=== PATIENT | male | born 1960 | race African-American/Black ===

== ENCOUNTER 2016-06-03 23:54 | Emergency (ER) | payer OTHER ==
--- NOTE | 2016-06-04 00:38 | ER Document Report ---
ED General <HENOK HAILE - Last Filed: 06/04/16 10:30> - General TRAVEL OUTSIDE OF THE [place] IN LAST 30 DAYS: No <ANNA KNIGHT - Last Filed: 06/05/16 06:22> - General Chief Complaint: Leg Swelling Stated Complaint: LEG SWELLING Notes: Patient is 56-year-old male presents with complaints of having some pain into his extremities. He says is more soreness. Saysactually his upper extremities and it hurts when he extends his arms it causes pain and raised over his neck. She's had this pain in the past. This is not a new pain for him. He saw the skilled nursing medical provider and they're concerned she is developing some edema in his lower extremities which has been occurring over last will days. Therefore send him to the ER for evaluation because of his previous history of PE. Patient is currently on Xarelto. He was admitted to the hospital back in March because of angioedema from lisinopril. He also developed delirium tremens. He is in the hospital for long period time and eventually developed pulmonary emboli. He was eventually discharged home on Xarelto. At that time is also noted that he had superficial venous thrombosis in his legs but no DVT. He denies any chest pain or difficulty breathing. He has no other complaints at this time. ( ANNA KNIGHT) - Related Data Allergies/Adverse Reactions: KELLIE Inhibitors Allergy (Severe, Verified 03/30/16 09:12) Anaphylaxis lisinopril Allergy (Verified 03/23/16 13:24) Past Medical History - Social History Smoking Status: Unknown if Ever Smoked Frequency of alcohol use: former alcoholic Drug Abuse: None Family History: Hypertension - Past Medical History Cardiac Medical History: Reports: Hx Hypertension Pulmonary Medical History: Reports: Hx Asthma Musculoskeltal Medical History: Reports Hx Arthritis, Reports Hx Musculoskeletal Deformity, Reports Hx Musculoskeletal Trauma Psychiatric Medical History: Denies: Hx Depression Traumatic Medical History: Reports: Hx Fractures - ankle - Immunizations Hx Diphtheria, Pertussis, Tetanus Vaccination: Yes <ANNA KNIGHT - Last Filed: 06/05/16 06:22> Review of Systems <HENOK HAILE - Last Filed: 06/04/16 10:30> <ANNA KNIGHT - Last Filed: 06/05/16 06:22> - Review of Systems Notes: My Normal Review Basic REVIEW OF SYSTEMS: CONSTITUTIONAL : Denies fever, chills, or sweats. Denies recent illness. EENT: Denies eye, ear, throat, or mouth pain or symptoms. Denies nasal or sinus congestion. CARDIOVASCULAR: Denies chest pain. RESPIRATORY: Denies cough, cold, or chest congestion. Denies shortness of breath, difficulty breathing, or wheezing. GASTROINTESTINAL: Denies abdominal pain. Denies nausea, vomiting, or diarrhea. Denies constipation. Last BM: MUSCULOSKELETAL: Lower extremity edema. Extremities soreness SKIN: Denies rash or skin lesions. NEUROLOGICAL: Denies altered mental status or loss of consciousness. Denies headache. Denies weakness or paralysis or loss of use of ALL OTHER SYSTEMS REVIEWED AND NEGATIVE. (ANNA KNIGHT) Physical Exam <HENOK HAILE - Last Filed: 06/04/16 10:30> <ANNA KNIGHT - Last Filed: 06/05/16 06:22> - Vital signs Vitals: Temp Pulse Resp BP Pulse Ox 97.9 F 61 16 158/80 H 100 06/04/16 00:10 06/04/16 00:10 06/04/16 00:10 06/04/16 00:10 06/04/16 00:10 (HENOK HAILE) - Notes Notes: General Appearance: Well nourished, alert, cooperative, no acute distress, no obvious discomfort. Well-appearing. Vitals: reviewed, See vital signs table. Head: no swelling or tenderness to the head Eyes: PERRL, EOMI, Conjuctiva clear Mouth: No decreasd moisture Neck: Supple, no neck tenderness, No thyromegaly Lungs: No wheezing, No rales, No rhonci, No accessory muscle use, good air exchange bilaterally. Heart: Normal rate, Regular rythm, No murmur, no rub Abdomen: Normal BS, soft, No rigidity, No abdominal tenderness, No guarding, no rebound, no abdominal masses, no organomegaly Extremities: strength 5/5 in all extremities, good pulses in all extremities, no swelling or tenderness in the extremities with exception of mild soreness mainly the left upper extremity when the patient abducts his shoulder and arm away from his body. His pain radiates up into his trapezius muscle., 1+ bilateral lower extremity edema. Skin: warm, dry, appropriate color, no rash Neuro: speech clear, oriented x 3, normal affect, responds appropriately to questions. (ANNA KNIGHT) Course - Laboratory Result Diagrams: 06/04/16 03:03 06/04/16 03:03 <HENOK HAILE - Last Filed: 06/04/16 10:30> - Laboratory Result Diagrams: 06/04/16 03:03 06/04/16 03:03 <ANNA KNIGHT - Last Filed: 06/05/16 06:22> - Re-evaluation Re-evalutation: 06/04/16 10:30 No signs of acute DVT. Patient will be discharged home (HENOK HAILE) - Vital Signs Vital signs: Temp Pulse Resp BP Pulse Ox 97.9 F 62 16 140/62 H 96 06/04/16 10:36 06/04/16 10:36 06/04/16 10:36 06/04/16 10:36 06/04/16 10:36 (HENKO HAILE) - Laboratory Laboratory results interpreted by me: 06/04/16 06/04/16 03:03 03:03 Hgb 11.6 L Hct 36.4 L MCV 73 L MCH 23.4 L MCHC 31.9 L Creatine Kinase 38 L (HENOK HAILE) - Transfer of Care Notes: 06/04/16 07:54 We are waiting please ultrasound of the patient's below lower extremities which is not associated DVT. I've given him Lasix to help with the edema. If the ultrasound is negative for patient safety discharged home. He's already on Eliquis for PE. He's had no chest pain or worsening shortness of breath. If the ultrasound is positive and the patient will need to be admitted due to worsening clotting despite being on any medications. I have checked the patient out the morning your physician, Dr. Haile. Dictation of this chart was performed using voice recognition software; therefore, there may be some unintended grammatical errors. 06/04/16 07:55 06/05/16 06:22 (ANNA KNIGHT) Discharge <HENOK HAILE - Last Filed: 06/04/16 10:30> <ANNA KNIGHT - Last Filed: 06/05/16 06:22> - Discharge Clinical Impression: Leg swelling Condition: Good Disposition: HOME, SELF-CARE Additional Instructions: Please start taking the Lasix as prescribed. Please return to the ER if you have worsening swelling, chest pain, difficulty breahting, or feel unwell. Please be reevaluated by the skilled nursing physician in 2 days to make sure your edema is improving with the Lasix. Prescriptions: Furosemide [Lasix] 40 mg PO DAILY #20 tablet
[2016-06-04 03:14] LABS: ABSOLUTE BASOPHILS # (AUTO) 0.1 10^3/uL (0.0-0.2); ABSOLUTE EOSINOPHILS # (AUTO) 0.1 10^3/uL (0.0-0.6); ABSOLUTE LYMPHOCYTES (AUTO) 2.7 10^3/uL (0.5-4.7); ABSOLUTE MONOCYTES (AUTO) 0.9 10^3/uL (0.1-1.4); EOSINOPHILS % (AUTO) 1.9 % (0-6); HEMATOCRIT 36.4 % (37.9-51.0); HEMOGLOBIN 11.6 g/dL (13.5-17.0); HGB HCT DIFFERENCE -1.6; LYMPHOCYTES % (AUTO) 34.8 % (13-45); MEAN CORPUSCULAR HEMOGLOBIN 23.4 pg (27.0-33.4); MEAN CORPUSCULAR HGB CONC 31.9 g/dL (32.0-36.0); MEAN CORPUSCULAR VOLUME 73 fl (80-97); MONOCYTES % (AUTO) 11.1 % (3-13); RED BLOOD COUNT 4.95 10^6/uL (4.35-5.55); RED CELL DISTRIBUTION WIDTH 13.4 % (11.5-14.0); SEGMENTED NEUTROPHILS % (AUTO) 51.2 % (42-78); WHITE BLOOD COUNT 7.7 10^3/uL (4.0-10.5)
[2016-06-04 03:27] LABS: ANION GAP 9 (5-19); BLOOD UREA NITROGEN 16 mg/dL (7-20); CALCIUM 9.5 mg/dL (8.4-10.2); CARBON DIOXIDE 25 mmol/L (22-30); CHLORIDE 107 mmol/L (98-107); CREATINE KINASE 38 U/L (55-170); CREATININE RESULT 0.98 mg/dL (0.52-1.25); GLUCOSE 78 mg/dL (75-110); POTASSIUM 4.2 mmol/L (3.6-5.0); SODIUM 141.3 mmol/L (137-145)
[2016-06-04] MEDS ORDERED: FUROSEMIDE 40 MG TABLET PO ONE (06:17)
[2016-06-04 10:37] VITALS: BP 140/62
== END 2016-06-04 11:15 | disposition home or self-care (01) ==
LOC: ER 23:54 → EEVIPCON 23:54 → ER 06-04 11:15
DX: I82.819 Embolism and thrombosis of superficial veins of unspecified lower extremity (principal); R60.0 Localized edema; M79.603 Pain in arm, unspecified; Z86.711 Personal history of pulmonary embolism; Z79.01 Long term (current) use of anticoagulants; Z87.892 Personal history of anaphylaxis; Z88.8 Allergy status to other drugs, medicaments and biological substances; I10 Essential (primary) hypertension; J45.909 Unspecified asthma, uncomplicated
CPT/HCPCS: 36415; 80048; 82550; 85025; 93970; 99284

== ENCOUNTER 2017-02-10 08:13 | Emergency (ER) | payer BC ==
--- NOTE | 2017-02-10 08:45 | ER Document Report ---
HPI - HPI Patient complains to provider of: congestion Onset: Other - 1.5 weeks Pain Level: 5 Context: 56-year-old male complaining of head congestion and cough for over a week and a half. He coughs severely in the morning and causes him to vomit. He has increased number of stools which are not watery. No chest pain or shortness of breath. I felt his pulse and listened to his heart and it felt like A. fib in the patient denies having atrial fibrillation. Ex-alcoholic he did drink this past weekend some while watching a football game. - REPRODUCTIVE Reproductive: DENIES: : - DERM Skin Color: Normal Past Medical History - General Information source: Patient - Social History Smoking Status: Current Every Day Smoker Frequency of alcohol use: Occasional Drug Abuse: None Lives with: Family Family History: Hypertension Patient has suicidal ideation: No Patient has homicidal ideation: No - Past Medical History Cardiac Medical History: Reports: Hx Hypertension Pulmonary Medical History: Reports: Hx Asthma Renal/ Medical History: Denies: Hx Peritoneal Dialysis Musculoskeltal Medical History: Reports Hx Arthritis, Reports Hx Musculoskeletal Deformity, Reports Hx Musculoskeletal Trauma Psychiatric Medical History: Denies: Hx Depression Traumatic Medical History: Reports: Hx Fractures - ankle Surgical Hx: Negative - Immunizations Hx Diphtheria, Pertussis, Tetanus Vaccination: Yes Vertical Provider Document - INFECTION CONTROL TRAVEL OUTSIDE OF THE [place] IN LAST 30 DAYS: No - RESPIRATORY O2 Sat by Pulse Oximetry: 100 Course - Re-evaluation Re-evalutation: 02/10/17 09:[address] callahan about the atrial fibrillation with a ventricular rate of 130s and he is okay with restarting the patient on metoprolol 100 mg twice daily and Xarelto starter pack. No labs needed today. 02/10/17 09:47 Patient has insurance so he will be able to get the medications prescribed 02/10/17 09:47 - Vital Signs Vital signs: Temp Pulse Resp BP Pulse Ox 97.5 F 85 18 133/96 H 100 02/10/17 08:23 02/10/17 08:23 02/10/17 08:23 02/10/17 08:23 02/10/17 08:23 Discharge - Discharge Clinical Impression: chronic atrial fibrillation-untreated Left lower lobe pneumonia Qualifiers: Pneumonia type: due to unspecified organism Qualified Code(s): J18.1 - Lobar pneumonia, unspecified organism Condition: Good Disposition: HOME, SELF-CARE Instructions: Atrial Fibrillation ([facility]), Beta Blockers ([facility]), Family Physicians / Practices, Inhaled Bronchodilators ([facility]), Levofloxacin, Pneumonia ( [facility]) Additional Instructions: see meteorologist liaison referred next week, dr hodges, call today for appointment also get a family practice doctor, list given to you take the medication, get it filled today, you were given your first dose in the ER antibiotic daily for the pneumonia stop smoking to er immediately for chest pain, shortness of breath, rapid heart beat, bleeding or bruising Please complete the patient satisfaction survey if you get one, and return it.. If you do not receive a survey, then you can go to the [facility] website, [email or web address] and place your comments about your very good care. Thank you very much. It was a pleasure being your medical provider today. Prescriptions: Albuterol Sulfate [Proair HFA Inhalation Aerosol 8.5 gm MDI] 2 puff IH Q3HP PRN #1 [email or web address] PRN Reason: Levofloxacin 750 mg PO DAILY #6 tablet Metoprolol Tartrate [Lopressor 100 mg Tablet] 100 mg PO BID #60 tablet Rivaroxaban [Xarelto] 20 mg PO QPM #29 tablet Rivaroxaban [Xarelto 15 mg Tablet] 15 mg PO BID #60 tablet Forms: Return to Work Referrals: EHSAN ROSE MD [ACTIVE STAFF] - Follow up in 3-5 days
[2017-02-10] MEDS ORDERED: ALBUTEROL SULFATE 0.083% NEB 2.5 MG/3 ML AMPUL NEB ONE (08:54)
--- NOTE | 2017-02-10 09:22 | RADIOLOGY REPORT (SQ) ---
EXAM DESCRIPTION: CHEST PA/LAT COMPLETED DATE/TIME: 02/10/2017 9:12 am REASON FOR STUDY: cough 1.5 weeks COMPARISON: 04/01/2016. EXAM PARAMETERS: NUMBER OF VIEWS: two views TECHNIQUE: Digital Frontal and Lateral radiographic views of the chest acquired. RADIATION DOSE: NA LIMITATIONS: none FINDINGS: LUNGS AND PLEURA: Density in the retrocardiac left breast with possible pleural effusion, best visualized on the lateral view. Mild interstitial prominence. MEDIASTINUM AND HILAR STRUCTURES: No masses or contour abnormalities. HEART AND VASCULAR STRUCTURES: Heart normal size. No evidence for failure. BONES: No acute findings. HARDWARE: None in the chest. OTHER: No other significant finding. IMPRESSION: LEFT BASILAR DENSITY WITH POSSIBLE PLEURAL EFFUSION. THIS MAY BE SECONDARY TO PNEUMONIA . TECHNICAL DOCUMENTATION: JOB ID: [id number] [employer]- All Rights Reserved
[2017-02-10] MEDS ORDERED: METOPROLOL TARTRATE 100 MG TABLET PO ONE (09:45)
[2017-02-10] MEDS ORDERED: RIVAROXABAN 10 MG TABLET PO ONE (09:49)
[2017-02-10] MEDS ORDERED: ALBUTEROL SULFATE HFA (90 MCG/PUFF) 8 GM MDI (1 MDI/ER DISP) IH PRN (10:13)
[2017-02-10] MEDS ORDERED: LEVOFLOXACIN 750 MG TABLET PO ONE (10:14)
--- NOTE | 2017-02-10 10:30 | EKG REPORT ---
SEVERITY:- ABNORMAL ECG - ATRIAL FIBRILLATION, V-RATE 85-192 BORDERLINE PROLONGED QT INTERVAL : Confirmed by: Ashley Orourke 10-Feb-2017 10:29:31
--- NOTE | 2017-02-10 10:30 | EKG REPORT ---
SEVERITY:- ABNORMAL ECG - ATRIAL FIBRILLATION, V-RATE 107-217 BORDERLINE PROLONGED QT INTERVAL : Confirmed by: Ashley Orourke 10-Feb-2017 10:29:38
[2017-02-10 10:34] VITALS: BP 122/94
== END 2017-02-10 10:34 | disposition home or self-care (01) ==
LOC: ER 08:13
DX: J18.1 Lobar pneumonia, unspecified organism (principal); I48.2 Chronic atrial fibrillation; R05 Cough; R19.4 Change in bowel habit; I10 Essential (primary) hypertension; J45.909 Unspecified asthma, uncomplicated; F17.200 Nicotine dependence, unspecified, uncomplicated
CPT/HCPCS: 93005; 94640; 99284; 71020; 93010; J3490

== ENCOUNTER 2017-03-06 06:51 | Emergency (ER) | payer BC ==
[2017-03-06 09:00] LABS: HEMATOCRIT 33.9 % (37.9-51.0); HEMOGLOBIN 10.5 g/dL (13.5-17.0); HGB HCT DIFFERENCE -2.4; MEAN CORPUSCULAR HEMOGLOBIN 23.5 pg (27.0-33.4); MEAN CORPUSCULAR HGB CONC 31.1 g/dL (32.0-36.0); MEAN CORPUSCULAR VOLUME 76 fl (80-97); RED BLOOD COUNT 4.47 10^6/uL (4.35-5.55); RED CELL DISTRIBUTION WIDTH 15.1 % (11.5-14.0); WHITE BLOOD COUNT 7.2 10^3/uL (4.0-10.5)
--- NOTE | 2017-03-06 09:04 | EKG REPORT ---
SEVERITY:- BORDERLINE ECG - SINUS RHYTHM SHORT MD INTERVAL, ACCELERATED AV CONDUCTION : Confirmed by: Ashley Orourke 06-Mar-2017 09:03:31
[2017-03-06 09:19] LABS: ALANINE AMINOTRANSFERASE 46 U/L (21-72); ALBUMIN 3.4 g/dL (3.5-5.0); ALKALINE PHOSPHATASE 101 U/L (38-126); ANION GAP 13 (5-19); ASPARTATE AMINO TRANSFERASE 43 U/L (17-59); BILIRUBIN,DIRECT 0.7 mg/dL (0.0-0.4); BILIRUBIN,TOTAL 1.1 mg/dL (0.2-1.3); BLOOD UREA NITROGEN 15 mg/dL (7-20); CALCIUM 9.1 mg/dL (8.4-10.2); CARBON DIOXIDE 20 mmol/L (22-30); CHLORIDE 108 mmol/L (98-107); CREATINE KINASE 80 U/L (55-170); CREATININE RESULT 1.05 mg/dL (0.52-1.25); GLUCOSE 72 mg/dL (75-110); POTASSIUM 4.4 mmol/L (3.6-5.0); SODIUM 140.9 mmol/L (137-145); TOTAL PROTEIN 6.3 g/dL (6.3-8.2)
[2017-03-06 09:23] LABS: BASOPHILS % (MANUAL) 0 % (0-2); EOSINOPHILS % (MANUAL) 2 % (0-6); LYMPHOCYTES % (MANUAL) 31 % (13-45); TOTAL CELLS COUNTED 100
[2017-03-06 09:25] LABS: ANISOCYTOSIS SLIGHT; BURR CELLS 1+; HYPOCHROMASIA 1+; MICROCYTOSIS 1+; POIKILOCYTOSIS 1+; TARGET CELLS 1+
--- NOTE | 2017-03-06 09:26 | RADIOLOGY REPORT (SQ) ---
EXAM DESCRIPTION: CHEST PA/LAT COMPLETED DATE/TIME: 03/06/2017 9:07 am REASON FOR STUDY: chf exacerbation COMPARISON: Two-view chest 02/10/2017 CT angio chest 04/01/2016 EXAM PARAMETERS: NUMBER OF VIEWS: two views TECHNIQUE: Digital Frontal and Lateral radiographic views of the chest acquired. RADIATION DOSE: NA LIMITATIONS: none FINDINGS: LUNGS AND PLEURA: Trace right pleural effusion. Minimal right retrocardiac airspace disease atelectasis versus pneumonia. On the left side, basilar airspace disease and pleural fluid seen on 02/10/2017 has resolved. No pneumothorax MEDIASTINUM AND HILAR STRUCTURES: No masses or contour abnormalities. HEART AND VASCULAR STRUCTURES: Mild cardiomegaly BONES: No acute findings. HARDWARE: None in the chest. OTHER: No other significant finding. IMPRESSION: Trace right pleural effusion with right basilar airspace disease worrisome for pneumonia . TECHNICAL DOCUMENTATION: JOB ID: [id number] [employer]- All Rights Reserved
[2017-03-06 09:31] LABS: CREATINE KINASE MB 1.98 ng/mL (<4.55); TROPONIN I 0.026 ng/mL
--- NOTE | 2017-03-06 09:52 | ER Document Report ---
ED General - General Chief Complaint: Swelling Stated Complaint: SWELLING Time Seen by Provider: 03/06/17 07:36 Mode of Arrival: Ambulatory Information source: Patient, Relative Notes: 56-year-old male history of diastolic congestive heart failure who is supposed to be on hydrochlorothiazide but who is noncompliant with medications presents with complaints of lower extremity edema. Patient notes he has had edema of lower extremities bilateral. he denies any chest pain, notes he has shortness of breath when he lays flat. Patient denies any fevers or chills. Symptoms have been worsening over the past few days TRAVEL OUTSIDE OF THE [place] IN LAST 30 DAYS: No - HPI Onset: Last week Onset/Duration: Persistent Quality of pain: No pain Severity: Mild Pain Level: Denies Associated symptoms: Nonproductive cough, Leg swelling, Shortness of breath Exacerbated by: Supine Relieved by: Denies Similar symptoms previously: Yes Recently seen / treated by doctor: Yes - Related Data Allergies/Adverse Reactions: KELLIE Inhibitors Allergy (Severe, Verified 02/10/17 08:23) Anaphylaxis lisinopril Allergy (Verified 02/10/17 08:23) Home Medications: Current Home Medications Levofloxacin 750 mg PO DAILY 03/06/17 [History] Metoprolol Tartrate 100 mg PO DAILY 03/06/17 [History] Rivaroxaban [Xarelto 15 mg Tablet] 15 mg PO DAILY 03/06/17 [History] Rivaroxaban [Xarelto] 20 mg PO DAILY 03/06/17 [History] Past Medical History - Social History Smoking Status: Never Smoker Cigarette use (# per day): No Chew tobacco use (# tins/day): No Smoking Education Provided: No Frequency of alcohol use: None Drug Abuse: None Family History: Hypertension Patient has suicidal ideation: No Patient has homicidal ideation: No - Past Medical History Cardiac Medical History: Reports: Hx Congestive Heart Failure, Hx Hypertension Pulmonary Medical History: Reports: Hx Asthma Renal/ Medical History: Denies: Hx Peritoneal Dialysis Musculoskeltal Medical History: Reports Hx Arthritis, Reports Hx Musculoskeletal Deformity, Reports Hx Musculoskeletal Trauma Psychiatric Medical History: Denies: Hx Depression Traumatic Medical History: Reports: Hx Fractures - ankle - Immunizations Hx Diphtheria, Pertussis, Tetanus Vaccination: Yes Review of Systems - Review of Systems Notes: REVIEW OF SYSTEMS: CONSTITUTIONAL : Denies fever, chills, or sweats. Denies recent illness. EENT: Denies eye, ear, throat, or mouth pain or symptoms. Denies nasal or sinus congestion or discharge. Denies throat, tongue, or mouth swelling or difficulty swallowing. CARDIOVASCULAR: Denies chest pain. Denies palpitations or racing or irregular heart beat. Denies ankle edema. RESPIRATORY: Admits cough shortness of breath when laying flat GASTROINTESTINAL: Denies abdominal pain or distention. Denies nausea, vomiting , or diarrhea. Denies blood in vomitus, stools, or per rectum. Denies black, tarry stools. Denies constipation. GENITOURINARY: Denies difficulty urinating, painful urination, burning, frequency, blood in urine, or discharge. MUSCULOSKELETAL: Admits to lower extremity edema SKIN: Denies rash, lesions or sores. HEMATOLOGIC : Denies easy bruising or bleeding. LYMPHATIC: Denies swollen, enlarged glands. NEUROLOGICAL: Denies confusion or altered mental status. Denies passing out or loss of consciousness. Denies dizziness or lightheadedness. Denies headache. Denies weakness or paralysis or loss of use of either side. Denies problems with gait or speech. Denies sensory loss, numbness, or tingling. Denies seizures. PSYCHIATRIC: Denies anxiety or stress. Denies depression, suicidal ideation, or homicidal ideation. ALL OTHER SYSTEMS REVIEWED AND NEGATIVE. Dictation was performed using [employer] voice recognition software PHYSICAL EXAMINATION: GENERAL: Well-appearing, well-nourished and in no acute distress. HEAD: Atraumatic, normocephalic. EYES: Pupils equal round and reactive to light, extraocular movements intact, sclera anicteric, conjunctiva are normal. ENT: Nares patent, oropharynx clear without exudates. Moist mucous membranes. NECK: Normal range of motion, supple without lymphadenopathy LUNGS: Breath sounds clear to auscultation bilaterally and equal. No wheezes rales or rhonchi. HEART: Regular rate and rhythm without murmurs ABDOMEN: Soft, nontender, nondistended abdomen. No guarding, no rebound. No masses appreciated. Musculoskeletal: 2+ edema bilateral lower extremities NEUROLOGICAL: Cranial nerves grossly intact. Normal speech, normal gait. Normal sensory, motor exams PSYCH: Normal mood, normal affect. SKIN: Warm, Dry, normal turgor, no rashes or lesions noted. Physical Exam - Vital signs Vitals: Temp Pulse Resp BP Pulse Ox 97.7 F 110 H 17 142/90 H 100 03/06/17 07:00 03/06/17 07:00 03/06/17 07:00 03/06/17 07:00 03/06/17 07:00 Course - Re-evaluation Re-evalutation: 03/06/17 14:44 Patient's presentation is consistent with congestive heart failure, I have increased his hydrochlorothiazide to 50 mg, otherwise his vital signs are stable he is satting well is in no distress was able to ambulate with no difficulty. Patient has been told to return immediately if symptoms worsen or he begins having shortness of breath with exertion After performing a Medical Screening Examination, I estimate there is LOW risk for ACUTE CORONARY SYNDROME, PULMONARY EMBOLI, RESPIRATORY FAILURE, SEPSIS OR MENINGITIS, thus I consider the discharge disposition reasonable. I have reevaluated this patient multiple times and no significant life threatening changes are noted. The patient and I have discussed the diagnosis and risks, and we agree with discharging home with close follow-up. We also discussed returning to the Emergency Department immediately if new or worsening symptoms occur. We have discussed the symptoms which are most concerning (e.g., changing or worsening pain, trouble swallowing or breathing, neck stiffness, fever) that necessitate immediate return. - Vital Signs Vital signs: Temp Pulse Resp BP Pulse Ox 97.7 F 110 H 22 H 122/87 H 99 03/06/17 07:00 03/06/17 07:00 03/06/17 09:37 03/06/17 09:37 03/06/17 09:37 - Laboratory Result Diagrams: 03/06/17 08:35 03/06/17 08:35 Laboratory results interpreted by me: 03/06/17 03/06/17 03/06/17 08:35 08:35 08:35 Hgb 10.5 L Hct 33.9 L MCV 76 L MCH 23.5 L MCHC 31.1 L RDW 15.1 H Chloride 108 H Carbon Dioxide 20 L Glucose 72 L Direct Bilirubin 0.7 H NT-Pro-B Natriuret Pep 2360 H Albumin 3.4 L - Diagnostic Test Radiology reviewed: Image reviewed, Reports reviewed - EKG Interpretation by Me EKG shows normal: Sinus rhythm, [place], Intervals, QRS Complexes Discharge - Discharge Clinical Impression: Bilateral lower extremity edema Diastolic CHF Qualifiers: Congestive heart failure chronicity: acute on chronic Qualified Code(s): I50.33 - Acute on chronic diastolic (congestive) heart failure Condition: Stable Disposition: HOME, SELF-CARE Instructions: Congestive Heart Failure ([facility]) Prescriptions: Hydrochlorothiazide 50 mg PO DAILY #14 tablet Referrals: PIERRE MONACO MD [ACTIVE STAFF] - 03/07/17
[2017-03-06 09:59] VITALS: BP 122/87
== END 2017-03-06 10:04 | disposition home or self-care (01) ==
LOC: ER 06:51
DX: I11.0 Hypertensive heart disease with heart failure (principal); I50.33 Acute on chronic diastolic (congestive) heart failure; T50.2X6A Underdosing of carbonic-anhydrase inhibitors, benzothiadiazides and other diuretics, initial encounter; Z91.14 Patient's other noncompliance with medication regimen; R60.0 Localized edema; J45.909 Unspecified asthma, uncomplicated; R06.02 Shortness of breath; R05 Cough; Z88.1 Allergy status to other antibiotic agents; Z87.892 Personal history of anaphylaxis; Z88.8 Allergy status to other drugs, medicaments and biological substances
CPT/HCPCS: 36415; 71020; 80053; 82550; 82553; 83880; 84484; 85025; 93005; 93010; 99285

== ENCOUNTER 2017-04-13 16:25 | Inpatient (IN) | payer BC ==
[2017-04-13] MEDS ORDERED: DILTIAZEM HCL INJ 25 MG/5 ML VIAL IV ONE ×2 (16:33→18:33)
[2017-04-13] MEDS ORDERED: ASPIRIN 325 MG TABLET PO ONE (16:33)
--- NOTE | 2017-04-13 16:47 | ER Document Report ---
ED General - General Stated Complaint: DIFFICULTY BREATHING Time Seen by Provider: 04/13/17 16:32 Notes: This is a 56-year-old male brought in from an urgent care with tachycardia and shortness of breath. He has a history of "something with my heart" and was at the urgent care to get a refill on his "water pill" because he has been having edema from his belly down to his legs for 3 weeks, severe and worsening associated now with dyspnea on exertion and orthopnea. He was noted to be tachycardic to 150 in the office with a low normal saturation. He has no chest pain right now. TRAVEL OUTSIDE OF THE [place] IN LAST 30 DAYS: No - Related Data Allergies/Adverse Reactions: KELLIE Inhibitors Allergy (Severe, Verified 02/10/17 08:23) Anaphylaxis lisinopril Allergy (Verified 02/10/17 08:23) Home Medications: Current Home Medications Albuterol Sulfate [Proair HFA Inhalation Aerosol 8.5 gm MDI] 2 puff IH Q4HP PRN 04/13/17 [History] Rivaroxaban [Xarelto] 20 mg PO QPM 04/13/17 [History] Past Medical History - Social History Smoking Status: Never Smoker Family History: Hypertension - Past Medical History Cardiac Medical History: Reports: Hx Congestive Heart Failure, Hx Hypertension Pulmonary Medical History: Reports: Hx Asthma Renal/ Medical History: Denies: Hx Peritoneal Dialysis Musculoskeltal Medical History: Reports Hx Arthritis, Reports Hx Musculoskeletal Deformity, Reports Hx Musculoskeletal Trauma Psychiatric Medical History: Denies: Hx Depression Traumatic Medical History: Reports: Hx Fractures - ankle - Immunizations Hx Diphtheria, Pertussis, Tetanus Vaccination: Yes Review of Systems - Review of Systems Notes: REVIEW OF SYSTEMS GEN: Denies fever, chills, weight loss ENT: Denies sore throat, nasal discharge, ear pain EYES: Denies blurry vision, eye pain, discharge CV: No chest pain or palpitations positive edema RESP: Shortness of breath GI: Denies abdominal pain, nausea, vomiting, diarrhea MSK: Denies joint pain/swelling, edema, SKIN: Denies rash, skin lesions LYMPH: Denies swollen glands/lymph nodes NEURO: Denies headache, focal weakness or numbness, dizziness PSYCH: Denies depression, suicidal or homicidal ideation PHYSICAL EXAMINATION General: No acute distress, well-nourished Head: Atraumatic, normocephalic ENT: Mouth normal, oropharynx moist, no exudates or tonsillar enlargement Eyes: Conjunctiva normal, pupils equal, lids normal Neck: No JVD, supple, no guarding CVS: Regular tachycardia no murmurs Resp: No resp distress, equal a sounds with diminished at the bases bilaterally GI: Nondistended, soft, no tenderness to palpation, no rebound or guarding Ext: Appearing edema from the buttocks down to the toes Back: No CVA or midline TTP Skin: No rash, warm Lymphatic: No lymphadeopathy noted Neuro: Awake, alert. Face symmetric. GCS 15. Course - Re-evaluation Re-evalutation: 04/13/17 16:46 86-year-old male presents with nearanasarca in the setting of probable heart failure, he is in atrial flutter but is currently stable with no chest pain. His respiratory distress is likely from pulmonary edema although he is not requiring oxygen at this time. That said, he is in a potentially stable arrhythmia. We will get lab evaluation getting BNP and troponin, get a chest x-ray, start with some Cardizem to see if we can rate control. I do not know how long he has been in the rhythm. Do not feel rhythm control is ideal at this time. 04/13/17 18:07 Patient reassessed heart rate still 150 but he feels comfortable. Troponin is negative. Given aspirin. Heart rate still 150 will attempt more Cardizem. Spoke with Dr. combs who agrees. I will give a Lovenox bolus in case he rhythm converts. Discussed with Dr. vallement will admit. - Laboratory Result Diagrams: 04/13/17 17:00 04/13/17 17:00 Laboratory results interpreted by me: 04/13/17 04/13/17 04/13/17 17:00 17:00 17:00 Hgb 9.1 L Hct 29.9 L MCV 65 L MCH 19.8 L MCHC 30.3 L RDW 20.1 H Band Neutrophils % 1 L Metamyelocytes % 1 H Myelocytes % 2 H BUN 21 H NT-Pro-B Natriuret Pep 2930 H Critical Care Note - Critical Care Note Total time excluding time spent on procedures (mins): 35 Comments: The above patient is critically ill. Not including procedures, but including direct re-evaluations, speaking with patient and/or consultants, interpreting results, and documenting, I spent the total amount of minute listed listed above on critical care time Discharge - Discharge Clinical Impression: Atrial flutter with rapid ventricular response Congestive heart failure (CHF) Qualifiers: Congestive heart failure type: combined Congestive heart failure chronicity: acute on chronic Qualified Code(s): I50.43 - Acute on chronic combined systolic (congestive) and diastolic (congestive) heart failure Condition: Fair Disposition: ADMITTED INPATIENT Admitting Provider: Hospitalist Unit Admitted: [facility]
[2017-04-13 17:27] LABS: HEMATOCRIT 29.9 % (37.9-51.0); HEMOGLOBIN 9.1 g/dL (13.5-17.0); MEAN CORPUSCULAR HEMOGLOBIN 19.8 pg (27.0-33.4); MEAN CORPUSCULAR HGB CONC 30.3 g/dL (32.0-36.0); MEAN CORPUSCULAR VOLUME 65 fl (80-97); PLATELET COUNT 330 10^3/uL (150-450); RED BLOOD COUNT 4.58 10^6/uL (4.35-5.55); RED CELL DISTRIBUTION WIDTH 20.1 % (11.5-14.0); WHITE BLOOD COUNT 7.4 10^3/uL (4.0-10.5)
--- NOTE | 2017-04-13 17:35 | RADIOLOGY REPORT (SQ) ---
EXAM DESCRIPTION: CHEST SINGLE VIEW COMPLETED DATE/TIME: 04/13/2017 5:25 pm REASON FOR STUDY: sob COMPARISON: 03/06/2017 EXAM PARAMETERS: NUMBER OF VIEWS: One view. TECHNIQUE: Single frontal radiographic view of the chest acquired. RADIATION DOSE: NA LIMITATIONS: None. FINDINGS: LUNGS AND PLEURA: No opacities, masses or pneumothorax. No pleural effusion. MEDIASTINUM AND HILAR STRUCTURES: No masses. Contour normal. HEART AND VASCULAR STRUCTURES: Cardiac silhouette remains enlarged and is unchanged in configuration. BONES: No acute findings. HARDWARE: None in the chest. OTHER: No other significant finding. IMPRESSION: No significant interval change. Cardiomegaly. No acute consolidations are identified. Other findings as noted above TECHNICAL DOCUMENTATION: JOB ID: [id number] [employer]- All Rights Reserved
[2017-04-13 17:40] LABS: ANION GAP 9 (5-19); BLOOD UREA NITROGEN 21 mg/dL (7-20); CALCIUM 9.1 mg/dL (8.4-10.2); CARBON DIOXIDE 26 mmol/L (22-30); CHLORIDE 103 mmol/L (98-107); GLUCOSE 82 mg/dL (75-110); POTASSIUM 4.1 mmol/L (3.6-5.0); SODIUM 137.9 mmol/L (137-145)
[2017-04-13 17:52] LABS: TROPONIN I 0.016 ng/mL
[2017-04-13 17:56] LABS: ABSOLUTE LYMPHOCYTES# (MANUAL) 1.6 10^3/uL (0.5-4.7); ABSOLUTE MONOCYTES # (MANUAL) 0.7 10^3/uL (0.1-1.4); ABSOLUTE NEUTROPHILS# (MANUAL) 5.1 10^3/uL (1.7-8.2); BAND NEUTROPHILS % (MANUAL) 1 % (3-5); BASOPHILS % (MANUAL) 0 % (0-2); EOSINOPHILS % (MANUAL) 0 % (0-6); LYMPHOCYTES % (MANUAL) 21 % (13-45); METAMYELOCYTES % (MANUAL) 1 % (0); MONOCYTES % (MANUAL) 9 % (3-13); MYELOCYTES % (MANUAL) 2 % (0); SEGMENTED NEUTROPHILS % (MAN) 65 % (42-78); TOTAL CELLS COUNTED 100
[2017-04-13 17:57] LABS: ANISOCYTOSIS 2+; BURR CELLS 1+; OVALOCYTES SLIGHT; POIKILOCYTOSIS 3+; POLYCHROMASIA 1+
[2017-04-13 17:58] LABS: PLATELET COMMENT ADEQUATE; PLATELET LARGE PRESENT; SCHISTOCYTES 2+; TEAR DROP CELLS SLIGHT; TOXIC GRANULATION 1+; TOXIC VACUOLATION PRESENT
[2017-04-13 17:59] LABS: HYPERSEGMENTED NEUTROPHILS PRESENT
[2017-04-13 18:03] LABS: NUCLEATED RED BLOOD CELLS 8 /100 WBC (0); TARGET CELLS 3+
[2017-04-13] MEDS ORDERED: ENOXAPARIN SODIUM INJ 80 MG/0.8 ML DISP.SYRIN SUBCUT ONE (18:08)
[2017-04-13] MEDS ORDERED: ONDANSETRON HCL INJ/PF 4 MG/2 ML SDV IV PRN (18:20)
[2017-04-13] MEDS: DILTIAZEM HCL/D5W 125 MG/125 ML RTUINJ IV PRN ×2 (18:27→18:48)
[2017-04-13] MEDS ORDERED: METOPROLOL TARTRATE PF/INJ 5 MG/5 ML SDV IV PRN ×2 (18:56→22:51)
--- NOTE | 2017-04-13 19:38 | PDOC CONSULTATION ---
Consultation Consult Date: 04/13/17 Attending physician:: DANIEL SWEENEY Consult reason:: CHF and atrial flutter History of Present Illness Admission Date/PCP: 04/13/17 18:19 Patient complains of: Shortness of breath and pedal edema History of Present Illness: This is a 56-year-old male brought in from an urgent care with tachycardia and shortness of breath. He has a history of "something with my heart" and was at the urgent care to get a refill on his "water pill" because he has been having edema from his belly down to his legs for 3 weeks, severe and worsening associated now with dyspnea on exertion and orthopnea. He was noted to be tachycardic to 150 in the office with a low normal saturation. He has no chest pain right now. This history was reviewed and supplemented. Patient denied any fever or chills. At noted above patient denied any chest pain. He does admits to drinking alcohol. Patient claims that he is not kept his appointment because of lack of insurance. Past Medical History Cardiac Medical History: Reports: Congestive Heart Failure, Hypertension, Pulmonary Embolism Pulmonary Medical History: Reports: Asthma Musculoskeltal Medical History: Reports: Arthritis Psychiatric Medical History: Denies: Depression Social History Information Source: Patient Smoking Status: Never Smoker Frequency of Alcohol Use: Heavy Hx Recreational Drug Use: Yes Drugs: Other - Unknown Hx Prescription Drug Abuse: No - Advance Directive Resuscitation Status: Full Code Surrogate healthcare decision maker:: Patient's neighbor is the surrogate decision-maker. Family History Family History: Hypertension Parental Family History Reviewed: Yes Children Family History Reviewed: Yes Sibling(s) Family History Reviewed.: Yes Medication/Allergy Home Medications: Albuterol Sulfate [Proair HFA Inhalation Aerosol 8.5 gm MDI] 2 puff IH Q4HP PRN 04/13/17 Rivaroxaban [Xarelto] 20 mg PO QPM 04/13/17 Allergies/Adverse Reactions: KELLIE Inhibitors Allergy (Severe, Verified 02/10/17 08:23) Anaphylaxis lisinopril Allergy (Verified 02/10/17 08:23) Review of Systems Review of Systems: Please see history of present illness and past medical history as wall. Constitutional: No fever or chills reported. Head : No recent chronic headaches, recent head injury. Eyes: No recent eye pain, diplopia, redness, discharge, acute visual changes. Ears: No recent chronic ear pain, acute hearing loss, ear discharge. Oral cavity: No recent ulcerations, bleeding, oral cavity discomfort. Neck: No recent acute neck pain reported. Hematologic: No recent easy bruising or bleeding or hematologic malignancy reported. Lymphatic: No recent lymphatic malignancy, chronic lymphadenopathy reported yet Cardiovascular system review: See history of present illness. Respiratory system review: No recent chronic cough, hemoptysis, blood clots in the lungs reported. Mild Shortness of breath on exertion. Have noted increasing pedal edema Gastrointestinal system review: Negative for any recent acute or chronic abdominal pain, hematemesis, melena, recent change in bowel habits. Genitourinary system review: No recent acute or chronic hematuria, flank pain, UTI etc. reported. Skin system review: Negative for any recent abnormal bruising, no rash, no pruritus reported. Neurologic: No prior history of strokes, mini strokes, seizure disorder. Psychologic: No history of major psychosis or major depression reported. Musculoskeletal: Minor aches and pains reported. No acute joint swelling reported. Endocrine: No recent polyuria, polydipsia, recent heat or cold intolerance. Physical Exam Vital Signs: Intake & Output 04/12/17 04/13/17 04/14/17 06:59 06:59 06:59 Weight 81.647 kg Exam: GENERAL: well-nourished and in no acute distress. Alert and oriented x3 HEAD: Atraumatic, normocephalic. EYES: Pupils equal round and reactive to light, extraocular movements intact, sclera anicteric, conjunctiva are normal. ENT: TMs normal, nares patent, oropharynx clear without exudates. Moist mucous membranes. No oral ulcerations or bleeding gums noted NECK: supple without lymphadenopathy. Trachea is central. No cervical or axillary lymphadenopathy noted. Carotids are 2+, JVD distended at about 14 cm LUNGS: Respiration seems nonlabored, no significant accessory muscle action noted. Breath sounds clear to auscultation bilaterally and equal noted. No wheezes rales or rhonchi noted. No significant dullness noted on percussion. CHEST: Palpation of the chest wall shows no significant chest wall tenderness. No other significant abnormalities noted. 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 ABDOMEN: Soft, no significant tenderness appreciated, normoactive bowel sounds. No guarding, no rebound. No rigidity noted . No masses appreciated. EXTREMITIES: Pedal pulses are 1-2+, no calf tenderness noted. No clubbing or cyanosis. 3 + pedal edema noted NEUROLOGICAL: Focused neurological exam showed no significant neurologic deficit. Normal speech, no focal weakness appreciated. PSYCH: Normal mood, normal affect. Judgment and insight within normal limits. SKIN: Mild chronic dermatitis changes also noted in both lower legs. MUSCULOSKELETAL EXAM: No significant joint swelling noted. Results EKG Comments: Atrial flutter with 2-1 conduction Impressions: Chest X-Ray 04/13/17 16:32 IMPRESSION: No significant interval change. Cardiomegaly. No acute consolidations are identified. Other findings as noted above Assessment & Plan - Diagnosis (1) Atrial flutter with rapid ventricular response Is this a current diagnosis for this admission?: Yes (2) Congestive heart failure (CHF) Qualifiers: Congestive heart failure type: unspecified congestive heart failure type Congestive heart failure chronicity: acute on chronic Qualified Code(s): I50.9 - Heart failure, unspecified Is this a current diagnosis for this admission?: Yes (3) Chronic alcoholism Is this a current diagnosis for this admission?: Yes (4) Hypertension Qualifiers: Hypertension type: essential hypertension Qualified Code(s): I10 - Essential (primary) hypertension Is this a current diagnosis for this admission?: Yes (5) History of pulmonary embolism Is this a current diagnosis for this admission?: No - Notes Notes: Atrial flutter fibrillation: Could be related to alcohol induced cardiomyopathy , alcohol-related holiday heart syndrome. At this point recommend rate control. Continue chronic anticoagulation which she was already on for history of pulmonary embolism. Have written orders to that effect. CHF: Most likely acute on chronic precipitated by atrial flutter which may be going on for last several days a week. Agree with IV Lasix. Will start patient on spironolactone. Chronic alcoholism: Observe for withdrawal. Patient advised to abstain. Hypertension: Blood pressure reasonably well-controlled. History of pulmonary embolism: Continue with chronic anticoagulation for the time being. - Time Time Spent: 30 to 50 Minutes - CODE STATUS was discussed, patient remains full code. Surrogate decision-maker patient's neighbor. Multiple medical problems were addressed. More than 50% of the time spent coordinating care, discussing management plans with involved caregivers. Management plans discussed with involved personnels. Medical decision making was of moderate to high complexity , patient's has multiple comorbidities. Medications reviewed and adjusted accordingly: Yes
[2017-04-13] MEDS ORDERED: BISACODYL 5 MG TABEC PO ONE (19:45)
[2017-04-13] MEDS ORDERED: DIGOXIN INJ 0.5 MG/2 ML AMPULE IV ONE ×2 (20:00→23:00)
[2017-04-13] MEDS ORDERED: SORBITOL 70% SOLUTION 30 ML UDC PO ONE (20:30)
[2017-04-13] MEDS ORDERED: NICOTINE 21 MG/24 HR PATCH.TD24 TD ONE (21:00)
[2017-04-13] MEDS ORDERED: DIGOXIN INJ 0.5 MG/2 ML AMPULE ONE (22:41)
[2017-04-13] MEDS: RIVAROXABAN 10 MG TABLET PO SCH (22:59)
[2017-04-13] MEDS: DRONEDARONE HYDROCHLORIDE 400 MG TABLET PO SCH (22:59)
[2017-04-13] MEDS ORDERED: DRONEDARONE HYDROCHLORIDE 400 MG TABLET PO ONE (23:00)
[2017-04-13] MEDS: DIAZEPAM 2 MG TABLET PO SCH (23:39)
[2017-04-14] MEDS: ACETAMINOPHEN 325 MG TABLET PO PRN (01:53)
[2017-04-14] MEDS: DILTIAZEM HCL/D5W 125 MG/125 ML RTUINJ IV PRN (04:47)
[2017-04-14] MEDS ORDERED: DIGOXIN INJ 0.5 MG/2 ML AMPULE IV SCH (05:00)
[2017-04-14] MEDS ORDERED: DIGOXIN INJ 0.5 MG/2 ML AMPULE IV ONE (05:00)
[2017-04-14 05:51] LABS: HEMATOCRIT 28.3 % (37.9-51.0); HEMOGLOBIN 8.7 g/dL (13.5-17.0); MEAN CORPUSCULAR HGB CONC 30.8 g/dL (32.0-36.0); MEAN CORPUSCULAR VOLUME 65 fl (80-97); PLATELET COUNT 324 10^3/uL (150-450); RED BLOOD COUNT 4.36 10^6/uL (4.35-5.55); RED CELL DISTRIBUTION WIDTH 19.7 % (11.5-14.0); WHITE BLOOD COUNT 7.3 10^3/uL (4.0-10.5)
[2017-04-14 06:02] LABS: CHOLESTEROL 70.29 mg/dL (0-200); IRON(TIBC) 12.9 ug/dL (49-181); MAGNESIUM 1.7 mg/dL (1.6-2.3); TRIGLYCERIDES 35 mg/dL (<150)
[2017-04-14 06:21] LABS: FREE T3 3.72 pg/mL (2.77-5.27); FREE T4 (FREE THYROXINE) 1.86 ng/dL (0.78-2.19)
[2017-04-14 06:23] LABS: ABSOLUTE LYMPHOCYTES# (MANUAL) 1.7 10^3/uL (0.5-4.7); ABSOLUTE NEUTROPHILS# (MANUAL) 4.6 10^3/uL (1.7-8.2); BASOPHILS % (MANUAL) 0 % (0-2); EOSINOPHILS % (MANUAL) 0 % (0-6); LYMPHOCYTES % (MANUAL) 21 % (13-45); MONOCYTES % (MANUAL) 14 % (3-13); NUCLEATED RED BLOOD CELLS 4 /100 WBC (0); SEGMENTED NEUTROPHILS % (MAN) 63 % (42-78); TOTAL CELLS COUNTED 100
[2017-04-14] MEDS: LANSOPRAZOLE 30 MG TAB.RAP.DR PO SCH (06:24)
[2017-04-14] MEDS: DIAZEPAM 2 MG TABLET PO SCH ×4 (06:24→23:23)
[2017-04-14 06:31] LABS: ANISOCYTOSIS 2+; HYPOCHROMASIA 2+; OVALOCYTES SLIGHT; PLATELET COMMENT ADEQUATE; PLATELET LARGE PRESENT; POIKILOCYTOSIS 2+; POLYCHROMASIA SLIGHT; SCHISTOCYTES SLIGHT; TARGET CELLS 2+; TEAR DROP CELLS SLIGHT
[2017-04-14 06:35] LABS: THYROID STIMULATING HORMONE 6.09 uIU/mL (0.47-4.68)
[2017-04-14 06:49] LABS: DIRECT LDL < 30 mg/dL (<100)
[2017-04-14] MEDS ORDERED: FUROSEMIDE INJ/PF 40 MG/4 ML SDV IV SCH (10:00)
[2017-04-14] MEDS ORDERED: METOLAZONE 2.5 MG TABLET PO SCH ×2 (10:00→12:22)
[2017-04-14] MEDS ORDERED: METOPROLOL SUCCINATE 25 MG TAB.SR.24H PO SCH (10:00)
[2017-04-14] MEDS ORDERED: DRONEDARONE HYDROCHLORIDE 400 MG TABLET PO SCH (10:00)
[2017-04-14] MEDS ORDERED: DIGOXIN 0.25 MG TABLET PO ONE (10:30)
[2017-04-14] MEDS: ASPIRIN 81 MG TABLET, ENT COATED PO SCH (10:46)
[2017-04-14] MEDS: DRONEDARONE HYDROCHLORIDE 400 MG TABLET PO SCH ×2 (10:47→22:32)
[2017-04-14] MEDS: METOPROLOL SUCCINATE 25 MG TAB.SR.24H PO SCH ×2 (10:47→22:33)
[2017-04-14] MEDS: SPIRONOLACTONE 25 MG TABLET PO SCH (10:48)
[2017-04-14] MEDS: NICOTINE 21 MG/24 HR PATCH.TD24 TD SCH (10:48)
[2017-04-14] MEDS: FUROSEMIDE INJ/PF 40 MG/4 ML SDV IV SCH ×2 (10:49→17:26)
--- NOTE | 2017-04-14 11:19 | PDOC PROGRESS REPORT ---
Subjective Progress Note for:: 04/14/17 Subjective:: Patient seems to be doing better with gradual improvement. Pt is denying any chest arm or neck discomfort. Patient denying any PND, orthopnea. Patient denied any sustained palpitations, dizziness, syncope, near syncope. Patient denying any fever chills. Patient denying any other significant discomfort. Patient is maintaining atrial flutter, however flutter waves are finer with 4-1 conduction predominantly. Review of systems: Rest review of systems negative. Medications: Medications have been reviewed. Reason For Visit: HEART FAILURE,A FLUTTER RVR Physical Exam Vital Signs: Temp Pulse Resp BP Pulse Ox 97.6 F 75 18 117/70 100 04/14/17 07:52 04/14/17 08:56 04/14/17 07:52 04/14/17 08:56 04/14/17 07:52 Intake & Output 04/13/17 04/14/17 04/15/17 06:59 06:59 06:59 Intake Total 631 Balance 631 Weight 80.2 kg Exam: GENERAL: well-nourished and in no acute distress. Alert and oriented x3 HEAD: Atraumatic, normocephalic. EYES: Pupils equal round and reactive to light, extraocular movements intact, sclera anicteric, conjunctiva are normal. ENT: TMs normal, nares patent, oropharynx clear without exudates. Moist mucous membranes. No oral ulcerations or bleeding gums noted NECK: supple without lymphadenopathy. Trachea is central. No cervical or axillary lymphadenopathy noted. Carotids are 2+, JVD WNL LUNGS: Respiration seems nonlabored, no significant accessory muscle action noted. Bibasilar fine crackles noted. No wheezes rales or rhonchi noted. No significant dullness noted on percussion. CHEST: Palpation of the chest wall shows no significant chest wall tenderness. No other significant abnormalities noted. 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 ABDOMEN: Soft, no significant tenderness appreciated, normoactive bowel sounds. No guarding, no rebound. No rigidity noted . Hepatomegaly appreciated. EXTREMITIES: Pedal pulses are 1-2+, no calf tenderness noted. No clubbing or cyanosis. 2 + pedal edema noted NEUROLOGICAL: Focused neurological exam showed no significant neurologic deficit. Normal speech, no focal weakness appreciated. PSYCH: Normal mood, normal affect. Judgment and insight within normal limits. SKIN: No significant ecchymosis, rash, ulcerations or signs of pruritus noted. MUSCULOSKELETAL EXAM: No significant joint swelling noted. Results Laboratory Results: 04/14/17 05:07 04/14/17 04/14/17 04/14/17 05:07 05:07 05:07 WBC 7.3 RBC 4.36 Hgb 8.7 L Hct 28.3 L MCV 65 L MCH 20.0 L MCHC 30.8 L RDW 19.7 H Plt Count 324 Seg Neutrophils % Not Reportable Lymphocytes % Not Reportable Monocytes % Not Reportable Eosinophils % Not Reportable Basophils % Not Reportable Absolute Neutrophils Not Reportable Absolute Lymphocytes Not Reportable Absolute Monocytes Not Reportable Absolute Eosinophils Not Reportable Absolute Basophils Not Reportable Magnesium 1.7 Iron 12.9 L TIBC 406 % Saturation 3 Ferritin 21.00 Triglycerides 35 Cholesterol 70.29 LDL Cholesterol Direct < 30 VLDL Cholesterol 7.0 L HDL Cholesterol 39 L Vitamin B12 > 1000.0 H Folate 6.30 TSH 6.09 H Free T4 1.86 Free T3 pg/mL 3.72 04/13/17 04/14/17 23:05 05:07 Troponin I 0.019 0.024 Impressions: Chest X-Ray 04/13/17 16:32 IMPRESSION: No significant interval change. Cardiomegaly. No acute consolidations are identified. Other findings as noted above Assessment & Plan - Diagnosis (1) Atrial flutter with rapid ventricular response Is this a current diagnosis for this admission?: Yes (2) Congestive heart failure (CHF) Qualifiers: Congestive heart failure type: unspecified congestive heart failure type Congestive heart failure chronicity: acute on chronic Qualified Code(s): I50.9 - Heart failure, unspecified Is this a current diagnosis for this admission?: Yes (3) Chronic alcoholism Is this a current diagnosis for this admission?: Yes (4) Hypertension Qualifiers: Hypertension type: essential hypertension Qualified Code(s): I10 - Essential (primary) hypertension Is this a current diagnosis for this admission?: Yes (5) History of pulmonary embolism Is this a current diagnosis for this admission?: No - Notes Notes: Atrial flutter with rapid ventricular response: Heart rate now well controlled. Patient currently on Lovenox. His hemoglobin is low and has dropped to some extent. May consider GI workup. For heart rate controlled currently on Cardizem drip but today I have added beta-hasmukh and digoxin. P.o. dose of metoprolol succinate at 25 p.o. twice daily started. This can be increased as tolerated. Congestive heart failure: Possibly precipitated by atrial flutter with rapid ventricular response. 2D echocardiogram ordered. Results are pending. Patient claims symptomatically improved. Chronic alcoholism: Continue to monitor for withdrawal. Hypertension: Blood pressure is stable. History of pulmonary embolism: Continue with chronic anticoagulation. May consider hematology evaluation to look for any predisposing clotting disorders. - Time Time with patient: Greater than 35 minutes - Multiple orders written. Discussed alcohol cessation with the patient. More than 50% of the time spent coordinating care, discussing management plans with involved caregivers. Management plans discussed with involved personnels. Medical decision making was of moderate to high complexity, patient's has multiple comorbidities. Medications reviewed and adjusted accordingly: Yes
[2017-04-14 11:55] LABS: PATH REVIEW PATHOLOGIST REVIEWED
--- NOTE | 2017-04-14 12:37 | XCELERA REPORT ---
[address] [address] Transthoracic Echocardiogram Report Name: EUGENE ARAGON V Age: 56 yrs Gender: Male : 1960 Patient Status: Inpatient Patient Location: [address] [place] [address] Study Date: 04/14/2017 09:46 AM Height: 67 in Weight: 176 lb BSA: 1.9 m2 Procedure: A complete two-dimensional transthoracic echocardiogram was performed (2D, M-mode, spectral and color flow Doppler). The study was technically difficult with many images being suboptimal in quality. Reason For Study: heart failure Ordering Physician: DANIEL SWEENEY Performed By: Mari Rodriguez Interpretation Summary LV EF is 45% Left ventricular systolic function is mildly reduced. There is borderline concentric left ventricular hypertrophy. The left ventricle is grossly normal size. Doppler measurements suggest pseudonormalized left ventricular relaxation, which is associated with grade II/IV or mild to moderate diastolic dysfunction There is mild global hypokinesis of the left ventricle. The right ventricular systolic function is borderline reduced. The right ventricle is mildly dilated. The right atrium is mildly dilated. The left atrium is moderately dilated. There is a moderate amount of mitral regurgitation There is no mitral valve stenosis. There is a moderate amount of aortic regurgitation There is no aortic valve stenosis There is a trace to mild amount of tricuspid regurgitation Tricuspid regurgitation jet envelope not well defined to measure RV systolic pressure accurately. The aortic root is not well visualized but is probably normal size. The inferior vena cava appeared dilated and decreased < 50% with respiration (RAP 15-20 mmHg) Minimal pericardial effusion. MMode/2D Measurements & Calculations RVDd: 3.3 cm LVIDd: 5.2 cm FS: 28.7 % Ao root diam: 2.4 cm IVSd: 0.91 cm LVIDs: 3.7 cm EDV(Teich): LVPWd: 0.94 cm 127.1 ml Ao root area: 4.7 cm2 ESV(Teich): LA dimension: 4.9 cm 57.4 ml EF(Teich): 54.9 % LA A2Cs: LA A4Cs: LA length: 5.8 cm LA Vol Index (BP): 32.4 cm2 29.0 cm2 72.1 ml/m2 LA Volume: 138.2 ml Doppler Measurements & Calculations MV E max aroldo: MV P1/2t max aroldo: Ao V2 max: AI max aroldo: 112.5 cm/sec 112.0 cm/sec 145.1 cm/sec 472.8 cm/sec MV P1/2t: 34.0 msec Ao max PG: AI max P.4 mmHg 89.4 mmHg MVA(P1/2t): 6.5 cm2 AI dec slope: MV dec slope: 964.3 cm/sec2 252.2 cm/sec2 MV dec time: AI P1/2t: 0.12 sec 549.2 msec LV V1 max PG: PA V2 max: PI end-d aroldo: TR max aroldo: 5.1 mmHg 57.3 cm/sec 104.5 cm/sec 189.1 cm/sec LV V1 max: PA max P.3 mmHg TR max P.5 cm/sec 14.3 mmHg Left Ventricle The left ventricle is grossly normal size. There is borderline concentric left ventricular hypertrophy. Left ventricular systolic function is mildly reduced. LV EF is 45%. Doppler measurements suggest pseudonormalized left ventricular relaxation, which is associated with grade II/IV or mild to moderate diastolic dysfunction. There is mild global hypokinesis of the left ventricle. Right Ventricle The right ventricle is mildly dilated. There is normal right ventricular wall thickness. The right ventricular systolic function is borderline reduced. Atria The right atrium is mildly dilated. The left atrium is moderately dilated. Interarterial septum not well visualized and not well dopplered. Cannot comment on ASD/PFO presence. Mitral Valve The mitral valve leaflets are sclerotic, but show no functional abnormalities. There is no mitral valve stenosis. There is a moderate amount of mitral regurgitation. Aortic Valve The aortic valve is not well visualized secondary to technical limitations. There is no aortic valve stenosis. There is a moderate amount of aortic regurgitation. Tricuspid Valve The tricuspid valve is not well visualized secondary to technical limitations. There is no tricuspid stenosis. There is a trace to mild amount of tricuspid regurgitation. Tricuspid regurgitation jet envelope not well defined to measure RV systolic pressure accurately. Pulmonic Valve The pulmonic valve is not well visualized. Great Vessels The aortic root is not well visualized but is probably normal size. The inferior vena cava appeared dilated and decreased < 50% with respiration (RAP 15-20 mmHg). Effusions Minimal pericardial effusion. : DANIEL SWEENEY > Ashley Orourke
[2017-04-14 13:41] LABS: ANION GAP 8 (5-19)
[2017-04-14 13:43] LABS: BLOOD UREA NITROGEN 19 mg/dL (7-20); CALCIUM 8.8 mg/dL (8.4-10.2); CARBON DIOXIDE 24 mmol/L (22-30); CHLORIDE 106 mmol/L (98-107); GLUCOSE 113 mg/dL (75-110); POTASSIUM 4.6 mmol/L (3.6-5.0)
[2017-04-14] MEDS: IBUPROFEN 400 MG TABLET PO PRN (14:28)
[2017-04-14] MEDS: MAGNESIUM SULFATE/D5W 1 GM/100 ML RTUPB IV SCH ×2 (14:28→15:56)
[2017-04-14] MEDS: RIVAROXABAN 10 MG TABLET PO SCH (22:32)
[2017-04-15 05:47] LABS: HEMATOCRIT 27.4 % (37.9-51.0); HEMOGLOBIN 8.2 g/dL (13.5-17.0); MEAN CORPUSCULAR HEMOGLOBIN 19.4 pg (27.0-33.4); MEAN CORPUSCULAR VOLUME 65 fl (80-97); PLATELET COUNT 260 10^3/uL (150-450); RED BLOOD COUNT 4.24 10^6/uL (4.35-5.55); RED CELL DISTRIBUTION WIDTH 20.5 % (11.5-14.0); WHITE BLOOD COUNT 9.8 10^3/uL (4.0-10.5)
[2017-04-15 05:58] LABS: ANION GAP 9 (5-19); BLOOD UREA NITROGEN 25 mg/dL (7-20); CALCIUM 8.7 mg/dL (8.4-10.2); CARBON DIOXIDE 26 mmol/L (22-30); CHLORIDE 100 mmol/L (98-107); GLUCOSE 98 mg/dL (75-110); SODIUM 135.1 mmol/L (137-145)
[2017-04-15] MEDS: DIAZEPAM 2 MG TABLET PO SCH ×3 (06:12→18:01)
[2017-04-15] MEDS: LANSOPRAZOLE 30 MG TAB.RAP.DR PO SCH (06:13)
[2017-04-15 06:21] LABS: ABSOLUTE LYMPHOCYTES# (MANUAL) 1.5 10^3/uL (0.5-4.7); ABSOLUTE MONOCYTES # (MANUAL) 0.9 10^3/uL (0.1-1.4); ABSOLUTE NEUTROPHILS# (MANUAL) 7.4 10^3/uL (1.7-8.2); BAND NEUTROPHILS % (MANUAL) 1 % (3-5); BASOPHILS % (MANUAL) 0 % (0-2); EOSINOPHILS % (MANUAL) 0 % (0-6); LYMPHOCYTES % (MANUAL) 15 % (13-45); MONOCYTES % (MANUAL) 9 % (3-13); NUCLEATED RED BLOOD CELLS 4 /100 WBC (0); SEGMENTED NEUTROPHILS % (MAN) 75 % (42-78); TOTAL CELLS COUNTED 100
[2017-04-15 06:23] LABS: ANISOCYTOSIS 3+; BURR CELLS 1+; HYPOCHROMASIA 3+; PLATELET COMMENT ADEQUATE; POIKILOCYTOSIS 3+; POLYCHROMASIA SLIGHT; TARGET CELLS 3+; TEAR DROP CELLS 1+; TOXIC VACUOLATION PRESENT
[2017-04-15 06:25] LABS: SCHISTOCYTES SLIGHT
[2017-04-15] MEDS: IBUPROFEN 400 MG TABLET PO PRN (07:40)
[2017-04-15] MEDS: DRONEDARONE HYDROCHLORIDE 400 MG TABLET PO SCH (09:23)
[2017-04-15] MEDS: FERROUS SULFATE 325 MG TABLET PO SCH (09:24)
[2017-04-15] MEDS: DIGOXIN 0.125 MG TABLET PO SCH (09:24)
[2017-04-15] MEDS: ASPIRIN 81 MG TABLET, ENT COATED PO SCH (09:25)
[2017-04-15] MEDS: SPIRONOLACTONE 25 MG TABLET PO SCH (09:26)
[2017-04-15] MEDS: METOPROLOL SUCCINATE 25 MG TAB.SR.24H PO SCH ×2 (09:27→21:30)
[2017-04-15] MEDS: NICOTINE 21 MG/24 HR PATCH.TD24 TD SCH (09:28)
[2017-04-15] MEDS ORDERED: METOLAZONE 2.5 MG TABLET PO SCH (10:00)
[2017-04-15] MEDS ORDERED: FUROSEMIDE INJ/PF 40 MG/4 ML SDV IV SCH (10:00)
--- NOTE | 2017-04-15 12:09 | EKG REPORT ---
SEVERITY:- ABNORMAL ECG - SINUS TACHYCARDIA ABNRM R PROG, CONSIDER ASMI OR LEAD PLACEMENT PROLONGED QT INTERVAL : Confirmed by: Karon Wheeler MD 15-Apr-2017 12:08:48
--- NOTE | 2017-04-15 12:09 | EKG REPORT ---
SEVERITY:- ABNORMAL ECG - SINUS RHYTHM BORDERLINE R WAVE PROGRESSION, ANTERIOR LEADS NONSPECIFIC T ABNORMALITIES, ANT-LAT LEADS : Confirmed by: Karon Wheeler MD 15-Apr-2017 12:08:22
--- NOTE | 2017-04-15 16:36 | PDOC PROGRESS REPORT ---
Subjective Progress Note for:: 04/15/17 Subjective:: Patient seems to be doing better with gradual improvement. Pt is denying any chest arm or neck discomfort. Patient denying any PND, orthopnea. Patient denied any sustained palpitations, dizziness, syncope, near syncope. Patient denying any fever chills. Patient denying any other significant discomfort. Patient is noted on EKG to have converted to sinus rhythm. Review of systems: Rest review of systems negative. Medications: Medications have been reviewed. Reason For Visit: HEART FAILURE,A FLUTTER RVR Physical Exam Vital Signs: Temp Pulse Resp BP Pulse Ox 98.2 F 64 18 100/51 L 96 04/15/17 16:02 04/15/17 16:02 04/15/17 16:02 04/15/17 16:02 04/15/17 16:02 Intake & Output 04/14/17 04/15/17 04/16/17 06:59 06:59 06:59 Intake Total 631 1738 754 Output Total 2075 100 Balance 631 -337 654 Weight 80.2 kg 78.5 kg Exam: GENERAL: well-nourished and in no acute distress. Alert and oriented x3 HEAD: Atraumatic, normocephalic. EYES: Pupils equal round and reactive to light, extraocular movements intact, sclera anicteric, conjunctiva are normal. ENT: TMs normal, nares patent, oropharynx clear without exudates. Moist mucous membranes. No oral ulcerations or bleeding gums noted NECK: supple without lymphadenopathy. Trachea is central. No cervical or axillary lymphadenopathy noted. Carotids are 2+, JVD distended at about 12 cm LUNGS: Respiration seems nonlabored, no significant accessory muscle action noted. Breath sounds clear to auscultation bilaterally and equal noted. No wheezes rales or rhonchi noted. No significant dullness noted on percussion. CHEST: Palpation of the chest wall shows no significant chest wall tenderness. No other significant abnormalities noted. HEART: [employer], No PSH, 1/6 SHAMAR aortic area, 1/6 friedman systolic murmur mitral area, no rubs, no gallops. ABDOMEN: Soft, no significant tenderness appreciated, normoactive bowel sounds. No guarding, no rebound. No rigidity noted . No masses appreciated. EXTREMITIES: Pedal pulses are 1-2+, no calf tenderness noted. No clubbing or cyanosis. 2 + pedal edema noted NEUROLOGICAL: Focused neurological exam showed no significant neurologic deficit. Normal speech, no focal weakness appreciated. PSYCH: Normal mood, normal affect. Judgment and insight within normal limits. SKIN: Mild chronic dermatitis changes also noted in both lower legs. MUSCULOSKELETAL EXAM: No significant joint swelling noted. Results Laboratory Results: 04/15/17 05:06 04/15/17 05:06 04/15/17 04/15/17 04/15/17 05:06 05:06 05:06 WBC 9.8 RBC 4.24 L Hgb 8.2 L Hct 27.4 L MCV 65 L MCH 19.4 L MCHC 30.0 L RDW 20.5 H Plt Count 260 Seg Neutrophils % Not Reportable Lymphocytes % Not Reportable Monocytes % Not Reportable Eosinophils % Not Reportable Basophils % Not Reportable Absolute Neutrophils Not Reportable Absolute Lymphocytes Not Reportable Absolute Monocytes Not Reportable Absolute Eosinophils Not Reportable Absolute Basophils Not Reportable Sodium 135.1 L Potassium 4.0 Chloride 100 Carbon Dioxide 26 Anion Gap 9 BUN 25 H Creatinine 1.29 H Est GFR ( Amer) > 60 Est GFR (Non-Af Amer) 57 L Glucose 98 Calcium 8.7 Magnesium 1.8 Stool Occult Blood 04/15/17 15:00 WBC RBC Hgb Hct MCV MCH MCHC RDW Plt Count Seg Neutrophils % Lymphocytes % Monocytes % Eosinophils % Basophils % Absolute Neutrophils Absolute Lymphocytes Absolute Monocytes Absolute Eosinophils Absolute Basophils Sodium Potassium Chloride Carbon Dioxide Anion Gap BUN Creatinine Est GFR ( Amer) Est GFR (Non-Af Amer) Glucose Calcium Magnesium Stool Occult Blood POSITIVE 04/13/17 04/14/17 04/14/17 23:05 05:07 11:07 Troponin I 0.019 0.024 0.019 Impressions: Chest X-Ray 04/13/17 16:32 IMPRESSION: No significant interval change. Cardiomegaly. No acute consolidations are identified. Other findings as noted above Assessment & Plan - Diagnosis (1) Atrial flutter with rapid ventricular response Is this a current diagnosis for this admission?: Yes (2) Congestive heart failure (CHF) Qualifiers: Congestive heart failure type: unspecified congestive heart failure type Congestive heart failure chronicity: acute on chronic Qualified Code(s): I50.9 - Heart failure, unspecified Is this a current diagnosis for this admission?: Yes (3) Chronic alcoholism Is this a current diagnosis for this admission?: Yes (4) Hypertension Qualifiers: Hypertension type: essential hypertension Qualified Code(s): I10 - Essential (primary) hypertension Is this a current diagnosis for this admission?: Yes (5) History of pulmonary embolism Is this a current diagnosis for this admission?: No - Notes Notes: Atrial flutter fibrillation: Patient converted to sinus rhythm. At this point continue Multaq while inpatient but would recommend stopping 24 hours prior to discharge in view of history of CHF. CHF: Continue with IV diuretics as you are doing. Patient's medical management is also being optimized. Chronic alcoholism: Patient has been advised in cessation. Hypertension: Blood pressure coming under better control. History of pulmonary embolism and now atrial flutter and atrial fibrillation: Continue chronic anticoagulation. - Time Time with patient: 15-25 minutes - CODE STATUS was discussed, patient remains full code. Surrogate decision-maker unchanged. Multiple medical problems were addressed. More than 50% of the time spent coordinating care, discussing management plans with involved caregivers. Management plans discussed with involved personnels. Medical decision making was of moderate to high complexity , patient's has multiple comorbidities. Medications reviewed and adjusted accordingly: Yes
[2017-04-15] MEDS: ACETAMINOPHEN 325 MG TABLET PO PRN (16:44)
[2017-04-15] MEDS ORDERED: PANTOPRAZOLE SODIUM 80 MG in NORMAL SALINE 100 ML IV ONE (19:25)
[2017-04-15] MEDS ORDERED: PANTOPRAZOLE SODIUM 40 MG VIAL IV ONE (20:59)
[2017-04-15] MEDS: NORMAL SALINE 100 ML with PANTOPRAZOLE SODIUM 80 MG IV PRN ×2 (21:29)
[2017-04-15] MEDS ORDERED: ALBUTEROL SULFATE HFA (90 MCG/PUFF) 200 PUFF/8.5 GM MDI IH ONE (21:40)
[2017-04-15] MEDS: ALBUTEROL SULFATE HFA (90 MCG/PUFF) 200 PUFF/8.5 GM MDI IH PRN (21:56)
[2017-04-16] MEDS: DIAZEPAM 2 MG TABLET PO SCH ×5 (01:26→23:47)
[2017-04-16] MEDS: ALBUTEROL SULFATE HFA (90 MCG/PUFF) 200 PUFF/8.5 GM MDI IH PRN (05:03)
[2017-04-16] MEDS: ACETAMINOPHEN 325 MG TABLET PO PRN (05:39)
[2017-04-16] MEDS ORDERED: BENZOCAINE/MENTHOL SORE THROAT LOZENGE BUCCAL PRN (06:11)
[2017-04-16 06:57] LABS: HEMATOCRIT 27.9 % (37.9-51.0); HEMOGLOBIN 8.5 g/dL (13.5-17.0); MEAN CORPUSCULAR HEMOGLOBIN 19.5 pg (27.0-33.4); MEAN CORPUSCULAR HGB CONC 30.4 g/dL (32.0-36.0); PLATELET COUNT 279 10^3/uL (150-450); RED BLOOD COUNT 4.36 10^6/uL (4.35-5.55); RED CELL DISTRIBUTION WIDTH 20.7 % (11.5-14.0); WHITE BLOOD COUNT 7.6 10^3/uL (4.0-10.5)
[2017-04-16 07:36] LABS: ANION GAP 11 (5-19); BLOOD UREA NITROGEN 29 mg/dL (7-20); CALCIUM 8.7 mg/dL (8.4-10.2); CARBON DIOXIDE 28 mmol/L (22-30); CHLORIDE 95 mmol/L (98-107); GLUCOSE 79 mg/dL (75-110); MAGNESIUM 1.7 mg/dL (1.6-2.3); POTASSIUM 4.1 mmol/L (3.6-5.0); SODIUM 133.7 mmol/L (137-145)
[2017-04-16 07:55] LABS: ABSOLUTE MONOCYTES # (MANUAL) 1.1 10^3/uL (0.1-1.4); ABSOLUTE NEUTROPHILS# (MANUAL) 4.5 10^3/uL (1.7-8.2); BASOPHILS % (MANUAL) 0 % (0-2); EOSINOPHILS % (MANUAL) 0 % (0-6); LYMPHOCYTES % (MANUAL) 26 % (13-45); MONOCYTES % (MANUAL) 15 % (3-13); NUCLEATED RED BLOOD CELLS 8 /100 WBC (0); SEGMENTED NEUTROPHILS % (MAN) 59 % (42-78); TOTAL CELLS COUNTED 100
[2017-04-16 07:56] LABS: ANISOCYTOSIS 2+; BURR CELLS 1+; PLATELET COMMENT ADEQUATE; POIKILOCYTOSIS 3+; SCHISTOCYTES 2+; TOXIC GRANULATION 1+
[2017-04-16 07:57] LABS: MEAN CORPUSCULAR VOLUME 64 fl (80-97); PLATELET GIANT PRESENT; PLATELET LARGE PRESENT
[2017-04-16 07:58] LABS: TARGET CELLS 3+
[2017-04-16] MEDS: METOPROLOL SUCCINATE 25 MG TAB.SR.24H PO SCH ×2 (09:05→21:30)
[2017-04-16] MEDS: FERROUS SULFATE 325 MG TABLET PO SCH (09:05)
[2017-04-16] MEDS: SPIRONOLACTONE 25 MG TABLET PO SCH (09:05)
[2017-04-16] MEDS: NICOTINE 21 MG/24 HR PATCH.TD24 TD SCH (09:06)
[2017-04-16] MEDS: NORMAL SALINE 100 ML with PANTOPRAZOLE SODIUM 80 MG IV PRN ×4 (09:06→21:30)
[2017-04-16] MEDS: DIGOXIN 0.125 MG TABLET PO SCH (09:06)
--- NOTE | 2017-04-16 11:38 | PDOC PROGRESS REPORT ---
Subjective Progress Note for:: 04/16/17 Subjective:: Patient seems to be doing better with gradual improvement. Pt is denying any chest arm or neck discomfort. Patient denying any PND, orthopnea. Patient denied any sustained palpitations, dizziness, syncope, near syncope. Patient denying any fever chills. Patient denying any other significant discomfort. Telemetry strip shows sinus rhythm. Review of systems: Rest review of systems negative. Medications: Medications have been reviewed. Reason For Visit: HEART FAILURE,A FLUTTER RVR Physical Exam Vital Signs: Temp Pulse Resp BP Pulse Ox 97.5 F 63 18 114/68 96 04/16/17 07:44 04/16/17 07:44 04/16/17 07:44 04/16/17 07:44 04/16/17 07:44 Intake & Output 04/15/17 04/16/17 04/17/17 06:59 06:59 06:59 Intake Total 1738 1743 Output Total 2075 545 Balance -337 1198 Weight 78.5 kg 77.1 kg Exam: GENERAL: well-nourished and in no acute distress. Alert and oriented x3 HEAD: Atraumatic, normocephalic. EYES: Pupils equal round and reactive to light, extraocular movements intact, sclera anicteric, conjunctiva are normal. ENT: TMs normal, nares patent, oropharynx clear without exudates. Moist mucous membranes. No oral ulcerations or bleeding gums noted NECK: supple without lymphadenopathy. Trachea is central. No cervical or axillary lymphadenopathy noted. Carotids are 2+, JVD 8 cm LUNGS: Respiration seems nonlabored, no significant accessory muscle action noted. Few bibasilar fine crackles noted. No wheezes rales or rhonchi noted. No significant dullness noted on percussion. CHEST: Palpation of the chest wall shows no significant chest wall tenderness. No other significant abnormalities noted. HEART: [employer], No PSH, 1/6 SHAMAR aortic area, 1/6 friedman systolic murmur mitral area, no rubs, no gallops. ABDOMEN: Soft, no significant tenderness appreciated, normoactive bowel sounds. No guarding, no rebound. No rigidity noted . No masses appreciated. EXTREMITIES: Pedal pulses are 1-2+, no calf tenderness noted. No clubbing or cyanosis.1+ pedal edema noted NEUROLOGICAL: Focused neurological exam showed no significant neurologic deficit. Normal speech, no focal weakness appreciated. PSYCH: Normal mood, normal affect. Judgment and insight within normal limits. SKIN: No significant ecchymosis, rash, ulcerations or signs of pruritus noted. MUSCULOSKELETAL EXAM: No significant joint swelling noted. Results Laboratory Results: 04/16/17 05:50 04/16/17 05:50 04/15/17 04/16/17 04/16/17 15:00 05:50 05:50 WBC 7.6 RBC 4.36 Hgb 8.5 L Hct 27.9 L MCV 64 L MCH 19.5 L MCHC 30.4 L RDW 20.7 H Plt Count 279 Seg Neutrophils % Not Reportable Lymphocytes % Not Reportable Monocytes % Not Reportable Eosinophils % Not Reportable Basophils % Not Reportable Absolute Neutrophils Not Reportable Absolute Lymphocytes Not Reportable Absolute Monocytes Not Reportable Absolute Eosinophils Not Reportable Absolute Basophils Not Reportable Sodium 133.7 L Potassium 4.1 Chloride 95 L Carbon Dioxide 28 Anion Gap 11 BUN 29 H Creatinine 1.36 H Est GFR ( Amer) > 60 Est GFR (Non-Af Amer) 54 L Glucose 79 Calcium 8.7 Magnesium 1.7 Stool Occult Blood POSITIVE 04/13/17 04/14/17 04/14/17 23:05 05:07 11:07 Troponin I 0.019 0.024 0.019 Impressions: Chest X-Ray 04/13/17 16:32 IMPRESSION: No significant interval change. Cardiomegaly. No acute consolidations are identified. Other findings as noted above Assessment & Plan - Diagnosis (1) Atrial flutter with rapid ventricular response Is this a current diagnosis for this admission?: Yes (2) Congestive heart failure (CHF) Qualifiers: Congestive heart failure type: unspecified congestive heart failure type Congestive heart failure chronicity: acute on chronic Qualified Code(s): I50.9 - Heart failure, unspecified Is this a current diagnosis for this admission?: Yes (3) Chronic alcoholism Is this a current diagnosis for this admission?: Yes (4) Hypertension Qualifiers: Hypertension type: essential hypertension Qualified Code(s): I10 - Essential (primary) hypertension Is this a current diagnosis for this admission?: Yes (5) History of pulmonary embolism Is this a current diagnosis for this admission?: No - Notes Notes: Atrial flutter fibrillation: Patient converted to sinus rhythm. Multaq has been stopped. Patient maintaining sinus rhythm. CHF: Continue with IV diuretics as you are doing. Patient's medical management is also being optimized. Unfortunately patient is allergic to KELLIE inhibitors, lisinopril. Chronic alcoholism: Patient has been advised in cessation. Hypertension: Blood pressure coming under better control. History of pulmonary embolism and now atrial flutter and atrial fibrillation: I am told the anticoagulation is on hold because of guaiac positive stools. Patient may need GI evaluation. - Time Time with patient: 15-25 minutes - CODE STATUS was discussed, patient remains full code. Surrogate decision-maker unchanged. Multiple medical problems were addressed. More than 50% of the time spent coordinating care, discussing management plans with involved caregivers. Management plans discussed with involved personnels. Medical decision making was of moderate to high complexity , patient's has multiple comorbidities.
[2017-04-17] MEDS: ACETAMINOPHEN 325 MG TABLET PO PRN ×2 (02:33→08:14)
[2017-04-17] MEDS: DIAZEPAM 2 MG TABLET PO SCH ×3 (05:00→18:19)
[2017-04-17] MEDS: NORMAL SALINE 100 ML with PANTOPRAZOLE SODIUM 80 MG IV PRN ×2 (08:14)
[2017-04-17] MEDS: METOPROLOL SUCCINATE 25 MG TAB.SR.24H PO SCH ×2 (08:15→21:44)
[2017-04-17] MEDS: SPIRONOLACTONE 25 MG TABLET PO SCH (08:15)
[2017-04-17] MEDS: FERROUS SULFATE 325 MG TABLET PO SCH (08:15)
[2017-04-17] MEDS: NICOTINE 21 MG/24 HR PATCH.TD24 TD SCH (08:16)
[2017-04-17] MEDS: DIGOXIN 0.125 MG TABLET PO SCH (08:18)
[2017-04-17 08:31] LABS: ANION GAP 8 (5-19); BLOOD UREA NITROGEN 30 mg/dL (7-20); CALCIUM 8.6 mg/dL (8.4-10.2); CARBON DIOXIDE 27 mmol/L (22-30); CHLORIDE 94 mmol/L (98-107); GLUCOSE 86 mg/dL (75-110); MAGNESIUM 1.7 mg/dL (1.6-2.3); POTASSIUM 4.7 mmol/L (3.6-5.0); SODIUM 129.4 mmol/L (137-145)
[2017-04-17 08:50] LABS: HEMATOCRIT 28.7 % (37.9-51.0); HEMOGLOBIN 8.7 g/dL (13.5-17.0); MEAN CORPUSCULAR HEMOGLOBIN 19.4 pg (27.0-33.4); MEAN CORPUSCULAR HGB CONC 30.4 g/dL (32.0-36.0); MEAN CORPUSCULAR VOLUME 64 fl (80-97); PLATELET COUNT 293 10^3/uL (150-450); RED BLOOD COUNT 4.51 10^6/uL (4.35-5.55); RED CELL DISTRIBUTION WIDTH 20.9 % (11.5-14.0); WHITE BLOOD COUNT 7.7 10^3/uL (4.0-10.5)
[2017-04-17 09:12] LABS: ABSOLUTE LYMPHOCYTES# (MANUAL) 1.9 10^3/uL (0.5-4.7); ABSOLUTE NEUTROPHILS# (MANUAL) 4.7 10^3/uL (1.7-8.2); BAND NEUTROPHILS % (MANUAL) 1 % (3-5); BASOPHILS % (MANUAL) 0 % (0-2); EOSINOPHILS % (MANUAL) 1 % (0-6); LYMPHOCYTES % (MANUAL) 25 % (13-45); MONOCYTES % (MANUAL) 13 % (3-13); NUCLEATED RED BLOOD CELLS 1 /100 WBC (0); SEGMENTED NEUTROPHILS % (MAN) 60 % (42-78); TOTAL CELLS COUNTED 100
[2017-04-17 09:19] LABS: ANISOCYTOSIS 2+; SCHISTOCYTES 1+
[2017-04-17 09:20] LABS: BURR CELLS SLIGHT; HYPOCHROMASIA 3+; POLYCHROMASIA 1+; TEAR DROP CELLS SLIGHT
[2017-04-17 09:23] LABS: POIKILOCYTOSIS 3+; TARGET CELLS 3+
[2017-04-17 09:24] LABS: PLATELET COMMENT ADEQUATE
[2017-04-17] MEDS ORDERED: DEXTROSE 40% GEL 15 GM TUBE PO PRN ×2 (09:32)
[2017-04-17] MEDS ORDERED: DEXTROSE 50%-WATER 25 GM/50 ML DISP.SYRIN IV PRN ×2 (09:32)
[2017-04-17] MEDS ORDERED: GLUCAGON,HUMAN RECOMB 1 MG INJ SUBCUT PRN (09:32)
[2017-04-17] MEDS: ALBUTEROL SULFATE HFA (90 MCG/PUFF) 200 PUFF/8.5 GM MDI IH PRN (13:04)
[2017-04-17] MEDS ORDERED: FUROSEMIDE 40 MG TABLET PO SCH (14:30)
--- NOTE | 2017-04-17 14:30 | PDOC PROGRESS REPORT ---
Subjective Progress Note for:: 04/17/17 Subjective:: Patient seems to be doing better with gradual improvement. Pt is denying any chest arm or neck discomfort. Patient denying any PND, orthopnea. Patient denied any sustained palpitations, dizziness, syncope, near syncope. Patient denying any fever chills. Patient denying any other significant discomfort. Patient still complains of pedal edema but this is much improved. Telemetry strip shows sinus rhythm. Review of systems: Rest review of systems negative. Medications: Medications have been reviewed. Reason For Visit: HEART FAILURE,A FLUTTER RVR Physical Exam Vital Signs: Temp Pulse Resp BP Pulse Ox 97.5 F 57 L 18 107/68 100 04/17/17 11:44 04/17/17 13:00 04/17/17 13:00 04/17/17 13:00 04/17/17 13:00 Intake & Output 04/16/17 04/17/17 04/18/17 06:59 06:59 06:59 Intake Total 1743 1153 591 Output Total 545 1875 500 Balance 1198 -722 91 Weight 77.1 kg 77 kg Exam: GENERAL: well-nourished and in no acute distress. Alert and oriented x3 HEAD: Atraumatic, normocephalic. EYES: Pupils equal round and reactive to light, extraocular movements intact, sclera anicteric, conjunctiva are normal. ENT: TMs normal, nares patent, oropharynx clear without exudates. Moist mucous membranes. No oral ulcerations or bleeding gums noted NECK: supple without lymphadenopathy. Trachea is central. No cervical or axillary lymphadenopathy noted. Carotids are 2+, JVD WNL LUNGS: Respiration seems nonlabored, no significant accessory muscle action noted. Breath sounds clear to auscultation bilaterally and equal noted. No wheezes rales or rhonchi noted. No significant dullness noted on percussion. CHEST: Palpation of the chest wall shows no significant chest wall tenderness. No other significant abnormalities noted. HEART: [place] [employer], No PSH, 1/6 SHAMAR aortic area, 1/6 friedman systolic murmur mitral area, no rubs, no gallops. ABDOMEN: Soft, no significant tenderness appreciated, normoactive bowel sounds. No guarding, no rebound. No rigidity noted . No masses appreciated. EXTREMITIES: Pedal pulses are 1-2+, no calf tenderness noted. No clubbing or cyanosis. 1+ pedal edema noted NEUROLOGICAL: Focused neurological exam showed no significant neurologic deficit. Normal speech, no focal weakness appreciated. PSYCH: Normal mood, normal affect. Judgment and insight within normal limits. SKIN: No significant ecchymosis, rash, ulcerations or signs of pruritus noted. MUSCULOSKELETAL EXAM: No significant joint swelling noted. Results Laboratory Results: 04/17/17 07:58 04/17/17 07:58 04/17/17 04/17/17 07:58 07:58 WBC 7.7 RBC 4.51 Hgb 8.7 L Hct 28.7 L MCV 64 L MCH 19.4 L MCHC 30.4 L RDW 20.9 H Plt Count 293 Seg Neutrophils % Not Reportable Lymphocytes % Not Reportable Monocytes % Not Reportable Eosinophils % Not Reportable Basophils % Not Reportable Absolute Neutrophils Not Reportable Absolute Lymphocytes Not Reportable Absolute Monocytes Not Reportable Absolute Eosinophils Not Reportable Absolute Basophils Not Reportable Sodium 129.4 L Potassium 4.7 Chloride 94 L Carbon Dioxide 27 Anion Gap 8 BUN 30 H Creatinine 1.28 H Est GFR ( Amer) > 60 Est GFR (Non-Af Amer) 58 L Glucose 86 Calcium 8.6 Magnesium 1.7 04/13/17 04/14/17 04/14/17 23:05 05:07 11:07 Troponin I 0.019 0.024 0.019 Impressions: Chest X-Ray 04/13/17 16:32 IMPRESSION: No significant interval change. Cardiomegaly. No acute consolidations are identified. Other findings as noted above Assessment & Plan - Diagnosis (1) Atrial flutter with rapid ventricular response Is this a current diagnosis for this admission?: Yes (2) Congestive heart failure (CHF) Qualifiers: Congestive heart failure type: unspecified congestive heart failure type Congestive heart failure chronicity: acute on chronic Qualified Code(s): I50.9 - Heart failure, unspecified Is this a current diagnosis for this admission?: Yes (3) Chronic alcoholism Is this a current diagnosis for this admission?: Yes (4) Hypertension Qualifiers: Hypertension type: essential hypertension Qualified Code(s): I10 - Essential (primary) hypertension Is this a current diagnosis for this admission?: Yes (5) History of pulmonary embolism Is this a current diagnosis for this admission?: No - Notes Notes: Patient started on p.o. Lasix at 20 mg p.o. daily. Will check a digoxin level in view of mild bradycardia. Atrial flutter fibrillation: Could be related to alcohol induced cardiomyopathy , alcohol-related holiday heart syndrome. At this point recommend rate control. Currently not on current anticoagulation due to drop in hemoglobin, guaiac positive stools. There is also some concern about noncompliance with this patient. CHF: Most likely acute on chronic precipitated by atrial flutter which may be going on for last several days a week. Currently on spironolactone. IV diuretics stopped. Will start patient on p.o. diuretics. Chronic alcoholism: Observe for withdrawal. Patient advised to abstain. Hypertension: Blood pressure reasonably well-controlled. Mild sinus bradycardia: Currently stable. Check a digoxin level for tomorrow morning. Patient will benefit from evaluation for underlying sleep apnea due to atrial dysrhythmia. This was explained. - Time Time with patient: Greater than 35 minutes - CODE STATUS was discussed, patient remains full code. Surrogate decision-maker unchanged. Multiple medical problems were addressed. More than 50% of the time spent coordinating care, discussing management plans with involved caregivers. Management plans discussed with involved personnels. Medical decision making was of moderate to high complexity, patient's has multiple comorbidities. Medications reviewed and adjusted accordingly: Yes
[2017-04-17] MEDS ORDERED: FUROSEMIDE 20 MG TABLET PO ONE (15:15)
[2017-04-17] MEDS ORDERED: MIDAZOLAM 2 MG/2 ML INJ ONE (15:16)
[2017-04-17] MEDS ORDERED: NALOXONE HCL INJ/PF 0.4 MG/1 ML SDV ONE (15:16)
[2017-04-17] MEDS ORDERED: ONDANSETRON HCL INJ/PF 4 MG/2 ML SDV ONE (15:16)
[2017-04-17] MEDS ORDERED: GLYCOPYRROLATE INJ 0.4 MG/2 ML VIAL ONE (15:16)
[2017-04-17] MEDS ORDERED: FLUMAZENIL INJ 0.5 MG/5 ML VIAL ONE (15:17)
[2017-04-17] MEDS ORDERED: FENTANYL CITRATE INJ/PF 100 MCG/2 ML AMPUL ONE (15:17)
[2017-04-17] MEDS ORDERED: GLUCAGON,HUMAN RECOMB 1 MG INJ ONE (15:17)
[2017-04-17] MEDS ORDERED: EPINEPHRINE INJ 1 MG/10 ML DISP.SYRIN ONE (15:17)
--- NOTE | 2017-04-17 16:05 | PDOC H&P ---
History of Present Illness Admission Date/PCP: 04/13/17 18:19 Patient complains of: Swelling for 2 weeks History of Present Illness: Patient is a 56-year-old male with a history of hypertension presenting with a 2 week history of lower extremity edema and scrotal edema. Patient states that he was given some medication to help the swelling go down however it did not work. Patient does have cough and shortness of breath. Denies any fevers or chills. Patient also states that he has not been able to have a bowel movement. She denies any chest pain or feeling as if his heart is racing. Past Medical History Cardiac Medical History: Reports: Congestive Heart Failure, Hypertension, Pulmonary Embolism Pulmonary Medical History: Reports: Asthma Musculoskeltal Medical History: Reports: Arthritis Psychiatric Medical History: Denies: Depression Social History Smoking Status: Never Smoker Frequency of Alcohol Use: Heavy Hx Recreational Drug Use: Yes Drugs: Other - Unknown Hx Prescription Drug Abuse: No - Advance Directive Resuscitation Status: Full Code Family History Family History: Hypertension Parental Family History Reviewed: No Children Family History Reviewed: No Sibling(s) Family History Reviewed.: No Medication/Allergy Home Medications: Albuterol Sulfate [Proair HFA Inhalation Aerosol 8.5 gm MDI] 2 puff IH Q4HP PRN 04/13/17 Rivaroxaban [Xarelto] 20 mg PO QPM 04/13/17 Allergies/Adverse Reactions: KELLIE Inhibitors Allergy (Severe, Verified 02/10/17 08:23) Anaphylaxis lisinopril Allergy (Verified 02/10/17 08:23) Review of Systems Constitutional: ABSENT: chills, fever(s), headache(s), weight gain, weight loss Eyes: ABSENT: visual disturbances Ears: ABSENT: hearing changes Cardiovascular: PRESENT: dyspnea on exertion, edema. ABSENT: chest pain, orthropnea, palpitations Respiratory: PRESENT: cough. ABSENT: hemoptysis Gastrointestinal: ABSENT: abdominal pain, constipation, diarrhea, hematemesis, hematochezia, nausea, vomiting Genitourinary: ABSENT: dysuria, hematuria Musculoskeletal: ABSENT: joint swelling Integumentary: ABSENT: rash, wounds Neurological: ABSENT: abnormal gait, abnormal speech, confusion, dizziness, focal weakness, syncope Psychiatric: ABSENT: anxiety, depression, homidical ideation, suicidal ideation Endocrine: ABSENT: cold intolerance, heat intolerance, polydipsia, polyuria Hematologic/Lymphatic: ABSENT: easy bleeding, easy bruising Physical Exam Vital Signs: Selected Entries 04/13/17 22:23 Temperature 98.3 F Temperature Oral Source Pulse Rate 147 H Respiratory 16 Rate Blood Pressure 138/94 H BP Location Right Arm BP Position Sitting O2 Sat by Pulse 100 Oximetry Oxygen Delivery Room Air Method General appearance: PRESENT: no acute distress, well-developed, well-nourished Head exam: PRESENT: atraumatic, normocephalic Eye exam: PRESENT: conjunctiva pink, EOMI, PERRLA. ABSENT: scleral icterus Ear exam: PRESENT: normal external ear exam Mouth exam: PRESENT: moist, tongue midline Neck exam: ABSENT: carotid bruit, JVD, lymphadenopathy, thyromegaly Respiratory exam: PRESENT: clear to auscultation garrett. ABSENT: rales, rhonchi, wheezes Cardiovascular exam: PRESENT: irregular rhythm. ABSENT: diastolic murmur, rubs , systolic murmur Pulses: PRESENT: normal dorsalis pedis pul Vascular exam: PRESENT: normal capillary refill GI/Abdominal exam: PRESENT: normal bowel sounds, soft. ABSENT: distended, guarding, mass, organolmegaly, rebound, tenderness Rectal exam: PRESENT: deferred Extremities exam: PRESENT: full ROM, +2 edema. ABSENT: calf tenderness, clubbing, pedal edema Neurological exam: PRESENT: alert, awake, oriented to person, oriented to place , oriented to time, oriented to situation, CN II-XII grossly intact. ABSENT: motor sensory deficit Psychiatric exam: PRESENT: appropriate affect, normal mood. ABSENT: homicidal ideation, suicidal ideation Skin exam: PRESENT: dry, intact, warm. ABSENT: cyanosis, rash Results Impressions: Chest X-Ray 04/13/17 16:32 IMPRESSION: No significant interval change. Cardiomegaly. No acute consolidations are identified. Other findings as noted above Assessment & Plan - Diagnosis (1) Atrial flutter with rapid ventricular response Is this a current diagnosis for this admission?: Yes Plan: Patient with atrial flutter with rapid ventricular response. Patient will loaded with diltiazem and started on diltiazem D gtt. Dr. Orourke cardiology consulted who recommended sotalol and digoxin. Will rule out ACS with serial troponins. Will check hemoglobin A1c and fasting lipid studies. Admit to telemetry. Will monitor electrolytes. (2) Congestive heart failure (CHF) Qualifiers: Congestive heart failure type: unspecified congestive heart failure type Congestive heart failure chronicity: acute on chronic Qualified Code(s): I50.9 - Heart failure, unspecified Is this a current diagnosis for this admission?: Yes Plan: Patient possibly has systolic and diastolic heart failure most likely as a result of his uncontrolled heart rate as patient was not aware that he was in atrial flutter. Will order cardiac echo to evaluate this. Will start patient on Lasix 40 mg twice daily along with metolazone. Patient on sotalol for his A. flutter along with digoxin. Will monitor strict I's and O's. Will place patient on fluid restriction and monitor weights. No KELLIE inhibitor due to angioedema requiring intubation. (3) Anemia Qualifiers: Anemia type: iron deficiency Is this a current diagnosis for this admission?: Yes Plan: With anemia we will monitor closely especially with him being on Xarelto for previous PE. If trends down patient may need to be evaluated for possible GI bleed. In addition to that patient takes Motrin for his pain. Check FOBT and iron studies. (4) History of pulmonary embolism Is this a current diagnosis for this admission?: No Plan: Patient on Xarelto will complete continue (5) KELLIE inhibitor-aggravated angioedema Qualifiers: Encounter type: initial encounter Plan: Patient is not to be given any KELLIE inhibitors. (6) Chronic alcoholism Is this a current diagnosis for this admission?: Yes Plan: Patient states he drinks every day. Will start patient on Valium 2 mg every 6 to hold for sedation. - Time Time Spent: 30 to 50 Minutes Medications reviewed and adjusted accordingly: Yes Anticipated discharge: Home Within: within 72 hours - Inpatient Certification Medical Necessity: Significant Comorbidiites Make Outpatient Treatment Too Risky , Need Close Monitoring Due to Risk of Patient Decompensation, Need For Continuous Telemetry Monitoring
[2017-04-17] MEDS ORDERED: NORMAL SALINE 1000 ML 1,000 ML IV PRN (18:55)
--- NOTE | 2017-04-17 19:23 | OPERATIVE REPORT E ---
Operative Report NAME: EUGENE ARAGON : 1960 AGE: 56Y DATE OF SURGERY: 04/17/2017 ROOM: 324 PREOPERATIVE DIAGNOSIS: 1. ANEMIA. 2. FECAL OCCULT POSITIVE BLOOD IN STOOL. PREOPERATIVE DIAGNOSIS: 1. ANEMIA. 2. FECAL OCCULT POSITIVE BLOOD IN STOOL. 3. DISTAL ESOPHAGITIS. 4. DIFFUSE GASTRITIS. 5. MODERATE PROXIMAL DUODENITIS. 6. 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 SURGEON: PUJA MOTLEY M.D. OPERATION: 1. Esophagogastroduodenoscopy. 2. Cold forceps biopsy of distal esophagus and distal gastric antrum. ANESTHESIA: Conscious sedation. COMPLICATIONS: None. ESTIMATED BLOOD LOSS: Scant. DRAINS: None. TISSUE REMOVED OR ALTERED: Biopsies. SUMMARY OF PROCEDURE: The patient was brought from the third floor to the endoscopy suite where monitoring devices were attached. He was placed in semirecumbent position, tilted to the left side, oral mouth piece inserted and appropriate level of conscious sedation induced. A surgical plan and surgical timeout were conducted. The flexible adult upper endoscope was advanced through the oropharynx, down the esophagus, through the stomach, into the first and second portions of the duodenum. This was well tolerated by the patient. The first portion of the duodenum was moderately inflamed. There was no evidence of true ulcer, bleeding or clot. The pylorus was inflamed. In the prepyloric area, the anatomic distal antrum, was a chronic ulcer approximately 2.5 to 3 cm in diameter, oblong shaped, in the anterior position. Photos were taken. No active bleeding or clot currently. The tissue appeared inflammatory, not malignant. The distal antrum was moderately inflamed. Multiple photos were taken and a cold forceps biopsy was taken of the antrum for YASMEEN and histologic analysis. Bleeding was minimal. The reminder of the stomach was examined carefully. No other ulcers, polyp or tumor identified. Of note, the distal esophagus was [id number] inflamed. Multiple photos were taken. Inflammation was acute, superimposed on chronic. Two small cold forceps biopsies of the gastric mucosa were performed. Bleeding was minimal. The reminder of the esophagus proximally and mid third appeared normal. No evidence of varix. The scope was removed from the patient's oropharynx. He tolerated the procedure well. In summary, the patient has a likely source for GI blood loss contributing to anemia, as described above. I discussed today's findings with the primary care provider. Appropriate medical management will be initiated. DICTATING PHYSICIAN: PUJA MOTLEY M.D. [id number] PHY#: [id number] ID: [id number] JOB#: [id number] ACCT: [id number] cc:PUJA MOTLEY M.D. > [facility]
[2017-04-17] MEDS: PANTOPRAZOLE SODIUM 40 MG VIAL IV SCH (21:44)
[2017-04-17] MEDS: SUCRALFATE 1 GM TABLET PO SCH (21:44)
--- NOTE | 2017-04-17 23:27 | PDOC PROGRESS REPORT ---
Subjective Progress Note for:: 04/14/17 Subjective:: Patient admitted with atrial flutter with RVR and acute heart failure with extensive pedal and scrotal edema. Patient states he still quite swollen but is feeling better. Patient heart rate is now well controlled. Reason For Visit: HEART FAILURE,A FLUTTER RVR Physical Exam Vital Signs: Temp Pulse Resp BP Pulse Ox 97.1 F 82 16 104/65 100 04/14/17 20:17 04/14/17 20:17 04/14/17 20:17 04/14/17 20:17 04/14/17 20:17 Intake & Output 04/13/17 04/14/17 04/15/17 06:59 06:59 06:59 Intake Total 631 1028 Output Total 1075 Balance 631 -47 Weight 80.2 kg General appearance: PRESENT: no acute distress, well-developed, well-nourished Head exam: PRESENT: atraumatic, normocephalic Eye exam: PRESENT: conjunctiva pink, EOMI, PERRLA. ABSENT: scleral icterus Ear exam: PRESENT: normal external ear exam Mouth exam: PRESENT: moist, tongue midline Neck exam: ABSENT: carotid bruit, JVD, lymphadenopathy, thyromegaly Respiratory exam: PRESENT: clear to auscultation garrett. ABSENT: rales, rhonchi, wheezes Cardiovascular exam: PRESENT: RRR. ABSENT: diastolic murmur, rubs, systolic murmur GI/Abdominal exam: PRESENT: normal bowel sounds, soft. ABSENT: distended, guarding, mass, organolmegaly, rebound, tenderness Rectal exam: PRESENT: deferred Extremities exam: PRESENT: full ROM, +2 edema, other - right calf larger than left.. ABSENT: calf tenderness, clubbing, pedal edema Neurological exam: PRESENT: alert, awake, oriented to person, oriented to place , oriented to time, oriented to situation, CN II-XII grossly intact. ABSENT: motor sensory deficit Psychiatric exam: PRESENT: appropriate affect, normal mood. ABSENT: homicidal ideation, suicidal ideation Skin exam: PRESENT: dry, intact, warm. ABSENT: cyanosis, rash Results Laboratory Results: 04/14/17 05:07 04/14/17 11:07 04/14/17 04/14/17 04/14/17 05:07 05:07 05:07 WBC 7.3 RBC 4.36 Hgb 8.7 L Hct 28.3 L MCV 65 L MCH 20.0 L MCHC 30.8 L RDW 19.7 H Plt Count 324 Seg Neutrophils % Not Reportable Lymphocytes % Not Reportable Monocytes % Not Reportable Eosinophils % Not Reportable Basophils % Not Reportable Absolute Neutrophils Not Reportable Absolute Lymphocytes Not Reportable Absolute Monocytes Not Reportable Absolute Eosinophils Not Reportable Absolute Basophils Not Reportable Sodium Potassium Chloride Carbon Dioxide Anion Gap BUN Creatinine Est GFR ( Amer) Est GFR (Non-Af Amer) Glucose Calcium Magnesium 1.7 Iron 12.9 L TIBC 406 % Saturation 3 Ferritin 21.00 Triglycerides 35 Cholesterol 70.29 LDL Cholesterol Direct < 30 VLDL Cholesterol 7.0 L HDL Cholesterol 39 L Vitamin B12 > 1000.0 H Folate 6.30 TSH 6.09 H Free T4 1.86 Free T3 pg/mL 3.72 04/14/17 11:07 WBC RBC Hgb Hct MCV MCH MCHC RDW Plt Count Seg Neutrophils % Lymphocytes % Monocytes % Eosinophils % Basophils % Absolute Neutrophils Absolute Lymphocytes Absolute Monocytes Absolute Eosinophils Absolute Basophils Sodium 138.0 Potassium 4.6 Chloride 106 Carbon Dioxide 24 Anion Gap 8 BUN 19 Creatinine 1.02 Est GFR ( Amer) > 60 Est GFR (Non-Af Amer) > 60 Glucose 113 H Calcium 8.8 Magnesium Iron TIBC % Saturation Ferritin Triglycerides Cholesterol LDL Cholesterol Direct VLDL Cholesterol HDL Cholesterol Vitamin B12 Folate TSH Free T4 Free T3 pg/mL 04/13/17 04/14/17 04/14/17 23:05 05:07 11:07 Troponin I 0.019 0.024 0.019 Impressions: Chest X-Ray 04/13/17 16:32 IMPRESSION: No significant interval change. Cardiomegaly. No acute consolidations are identified. Other findings as noted above Assessment & Plan - Diagnosis (1) Atrial flutter with rapid ventricular response Is this a current diagnosis for this admission?: Yes Plan: Patient with atrial flutter with rapid ventricular response. Patient now in normal sinus rhythm. Patient started on metoprolol succinate 25 mg twice a days. Sotalol was discontinued due to his CHF. Patient still on digoxin. No anticoagulation is being given this at this time as patient hemoglobin is trending down and there is concern for GI bleed considering patient having been on Xarelto for a PE and patient taking Motrin for pain. Replace magnesium and potassium PRN to maintain levels of 2 and 4 respectively. Cardiology following. (2) Congestive heart failure (CHF) Qualifiers: Congestive heart failure type: unspecified congestive heart failure type Congestive heart failure chronicity: acute on chronic Qualified Code(s): I50.9 - Heart failure, unspecified Is this a current diagnosis for this admission?: Yes Plan: Patient could have cardiomyopathy due to alcohol abuse versus uncontrolled a flutter with RVR. Echo completed on 04/14/2017 shows LVEF of 45% along with a grade 2 out of 4 mild to moderate diastolic heart failure. He is currently on metoprolol, digoxin and spironolactone. Patient is also on Lasix and metolazone. Swelling improve however still significant. No KELLIE is being used due to patient's history of angioedema requiring intubation. (3) History of pulmonary embolism Is this a current diagnosis for this admission?: No Plan: Patient anticoagulation is being held due to concern for possible GI bleed as hemoglobin is trending down. (4) KELLIE inhibitor-aggravated angioedema Qualifiers: Encounter type: initial encounter Plan: Patient is not to be given any KELLIE inhibitors. Patient was intubated after being given this medications and developing angioedema. (5) Chronic alcoholism Is this a current diagnosis for this admission?: Yes Plan: Patient states he drinks every day. Patient is aware that he needs to stop drinking. Continue on Valium 2 mg p.o. every 6 to hold for sedation. (6) Anemia Qualifiers: Anemia type: iron deficiency Is this a current diagnosis for this admission?: Yes Plan: With anemia we will monitor closely especially with him being on Xarelto for previous PE. If trends down patient may need to be evaluated for possible GI bleed. In addition to that patient takes Motrin for his pain. Patient FOBT positive. Hemoglobin trending down. Will start on protonix GTT. NO more motrin and xarelto is being held. Patient will need EGD. Patient iron level is 12. Will start on iron replacement. (7) Acute renal failure Is this a current diagnosis for this admission?: Yes Plan: Due to intravascular depletion. Will wean lasix to bid. Creatinine went from 1.02 to 1.29. Continue to monitor renal function. - Time Time Spent with patient: Less than 15 minutes Anticipated discharge: Home - Inpatient Certification Medical Necessity: Significant Comorbidiites Make Outpatient Treatment Too Risky , Need Close Monitoring Due to Risk of Patient Decompensation, Need For Continuous Telemetry Monitoring
--- NOTE | 2017-04-18 02:19 | PDOC PROGRESS REPORT ---
Subjective Progress Note for:: 04/15/17 Subjective:: Patient admitted with atrial flutter with RVR and acute heart failure with extensive pedal and scrotal edema. Patient states he still quite swollen but is feeling better. Heart rate continues to be well controlled. Patient notices that swelling is getting better but still there. Very sleepy. No other complaints. Reason For Visit: HEART FAILURE,A FLUTTER RVR Physical Exam Vital Signs: Selected Entries 04/15/17 19:22 Temperature 98.7 F Pulse Rate 66 Respiratory 22 H Rate Blood Pressure 100/54 L Blood Pressure 69 Mean O2 Sat by Pulse 100 Oximetry General appearance: PRESENT: no acute distress, well-developed, well-nourished Eye exam: PRESENT: EOMI. ABSENT: scleral icterus Mouth exam: PRESENT: moist Neck exam: ABSENT: carotid bruit, JVD, lymphadenopathy, thyromegaly Respiratory exam: PRESENT: clear to auscultation garrett. ABSENT: rales, rhonchi, wheezes Cardiovascular exam: PRESENT: RRR. ABSENT: diastolic murmur, rubs, systolic murmur GI/Abdominal exam: PRESENT: normal bowel sounds, soft. ABSENT: distended, guarding, mass, organolmegaly, rebound, tenderness Rectal exam: PRESENT: deferred Extremities exam: PRESENT: full ROM, +2 edema, other - right calf large than left. ABSENT: calf tenderness, clubbing, pedal edema Neurological exam: PRESENT: alert, awake, oriented to person, oriented to place , oriented to time, oriented to situation, CN II-XII grossly intact. ABSENT: motor sensory deficit Psychiatric exam: PRESENT: appropriate affect, normal mood. ABSENT: homicidal ideation, suicidal ideation Skin exam: PRESENT: dry, intact, warm. ABSENT: cyanosis, rash Results Laboratory Results: Selected Entries 04/15/17 19:22 Temperature 98.7 F Pulse Rate 66 Respiratory 22 H Rate Blood Pressure 100/54 L Blood Pressure 69 Mean O2 Sat by Pulse 100 Oximetry 04/15/17 04/15/17 04/15/17 05:06 05:06 05:06 WBC 9.8 RBC 4.24 L Hgb 8.2 L Hct 27.4 L MCV 65 L MCH 19.4 L MCHC 30.0 L RDW 20.5 H Sodium 135.1 L Potassium 4.0 Chloride 100 Carbon Dioxide 26 Anion Gap 9 BUN 25 H Creatinine 1.29 H Est GFR ( Amer) > 60 Est GFR (Non-Af Amer) 57 L Glucose 98 Calcium 8.7 Magnesium 1.8 Impressions: Chest X-Ray 04/13/17 16:32 IMPRESSION: No significant interval change. Cardiomegaly. No acute consolidations are identified. Other findings as noted above Assessment & Plan - Diagnosis (1) Atrial flutter with rapid ventricular response Is this a current diagnosis for this admission?: Yes Plan: Patient with atrial flutter with rapid ventricular response. Patient now in normal sinus rhythm. Continue metoprolol succinate 25 mg twice a days. Sotalol was discontinued due to his CHF. Patient still on digoxin. No anticoagulation is being given this at this time as patient hemoglobin is trending down and there is concern for GI bleed considering patient having been on Xarelto for a PE and patient taking Motrin for pain. Replace magnesium and potassium PRN to maintain levels of 2 and 4 respectively. Cardiology following. (2) Congestive heart failure (CHF) Qualifiers: Congestive heart failure type: unspecified congestive heart failure type Congestive heart failure chronicity: acute on chronic Qualified Code(s): I50.9 - Heart failure, unspecified Is this a current diagnosis for this admission?: Yes Plan: Patient could have cardiomyopathy due to alcohol abuse versus uncontrolled a flutter with RVR. Echo completed on 04/14/2017 shows LVEF of 45% along with a grade 2 out of 4 mild to moderate diastolic heart failure. He is currently on metoprolol, digoxin and spironolactone. Patient is also on Lasix and metolazone. Swelling improve however still significant. No KELLIE is being used due to patient's history of angioedema requiring intubation. (3) History of pulmonary embolism Is this a current diagnosis for this admission?: No Plan: Patient anticoagulation is being held due to concern for possible GI bleed as hemoglobin is trending down. Patient with LLE large than right. Will order venous doppler. (4) KELLIE inhibitor-aggravated angioedema Qualifiers: Encounter type: initial encounter Plan: Patient is not to be given any KELLIE inhibitors. Patient was intubated after being given this medications and developing angioedema. (5) Chronic alcoholism Is this a current diagnosis for this admission?: Yes Plan: Patient states he drinks every day. Patient is aware that he needs to stop drinking. Continue on Valium 2 mg p.o. every 6 to hold for sedation. Will consider weaning as patient is very drowsy. (6) Anemia Qualifiers: Anemia type: iron deficiency Is this a current diagnosis for this admission?: Yes Plan: With anemia we will monitor closely especially with him being on Xarelto for previous PE. If trends down patient may need to be evaluated for possible GI bleed. In addition to that patient takes Motrin for his pain. Patient FOBT positive. Hemoglobin trending down. Continue protonix protonix GTT. NO more motrin and xarelto is being held. Patient will need EGD. Patient iron level is 12. Will start on iron replacement. Hemoglobin was 10.5 on 03/06 now 8.2 today. (7) Acute renal failure Is this a current diagnosis for this admission?: Yes Plan: Due to intravascular depletion. Will wean lasix to daily. Creatinine went from 1.02 to 1.29. Continue to monitor renal function.
--- NOTE | 2017-04-18 02:35 | PDOC PROGRESS REPORT ---
Subjective Progress Note for:: 04/15/17 Subjective:: Patient admitted with atrial flutter with RVR and acute heart failure with extensive pedal and scrotal edema. Patient states he still quite swollen but is feeling better. Heart rate continues to be well controlled. Patient notices that swelling is getting better but still there. Very sleepy. No other complaints. Reason For Visit: HEART FAILURE,A FLUTTER RVR Physical Exam Vital Signs: Selected Entries 04/15/17 19:22 Temperature 98.7 F Pulse Rate 66 Respiratory 22 H Rate Blood Pressure 100/54 L Blood Pressure 69 Mean O2 Sat by Pulse 100 Oximetry General appearance: PRESENT: no acute distress, well-developed, well-nourished Head exam: PRESENT: atraumatic, normocephalic Eye exam: PRESENT: conjunctiva pink, EOMI, PERRLA. ABSENT: scleral icterus Ear exam: PRESENT: normal external ear exam Mouth exam: PRESENT: moist, tongue midline Neck exam: ABSENT: carotid bruit, JVD, lymphadenopathy, thyromegaly Respiratory exam: PRESENT: clear to auscultation garrett. ABSENT: rales, rhonchi, wheezes Cardiovascular exam: PRESENT: RRR. ABSENT: diastolic murmur, rubs, systolic murmur GI/Abdominal exam: PRESENT: normal bowel sounds, soft. ABSENT: distended, guarding, mass, organolmegaly, rebound, tenderness Rectal exam: PRESENT: deferred Extremities exam: PRESENT: full ROM, pedal edema, +1 edema, other - right calf larger than left. ABSENT: calf tenderness, clubbing Neurological exam: PRESENT: alert, awake, oriented to person, oriented to place , oriented to time, oriented to situation, CN II-XII grossly intact. ABSENT: motor sensory deficit Psychiatric exam: PRESENT: appropriate affect, normal mood. ABSENT: homicidal ideation, suicidal ideation Skin exam: PRESENT: dry, intact, warm. ABSENT: cyanosis, rash Results Laboratory Results: 04/15/17 04/15/17 04/15/17 05:06 05:06 05:06 WBC 9.8 RBC 4.24 L Hgb 8.2 L Hct 27.4 L MCV 65 L MCH 19.4 L MCHC 30.0 L RDW 20.5 H Sodium 135.1 L Potassium 4.0 Chloride 100 Carbon Dioxide 26 Anion Gap 9 BUN 25 H Creatinine 1.29 H Est GFR ( Amer) > 60 Est GFR (Non-Af Amer) 57 L Glucose 98 Calcium 8.7 Magnesium 1.8 Impressions: Chest X-Ray 04/13/17 16:32 IMPRESSION: No significant interval change. Cardiomegaly. No acute consolidations are identified. Other findings as noted above Assessment & Plan - Diagnosis (1) Atrial flutter with rapid ventricular response Is this a current diagnosis for this admission?: Yes Plan: Patient with atrial flutter with rapid ventricular response. Patient now in normal sinus rhythm. Continue metoprolol succinate 25 mg twice a days. Sotalol was discontinued due to his CHF. Continue on digoxin. No anticoagulation is being given this at this time as patient hemoglobin is trending down and there is concern for GI bleed considering patient having been on Xarelto for a PE and patient taking Motrin for pain. Replace magnesium and potassium PRN to maintain levels of 2 and 4 respectively. Cardiology following. (2) Congestive heart failure (CHF) Qualifiers: Congestive heart failure type: unspecified congestive heart failure type Congestive heart failure chronicity: acute on chronic Qualified Code(s): I50.9 - Heart failure, unspecified Is this a current diagnosis for this admission?: Yes Plan: Patient could have cardiomyopathy due to alcohol abuse versus uncontrolled a flutter with RVR. Echo completed on 04/14/2017 shows LVEF of 45% along with a grade 2 out of 4 mild to moderate diastolic heart failure. He is currently on metoprolol, digoxin and spironolactone. Patient is also on Lasix and metolazone. Swelling improve however still significant. No KELLIE is being used due to patient's history of angioedema requiring intubation. (3) History of pulmonary embolism Is this a current diagnosis for this admission?: No Plan: Patient anticoagulation is being held due to concern for possible GI bleed as hemoglobin is trending down. Patient with LLE large than right. Will order venous doppler. (4) KELLIE inhibitor-aggravated angioedema Qualifiers: Encounter type: initial encounter Plan: Patient is not to be given any KELLIE inhibitors. Patient was intubated after being given this medications and developing angioedema. (5) Chronic alcoholism Is this a current diagnosis for this admission?: Yes Plan: Patient states he drinks every day. Patient is aware that he needs to stop drinking. Continue on Valium 2 mg p.o. every 6 to hold for sedation. Will consider weaning as patient is very drowsy. (6) Anemia Qualifiers: Anemia type: iron deficiency Is this a current diagnosis for this admission?: Yes Plan: With anemia we will monitor closely especially with him being on Xarelto for previous PE. If trends down patient may need to be evaluated for possible GI bleed. In addition to that patient takes Motrin for his pain. Patient FOBT positive. Hemoglobin trending down. Continue protonix protonix GTT. NO more motrin and xarelto is being held. Patient will need EGD. Patient iron level is 12. Will start on iron replacement. Hemoglobin was 10.5 on 03/06 now 8.2 today. (7) Acute renal failure Is this a current diagnosis for this admission?: Yes Plan: Due to intravascular depletion. Will wean lasix to daily. Creatinine went from 1.02 to 1.29. Continue to monitor renal function. - Time Time Spent with patient: 15-24 minutes - Inpatient Certification Medical Necessity: Significant Comorbidiites Make Outpatient Treatment Too Risky , Need Close Monitoring Due to Risk of Patient Decompensation, Need For Continuous Telemetry Monitoring
--- NOTE | 2017-04-18 02:47 | PDOC PROGRESS REPORT ---
Subjective Progress Note for:: 04/16/17 Subjective:: Patient admitted with atrial flutter with RVR and acute heart failure with extensive pedal and scrotal edema. Patient states he still quite swollen but is feeling better. Heart rate continues to be well controlled. Swelling improving. No pain in right calf but fullness still present. Reason For Visit: HEART FAILURE,A FLUTTER RVR Physical Exam Vital Signs: Selected Entries 04/16/17 04:52 Temperature 97.5 F Pulse Rate 51 L Respiratory 20 Rate Blood Pressure 111/86 H Blood Pressure 94 Mean O2 Sat by Pulse 99 Oximetry General appearance: PRESENT: no acute distress, well-developed, well-nourished Head exam: PRESENT: atraumatic, normocephalic Eye exam: ABSENT: scleral icterus Mouth exam: PRESENT: moist Neck exam: ABSENT: carotid bruit, JVD, lymphadenopathy, thyromegaly Respiratory exam: PRESENT: clear to auscultation garrett. ABSENT: rales, rhonchi, wheezes Cardiovascular exam: PRESENT: RRR. ABSENT: diastolic murmur, rubs, systolic murmur GI/Abdominal exam: PRESENT: normal bowel sounds, soft. ABSENT: distended, guarding, mass, organolmegaly, rebound, tenderness Rectal exam: PRESENT: deferred Extremities exam: PRESENT: full ROM, pedal edema - right >left. ABSENT: calf tenderness, clubbing Neurological exam: PRESENT: alert, awake, oriented to person, oriented to place , oriented to time, oriented to situation, CN II-XII grossly intact. ABSENT: motor sensory deficit Psychiatric exam: PRESENT: appropriate affect, normal mood. ABSENT: homicidal ideation, suicidal ideation Skin exam: PRESENT: dry, intact, warm. ABSENT: cyanosis, rash Results Laboratory Results: 04/16/17 05:50 WBC 7.6 RBC 4.36 Hgb 8.5 L Hct 27.9 L MCV 64 L 04/16/17 05:50 Sodium 133.7 L Potassium 4.1 Chloride 95 L Carbon Dioxide 28 Anion Gap 11 BUN 29 H Creatinine 1.36 H Est GFR ( Amer) > 60 Est GFR (Non-Af Amer) 54 L Glucose 79 Calcium 8.7 Magnesium 1.7 Impressions: Chest X-Ray 04/13/17 16:32 IMPRESSION: No significant interval change. Cardiomegaly. No acute consolidations are identified. Other findings as noted above Assessment & Plan - Diagnosis (1) Atrial flutter with rapid ventricular response Is this a current diagnosis for this admission?: Yes (2) Congestive heart failure (CHF) Qualifiers: Congestive heart failure type: unspecified congestive heart failure type Congestive heart failure chronicity: acute on chronic Qualified Code(s): I50.9 - Heart failure, unspecified Is this a current diagnosis for this admission?: Yes (3) History of pulmonary embolism Is this a current diagnosis for this admission?: No (4) KELLIE inhibitor-aggravated angioedema Qualifiers: Encounter type: initial encounter (5) Chronic alcoholism Is this a current diagnosis for this admission?: Yes (6) Anemia Qualifiers: Anemia type: iron deficiency Is this a current diagnosis for this admission?: Yes Plan: With anemia we will monitor closely especially with him being on Xarelto for previous PE. If trends down patient may need to be evaluated for possible GI bleed. In addition to that patient takes Motrin for his pain. Patient FOBT positive. Hemoglobin trending down. Continue protonix protonix GTT. NO more motrin and xarelto is being held. Patient will need EGD. Patient iron level is 12. Will start on iron replacement. Hemoglobin was 10.5 on 03/06 hemoglobin tending back up. From 8.2 to 8.5. (7) Acute renal failure Is this a current diagnosis for this admission?: Yes Plan: Due to intravascular depletion. Will discontinue lasix. Creatinine went from 1.02 to 1.36. Continue to monitor renal function. (8) Hyponatremia Is this a current diagnosis for this admission?: Yes Plan: Secondary to intravascular depletion. Will discontinue lasix. Patient may require gentle hydration. - Time Time Spent with patient: Less than 15 minutes - Inpatient Certification Medical Necessity: Significant Comorbidiites Make Outpatient Treatment Too Risky , Need Close Monitoring Due to Risk of Patient Decompensation, Need For Continuous Telemetry Monitoring
[2017-04-18 06:09] LABS: HEMOGLOBIN 9.3 g/dL (13.5-17.0); MEAN CORPUSCULAR HEMOGLOBIN 19.5 pg (27.0-33.4); MEAN CORPUSCULAR HGB CONC 29.9 g/dL (32.0-36.0); MEAN CORPUSCULAR VOLUME 65 fl (80-97); PLATELET COUNT 281 10^3/uL (150-450); RED BLOOD COUNT 4.77 10^6/uL (4.35-5.55); RED CELL DISTRIBUTION WIDTH 21.4 % (11.5-14.0); WHITE BLOOD COUNT 10.3 10^3/uL (4.0-10.5)
[2017-04-18 06:37] LABS: ANION GAP 10 (5-19); BLOOD UREA NITROGEN 27 mg/dL (7-20); CALCIUM 8.3 mg/dL (8.4-10.2); CARBON DIOXIDE 26 mmol/L (22-30); CHLORIDE 94 mmol/L (98-107); GLUCOSE 102 mg/dL (75-110); MAGNESIUM 1.6 mg/dL (1.6-2.3); POTASSIUM 4.7 mmol/L (3.6-5.0)
[2017-04-18 06:54] LABS: DIGOXIN 1.37 ng/mL (0.8-2.0)
[2017-04-18 06:57] LABS: ABSOLUTE LYMPHOCYTES# (MANUAL) 2.3 10^3/uL (0.5-4.7); ABSOLUTE MONOCYTES # (MANUAL) 0.6 10^3/uL (0.1-1.4); ABSOLUTE NEUTROPHILS# (MANUAL) 7.3 10^3/uL (1.7-8.2); BASOPHILS % (MANUAL) 0 % (0-2); EOSINOPHILS % (MANUAL) 1 % (0-6); LYMPHOCYTES % (MANUAL) 22 % (13-45); MONOCYTES % (MANUAL) 6 % (3-13); NUCLEATED RED BLOOD CELLS 3 /100 WBC (0); SEGMENTED NEUTROPHILS % (MAN) 71 % (42-78); TOTAL CELLS COUNTED 100
[2017-04-18 07:01] LABS: ANISOCYTOSIS 3+; BURR CELLS SLIGHT; POLYCHROMASIA SLIGHT; SCHISTOCYTES SLIGHT; TARGET CELLS 3+; TEAR DROP CELLS SLIGHT; TOXIC GRANULATION SLIGHT; TOXIC VACUOLATION PRESENT
[2017-04-18 07:02] LABS: HYPOCHROMASIA 2+; OVALOCYTES SLIGHT; PLATELET COMMENT ADEQUATE; POIKILOCYTOSIS 3+
--- NOTE | 2017-04-18 09:22 | EKG REPORT ---
SEVERITY:- ABNORMAL ECG - SINUS RHYTHM BORDERLINE R WAVE PROGRESSION, ANTERIOR LEADS NONSPECIFIC T ABNORMALITIES, LATERAL LEADS : Confirmed by: Ashley Orourke 18-Apr-2017 09:22:13
[2017-04-18 09:36] LABS: PATH REVIEW PATHOLOGIST REVIEWED
[2017-04-18] MEDS: FERROUS SULFATE 325 MG TABLET PO SCH (11:04)
[2017-04-18] MEDS: SUCRALFATE 1 GM TABLET PO SCH ×4 (11:05→21:32)
[2017-04-18] MEDS: MAGNESIUM OXIDE 400 MG TABLET PO SCH ×2 (11:05→17:44)
[2017-04-18] MEDS: NICOTINE 21 MG/24 HR PATCH.TD24 TD SCH (11:05)
[2017-04-18] MEDS: PANTOPRAZOLE SODIUM 40 MG VIAL IV SCH ×2 (11:06→21:32)
[2017-04-18] MEDS: METOPROLOL SUCCINATE 25 MG TAB.SR.24H PO SCH (11:08)
[2017-04-18] MEDS: FUROSEMIDE 20 MG TABLET PO SCH (11:15)
[2017-04-18] MEDS: DIGOXIN 0.125 MG TABLET PO SCH (11:15)
[2017-04-18] MEDS: SPIRONOLACTONE 25 MG TABLET PO SCH (11:16)
[2017-04-18] MEDS: ACETAMINOPHEN 325 MG TABLET PO PRN ×2 (11:19→17:44)
[2017-04-18] MEDS ORDERED: AMINOPHYLLINE INJ/PF 250 MG/10 ML SDV IV ONE (13:21)
[2017-04-18] MEDS ORDERED: REGADENOSON INJ 0.4 MG/5 ML DISP.SYRIN IV ONE (13:21)
--- NOTE | 2017-04-18 13:47 | DRAGON STRESS TEST REPORT ---
INTRAVENOUS LEXISCAN CARDIOLITE STRESS TEST USING SINGLE PHOTON EMMISION COMPUTERIZED TOMOGRAPHIC. DATE OF PROCEDURE: April 18, 2017 INDICATION : Diabetes, hypertension, atrial flutter, CHF CARDIAC RISK FACTORS: Diabetes, hypertension RESTING EKG: Sinus rhythm, probable LVH with secondary ST-T wave changes. STRESS EKG: No significant changes noted with LexiScan bolus REASON FOR TERMINATION: Protocol. PROCEDURE REPORT: Baseline heart rate 62 beats per minute with blood pressure of 114/65. Patient had no significant complaints. Heart rate at 2 minutes post bolus 67 with a blood pressure of 111/71. 3 minutes post bolus heart rate 66 with blood pressure of 105/62. No significant EKG changes were noted. Patient had no significant complaints during the procedure or postprocedure. Patient injected with Aminophyllin 75 mg at 3 minutes or later after Lexiscan bolus. CONCLUSIONS: Normal EKG and hemodynamic response to IV LexiScan. NUCLEAR DATA: At rest the patient was given 15.25 millicuries of technetium 99 sestamibi injected intravenously. As per protocol rest gated SPECT images were obtained. Subsequently the patient was given intravenous LexiScan at a dose of 0.4 mg in 5 mL intravenously, followed by flush with normal saline. Subsequently the stress dose of 34.3 millicuries of technetium 99 sestamibi was injected intravenously. As per protocol stress gated images were obtained. NUCLEAR INTERPRETATION: Both raw and processed data were used for interpretation. Visual, qualitative, computer-generated quantitative data was used. There was good myocardial uptake of technetium compound. Motion artifact and soft tissue attenuations were noted. Increased visceral uptake was noted. No definitive areas of transient perfusion defect noted. Moderate fixed defect noted in the basal and mid inferior wall indicative of prior myocardial infarction. However there was significant diaphragmatic attenuation and increased visceral uptake which caused difficulty with inferior wall perfusion.. EKG gated imaging showed LV EF at 33 %, rest and stress gated EF similar visually. T. I D. ratio was 1.12. Lung heart ratio noted to be within normal limits 0.33. No significant extracardiac and abnormal radiotracer activities were noted. RV free wall uptake was noted to be WNL. IMPRESSION: Also refer to comments under nuclear interpretation. Also test results needs to be interpreted in the context of pretest probability. 1. There is no definitive scintigraphic evidence of LexiScan induced myocardial ischemia. 2. Moderate fixed defect noted in the basal and mid inferior wall indicative of prior myocardial infarction. Please refer to comments under nuclear interpretation as well. 3. EKG gated imaging shows left ventricular ejection fraction of approximately 33 % with diffuse hypokinesia. 4. Clinical correlation requested as occasionally single vessel disease or balanced ischemia could be missed. In approximately 10% of the cases Lexiscan may not cause adequate vasodilatory stress. RECOMMENDATIONS: Aggressive risk factor modification, medical therapy. Clinical correlation with echocardiogram derived ejection fraction. Inability to exercise by itself can lead to increased cardiovascular event risks. Consider cardiology consultation and or follow-up if clinically indicated. I AM AVAILABLE FOR CARDIOLOGY CONSULTATION AND FOLLOWUP IF REQUESTED BY PMD Ashley Orourke M.D., [employer] medical [employer], Board certified in cardiovascular diseases, Nuclear cardiology, Echocardiography Cardiac CT and cardiac MRI Ph. [phone] [facility] HOSPITALShanna
--- NOTE | 2017-04-18 15:45 | RADIOLOGY REPORT (SQ) ---
EXAM DESCRIPTION: VENOUS BILATERAL LOWER COMPLETED DATE/TIME: 04/18/2017 3:23 pm REASON FOR STUDY: swelling COMPARISON: None. TECHNIQUE: Dynamic and static kelly scale and color images acquired of both lower extremity venous sy stems. Selected spectral images acquired with additional compression and augmentation maneuvers. Imag es stored on PACS. LIMITATIONS: None. FINDINGS: RIGHT LEG COMMON FEMORAL AND FEMORAL: Normal phasicity, compression and augmentation. No visualized echogenic m aterial on kelly scale. No defects on color images. POPLITEAL: Normal compression and augmentation. No visualized echogenic material on kelly scale. No de fects on color images. CALF VESSELS: Normal compression and augmentation. No visualized echogenic material on kelly scale. No defects on color image. GSV AND SSV: Normal compression. No visualized echogenic material on kelly scale. No defects on color images. ANY DEEP VENOUS INSUFFICIENCY: Not evaluated. ANY EVIDENCE OF POPLITEAL CYST: No. OTHER: No other significant finding. LEFT LEG COMMON FEMORAL AND FEMORAL: Normal phasicity, compression and augmentation. No visualized echogenic m aterial on kelly scale. No defects on color images. POPLITEAL: Normal compression and augmentation. No visualized echogenic material on kelly scale. No de fects on color images. CALF VESSELS: Normal compression and augmentation. No visualized echogenic material on kelly scale. No defects on color images. GSV AND SSV: Normal compression. No visualized echogenic material on kelly scale. No defects on color images. ANY DEEP VENOUS INSUFFICIENCY: Not evaluated. ANY EVIDENCE POPLITEAL CYST: No. OTHER: No other significant finding. IMPRESSION: NO EVIDENCE DVT OR SVT IN EITHER LEG. TECHNICAL DOCUMENTATION: JOB ID: [id number] [email or web address] Rights Reserved
--- NOTE | 2017-04-18 17:49 | PDOC PROGRESS REPORT ---
Subjective Progress Note for:: 04/18/17 Reason For Visit: HEART FAILURE,A FLUTTER RVR He has swelling in his lower extremities more on the right. Physical Exam Vital Signs: Temp Pulse Resp BP Pulse Ox 97.9 F 65 19 109/85 99 04/18/17 15:08 04/18/17 15:08 04/18/17 15:08 04/18/17 15:08 04/18/17 15:08 Intake & Output 04/17/17 04/18/17 04/19/17 06:59 06:59 06:59 Intake Total 1153 2108 483 Output Total 1875 1650 Balance -722 458 483 Weight 77 kg 72.7 kg Additional comments: He is -British male sitting up in bed not in acute distress Lungs: Few scattered rhonchi no wheezing or crackles normal respiratory effort Cardiac: S1-S2 regular there is pitting pedal edema bilaterally more in the right leg Abdomen: Soft no focal tenderness normal bowel sounds Neurologic: Awake and alert oriented 3 next Results Laboratory Results: 04/18/17 05:16 04/18/17 05:16 04/18/17 04/18/17 05:16 05:16 WBC 10.3 RBC 4.77 Hgb 9.3 L Hct 31.0 L MCV 65 L MCH 19.5 L MCHC 29.9 L RDW 21.4 H Plt Count 281 Seg Neutrophils % Not Reportable Lymphocytes % Not Reportable Monocytes % Not Reportable Eosinophils % Not Reportable Basophils % Not Reportable Absolute Neutrophils Not Reportable Absolute Lymphocytes Not Reportable Absolute Monocytes Not Reportable Absolute Eosinophils Not Reportable Absolute Basophils Not Reportable Sodium 130.0 L Potassium 4.7 Chloride 94 L Carbon Dioxide 26 Anion Gap 10 BUN 27 H Creatinine 1.12 Est GFR ( Amer) > 60 Est GFR (Non-Af Amer) > 60 Glucose 102 Calcium 8.3 L Magnesium 1.6 04/13/17 04/14/17 04/14/17 23:05 05:07 11:07 Troponin I 0.019 0.024 0.019 Impressions: Chest X-Ray 04/13/17 16:32 IMPRESSION: No significant interval change. Cardiomegaly. No acute consolidations are identified. Other findings as noted above Venous Doppler Study 04/18/17 00:00 IMPRESSION: NO EVIDENCE DVT OR SVT IN EITHER LEG. Assessment & Plan - Diagnosis (1) Acute renal failure Is this a current diagnosis for this admission?: Yes (2) Anemia Qualifiers: Anemia type: iron deficiency Is this a current diagnosis for this admission?: Yes (3) Atrial flutter with rapid ventricular response Is this a current diagnosis for this admission?: Yes (4) Congestive heart failure (CHF) Qualifiers: Congestive heart failure type: unspecified congestive heart failure type Congestive heart failure chronicity: acute on chronic Qualified Code(s): I50.9 - Heart failure, unspecified Is this a current diagnosis for this admission?: Yes (5) Duodenal ulcer Is this a current diagnosis for this admission?: Yes (6) History of pulmonary embolism Is this a current diagnosis for this admission?: No (7) Hyponatremia Is this a current diagnosis for this admission?: Yes (8) Tobacco abuse Is this a current diagnosis for this admission?: Yes - Time Time Spent with patient: 25-34 minutes - Plan Summary Plan Summary: Was diagnosed with duodenal ulcer and therefore not on anticoagulation at present. We will discuss with cardiology about the risks and benefits and also set up for outpatient follow-up. Likely discharge in a.m.
--- NOTE | 2017-04-18 21:06 | PDOC PROGRESS REPORT ---
Subjective Progress Note for:: 04/18/17 Subjective:: Nuclear stress test was explained to the patient in the morning. He did undergo a nuclear stress test without any complications. Patient was seen multiple times today. Patient seems to be doing better with gradual improvement. Pt is denying any chest arm or neck discomfort. Patient denying any PND, orthopnea. Patient denied any sustained palpitations, dizziness, syncope, near syncope. Patient denying any fever chills. Patient denying any other significant discomfort. Patient still complains of pedal edema but this is much improved. Telemetry strip shows sinus rhythm. Review of systems: Rest review of systems negative. Medications: Medications have been reviewed. Reason For Visit: HEART FAILURE,A FLUTTER RVR Physical Exam Vital Signs: Temp Pulse Resp BP Pulse Ox 97.9 F 69 19 109/85 99 04/18/17 15:08 04/18/17 19:00 04/18/17 15:08 04/18/17 15:08 04/18/17 15:08 Intake & Output 04/17/17 04/18/17 04/19/17 06:59 06:59 06:59 Intake Total 1153 2108 720 Output Total 1875 1650 Balance -722 458 720 Weight 77 kg 72.7 kg Exam: GENERAL: well-nourished and in no acute distress. Alert and oriented x3 HEAD: Atraumatic, normocephalic. EYES: Pupils equal round and reactive to light, extraocular movements intact, sclera anicteric, conjunctiva are normal. ENT: TMs normal, nares patent, oropharynx clear without exudates. Moist mucous membranes. No oral ulcerations or bleeding gums noted NECK: supple without lymphadenopathy. Trachea is central. No cervical or axillary lymphadenopathy noted. Carotids are 2+, JVD WNL LUNGS: Respiration seems nonlabored, no significant accessory muscle action noted. Breath sounds clear to auscultation bilaterally and equal noted. No wheezes rales or rhonchi noted. No significant dullness noted on percussion. CHEST: Palpation of the chest wall shows no significant chest wall tenderness. No other significant abnormalities noted. 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 ABDOMEN: Soft, no significant tenderness appreciated, normoactive bowel sounds. No guarding, no rebound. No rigidity noted . No masses appreciated. EXTREMITIES: Pedal pulses are 1-2+, no calf tenderness noted. No clubbing or cyanosis.1+ pedal edema noted. Right more than left NEUROLOGICAL: Focused neurological exam showed no significant neurologic deficit. Normal speech, no focal weakness appreciated. PSYCH: Normal mood, normal affect. Judgment and insight within normal limits. SKIN: No significant ecchymosis, rash, ulcerations or signs of pruritus noted. MUSCULOSKELETAL EXAM: No significant joint swelling noted. Results Laboratory Results: 04/18/17 05:16 04/18/17 05:16 04/18/17 04/18/17 05:16 05:16 WBC 10.3 RBC 4.77 Hgb 9.3 L Hct 31.0 L MCV 65 L MCH 19.5 L MCHC 29.9 L RDW 21.4 H Plt Count 281 Seg Neutrophils % Not Reportable Lymphocytes % Not Reportable Monocytes % Not Reportable Eosinophils % Not Reportable Basophils % Not Reportable Absolute Neutrophils Not Reportable Absolute Lymphocytes Not Reportable Absolute Monocytes Not Reportable Absolute Eosinophils Not Reportable Absolute Basophils Not Reportable Sodium 130.0 L Potassium 4.7 Chloride 94 L Carbon Dioxide 26 Anion Gap 10 BUN 27 H Creatinine 1.12 Est GFR ( Amer) > 60 Est GFR (Non-Af Amer) > 60 Glucose 102 Calcium 8.3 L Magnesium 1.6 04/13/17 04/14/17 04/14/17 23:05 05:07 11:07 Troponin I 0.019 0.024 0.019 EKG Comments: Twelve-lead EKG shows sinus rhythm. ST-T wave changes noted. Telemetry strip shows sinus rhythm. No sustained tachyarrhythmia or bradycardia arrhythmias noted. Impressions: Chest X-Ray 04/13/17 16:32 IMPRESSION: No significant interval change. Cardiomegaly. No acute consolidations are identified. Other findings as noted above Venous Doppler Study 04/18/17 00:00 IMPRESSION: NO EVIDENCE DVT OR SVT IN EITHER LEG. Assessment & Plan - Diagnosis (1) Atrial flutter with rapid ventricular response Is this a current diagnosis for this admission?: Yes (2) Congestive heart failure (CHF) Qualifiers: Congestive heart failure type: unspecified congestive heart failure type Congestive heart failure chronicity: acute on chronic Qualified Code(s): I50.9 - Heart failure, unspecified Is this a current diagnosis for this admission?: Yes (3) Chronic alcoholism Is this a current diagnosis for this admission?: Yes (4) Hypertension Qualifiers: Hypertension type: essential hypertension Qualified Code(s): I10 - Essential (primary) hypertension Is this a current diagnosis for this admission?: Yes (5) History of pulmonary embolism Is this a current diagnosis for this admission?: No - Notes Notes: Nuclear stress test results were discussed with the patient. Patient noted to have small area of fixed defect but this could well be artifactual. Patient will benefit from aggressive risk factor modification and medical management. In this regard he was advised smoking cessation, alcohol cessation, regular cardiology follow-up and compliance with medication as well as dietary compliance. Patient will also benefit from a sleep study as he does complain of loud snoring, difficulty falling asleep and staying asleep. Atrial flutter fibrillation: Could be related to alcohol induced cardiomyopathy , alcohol-related holiday heart syndrome. At this point recommend rate control. Currently not on current anticoagulation due to drop in hemoglobin, guaiac positive stools. There is also some concern about noncompliance with this patient. CHF: Most likely acute on chronic precipitated by atrial flutter which may be going on for last several days a week. Currently on spironolactone. Continue p.o. diuretics. Chronic alcoholism: Patient advised to abstain. Hypertension: Blood pressure reasonably well-controlled. Mild sinus bradycardia: Currently stable. Digoxin was held. Will consider restarting it at a lower dose. Patient will benefit from evaluation for underlying sleep apnea due to atrial dysrhythmia. This was explained. Patient seems stable from cardiac standpoint. Patient could follow-up with me if he wishes. Will sign off. Please reconsult if needed. - Time Time with patient: Greater than 35 minutes - CODE STATUS was discussed, patient remains full code. Surrogate decision-maker unchanged. Multiple medical problems were addressed. More than 50% of the time spent coordinating care, discussing management plans with involved caregivers. Management plans discussed with involved personnels. Medical decision making was of moderate to high complexity, patient's has multiple comorbidities. Medications reviewed and adjusted accordingly: Yes
[2017-04-19] MEDS ORDERED: METOPROLOL SUCCINATE 25 MG TAB.SR.24H PO SCH (10:00)
[2017-04-19] MEDS: PANTOPRAZOLE SODIUM 40 MG VIAL IV SCH (12:04)
[2017-04-19] MEDS: DIGOXIN 0.125 MG TABLET PO SCH (12:05)
[2017-04-19] MEDS: MAGNESIUM OXIDE 400 MG TABLET PO SCH (12:05)
[2017-04-19] MEDS: NICOTINE 21 MG/24 HR PATCH.TD24 TD SCH (12:05)
[2017-04-19] MEDS: ACETAMINOPHEN 325 MG TABLET PO PRN ×2 (12:05→15:04)
[2017-04-19] MEDS: SUCRALFATE 1 GM TABLET PO SCH (12:05)
[2017-04-19] MEDS: FERROUS SULFATE 325 MG TABLET PO SCH (12:05)
[2017-04-19] MEDS: FUROSEMIDE 20 MG TABLET PO SCH (12:06)
[2017-04-19] MEDS: SPIRONOLACTONE 25 MG TABLET PO SCH (12:06)
[2017-04-19 14:04] VITALS: BP 110/68
--- NOTE | 2017-04-25 14:49 | PDOC DISCHARGE SUMMARY ---
General - Admit/Disc Date/PCP Admission Date/Primary Care Provider: 04/13/17 18:19 Discharge Date: 04/19/17 - Discharge Diagnosis (1) Acute renal failure Is this a current diagnosis for this admission?: Yes (2) Anemia Is this a current diagnosis for this admission?: Yes (3) Atrial flutter with rapid ventricular response Is this a current diagnosis for this admission?: Yes (4) Congestive heart failure (CHF) Is this a current diagnosis for this admission?: Yes (5) Duodenal ulcer Is this a current diagnosis for this admission?: Yes (6) History of pulmonary embolism Is this a current diagnosis for this admission?: No Summary: V/Q scan was low probability (7) Hyponatremia Is this a current diagnosis for this admission?: Yes (8) Tobacco abuse Is this a current diagnosis for this admission?: Yes - Additional Information Resuscitation Status: Full Code Discharge Diet: Cardiac Discharge Activity: Activity As Tolerated, Balance Activity w/Rest, Weigh Daily Prescriptions: Digoxin [Lanoxin 0.125 mg Tablet] 0.125 mg PO DAILY #30 tablet Ferrous Sulfate [Feosol 325 mg Tablet] 325 mg PO DAILY #30 tablet Furosemide [Lasix 20 mg Tablet] 20 mg PO DAILY #30 tablet Magnesium Oxide [Mag-Ox 400 mg Tablet] 400 mg PO BID 30 Days #60 tablet Metoprolol Succinate [Toprol Xl 25 mg Tab.sr] 25 mg PO DAILY #30 tab.sr.24h Nicotine [Nicoderm 21 mg/24 Hr Transderm Patch] 1 each TD DAILY #30 patch.td24 Pantoprazole Sodium 40 mg PO BID 30 Days #60 tablet. Spironolactone [Aldactone 25 mg Tablet] 25 mg PO DAILY #20 tablet Sucralfate [Carafate 1 gm Tablet] 1 gm PO ACHS 30 Days #120 tablet Home Medications: Albuterol Sulfate [Proair HFA Inhalation Aerosol 8.5 gm MDI] 2 puff IH Q4HP PRN 04/13/17 Digoxin [Lanoxin 0.125 mg Tablet] 0.125 mg PO DAILY #30 tablet 04/19/17 Ferrous Sulfate [Feosol 325 mg Tablet] 325 mg PO DAILY #30 tablet 04/19/17 Furosemide [Lasix 20 mg Tablet] 20 mg PO DAILY #30 tablet 04/19/17 Magnesium Oxide [Mag-Ox 400 mg Tablet] 400 mg PO BID 30 Days #60 tablet Metoprolol Succinate [Toprol Xl 25 mg Tab.sr] 25 mg PO DAILY #30 tab.sr.24h 07/02 Nicotine [Nicoderm 21 mg/24 Hr Transderm Patch] 1 each TD DAILY #30 patch.td24 04/19/17 Pantoprazole Sodium 40 mg PO BID 30 Days #60 tablet.dr 04/19/17 Spironolactone [Aldactone 25 mg Tablet] 25 mg PO DAILY #20 tablet 04/19/17 Sucralfate [Carafate 1 gm Tablet] 1 gm PO ACHS 30 Days #120 tablet 04/19/17 History of Present Illness History of Present Illness: EUGENE ARAGON is a 56 year old male Acute renal failure Hyponatremia Atrial fibrillation with rapid ventricular response Acute systolic congestive heart failure exacerbation Normal stress test No evidence of DVT on venous Dopplers Duodenal ulcer with no active bleeding Gastritis Esophagitis Anticoagulation and Motrin stopped due to heme positive stools and duodenal ulcer. He is stable for discharge. He will follow-up with cardiology in 1 week Hospital Course Hospital Course: As above. Physical Exam Vital Signs: Temp Pulse Resp BP Pulse Ox 97.8 F 67 16 103/64 100 04/19/17 07:09 04/19/17 07:09 04/19/17 07:09 04/19/17 07:09 04/19/17 07:09 Intake & Output 04/18/17 04/19/17 04/20/17 06:59 06:59 06:59 Intake Total 2108 1375 Output Total 1650 Balance 458 1375 Weight 72.7 kg 78 kg Results Laboratory Results: 04/18/17 05:16 04/18/17 05:16 04/13/17 04/14/17 04/14/17 23:05 05:07 11:07 Troponin I 0.019 0.024 0.019 Impressions: Chest X-Ray 04/13/17 16:32 IMPRESSION: No significant interval change. Cardiomegaly. No acute consolidations are identified. Other findings as noted above Venous Doppler Study 04/18/17 00:00 IMPRESSION: NO EVIDENCE DVT OR SVT IN EITHER LEG.
== END 2017-04-19 15:20 | disposition home or self-care (01) | DRG 308 ==
LOC: ER 16:25 → EH 18:19 → 3W 22:18
PROVIDERS: ADMIT Pediatrics; ATTEND Pediatrics
PROC: 0DB58ZX Excision of Esophagus, Via Natural or Artificial Opening Endoscopic, Diagnostic (ICD-10-PCS; principal; 2017-04-16)
PROC: 0DB68ZX Excision of Stomach, Via Natural or Artificial Opening Endoscopic, Diagnostic (ICD-10-PCS; 2017-04-16)
DX: I48.92 Unspecified atrial flutter (principal); I50.23 Acute on chronic systolic (congestive) heart failure; N17.9 Acute kidney failure, unspecified; E87.1 Hypo-osmolality and hyponatremia; K92.1 Melena; I11.0 Hypertensive heart disease with heart failure; K26.7 Chronic duodenal ulcer without hemorrhage or perforation; K29.70 Gastritis, unspecified, without bleeding; K20.8 Other esophagitis; K29.80 Duodenitis without bleeding; F17.200 Nicotine dependence, unspecified, uncomplicated; D50.0 Iron deficiency anemia secondary to blood loss (chronic); T78.3XXA Angioneurotic edema, initial encounter; T46.4X5A Adverse effect of angiotensin-converting-enzyme inhibitors, initial encounter; N50.89 Other specified disorders of the male genital organs; M19.90 Unspecified osteoarthritis, unspecified site; J45.909 Unspecified asthma, uncomplicated; D50.9 Iron deficiency anemia, unspecified; F10.20 Alcohol dependence, uncomplicated; Z86.711 Personal history of pulmonary embolism; Z82.49 Family history of ischemic heart disease and other diseases of the circulatory system; Z79.02 Long term (current) use of antithrombotics/antiplatelets
CPT/HCPCS: 36415; 43239; 71010; 78452; 80048; 80061; 80162; 82272; 82607; 82728; 82746; 83540; 83550; 83735; 83880; 84439; 84443; 84481; 84484; 85025; 88305; 88341; 88342; 93005; 93010; 93017; 93306; 93970; 96374; 99291; A9500; J0171; J0280; J1160; J1610; J1650; J1940; J2250; J2310; J2405; J2785; J3010; J3475; J3490; J7030; Q9969; S0164

== ENCOUNTER 2017-10-10 20:30 | Inpatient (IN) | payer BC ==
[2017-10-10] MEDS ORDERED: METOCLOPRAMIDE HCL INJ/PF 10 MG/2 ML SDV IV ONE (21:29)
[2017-10-10] MEDS ORDERED: MORPHINE SULFATE 10 MG/ML INJ IV ONE (21:29)
--- NOTE | 2017-10-10 21:31 | ER Document Report ---
ED GI/ - General Chief Complaint: Abdominal Pain Stated Complaint: ABDOMINAL PAIN Time Seen by Provider: 10/10/17 21:22 Notes: Patient is a 57-year-old male that comes emergency department for chief complaint of 3 days of abdominal pain. Pain is in the middle of the abdomen. He states he has vomited a couple of times a day, nonbloody, earlier today he had sweats and chills and believes he had a fever. He states he has not had a bowel movement for 3-4 days until this evening when he had a small firm one. He denies hematochezia. He denies any abdominal surgeries. He denies flank or chest pain. Past medical history includes CHF, hypertension, he is on iron supplements. He takes a stool softener, just refilled and began taking this again today. He smokes, reports occasional alcohol, denies recreational drugs. TRAVEL OUTSIDE OF THE [place] IN LAST 30 DAYS: No - Related Data Allergies/Adverse Reactions: KELLIE Inhibitors Allergy (Severe, Verified 10/10/17 20:31) Anaphylaxis lisinopril Allergy (Verified 10/10/17 20:31) Past Medical History - General Information source: Patient - Social History Smoking Status: Current Every Day Smoker Chew tobacco use (# tins/day): Yes Frequency of alcohol use: Heavy - every few days Drug Abuse: None Lives with: Alone Family History: Hypertension Patient has suicidal ideation: No Patient has homicidal ideation: No - Past Medical History Cardiac Medical History: Reports: Hx Congestive Heart Failure, Hx Hypertension, Hx Pulmonary Embolism Pulmonary Medical History: Reports: Hx Asthma Neurological Medical History: Denies: Hx Seizures Renal/ Medical History: Denies: Hx Peritoneal Dialysis Musculoskeltal Medical History: Reports Hx Arthritis, Reports Hx Musculoskeletal Deformity, Reports Hx Musculoskeletal Trauma Psychiatric Medical History: Denies: Hx Depression Traumatic Medical History: Reports: Hx Fractures - ankle - Immunizations Hx Diphtheria, Pertussis, Tetanus Vaccination: Yes Review of Systems - Review of Systems Constitutional: No symptoms reported EENT: No symptoms reported Cardiovascular: No symptoms reported Respiratory: No symptoms reported Gastrointestinal: See HPI Genitourinary: No symptoms reported Male Genitourinary: No symptoms reported Musculoskeletal: No symptoms reported Skin: No symptoms reported Hematologic/Lymphatic: No symptoms reported Neurological/Psychological: No symptoms reported Physical Exam - Vital signs Vitals: Temp Pulse Resp BP Pulse Ox 98.7 F 106 H 16 149/76 H 98 10/10/17 20:34 10/10/17 20:34 10/10/17 20:34 10/10/17 20:34 10/10/17 20:34 - Notes Notes: GENERAL: Alert, interacts well. Patient appears mildly uncomfortable. HEAD: Normocephalic, atraumatic. EYES: Pupils equal, round, and reactive to light. Extraocular movements intact. ENT: Oral mucosa moist, tongue midline. NECK: Full range of motion. Supple. Trachea midline. LUNGS: Clear to auscultation bilaterally, no wheezes, rales, or rhonchi. No respiratory distress. HEART: Regular rate and rhythm. No murmur ABDOMEN: Epigastric tenderness and tenderness in the general upper abdomen, mild tenderness in the mid abdomen, small umbilical hernia which is not specifically tender and is easily reduced, lower abdomen is completely benign. EXTREMITIES: Moves all 4 extremities spontaneously. No edema, normal radial and dorsalis pedis pulses bilaterally. No cyanosis. BACK: no cervical, thoracic, lumbar midline tenderness. No saddle anesthesia, normal distal neurovascular exam. NEUROLOGICAL: Alert and oriented x3. Normal speech. [cranial nerves II through XII grossly intact]. PSYCH: Normal affect, normal mood. SKIN: Warm, dry, normal turgor. No rashes or lesions noted. Course - Re-evaluation Re-evalutation: Patient has tenderness in the epigastric area on examination, he states his most recent alcoholic drink was about 2 days ago when he drank wine. Possible gastritis versus pancreatitis versus other acute etiology. CBC shows leukocytosis at 12,000 with elevation of neutrophils but no bandemia. Chemistry shows normal LFTs, unremarkable bilirubin, lipase is significantly elevated at greater than 4000. Urinalysis unremarkable. Patient reevaluated, still complaining of pain, asking for more medication, still has tenderness on exam. Has had multiple episodes of pancreatitis in the past reportedly, will scan to rule out abscess or pseudocyst. CAT scan showing acute on chronic pancreatitis with no other concerning acute findings. Patient states she is now comfortable, he appears comfortable, no vomiting. Patient has had difficulty keeping down anything PO over the past couple of days. Will discuss with hospitalist for admission. Patient states agreement with plan. Discussed with Dr. Villalba, patient's provider, patient will be admitted to telemetry. - Vital Signs Vital signs: Temp Pulse Resp BP Pulse Ox 98.2 F 61 16 184/86 H 99 10/11/17 04:50 10/11/17 04:50 10/11/17 04:50 10/11/17 04:50 10/11/17 04:50 - Laboratory Result Diagrams: 10/10/17 22:00 10/10/17 22:00 Laboratory results interpreted by me: 10/10/17 10/10/17 10/10/17 22:00 22:00 22:00 WBC 12.3 H Hgb 13.0 L MCV 76 L MCH 25.1 L RDW 16.1 H Lymphocytes % (Manual) 5 L Monocytes % (Manual) 22 H Abs Neuts (Manual) 9.0 H Abs Monocytes (Manual) 2.7 H BUN 26 H Creatinine 1.38 H Est GFR (Non-Af Amer) 53 L Glucose 128 H Direct Bilirubin 0.5 H Total Protein 8.6 H Lipase 4222.5 H Urine Ketones TRACE H Urine Blood SMALL H Discharge - Discharge Clinical Impression: Vomiting Qualifiers: Vomiting type: unspecified Vomiting Intractability: non-intractable Nausea presence: with nausea Qualified Code(s): R11.2 - Nausea with vomiting, unspecified Abdominal pain Qualifiers: Abdominal location: upper abdomen, unspecified Qualified Code(s): R10.10 - Upper abdominal pain, unspecified Pancreatitis Qualifiers: Chronicity: acute Pancreatitis type: alcohol induced Acute pancreatitis complication: unspecified Qualified Code(s): K85.20 - Alcohol induced acute pancreatitis without necrosis or infection Condition: Stable Disposition: ADMITTED INPATIENT Admitting Provider: Villalba Unit Admitted: Telemetry
[2017-10-10] MEDS ORDERED: NORMAL SALINE 1000 ML 500 ML IV ONE (21:32)
[2017-10-10] MEDS: NORMAL SALINE 1000 ML 1,000 ML IV ONE (22:10)
[2017-10-10 22:16] LABS: HEMATOCRIT 39.4 % (37.9-51.0); MEAN CORPUSCULAR HEMOGLOBIN 25.1 pg (27.0-33.4); MEAN CORPUSCULAR HGB CONC 32.9 g/dL (32.0-36.0); MEAN CORPUSCULAR VOLUME 76 fl (80-97); PLATELET COUNT 263 10^3/uL (150-450); RED BLOOD COUNT 5.16 10^6/uL (4.35-5.55); RED CELL DISTRIBUTION WIDTH 16.1 % (11.5-14.0); WHITE BLOOD COUNT 12.3 10^3/uL (4.0-10.5)
[2017-10-10 22:20] LABS: APPEARANCE,URINE CLEAR; BILIRUBIN,URINE NEGATIVE (NEGATIVE); COLOR,URINE YELLOW; GLUCOSE, URINE NEGATIVE (NEGATIVE); KETONES,URINE TRACE mg/dL (NEGATIVE); LEUKOCYTE ESTERASE,URINE NEGATIVE (NEGATIVE); NITRITE,URINE NEGATIVE (NEGATIVE); PROTEIN,URINE NEGATIVE (NEGATIVE); URINE SPECIFIC GRAVITY 1.012; UROBILINOGEN,URINE NEGATIVE mg/dL (<2.0)
[2017-10-10 22:37] LABS: ALANINE AMINOTRANSFERASE 22 U/L (21-72); ALBUMIN 4.8 g/dL (3.5-5.0); ALKALINE PHOSPHATASE 98 U/L (38-126); ANION GAP 15 (5-19); ASPARTATE AMINO TRANSFERASE 34 U/L (17-59); BILIRUBIN,DIRECT 0.5 mg/dL (0.0-0.4); BILIRUBIN,TOTAL 1.2 mg/dL (0.2-1.3); BLOOD UREA NITROGEN 26 mg/dL (7-20); CALCIUM 9.9 mg/dL (8.4-10.2); CARBON DIOXIDE 26 mmol/L (22-30); CHLORIDE 101 mmol/L (98-107); GLUCOSE 128 mg/dL (75-110); POTASSIUM 3.8 mmol/L (3.6-5.0); SODIUM 141.6 mmol/L (137-145); TOTAL PROTEIN 8.6 g/dL (6.3-8.2)
[2017-10-10 22:41] LABS: ABSOLUTE LYMPHOCYTES# (MANUAL) 0.6 10^3/uL (0.5-4.7); ABSOLUTE MONOCYTES # (MANUAL) 2.7 10^3/uL (0.1-1.4); BASOPHILS % (MANUAL) 0 % (0-2); EOSINOPHILS % (MANUAL) 0 % (0-6); LYMPHOCYTES % (MANUAL) 5 % (13-45); MONOCYTES % (MANUAL) 22 % (3-13); SEGMENTED NEUTROPHILS % (MAN) 73 % (42-78); TOTAL CELLS COUNTED 100
[2017-10-10 22:42] LABS: ANISOCYTOSIS 1+; HYPOCHROMASIA SLIGHT; PLATELET COMMENT ADEQUATE; POIKILOCYTOSIS SLIGHT; TARGET CELLS SLIGHT; TOXIC GRANULATION SLIGHT
[2017-10-10 23:11] LABS: LIPASE 4222.5 U/L (23-300)
[2017-10-11] MEDS ORDERED: MORPHINE SULFATE 10 MG/ML INJ IV ONE (00:49)
--- NOTE | 2017-10-11 01:15 | RADIOLOGY REPORT (SQ) ---
EXAM DESCRIPTION: CT ABDOMEN PELVIS WITH IV CONTRAST COMPLETED DATE/TME: 10/10/2017 23:28 CLINICAL HISTORY: mid abd pain, vomiting, 1 bm in past 4 days. COMPARISON: 01/25/2011 TECHNIQUE: CT of the abdomen and pelvis performed following IV administration of 75.1 mL of Isovue-370. Delayed images obtained DLP: 676.54 mGycm FINDINGS: Lung Bases: The visualized lung bases are clear. Bones: No destructive bone lesions identified. Abdomen: Liver: The liver has normal size and density. No intrahepatic mass or biliary dilatation. Gallbladder: No calcified gallstones. Spleen, Pancreas, and Adrenal Glands: Calcifications involving the head of the pancreas are increased from the comparison study. Mild peripancreatic fat stranding. No acute abnormalities of the spleen or adrenal glands. Kidneys: The kidneys have normal size and contour without evidence of solid mass or hydronephrosis. Bosniak class I left renal cyst. Vasculature: The aorta and IVC have normal caliber and position. The portal vein is patent. The proximal visceral and renal arteries are patent. Stomach: The stomach and duodenum have normal course. Other: No free intraperitoneal air. No free fluid or lymphadenopathy. Pelvis: Bladder: Urinary bladder is unremarkable. Bowel: No dilated loops of large or small bowel. Appendix: Normal appendix. Pelvis: Prostate is not enlarged. IMPRESSION: 1. Calcifications involving the head of the pancreas with mild peripancreatic fat stranding. These findings could be seen with mild acute pancreatitis superimposed on chronic pancreatitis. Correlation with serum lipase recommended. This exam was performed according to our departmental dose-optimization program, which includes automated exposure control, adjustment of the mA and/or kV according to patient size and/or use of iterative reconstruction technique.
[2017-10-11] MEDS ORDERED: GLUCAGON,HUMAN RECOMB 1 MG INJ SUBCUT PRN (02:18)
[2017-10-11] MEDS ORDERED: DEXTROSE 40% GEL 15 GM TUBE PO PRN ×2 (02:18)
[2017-10-11] MEDS ORDERED: ONDANSETRON HCL INJ/PF 4 MG/2 ML SDV IV PRN (02:18)
[2017-10-11] MEDS ORDERED: IPRATROPIUM/ALBUTEROL 0.5-2.5 MG/3 ML AMPUL NEB PRN (02:18)
[2017-10-11] MEDS ORDERED: DEXTROSE 50%-WATER 25 GM/50 ML DISP.SYRIN IV PRN ×2 (02:18)
[2017-10-11] MEDS ORDERED: AMPICILLIN SOD/SULBACTAM 3 GM VIAL IV PRN (02:37)
[2017-10-11] MEDS: AMPICILLIN SODIUM/SULBACTAM NA 3 GM in NORMAL SALINE 100 ML IV SCH ×4 (06:37→23:29)
[2017-10-11] MEDS: HEPARIN SOD (PORCINE) 5,000 UNIT/ML 1 ML SYRINGE SUBCUT SCH ×3 (06:40→22:27)
[2017-10-11] MEDS: NORMAL SALINE 1000 ML 1,000 ML IV PRN ×2 (06:40→23:30)
[2017-10-11] MEDS: MORPHINE SULFATE 10 MG/ML INJ IV PRN ×5 (06:42→23:30)
[2017-10-11] MEDS: SUCRALFATE 1 GM TABLET PO SCH ×4 (09:20→22:27)
[2017-10-11] MEDS: METOPROLOL SUCCINATE 25 MG TAB.SR.24H PO SCH (09:21)
[2017-10-11] MEDS: DIGOXIN 0.125 MG TABLET PO SCH (09:21)
[2017-10-11] MEDS: PANTOPRAZOLE SODIUM 40 MG VIAL IV SCH ×2 (09:21→22:27)
--- NOTE | 2017-10-11 13:15 | PDOC H&P ---
History of Present Illness Admission Date/PCP: 10/11/17 02:15 MAIK JERRY MD Patient complains of: Abdominal pain History of Present Illness: EUGENE ARAGON is a 57 year old male This is a 57-year-old male with the history of the peptic ulcer disease history of the GI bleed history of the hypertension's history of the congestive heart failure and history of the chronic A. fib and a history of the alcoholism in the past and history of the pancreatitis in the past came to the emergency department with a complaint of abdominal pain nausea and vomiting and unable to tolerate the foodFor the last 3 days Patient apparently doing well until the last admissions in the March patient was recently seen in the office 2 weeks but was everything was stable and according to the patient's last 3 days patient's Mr. couple of doses of the medication and started feeling the symptoms Patient's denied any alcohol drink but still on and off drink alcohol but not like as before Patient see outpatients Dr. Orourke the cardiology Patient's denied any chest pain denied any shortness of the breath Patient initial workup for the lipase was [address] abdomen and pelvis suggesting pancreatic Inflammations When I saw the patient's patient's currently doing fair Feeling little bit better Past Medical History Cardiac Medical History: Reports: Atrial Fibrillation, Congestive Heart Failure , Hypertension, Pulmonary Embolism Pulmonary Medical History: Reports: Asthma Neurological Medical History: Denies: Seizures Renal/ Medical History: Reports: Chronic Kidney Disease GI Medical History: Reports: Gastroesophageal Reflux Disease, Peptic Ulcer Disease Musculoskeltal Medical History: Reports: Arthritis Psychiatric Medical History: Denies: Depression Social History Lives with: Alone Smoking Status: Current Every Day Smoker Cigarettes Packs Per Day: 0.5 Number of Years Smokin Last Time Smoked: 10/10/2017 Frequency of Alcohol Use: Heavy Hx Recreational Drug Use: No Drugs: Cocaine Hx Prescription Drug Abuse: No Family History Family History: None, Hypertension Parental Family History Reviewed: Yes Children Family History Reviewed: Yes Sibling(s) Family History Reviewed.: Yes Medication/Allergy Home Medications: Albuterol Sulfate [Proair HFA Inhalation Aerosol 8.5 gm MDI] 2 puff IH Q4HP PRN 04/13/17 Digoxin [Lanoxin 0.125 mg Tablet] 0.125 mg PO DAILY #30 tablet 04/19/17 Ferrous Sulfate [Feosol 325 mg Tablet] 325 mg PO DAILY #30 tablet 04/19/17 Furosemide [Lasix 20 mg Tablet] 20 mg PO DAILY #30 tablet 04/19/17 Metoprolol Succinate [Toprol Xl 25 mg Tab.sr] 25 mg PO DAILY #30 tab.sr.24h 07/02 Pantoprazole Sodium 40 mg PO BID 30 Days #60 tablet. 04/19/17 Spironolactone [Aldactone 25 mg Tablet] 25 mg PO DAILY #20 tablet 04/19/17 Docusate Sodium [Dok] 100 mg PO BID 10/11/17 Allergies/Adverse Reactions: KELLIE Inhibitors Allergy (Severe, Verified 10/11/17 11:11) Anaphylaxis lisinopril Allergy (Verified 10/11/17 11:11) Review of Systems Constitutional: ABSENT: chills, fever(s), headache(s), weight gain, weight loss Eyes: ABSENT: visual disturbances Ears: ABSENT: hearing changes Cardiovascular: ABSENT: chest pain, dyspnea on exertion, edema, orthropnea, palpitations Respiratory: ABSENT: cough, hemoptysis Gastrointestinal: PRESENT: abdominal pain, nausea, vomiting. ABSENT: constipation, diarrhea, hematemesis, hematochezia Genitourinary: ABSENT: dysuria, hematuria Musculoskeletal: ABSENT: joint swelling Integumentary: ABSENT: rash, wounds Neurological: ABSENT: abnormal gait, abnormal speech, confusion, dizziness, focal weakness, syncope Psychiatric: ABSENT: anxiety, depression, homidical ideation, suicidal ideation Endocrine: ABSENT: cold intolerance, heat intolerance, menstrual abnormalities, polydipsia, polyuria Hematologic/Lymphatic: ABSENT: easy bleeding, easy bruising, lymphadenopathy Physical Exam Vital Signs: Temp Pulse Resp BP Pulse Ox 98.1 F 87 16 174/82 H 99 10/11/17 07:49 10/11/17 07:49 10/11/17 07:49 10/11/17 11:22 10/11/17 07:49 Intake & Output 10/10/17 10/11/17 10/12/17 06:59 06:59 06:59 Intake Total 0 Balance 0 Weight 67.5 kg General appearance: PRESENT: no acute distress, well-developed, well-nourished Head exam: PRESENT: atraumatic, normocephalic Eye exam: PRESENT: conjunctiva pink, EOMI, PERRLA. ABSENT: scleral icterus Ear exam: PRESENT: normal external ear exam Mouth exam: PRESENT: moist, tongue midline Neck exam: PRESENT: full ROM. ABSENT: carotid bruit, JVD, lymphadenopathy, thyromegaly Respiratory exam: PRESENT: clear to auscultation garrett Cardiovascular exam: PRESENT: RRR. ABSENT: diastolic murmur, rubs, systolic murmur Pulses: PRESENT: normal dorsalis pedis pul, +2 pedal pulses bilateral Vascular exam: PRESENT: normal capillary refill GI/Abdominal exam: PRESENT: normal bowel sounds, soft, tenderness. ABSENT: distended, guarding, mass, organolmegaly, rebound Rectal exam: PRESENT: deferred Extremities exam: ABSENT: full ROM, left AKA, right AKA, left BKA, right BKA, calf tenderness, joint swelling, pedal edema, tenderness, other Musculoskeletal exam: PRESENT: ambulatory Neurological exam: PRESENT: alert, awake, oriented to person, oriented to place , oriented to time, oriented to situation, CN II-XII grossly intact. ABSENT: motor sensory deficit Psychiatric exam: PRESENT: appropriate affect, normal mood. ABSENT: homicidal ideation, suicidal ideation Skin exam: PRESENT: dry, intact, warm. ABSENT: cyanosis, rash Results Impressions: Abdomen/Pelvis CT 10/10/17 23:28 IMPRESSION: 1. Calcifications involving the head of the pancreas with mild peripancreatic fat stranding. These findings could be seen with mild acute pancreatitis superimposed on chronic pancreatitis. Correlation with serum lipase recommended. This exam was performed according to our departmental dose-optimization program, which includes automated exposure control, adjustment of the mA and/or kV according to patient size and/or use of iterative reconstruction technique. Assessment & Plan - Diagnosis (1) Abdominal pain Qualifiers: Abdominal location: upper abdomen, unspecified Qualified Code(s): R10.10 - Upper abdominal pain, unspecified Is this a current diagnosis for this admission?: Yes Plan: Most likely alcoholic pancreatiti Keep her n.p.o. start the IV fluid and IV antibiotics (2) Pancreatitis Qualifiers: Chronicity: acute Pancreatitis type: alcohol induced Acute pancreatitis complication: unspecified Qualified Code(s): K85.20 - Alcohol induced acute pancreatitis without necrosis or infection Is this a current diagnosis for this admission?: Yes Plan: As above (3) Chronic alcoholism Is this a current diagnosis for this admission?: Yes Plan: Patient's currently denied any heavy alcoholism's patient's serum alcohol level is less than 10 (4) Congestive heart failure (CHF) Qualifiers: Heart failure type: diastolic Heart failure chronicity: chronic Qualified Code(s): I50.32 - Chronic diastolic (congestive) heart failure Is this a current diagnosis for this admission?: Yes Plan: Currently all stable (5) Duodenal ulcer Is this a current diagnosis for this admission?: Yes Plan: Continues to Protonix IV we consult the GI for further evaluations (6) Hypertension Qualifiers: Hypertension type: essential hypertension Is this a current diagnosis for this admission?: Yes Plan: Currently all stable (7) Tobacco abuse Is this a current diagnosis for this admission?: Yes Plan: Discussed with the patient about smoking counseling (8) Atrial fibrillation Qualifiers: Atrial fibrillation type: paroxysmal Qualified Code(s): I48.0 - Paroxysmal atrial fibrillation Is this a current diagnosis for this admission?: Yes Plan: Currently all stable - Time Time Spent: 50 to 70 Minutes Medications reviewed and adjusted accordingly: Yes Anticipated discharge: Home Within: Other - Inpatient Certification Medical Necessity: Need For IV Fluids, Need for IV Antibiotics Post Hospital Care: D/C [employer] Documentation - Plan Summary Plan Summary: See other MD orders continues to current medications
[2017-10-11] MEDS ORDERED: AMLODIPINE BESYLATE 5 MG TABLET PO ONE (15:30)
[2017-10-11] MEDS: DOCUSATE SODIUM 100 MG CAPSULE PO SCH (17:07)
[2017-10-11] MEDS: ACETAMINOPHEN 325 MG TABLET PO PRN (18:30)
--- NOTE | 2017-10-11 19:17 | PDOC CONSULTATION ---
Consultation Consult Date: 10/11/17 Attending physician:: CECILE TONG Consult reason:: abdominal pain, pancreatitis. history of duodenal ulcer disease History of Present Illness Admission Date/PCP: 10/11/17 02:15 MAIK VILLALBA MD History of Present Illness: EUGENE ARAGON is a 57 year old male I have been asked to see this patient by Dr Villalba patient was admitted overnight and noted to have CT evidence of pancreatitis patient had EGD done by Dr Kessler in the past, was noted to have a duodenal ulcer has not had follow up to document healing patient does need an EGD as well to make sure that his abdominal pain is not due to persistent PUD he does have an ETOH history in the past states that he has quit drinking patient appears to have some evidence of chronic pancreatitis would start pancreatic enzymes, this will help with both pain and nutrtion as well Past Medical History Cardiac Medical History: Reports: Atrial Fibrillation, Congestive Heart Failure , Hypertension, Pulmonary Embolism Pulmonary Medical History: Reports: Asthma Neurological Medical History: Denies: Seizures Renal/ Medical History: Reports: Chronic Kidney Disease GI Medical History: Reports: Gastroesophageal Reflux Disease, Peptic Ulcer Disease Musculoskeltal Medical History: Reports: Arthritis Psychiatric Medical History: Denies: Depression Social History Lives with: Alone Smoking Status: Current Every Day Smoker Cigarettes Packs Per Day: 0.5 Number of Years Smokin Last Time Smoked: 10/10/2017 Frequency of Alcohol Use: Heavy Hx Recreational Drug Use: No Drugs: Cocaine Hx Prescription Drug Abuse: No Family History Family History: None, Hypertension Parental Family History Reviewed: Yes Children Family History Reviewed: Unknown Sibling(s) Family History Reviewed.: Unknown Medication/Allergy Home Medications: Albuterol Sulfate [Proair HFA Inhalation Aerosol 8.5 gm MDI] 2 puff IH Q4HP PRN 04/13/17 Digoxin [Lanoxin 0.125 mg Tablet] 0.125 mg PO DAILY #30 tablet 04/19/17 Ferrous Sulfate [Feosol 325 mg Tablet] 325 mg PO DAILY #30 tablet 04/19/17 Furosemide [Lasix 20 mg Tablet] 20 mg PO DAILY #30 tablet 04/19/17 Metoprolol Succinate [Toprol Xl 25 mg Tab.sr] 25 mg PO DAILY #30 tab.sr.24h 07/02 Pantoprazole Sodium 40 mg PO BID 30 Days #60 tablet. 04/19/17 Spironolactone [Aldactone 25 mg Tablet] 25 mg PO DAILY #20 tablet 04/19/17 Docusate Sodium [Dok] 100 mg PO BID 10/11/17 Allergies/Adverse Reactions: KELLIE Inhibitors Allergy (Severe, Verified 10/11/17 11:11) Anaphylaxis lisinopril Allergy (Verified 10/11/17 11:11) Review of Systems Constitutional: ABSENT: fever(s), headache(s), night sweats, weakness Eyes: ABSENT: visual disturbances Ears: ABSENT: hearing changes Nose, Mouth, and Throat: ABSENT: mouth pain Cardiovascular: ABSENT: edema, orthropnea, palpitations Respiratory: ABSENT: dyspnea, hemoptysis Gastrointestinal: PRESENT: diarrhea. ABSENT: dysphagia, hematemesis, hematochezia Genitourinary: ABSENT: dysuria, hematuria Musculoskeletal: ABSENT: deformity, joint swelling Neurological: ABSENT: syncope, tingling, tremor(s), vertigo Endocrine: ABSENT: polydipsia, polyphagia, polyuria Hematologic/Lymphatic: ABSENT: easy bruising Physical Exam Vital Signs: Temp Pulse Resp BP Pulse Ox 98.3 F 65 16 173/78 H 100 10/11/17 15:33 10/11/17 15:33 10/11/17 15:33 10/11/17 15:33 10/11/17 15:33 Intake & Output 10/10/17 10/11/17 10/12/17 06:59 06:59 06:59 Intake Total 0 978 Output Total 225 Balance 0 753 Weight 67.5 kg General appearance: PRESENT: no acute distress, well-developed, well-nourished Head exam: PRESENT: atraumatic, normocephalic Eye exam: PRESENT: EOMI, PERRLA. ABSENT: nystagmus, periorbital swelling, scleral icterus Mouth exam: PRESENT: moist, neck supple Throat exam: ABSENT: tonsillar exudate, tonsillogmegaly Neck exam: ABSENT: meningismus, tenderness, thyromegaly Respiratory exam: PRESENT: symmetrical, unlabored. ABSENT: tachypnea, wheezes Cardiovascular exam: PRESENT: RRR, +S1, +S2 GI/Abdominal exam: PRESENT: soft. ABSENT: rebound, rigid Extremities exam: ABSENT: joint swelling Musculoskeletal exam: PRESENT: full ROM Neurological exam: PRESENT: alert, awake, oriented to time, CN II-XII grossly intact Focused psych exam: ABSENT: restlessness Skin exam: PRESENT: normal color. ABSENT: mottled, pallor, urticaria, vesicles Results Impressions: Abdomen/Pelvis CT 10/10/17 23:28 IMPRESSION: 1. Calcifications involving the head of the pancreas with mild peripancreatic fat stranding. These findings could be seen with mild acute pancreatitis superimposed on chronic pancreatitis. Correlation with serum lipase recommended. This exam was performed according to our departmental dose-optimization program, which includes automated exposure control, adjustment of the mA and/or kV according to patient size and/or use of iterative reconstruction technique. Assessment & Plan - Diagnosis (1) Abdominal pain Qualifiers: Abdominal location: upper abdomen, unspecified Qualified Code(s): R10.10 - Upper abdominal pain, unspecified Is this a current diagnosis for this admission?: Yes Plan: previous history of peptic ulcer disease repeat EGD is indicated to re-assess healing will need to be scheduled Risks, benefits and alternatives are discussed with the patient in detail further recommendations to follow (2) Pancreatitis Qualifiers: Chronicity: acute Pancreatitis type: alcohol induced Acute pancreatitis complication: unspecified Qualified Code(s): K85.20 - Alcohol induced acute pancreatitis without necrosis or infection Is this a current diagnosis for this admission?: Yes Plan: may have acute on chronic continue to follow start pancreatic enzymes when oral intake has been restarted - Time Time Spent: 50 to 70 Minutes
--- NOTE | 2017-10-11 22:50 | PDOC CONSULTATION ---
Consultation Consult Date: 10/11/17 Consult reason:: Pancreatitis History of Present Illness Admission Date/PCP: 10/11/17 02:15 MAIK JERRY MD Patient complains of: abdominal pains History of Present Illness: EUGENE ARAGON is a 57 year old male who c/o upper abdominal pains for past 3 days associated with N/V. Ct scan of abdomen last night showed acute superimposed on chronic pancreatitis. lipase 4222.5 Past Medical History Cardiac Medical History: Reports: Atrial Fibrillation, Congestive Heart Failure , Hypertension, Pulmonary Embolism Pulmonary Medical History: Reports: Asthma Neurological Medical History: Denies: Seizures Renal/ Medical History: Reports: Chronic Kidney Disease GI Medical History: Reports: Gastroesophageal Reflux Disease, Peptic Ulcer Disease Musculoskeltal Medical History: Reports: Arthritis Psychiatric Medical History: Denies: Depression Social History Lives with: Alone Smoking Status: Current Every Day Smoker Cigarettes Packs Per Day: 0.5 Number of Years Smokin Last Time Smoked: 10/10/2017 Frequency of Alcohol Use: Heavy Hx Recreational Drug Use: No Drugs: Cocaine Hx Prescription Drug Abuse: No Family History Family History: None, Hypertension Parental Family History Reviewed: Yes Children Family History Reviewed: No Sibling(s) Family History Reviewed.: No Medication/Allergy Home Medications: Albuterol Sulfate [Proair HFA Inhalation Aerosol 8.5 gm MDI] 2 puff IH Q4HP PRN 04/13/17 Digoxin [Lanoxin 0.125 mg Tablet] 0.125 mg PO DAILY #30 tablet 04/19/17 Ferrous Sulfate [Feosol 325 mg Tablet] 325 mg PO DAILY #30 tablet 04/19/17 Furosemide [Lasix 20 mg Tablet] 20 mg PO DAILY #30 tablet 04/19/17 Metoprolol Succinate [Toprol Xl 25 mg Tab.sr] 25 mg PO DAILY #30 tab.sr.24h 07/02 Pantoprazole Sodium 40 mg PO BID 30 Days #60 tablet.dr 04/19/17 Spironolactone [Aldactone 25 mg Tablet] 25 mg PO DAILY #20 tablet 04/19/17 Docusate Sodium [Dok] 100 mg PO BID 10/11/17 Allergies/Adverse Reactions: KELLIE Inhibitors Allergy (Severe, Verified 10/11/17 11:11) Anaphylaxis lisinopril Allergy (Verified 10/11/17 11:11) Review of Systems Constitutional: PRESENT: chills, other - felt warm Eyes: PRESENT: other - no visual/hearing changes Cardiovascular: PRESENT: other - no chest pains/cough Gastrointestinal: PRESENT: abdominal pain, constipation, nausea, vomiting Genitourinary: PRESENT: other - no dysuria Neurological: PRESENT: other - no seizures Hematologic/Lymphatic: PRESENT: other - no easy bruising Physical Exam Vital Signs: Temp Pulse Resp BP Pulse Ox 98.1 F 92 12 140/90 H 100 10/11/17 21:27 10/11/17 21:27 10/11/17 21:27 10/11/17 21:27 10/11/17 21:27 Intake & Output 10/10/17 10/11/17 10/12/17 06:59 06:59 06:59 Intake Total 0 978 Output Total 225 Balance 0 753 Weight 67.5 kg General appearance: PRESENT: no acute distress Head exam: PRESENT: atraumatic Eye exam: PRESENT: conjunctiva pink Mouth exam: PRESENT: moist, neck supple, tongue midline Neck exam: PRESENT: full ROM Respiratory exam: PRESENT: clear to auscultation garrett Cardiovascular exam: PRESENT: RRR Pulses: PRESENT: normal radial pulses Vascular exam: PRESENT: normal capillary refill GI/Abdominal exam: PRESENT: soft, tenderness - mild epigastric Rectal exam: PRESENT: deferred Extremities exam: PRESENT: full ROM Musculoskeletal exam: PRESENT: ambulatory Neurological exam: PRESENT: alert, oriented to person, oriented to place, oriented to time, oriented to situation Psychiatric exam: PRESENT: appropriate affect Skin exam: PRESENT: normal color, warm Results Impressions: Abdomen/Pelvis CT 10/10/17 23:28 IMPRESSION: 1. Calcifications involving the head of the pancreas with mild peripancreatic fat stranding. These findings could be seen with mild acute pancreatitis superimposed on chronic pancreatitis. Correlation with serum lipase recommended. This exam was performed according to our departmental dose-optimization program, which includes automated exposure control, adjustment of the mA and/or kV according to patient size and/or use of iterative reconstruction technique. Assessment & Plan - Time Time Spent: 30 to 50 Minutes - Plan Summary Plan Summary: Patient is more comfortable now with less pains and tolerated diet. Agree with Dr Gonzales for EGD to R/O gastric/duodenal ulcer Has questionable history of ulcer in the past Pancreatitis is improving No surgical abdomen at this time. Will follow up as needed
[2017-10-12] MEDS: ACETAMINOPHEN 325 MG TABLET PO PRN (05:32)
[2017-10-12] MEDS: AMPICILLIN SODIUM/SULBACTAM NA 3 GM in NORMAL SALINE 100 ML IV SCH ×3 (05:32→17:35)
[2017-10-12] MEDS: HEPARIN SOD (PORCINE) 5,000 UNIT/ML 1 ML SYRINGE SUBCUT SCH ×3 (05:33→21:47)
[2017-10-12 06:06] LABS: HEMATOCRIT 38.1 % (37.9-51.0); HEMOGLOBIN 12.4 g/dL (13.5-17.0); MEAN CORPUSCULAR HEMOGLOBIN 25.2 pg (27.0-33.4); MEAN CORPUSCULAR HGB CONC 32.5 g/dL (32.0-36.0); MEAN CORPUSCULAR VOLUME 78 fl (80-97); PLATELET COUNT 216 10^3/uL (150-450); RED BLOOD COUNT 4.91 10^6/uL (4.35-5.55); RED CELL DISTRIBUTION WIDTH 15.9 % (11.5-14.0); WHITE BLOOD COUNT 13.9 10^3/uL (4.0-10.5)
[2017-10-12 06:25] LABS: ALANINE AMINOTRANSFERASE 22 U/L (21-72); ALBUMIN 4.2 g/dL (3.5-5.0); ALKALINE PHOSPHATASE 89 U/L (38-126); ANION GAP 10 (5-19); ASPARTATE AMINO TRANSFERASE 29 U/L (17-59); BILIRUBIN,DIRECT 0.4 mg/dL (0.0-0.4); BILIRUBIN,TOTAL 1.1 mg/dL (0.2-1.3); BLOOD UREA NITROGEN 12 mg/dL (7-20); CALCIUM 9.1 mg/dL (8.4-10.2); CARBON DIOXIDE 24 mmol/L (22-30); CHLORIDE 105 mmol/L (98-107); GLUCOSE 130 mg/dL (75-110); LIPASE 1983.8 U/L (23-300); POTASSIUM 3.8 mmol/L (3.6-5.0); SODIUM 138.9 mmol/L (137-145); TOTAL PROTEIN 7.6 g/dL (6.3-8.2)
[2017-10-12] MEDS: AMLODIPINE BESYLATE 5 MG TABLET PO SCH (09:17)
[2017-10-12] MEDS: METOPROLOL SUCCINATE 25 MG TAB.SR.24H PO SCH (09:17)
[2017-10-12] MEDS: DOCUSATE SODIUM 100 MG CAPSULE PO SCH ×2 (09:17→17:34)
[2017-10-12] MEDS: PANTOPRAZOLE SODIUM 40 MG VIAL IV SCH ×2 (09:17→21:46)
[2017-10-12] MEDS: DIGOXIN 0.125 MG TABLET PO SCH (09:17)
[2017-10-12] MEDS: SUCRALFATE 1 GM TABLET PO SCH ×4 (09:17→21:47)
[2017-10-12] MEDS ORDERED: NORMAL SALINE 1000 ML 1,000 ML IV PRN (09:26)
--- NOTE | 2017-10-12 09:28 | PDOC PROGRESS REPORT ---
Subjective Progress Note for:: 10/12/17 Subjective:: Patient is currently feeling much better Patient's denied any abdominal pain no nausea no vomiting Patient's lipase is coming down to 1900 range Patient is very anxious to go home Patient is currently on a clear liquid diet and scheduled for the endoscopy today Reason For Visit: ACUTE PANCERTASIS Physical Exam Vital Signs: Temp Pulse Resp BP Pulse Ox 98.8 F 76 16 140/70 H 99 10/12/17 08:35 10/12/17 08:35 10/12/17 08:35 10/12/17 08:35 10/12/17 08:35 Intake & Output 10/11/17 10/12/17 10/13/17 06:59 06:59 06:59 Intake Total 0 3290 Output Total 925 Balance 0 2365 Weight 67.5 kg 69 kg General appearance: PRESENT: no acute distress, well-developed, well-nourished Head exam: PRESENT: atraumatic, normocephalic Eye exam: PRESENT: conjunctiva pink, EOMI, PERRLA. ABSENT: scleral icterus Ear exam: PRESENT: normal external ear exam Mouth exam: PRESENT: moist, tongue midline Neck exam: PRESENT: full ROM. ABSENT: carotid bruit, JVD, lymphadenopathy, thyromegaly Respiratory exam: PRESENT: clear to auscultation garrett Cardiovascular exam: PRESENT: RRR. ABSENT: diastolic murmur, rubs, systolic murmur Pulses: PRESENT: normal dorsalis pedis pul, +2 pedal pulses bilateral Vascular exam: PRESENT: normal capillary refill GI/Abdominal exam: PRESENT: normal bowel sounds, soft. ABSENT: distended, guarding, mass, organolmegaly, rebound, tenderness Rectal exam: PRESENT: deferred Musculoskeletal exam: PRESENT: ambulatory Neurological exam: PRESENT: alert, awake, oriented to person, oriented to place , oriented to time, oriented to situation, CN II-XII grossly intact. ABSENT: motor sensory deficit Psychiatric exam: PRESENT: appropriate affect, normal mood. ABSENT: homicidal ideation, suicidal ideation Skin exam: PRESENT: dry, intact, warm. ABSENT: cyanosis, rash Results Laboratory Results: 10/12/17 05:32 10/12/17 05:32 10/12/17 10/12/17 05:32 05:32 WBC 13.9 H RBC 4.91 Hgb 12.4 L Hct 38.1 MCV 78 L MCH 25.2 L MCHC 32.5 RDW 15.9 H Plt Count 216 Sodium 138.9 Potassium 3.8 Chloride 105 Carbon Dioxide 24 Anion Gap 10 BUN 12 Creatinine 0.78 Est GFR ( Amer) > 60 Est GFR (Non-Af Amer) > 60 Glucose 130 H Calcium 9.1 Total Bilirubin 1.1 AST 29 ALT 22 Alkaline Phosphatase 89 Total Protein 7.6 Albumin 4.2 Lipase 1983.8 H Impressions: Abdomen/Pelvis CT 10/10/17 23:28 IMPRESSION: 1. Calcifications involving the head of the pancreas with mild peripancreatic fat stranding. These findings could be seen with mild acute pancreatitis superimposed on chronic pancreatitis. Correlation with serum lipase recommended. This exam was performed according to our departmental dose-optimization program, which includes automated exposure control, adjustment of the mA and/or kV according to patient size and/or use of iterative reconstruction technique. Assessment & Plan - Diagnosis (1) Abdominal pain Qualifiers: Abdominal location: upper abdomen, unspecified Qualified Code(s): R10.10 - Upper abdominal pain, unspecified Is this a current diagnosis for this admission?: Yes Plan: From the pancreatitis and currently going for the endoscopy (2) Pancreatitis Qualifiers: Chronicity: acute Pancreatitis type: alcohol induced Acute pancreatitis complication: unspecified Qualified Code(s): K85.20 - Alcohol induced acute pancreatitis without necrosis or infection Is this a current diagnosis for this admission?: Yes Plan: As above (3) Chronic alcoholism Is this a current diagnosis for this admission?: Yes Plan: Patient's currently denied any heavy alcoholism's patient's serum alcohol level is less than 10 (4) Congestive heart failure (CHF) Qualifiers: Heart failure type: diastolic Heart failure chronicity: chronic Qualified Code(s): I50.32 - Chronic diastolic (congestive) heart failure Is this a current diagnosis for this admission?: Yes Plan: Currently all stable (5) Duodenal ulcer Is this a current diagnosis for this admission?: Yes Plan: Continues to Protonix IV we consult the GI for further evaluations (6) Hypertension Qualifiers: Hypertension type: essential hypertension Is this a current diagnosis for this admission?: Yes Plan: Currently all stable (7) Tobacco abuse Is this a current diagnosis for this admission?: Yes Plan: Discussed with the patient about smoking counseling (8) Atrial fibrillation Qualifiers: Atrial fibrillation type: paroxysmal Qualified Code(s): I48.0 - Paroxysmal atrial fibrillation Is this a current diagnosis for this admission?: Yes Plan: Currently all stable - Time Time Spent with patient: 15-24 minutes Medications reviewed and adjusted accordingly: Yes Anticipated discharge: Home Within: Other - Inpatient Certification Medical Necessity: Need Close Monitoring Due to Risk of Patient Decompensation, Need for IV Antibiotics 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
[2017-10-12] MEDS: DILTIAZEM HCL/D5W 125 MG/125 ML RTUINJ IV PRN (13:57)
[2017-10-12] MEDS ORDERED: DIPHENHYDRAMINE HCL 50 MG/ML VIAL ONE (14:47)
[2017-10-12] MEDS ORDERED: ONDANSETRON HCL INJ/PF 4 MG/2 ML SDV ONE (14:47)
[2017-10-12] MEDS ORDERED: NALOXONE HCL INJ/PF 0.4 MG/1 ML SDV ONE (14:47)
[2017-10-12] MEDS ORDERED: GLUCAGON,HUMAN RECOMB 1 MG INJ ONE (14:48)
[2017-10-12] MEDS ORDERED: FENTANYL CITRATE INJ/PF 100 MCG/2 ML AMPUL ONE (14:48)
[2017-10-12] MEDS ORDERED: EPINEPHRINE INJ 1 MG/10 ML DISP.SYRIN ONE (14:48)
[2017-10-12] MEDS ORDERED: FLUMAZENIL INJ 0.5 MG/5 ML VIAL ONE (14:48)
[2017-10-12] MEDS: MIDAZOLAM 2 MG/2 ML INJ ONE ×2 (15:05→15:10)
--- NOTE | 2017-10-12 15:19 | Operative Report ---
Operative Report DATE OF SURGERY: 10/12/17 Operative Report: The risks benefits and alternatives of the procedure explained to the patient in detail and informed consent is obtained.A GIF Olympus video scope was inserted into the patient's mouth and hypopharynx, the esophagus is identified intubated and insufflated, the scope was then advanced through the esophagus stomach and duodenum, retroflexion maneuver is done, the esophagus stomach and first and second portions of the duodenum examined PREOPERATIVE DIAGNOSIS: Abdominal pain. Previous history of peptic ulcer disease, follow-up to assess healing POSTOPERATIVE DIAGNOSIS: Gastritis status post biopsy. Hiatal hernia. Healed gastric ulcer OPERATION: EGD with biopsy SURGEON: CECILE TONG ANESTHESIA: Moderate Sedation - 3 mg versed, 50 mcg of fentanyl. Conscious sedation monitoring time 30 minutes. TISSUE REMOVED OR ALTERED: As noted above. COMPLICATIONS: None. ESTIMATED BLOOD LOSS: None. INTRAOPERATIVE FINDINGS: As noted above. PROCEDURE: Patient tolerated the procedure well. No immediate postprocedure complications are noted. Patient sent back to his room in good condition. Resume previous meds. Resume previous diet as tolerated. We will wait on pathology.
[2017-10-12] MEDS ORDERED: LORAZEPAM 1 MG TABLET PO PRN (16:54)
[2017-10-12 16:56] LABS: ANION GAP 11 (5-19); BLOOD UREA NITROGEN 9 mg/dL (7-20); CALCIUM 9.2 mg/dL (8.4-10.2); CARBON DIOXIDE 25 mmol/L (22-30); CHLORIDE 104 mmol/L (98-107); GLUCOSE 108 mg/dL (75-110); POTASSIUM 3.6 mmol/L (3.6-5.0); SODIUM 139.8 mmol/L (137-145)
[2017-10-12] MEDS: MORPHINE SULFATE 10 MG/ML INJ IV PRN (17:40)
[2017-10-12] MEDS: LORAZEPAM INJ 2 MG/1 ML VIAL IV PRN (21:40)
[2017-10-12] MEDS ORDERED: LORAZEPAM INJ 2 MG/1 ML VIAL ONE (22:28)
[2017-10-13] MEDS: AMPICILLIN SODIUM/SULBACTAM NA 3 GM in NORMAL SALINE 100 ML IV SCH ×4 (00:14→17:19)
[2017-10-13] MEDS ORDERED: LORAZEPAM INJ 2 MG/1 ML VIAL IV ONE (00:15)
--- NOTE | 2017-10-13 00:18 | EKG REPORT ---
SEVERITY:- ABNORMAL ECG - SINUS RHYTHM SHORT [place] INTERVAL, ACCELERATED AV CONDUCTION BIATRIAL ABNORMALITIES PROBABLE RVH W/ SECONDARY REPOL ABNORMALITY LVH BY VOLTAGE BORDERLINE INFERIOR Q WAVES ST DEPRESSION, CONSIDER ISCHEMIA, DIFFUSE LDS : Confirmed by: Karon Wheeler MD 13-Oct-2017 00:16:34
[2017-10-13] MEDS: LORAZEPAM INJ 2 MG/1 ML VIAL IV PRN ×7 (00:20→19:22)
[2017-10-13 05:29] LABS: HEMATOCRIT 36.3 % (37.9-51.0); HEMOGLOBIN 11.9 g/dL (13.5-17.0); MEAN CORPUSCULAR HEMOGLOBIN 25.1 pg (27.0-33.4); MEAN CORPUSCULAR HGB CONC 32.8 g/dL (32.0-36.0); MEAN CORPUSCULAR VOLUME 77 fl (80-97); PLATELET COUNT 212 10^3/uL (150-450); RED BLOOD COUNT 4.74 10^6/uL (4.35-5.55); RED CELL DISTRIBUTION WIDTH 15.4 % (11.5-14.0); WHITE BLOOD COUNT 12.6 10^3/uL (4.0-10.5)
[2017-10-13 06:00] LABS: ANION GAP 10 (5-19); BLOOD UREA NITROGEN 11 mg/dL (7-20); CALCIUM 8.8 mg/dL (8.4-10.2); CARBON DIOXIDE 22 mmol/L (22-30); CHLORIDE 107 mmol/L (98-107); GLUCOSE 109 mg/dL (75-110); LIPASE 576.5 U/L (23-300); POTASSIUM 3.2 mmol/L (3.6-5.0); SODIUM 139.1 mmol/L (137-145)
[2017-10-13] MEDS: DILTIAZEM HCL/D5W 125 MG/125 ML RTUINJ IV PRN (06:30)
[2017-10-13] MEDS ORDERED: DILTIAZEM HCL INJ 25 MG/5 ML VIAL ONE ×2 (06:32→06:34)
[2017-10-13] MEDS: HEPARIN SOD (PORCINE) 5,000 UNIT/ML 1 ML SYRINGE SUBCUT SCH ×3 (07:30→21:09)
[2017-10-13] MEDS: SUCRALFATE 1 GM TABLET PO SCH ×4 (08:25→21:08)
[2017-10-13] MEDS ORDERED: POTASSIUM CHLORIDE 20 MEQ/50 ML RTU IV ONE (09:00)
[2017-10-13] MEDS: DIGOXIN 0.125 MG TABLET PO SCH (09:10)
[2017-10-13] MEDS: METOPROLOL SUCCINATE 25 MG TAB.SR.24H PO SCH ×2 (09:11→21:08)
[2017-10-13] MEDS: DOCUSATE SODIUM 100 MG CAPSULE PO SCH ×2 (09:11→17:27)
[2017-10-13] MEDS: PANTOPRAZOLE SODIUM 40 MG VIAL IV SCH ×2 (09:11→21:08)
[2017-10-13] MEDS: AMLODIPINE BESYLATE 5 MG TABLET PO SCH (09:11)
[2017-10-13] MEDS ORDERED: FOLIC ACID 1 MG TABLET PO SCH (10:00)
[2017-10-13] MEDS ORDERED: THIAMINE HCL 100 MG TABLET PO SCH (10:00)
[2017-10-13] MEDS ORDERED: MULTIVITAMIN TABLET PO SCH (10:00)
[2017-10-13] MEDS: POTASSI CL 20 MEQ/NS 1L 1000 ML IV PRN (10:34)
--- NOTE | 2017-10-13 12:17 | PDOC PROGRESS REPORT ---
Subjective Progress Note for:: 10/13/17 Subjective:: Patient have endoscopy done yesterday and did not find any significant findings but after that patients last night started developing the withdrawal from the alcohol symptoms Patient's put on alcohol withdrawal protocol and Ativan Patient is currently alert awake spent still in the withdrawal Since also on a Cardizem drip per the cardiology Patient's denied any abdominal pain no nausea no vomiting Initially patients refused that he is not drinking alcohol but I believe patients admit that he drinks every to the alcohol Reason For Visit: ACUTE PANCERTASIS Physical Exam Vital Signs: Temp Pulse Resp BP Pulse Ox 97.8 F 83 20 119/45 L 100 10/13/17 11:55 10/13/17 12:07 10/13/17 12:07 10/13/17 12:07 10/13/17 12:07 Intake & Output 10/12/17 10/13/17 10/14/17 06:59 06:59 06:59 Intake Total 3290 1316 225 Output Total 925 200 400 Balance 2365 1116 -175 Weight 69 kg 73.1 kg General appearance: PRESENT: no acute distress, well-developed, well-nourished Head exam: PRESENT: atraumatic, normocephalic Eye exam: PRESENT: conjunctiva pink, EOMI, PERRLA. ABSENT: scleral icterus Ear exam: PRESENT: normal external ear exam Mouth exam: PRESENT: moist, tongue midline Neck exam: PRESENT: full ROM. ABSENT: carotid bruit, JVD, lymphadenopathy, thyromegaly Respiratory exam: PRESENT: clear to auscultation garrett Cardiovascular exam: PRESENT: RRR. ABSENT: diastolic murmur, rubs, systolic murmur Pulses: PRESENT: normal dorsalis pedis pul, +2 pedal pulses bilateral Vascular exam: PRESENT: normal capillary refill GI/Abdominal exam: PRESENT: normal bowel sounds, soft. ABSENT: distended, guarding, mass, organolmegaly, rebound, tenderness Rectal exam: PRESENT: deferred Extremities exam: ABSENT: pedal edema Neurological exam: PRESENT: alert, awake, oriented to person. ABSENT: motor sensory deficit Psychiatric exam: PRESENT: appropriate affect, normal mood. ABSENT: homicidal ideation, suicidal ideation Skin exam: PRESENT: dry, intact, warm. ABSENT: cyanosis, rash Results Laboratory Results: 10/13/17 05:03 10/13/17 05:03 10/12/17 10/13/17 10/13/17 16:24 05:03 05:03 WBC 12.6 H RBC 4.74 Hgb 11.9 L Hct 36.3 L MCV 77 L MCH 25.1 L MCHC 32.8 RDW 15.4 H Plt Count 212 Sodium 139.8 139.1 Potassium 3.6 3.2 L Chloride 104 107 Carbon Dioxide 25 22 Anion Gap 11 10 BUN 9 11 Creatinine 0.76 0.78 Est GFR ( Amer) > 60 > 60 Est GFR (Non-Af Amer) > 60 > 60 Glucose 108 109 Calcium 9.2 8.8 Magnesium 1.8 Lipase 576.5 H Impressions: Abdomen/Pelvis CT 10/10/17 23:28 IMPRESSION: 1. Calcifications involving the head of the pancreas with mild peripancreatic fat stranding. These findings could be seen with mild acute pancreatitis superimposed on chronic pancreatitis. Correlation with serum lipase recommended. This exam was performed according to our departmental dose-optimization program, which includes automated exposure control, adjustment of the mA and/or kV according to patient size and/or use of iterative reconstruction technique. Assessment & Plan - Diagnosis (1) Abdominal pain Qualifiers: Abdominal location: upper abdomen, unspecified Qualified Code(s): R10.10 - Upper abdominal pain, unspecified Is this a current diagnosis for this admission?: Yes Plan: From the pancreatitis and currently going for the endoscopy (2) Pancreatitis Qualifiers: Chronicity: acute Pancreatitis type: alcohol induced Acute pancreatitis complication: unspecified Qualified Code(s): K85.20 - Alcohol induced acute pancreatitis without necrosis or infection Is this a current diagnosis for this admission?: Yes Plan: As above (3) Chronic alcoholism Is this a current diagnosis for this admission?: Yes Plan: Patient is currently on alcohol withdrawal protocol (4) Congestive heart failure (CHF) Qualifiers: Heart failure type: diastolic Heart failure chronicity: chronic Qualified Code(s): I50.32 - Chronic diastolic (congestive) heart failure Is this a current diagnosis for this admission?: Yes Plan: Currently all stable (5) Duodenal ulcer Is this a current diagnosis for this admission?: Yes Plan: Status post endoscopy is currently on stable (6) Hypertension Qualifiers: Hypertension type: essential hypertension Is this a current diagnosis for this admission?: Yes Plan: Currently all stable (7) Tobacco abuse Is this a current diagnosis for this admission?: Yes (8) Atrial fibrillation Qualifiers: Atrial fibrillation type: paroxysmal Qualified Code(s): I48.0 - Paroxysmal atrial fibrillation Is this a current diagnosis for this admission?: Yes Plan: Currently on a Cardizem drip - Time Time Spent with patient: 15-24 minutes Medications reviewed and adjusted accordingly: Yes Anticipated discharge: Other Within: Other - Inpatient Certification Medical Necessity: Need Close Monitoring Due to Risk of Patient Decompensation, Need For IV Fluids 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
[2017-10-13] MEDS ORDERED: DILTIAZEM HCL 120 MG CAP.SR.24H PO ONE (13:00)
[2017-10-13] MEDS ORDERED: SUCCINYLCHOLINE CHLORIDE INJ 200 MG/10 ML VIAL ONE (13:59)
--- NOTE | 2017-10-13 15:16 | RADIOLOGY REPORT (SQ) ---
EXAM DESCRIPTION: CHEST SINGLE VIEW COMPLETED DATE/TIME: 10/13/2017 3:05 pm REASON FOR STUDY: chf COMPARISON: 04/13/2017 EXAM PARAMETERS: NUMBER OF VIEWS: One view. TECHNIQUE: Single frontal radiographic view of the chest acquired. RADIATION DOSE: NA LIMITATIONS: None. FINDINGS: LUNGS AND PLEURA: No opacities, masses or pneumothorax. No pleural effusion. MEDIASTINUM AND HILAR STRUCTURES: No masses. Contour normal. HEART AND VASCULAR STRUCTURES: Cardiomegaly. No evidence of failure. BONES: No acute findings. HARDWARE: None in the chest. OTHER: No other significant finding. IMPRESSION: Cardiomegaly without CHF. TECHNICAL DOCUMENTATION: JOB ID: [id number] [employer]- All Rights Reserved Reading location - IP/workstation name: [email or web address]
[2017-10-13 16:14] LABS: ANION GAP 10 (5-19); BLOOD UREA NITROGEN 10 mg/dL (7-20); CALCIUM 8.5 mg/dL (8.4-10.2); CARBON DIOXIDE 23 mmol/L (22-30); CHLORIDE 108 mmol/L (98-107); GLUCOSE 89 mg/dL (75-110); POTASSIUM 3.2 mmol/L (3.6-5.0); SODIUM 140.5 mmol/L (137-145)
[2017-10-13 16:16] LABS: DIGOXIN < 0.40 ng/mL (0.8-2.0)
[2017-10-13] MEDS: NORMAL SALINE 1000 ML 1,000 ML with POTASSIUM CHLORIDE 20 MEQ, THIAMINE HCL 100 MG, MVI... IV SCH ×5 (17:21)
--- NOTE | 2017-10-13 18:00 | XCELERA REPORT ---
[address] [address] Transthoracic Echocardiogram Report Name: EUGENE ARAGON V Age: 57 yrs Gender: Male : 1960 Patient Status: Inpatient Patient Location: [address] [place] [address] Study Date: 10/13/2017 03:49 PM Height: 67 in Weight: 161 lb BSA: 1.8 m2 Procedure: A complete two-dimensional transthoracic echocardiogram was performed (2D, M-mode, spectral and color flow Doppler). The study was technically adequate with some images being suboptimal in quality. Reason For Study: chf Ordering Physician: MAIK JERRY Performed By: Alex Villanueva Interpretation Summary LV EF is 55% Left ventricular systolic function is low normal. There is mild concentric left ventricular hypertrophy. The left ventricle is grossly normal size. Doppler measurements suggest pseudonormalized left ventricular relaxation, which is associated with grade II/IV or mild to moderate diastolic dysfunction Wall motion cannot be accurately commented on, but no definite regional wall motion abnormalities noted. The right ventricle is grossly normal size. The right ventricular systolic function is normal. The right atrium is normal in size Borderline left atrial enlargement. There is a trace amount of mitral regurgitation There is no mitral valve stenosis. There is no aortic valve stenosis There is a trace to mild amount of aortic regurgitation There is a mild amount of tricuspid regurgitation There is mild to moderate pulmonary hypertension by echo Right ventricular systolic pressure is estimated to be elevated at 40- 50mmHg. The aortic root is not well visualized but is probably normal size. The inferior vena cava appeared normal and decreased > 50% with respiration (RAP 5-10 mmHg) There is no pericardial effusion. MMode/2D Measurements & Calculations RVDd: 3.1 cm LVIDd: 4.9 cm FS: 29.9 % Ao root diam: 2.7 cm IVSd: 0.89 cm LVIDs: 3.4 cm EDV(Teich): 111.7 ml LVPWd: 0.99 cmESV(Teich): 48.2 ml Ao root area: 5.6 cm2 EF(Teich): 56.9 % LA dimension: 3.1 cm LVOT diam: 2.0 cm LVOT area: 3.0 cm2 Doppler Measurements & Calculations MV E max aroldo: MV P1/2t max aroldo: Ao V2 max: AI max aroldo: 32.1 cm/sec 50.2 cm/sec 112.8 cm/sec 429.4 cm/sec MV A max aroldo: MV P1/2t: 46.1 msec Ao max PG: AI max P.6 cm/sec MVA(P1/2t): 4.8 cm2 5.1 mmHg 73.8 mmHg MV E/A: 0.47 MV dec slope: LAVINIA(V,D): 2.4 cm2AI dec slope: 319.0 cm/sec2 126.6 cm/sec2 MV dec time: AI P1/2t: 0.17 sec 993.5 msec LV V1 max PG: TV V2 max: PA V2 max: PI end-d aroldo: 3.3 mmHg 318.2 cm/sec 64.2 cm/sec 146.6 cm/sec LV V1 max: TV max P.6 mmHgPA max P.6 cm/sec 1.6 mmHg Left Ventricle The left ventricle is grossly normal size. There is mild concentric left ventricular hypertrophy. Left ventricular systolic function is low normal. LV EF is 55%. Doppler measurements suggest pseudonormalized left ventricular relaxation, which is associated with grade II/IV or mild to moderate diastolic dysfunction. Wall motion cannot be accurately commented on, but no definite regional wall motion abnormalities noted. Right Ventricle The right ventricle is grossly normal size. There is normal right ventricular wall thickness. The right ventricular systolic function is normal. Atria The right atrium is normal in size. Borderline left atrial enlargement. Interarterial septum not well visualized and not well dopplered. Cannot comment on ASD/PFO presence. Mitral Valve The mitral valve is grossly normal. There is no mitral valve stenosis. There is a trace amount of mitral regurgitation. Aortic Valve The aortic valve is mildly calcified. There is no aortic valve stenosis. There is a trace to mild amount of aortic regurgitation. Tricuspid Valve The tricuspid valve is not well visualized, but is grossly normal. There is no tricuspid stenosis. There is a mild amount of tricuspid regurgitation. There is mild to moderate pulmonary hypertension by echo. Right ventricular systolic pressure is estimated to be elevated at 40-50mmHg. Pulmonic Valve The pulmonic valve is not well visualized. Great Vessels The aortic root is not well visualized but is probably normal size. The inferior vena cava appeared normal and decreased > 50% with respiration (RAP 5-10 mmHg). Effusions There is no pericardial effusion. : MAIK JERRY > Ashley Orourke
--- NOTE | 2017-10-13 20:16 | PDOC PROGRESS REPORT ---
Subjective Progress Note for:: 10/13/17 Subjective:: Patient seen on rounds. He remains agitated and very confused. He is in restraints. Patient was noted to have wide-complex tachycardia felt to be V. tach, nonsustained. Reason For Visit: ACUTE PANCERTASIS Physical Exam Vital Signs: Temp Pulse Resp BP Pulse Ox 97.9 F 88 18 95/51 L 95 10/13/17 15:42 10/13/17 15:42 10/13/17 15:42 10/13/17 15:42 10/13/17 15:42 Intake & Output 10/12/17 10/13/17 10/14/17 06:59 06:59 06:59 Intake Total 3290 1316 1113 Output Total 000 419 1700 Balance 2365 1116 63 Weight 69 kg 73.1 kg Exam: GENERAL: well-nourished and in no acute distress. Patient is lethargic and not oriented to place time or person. HEAD: Atraumatic, normocephalic. EYES: Pupils equal round and reactive to light, extraocular movements intact, sclera anicteric, conjunctiva are normal. ENT: TMs normal, nares patent, oropharynx clear without exudates. Moist mucous membranes. No oral ulcerations or bleeding gums noted NECK: supple without lymphadenopathy or JVD. Trachea is central. No cervical or axillary lymphadenopathy noted. Carotids are 2+ LUNGS: Breath sounds bibasilar fine crackles at bases. No significant dullness noted. CHEST: Palpation of chest wall shows no significant chest wall tenderness. 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 ABDOMEN: Soft, no significant tenderness appreciated, normoactive bowel sounds. No guarding, no rebound. No rigidity noted . No masses appreciated. EXTREMITIES: Pedal pulses are 1-2+, no calf tenderness noted, Trace + pedal edema noted. No clubbing or cyanosis. NEUROLOGICAL: Patient is alert but is not able to participate in neurological exam because of patient's current mental status PSYCH: Patient cannot participate in a neurologic and psych exam because of the patient's current mental status SKIN: No significant ecchymosis, rash, ulcerations or signs of pruritus noted. MUSCULOSKELETAL EXAM: No significant joint swelling noted. Results Laboratory Results: 10/13/17 05:03 06/29/18 15:30 10/13/17 10/13/17 10/13/17 05:03 05:03 14:18 WBC 12.6 H RBC 4.74 Hgb 11.9 L Hct 36.3 L MCV 77 L MCH 25.1 L MCHC 32.8 RDW 15.4 H Plt Count 212 Sodium 139.1 Cancelled Potassium 3.2 L Cancelled Chloride 107 Cancelled Carbon Dioxide 22 Cancelled Anion Gap 10 Cancelled BUN 11 Cancelled Creatinine 0.78 Cancelled Est GFR ( Amer) > 60 Cancelled Est GFR (Non-Af Amer) > 60 Cancelled Glucose 109 Cancelled Calcium 8.8 Cancelled Magnesium Cancelled Lipase 576.5 H 10/13/17 15:30 WBC RBC Hgb Hct MCV MCH MCHC RDW Plt Count Sodium 140.5 Potassium 3.2 L Chloride 108 H Carbon Dioxide 23 Anion Gap 10 BUN 10 Creatinine 0.75 Est GFR ( Amer) > 60 Est GFR (Non-Af Amer) > 60 Glucose 89 Calcium 8.5 Magnesium 1.8 Lipase EKG Comments: Telemetry strip shows nonsustained ventricular tachycardia. Otherwise sinus rhythm Impressions: Abdomen/Pelvis CT 10/10/17 23:28 IMPRESSION: 1. Calcifications involving the head of the pancreas with mild peripancreatic fat stranding. These findings could be seen with mild acute pancreatitis superimposed on chronic pancreatitis. Correlation with serum lipase recommended. This exam was performed according to our departmental dose-optimization program, which includes automated exposure control, adjustment of the mA and/or kV according to patient size and/or use of iterative reconstruction technique. Chest X-Ray 10/13/17 00:00 IMPRESSION: Cardiomegaly without CHF. Assessment & Plan - Diagnosis (1) Nonsustained ventricular tachycardia Is this a current diagnosis for this admission?: Yes (2) Altered mental status Qualifiers: Altered mental status type: disorientation Qualified Code(s): R41.0 - Disorientation, unspecified Is this a current diagnosis for this admission?: Yes (3) Pancreatitis Qualifiers: Chronicity: acute Pancreatitis type: alcohol induced Acute pancreatitis complication: unspecified Qualified Code(s): K85.20 - Alcohol induced acute pancreatitis without necrosis or infection Is this a current diagnosis for this admission?: Yes (4) Paroxysmal atrial fibrillation Is this a current diagnosis for this admission?: Yes (5) COPD (chronic obstructive pulmonary disease) Qualifiers: COPD type: unspecified COPD Qualified Code(s): J44.9 - Chronic obstructive pulmonary disease, unspecified Is this a current diagnosis for this admission?: Yes (6) Hypertension Qualifiers: Hypertension type: essential hypertension Qualified Code(s): I10 - Essential (primary) hypertension Is this a current diagnosis for this admission?: Yes (7) Alcohol abuse Is this a current diagnosis for this admission?: Yes (8) Alcohol withdrawal syndrome Qualifiers: Complication of substance-induced condition: with delirium Qualified Code(s ): F10.231 - Alcohol dependence with withdrawal delirium Is this a current diagnosis for this admission?: Yes - Notes Notes: Nonsustained ventricular tachycardia: Most likely related to alcohol withdrawal and increased sympathetic discharge. Have increased metoprolol succinate to 25 mg p.o. twice daily. Consider increasing his further adds tolerated. 2D echocardiogram was obtained. Which showed normal LVEF. Altered mental status: Metabolic encephalopathy. Will leave management to the tray line supervisor. Pancreatitis: Being expertly managed by the tray line supervisor. Paroxysmal atrial fibrillation: No recurrence noted on review of telemetry monitoring. Do not feel patient needs chronic anticoagulation. This was most likely related to metabolic reasons, alcohol withdrawal, pancreatitis etc. Recommend just rate control. Beta-blockers probably preferred. COPD: Currently stable. Hypertension: Blood pressure under reasonable control. Continue current therapy. 2D echocardiogram was obtained and reviewed. It showed LVEF to be relatively well-preserved. No significant valvular abnormalities noted. No definite wall motion and modalities were noted. Ventricular tachyarrhythmia and therefore felt to be increased sympathetic discharges from withdrawal and other metabolic problems. Beta-hasmukh would be the preferred therapy. - Time Time with patient: Greater than 35 minutes - CODE STATUS was discussed, patient remains full code. Surrogate decision-maker unchanged. Multiple medical problems were addressed. More than 50% of the time spent coordinating care, discussing management plans with involved caregivers. Management plans discussed with involved personnels. Medical decision making was of moderate to high complexity, patient's has multiple comorbidities. Medications reviewed and adjusted accordingly: Yes
[2017-10-13] MEDS: MORPHINE SULFATE 10 MG/ML INJ IV PRN (21:09)
[2017-10-13] MEDS ORDERED: PROPOFOL 1,000 MG/100 ML INFUS..BTL IV ONE (21:26)
[2017-10-13] MEDS ORDERED: PROPOFOL INJ 200 MG/20 ML VIAL IV ONE (22:01)
--- NOTE | 2017-10-14 00:13 | EKG REPORT ---
SEVERITY:- ABNORMAL ECG - SINUS TACHYCARDIA ATRIAL PREMATURE COMPLEX SHORT RI INTERVAL, ACCELERATED AV CONDUCTION RIGHT ATRIAL ABNORMALITY NONSPECIFIC INTRAVENTRICULAR CONDUCTION DELAY INFERIOR INFARCT, AGE INDETERMINATE ANTERIOR INFARCT, AGE INDETERMINATE : Confirmed by: Karon Wheeler MD 14-Oct-2017 00:12:53
[2017-10-14] MEDS ORDERED: PROPOFOL 1,000 MG/100 ML INFUS..BTL IV ONE (00:50)
[2017-10-14] MEDS: POTASSI CL 20 MEQ/NS 1L 1000 ML IV PRN ×2 (00:52→16:10)
[2017-10-14] MEDS: AMPICILLIN SODIUM/SULBACTAM NA 3 GM in NORMAL SALINE 100 ML IV SCH ×5 (00:53→23:56)
--- NOTE | 2017-10-14 02:21 | RADIOLOGY REPORT (SQ) ---
EXAM DESCRIPTION: XR CHEST 1 VIEW COMPLETED DATE/TME: 10/13/2017 22:03 CLINICAL HISTORY: ETT, NGT placement COMPARISON: 10/13/2017 FINDINGS: Single frontal view of the chest. Endotracheal tube with tip 6 cm above the reanna. NG tube with tip below the diaphragm. Leads overlie the chest. Cardiomediastinal silhouette is otherwise stable. No consolidation, pneumothorax, or pleural effusion. No displaced rib fractures identified. Upper abdominal soft tissues are unremarkable. IMPRESSION: 1. Endotracheal tube in appropriate radiographic position. Otherwise stable appearance of the chest.
[2017-10-14] MEDS: LORAZEPAM 24 MG/240 ML BAG IV PRN ×5 (02:53→22:15)
[2017-10-14 04:40] LABS: HEMOGLOBIN 10.9 g/dL (13.5-17.0); MEAN CORPUSCULAR HGB CONC 32.1 g/dL (32.0-36.0); MEAN CORPUSCULAR VOLUME 78 fl (80-97); PLATELET COUNT 199 10^3/uL (150-450); RED BLOOD COUNT 4.37 10^6/uL (4.35-5.55); RED CELL DISTRIBUTION WIDTH 15.6 % (11.5-14.0); WHITE BLOOD COUNT 8.7 10^3/uL (4.0-10.5)
[2017-10-14 04:54] LABS: ANION GAP 7 (5-19); BLOOD UREA NITROGEN 10 mg/dL (7-20); CALCIUM 7.9 mg/dL (8.4-10.2); CARBON DIOXIDE 22 mmol/L (22-30); CHLORIDE 114 mmol/L (98-107); GLUCOSE 81 mg/dL (75-110); LIPASE 402.8 U/L (23-300); POTASSIUM 3.6 mmol/L (3.6-5.0); SODIUM 143.4 mmol/L (137-145)
[2017-10-14] MEDS: HEPARIN SOD (PORCINE) 5,000 UNIT/ML 1 ML SYRINGE SUBCUT SCH ×3 (05:36→22:17)
[2017-10-14] MEDS: PROPOFOL 1,000 MG/100 ML INFUS..BTL IV PRN ×3 (06:28→22:16)
--- NOTE | 2017-10-14 08:44 | RADIOLOGY REPORT (SQ) ---
EXAM DESCRIPTION: CHEST SINGLE VIEW COMPLETED DATE/TIME: 10/14/2017 7:49 am REASON FOR STUDY: pneumonia COMPARISON: 10/13/2017 EXAM PARAMETERS: NUMBER OF VIEWS: One view TECHNIQUE: Single frontal radiograph of the chest. RADIATION DOSE: N/A LIMITATIONS: None. FINDINGS: TEMPORARY SUPPORT DEVICES:ETT in expected location. NG tube courses below the susan-diaphr agm in to the stomach. LUNGS AND PLEURA: No opacities. No masses. No effusions. No pneumothorax. MEDIASTINUM AND HILAR STRUCTURES: No masses. Contour normal. HEART AND VASCULAR STRUCTURES: Heart size normal. Normal vascularity. Aorta normal for age BONES: No acute findings. OTHER: No other significant finding. IMPRESSION: NO ACUTE RADIOGRAPHIC FINDING IN THE CHEST. SUPPORT DEVICE(S) IN EXPECTED LOCATIONS. TECHNICAL DOCUMENTATION: JOB ID: [id number] [employer]- All Rights Reserved Reading location - IP/workstation name: [email or web address]
[2017-10-14 09:18] LABS: ARTERIAL BLOOD BASE EXCESS -3.1 mmol/L; ARTERIAL BLOOD H2CO3 1.09 mmol/L (1.05-1.35); ARTERIAL BLOOD HCO3 21.4 mmol/L (20-26); ARTERIAL BLOOD O2 SATURATION 96.6 % (94-98); ARTERIAL BLOOD PCO2 36.3 mmHg (35-45); ARTERIAL BLOOD PH 7.39 (7.35-7.45); ARTERIAL BLOOD PO2 86.7 mmHg (80-100); ARTERIAL BLOOD TOTAL CO2 22.5 mmol/L (23-27)
[2017-10-14 09:19] LABS: ARTERIAL BLOOD FIO2 28%
[2017-10-14 09:39] LABS: HEMATOCRIT 31.6 % (37.9-51.0); HEMOGLOBIN 10.4 g/dL (13.5-17.0); MEAN CORPUSCULAR HEMOGLOBIN 25.4 pg (27.0-33.4); MEAN CORPUSCULAR HGB CONC 32.8 g/dL (32.0-36.0); MEAN CORPUSCULAR VOLUME 78 fl (80-97); PLATELET COUNT 219 10^3/uL (150-450); RED BLOOD COUNT 4.08 10^6/uL (4.35-5.55); RED CELL DISTRIBUTION WIDTH 15.7 % (11.5-14.0); WHITE BLOOD COUNT 7.1 10^3/uL (4.0-10.5)
[2017-10-14 09:55] LABS: ALANINE AMINOTRANSFERASE 23 U/L (21-72); ALBUMIN 2.8 g/dL (3.5-5.0); ALKALINE PHOSPHATASE 56 U/L (38-126); ANION GAP 6 (5-19); ASPARTATE AMINO TRANSFERASE 21 U/L (17-59); BILIRUBIN,DIRECT 0.5 mg/dL (0.0-0.4); BILIRUBIN,TOTAL 0.7 mg/dL (0.2-1.3); BLOOD UREA NITROGEN 8 mg/dL (7-20); CARBON DIOXIDE 21 mmol/L (22-30); CHLORIDE 115 mmol/L (98-107); GLUCOSE 87 mg/dL (75-110); POTASSIUM 3.6 mmol/L (3.6-5.0); SODIUM 142.4 mmol/L (137-145); TOTAL PROTEIN 5.5 g/dL (6.3-8.2)
[2017-10-14 10:04] LABS: ABSOLUTE MONOCYTES # (MANUAL) 0.4 10^3/uL (0.1-1.4); ABSOLUTE NEUTROPHILS# (MANUAL) 5.5 10^3/uL (1.7-8.2); BASOPHILS % (MANUAL) 0 % (0-2); EOSINOPHILS % (MANUAL) 2 % (0-6); LYMPHOCYTES % (MANUAL) 14 % (13-45); MONOCYTES % (MANUAL) 6 % (3-13); SEGMENTED NEUTROPHILS % (MAN) 78 % (42-78); TOTAL CELLS COUNTED 100
[2017-10-14 10:05] LABS: OVALOCYTES SLIGHT; POIKILOCYTOSIS 1+
[2017-10-14 10:06] LABS: ANISOCYTOSIS SLIGHT; HYPOCHROMASIA 1+; PLATELET COMMENT ADEQUATE; TARGET CELLS 1+
[2017-10-14] MEDS: SUCRALFATE 1 GM TABLET PO SCH ×4 (10:06→22:17)
[2017-10-14] MEDS: METOPROLOL SUCCINATE 25 MG TAB.SR.24H PO SCH ×2 (10:07→22:17)
[2017-10-14] MEDS: DOCUSATE SODIUM 100 MG CAPSULE PO SCH ×2 (10:07→17:23)
[2017-10-14] MEDS: AMLODIPINE BESYLATE 5 MG TABLET PO SCH (10:07)
[2017-10-14] MEDS: DIGOXIN 0.125 MG TABLET PO SCH (10:09)
[2017-10-14] MEDS: PANTOPRAZOLE SODIUM 40 MG VIAL IV SCH ×2 (10:10→22:17)
--- NOTE | 2017-10-14 12:50 | PDOC PROGRESS REPORT ---
Subjective Progress Note for:: 10/14/17 Subjective:: Patient was transferred to ICU last night he developed increased agitation, restlessness, palpitation despite Lorazepam 2 mg every 2 hours. He has a history of alcoholism, he was manifesting symptoms of alcohol withdrawal syndrome, he needed to be transferred to ICU for full sedation , he would require mechanical ventilation for airway protection. I saw him this morning ICU, on mechanical ventilation the arterial blood gases within accepted range, patient is well sedated, hemodynamically stable. Reason For Visit: ACUTE PANCERTASIS Physical Exam Vital Signs: Temp Pulse Resp BP Pulse Ox 95.7 F L 75 13 110/61 97 10/14/17 05:17 10/14/17 08:00 10/14/17 11:00 10/14/17 10:13 10/14/17 11:00 Intake & Output 10/13/17 10/14/17 10/15/17 06:59 06:59 06:59 Intake Total 1316 2577 Output Total 200 1775 275 Balance 1116 802 -275 Weight 73.1 kg 70.3 kg General appearance: PRESENT: other - Patient is sedated on mechanical ventilation Respiratory exam: PRESENT: clear to auscultation garrett Cardiovascular exam: PRESENT: +S1, +S2 GI/Abdominal exam: PRESENT: soft Neurological exam: PRESENT: other - Sedated Results Laboratory Results: 10/14/17 09:26 10/14/17 09:26 10/13/17 10/13/17 10/14/17 14:18 15:30 04:27 WBC 8.7 RBC 4.37 Hgb 10.9 L Hct 34.0 L MCV 78 L MCH 25.0 L MCHC 32.1 RDW 15.6 H Plt Count 199 Seg Neutrophils % Lymphocytes % Monocytes % Eosinophils % Basophils % Absolute Neutrophils Absolute Lymphocytes Absolute Monocytes Absolute Eosinophils Absolute Basophils Carbonic Acid HCO3/H2CO3 Ratio ABG pH ABG pCO2 ABG pO2 ABG HCO3 ABG O2 Saturation ABG Base Excess FiO2 Sodium Cancelled 140.5 Potassium Cancelled 3.2 L Chloride Cancelled 108 H Carbon Dioxide Cancelled 23 Anion Gap Cancelled 10 BUN Cancelled 10 Creatinine Cancelled 0.75 Est GFR ( Amer) Cancelled > 60 Est GFR (Non-Af Amer) Cancelled > 60 Glucose Cancelled 89 Calcium Cancelled 8.5 Magnesium Cancelled 1.8 Total Bilirubin AST ALT Alkaline Phosphatase Total Protein Albumin Lipase 10/14/17 10/14/17 10/14/17 04:27 09:03 09:26 WBC 7.1 RBC 4.08 L Hgb 10.4 L Hct 31.6 L MCV 78 L MCH 25.4 L MCHC 32.8 RDW 15.7 H Plt Count 219 Seg Neutrophils % Not Reportable Lymphocytes % Not Reportable Monocytes % Not Reportable Eosinophils % Not Reportable Basophils % Not Reportable Absolute Neutrophils Not Reportable Absolute Lymphocytes Not Reportable Absolute Monocytes Not Reportable Absolute Eosinophils Not Reportable Absolute Basophils Not Reportable Carbonic Acid 1.09 HCO3/H2CO3 Ratio 19:1 ABG pH 7.39 ABG pCO2 36.3 ABG pO2 86.7 ABG HCO3 21.4 ABG O2 Saturation 96.6 ABG Base Excess -3.1 FiO2 28% Sodium 143.4 Potassium 3.6 Chloride 114 H Carbon Dioxide 22 Anion Gap 7 BUN 10 Creatinine 0.77 Est GFR ( Amer) > 60 Est GFR (Non-Af Amer) > 60 Glucose 81 Calcium 7.9 L Magnesium Total Bilirubin AST ALT Alkaline Phosphatase Total Protein Albumin Lipase 402.8 H 10/14/17 09:26 WBC RBC Hgb Hct MCV MCH MCHC RDW Plt Count Seg Neutrophils % Lymphocytes % Monocytes % Eosinophils % Basophils % Absolute Neutrophils Absolute Lymphocytes Absolute Monocytes Absolute Eosinophils Absolute Basophils Carbonic Acid HCO3/H2CO3 Ratio ABG pH ABG pCO2 ABG pO2 ABG HCO3 ABG O2 Saturation ABG Base Excess FiO2 Sodium 142.4 Potassium 3.6 Chloride 115 H Carbon Dioxide 21 L Anion Gap 6 BUN 8 Creatinine 0.76 Est GFR ( Amer) > 60 Est GFR (Non-Af Amer) > 60 Glucose 87 Calcium 8.0 L Magnesium Total Bilirubin 0.7 AST 21 ALT 23 Alkaline Phosphatase 56 Total Protein 5.5 L Albumin 2.8 L Lipase 10/12/17 07:24 Clean Catch Midstream Urine Culture - Final NO GROWTH 2 DAYS Impressions: Abdomen/Pelvis CT 10/10/17 23:28 IMPRESSION: 1. Calcifications involving the head of the pancreas with mild peripancreatic fat stranding. These findings could be seen with mild acute pancreatitis superimposed on chronic pancreatitis. Correlation with serum lipase recommended. This exam was performed according to our departmental dose-optimization program, which includes automated exposure control, adjustment of the mA and/or kV according to patient size and/or use of iterative reconstruction technique. Chest X-Ray 10/14/17 09:00 IMPRESSION: NO ACUTE RADIOGRAPHIC FINDING IN THE CHEST. SUPPORT DEVICE(S) IN EXPECTED LOCATIONS. Assessment & Plan - Diagnosis (1) Alcohol withdrawal syndrome Qualifiers: Complication of substance-induced condition: with delirium Qualified Code(s ): F10.231 - Alcohol dependence with withdrawal delirium Is this a current diagnosis for this admission?: Yes Plan: Continue Lorazepam infusion to full sedation (2) Non-sustained ventricular tachycardia Is this a current diagnosis for this admission?: Yes (3) Acute alcoholic pancreatitis Qualifiers: Acute pancreatitis complication: unspecified Qualified Code(s): K85.20 - Alcohol induced acute pancreatitis without necrosis or infection Is this a current diagnosis for this admission?: Yes (4) Respiratory failure Qualifiers: Chronicity: unspecified Is this a current diagnosis for this admission?: Yes Plan: Patient on mechanical ventilation, arterial blood gas at accepted range continue present vent setting
--- NOTE | 2017-10-14 17:20 | PDOC PROGRESS REPORT ---
Subjective Progress Note for:: 10/14/17 Subjective:: Patient was moved to the unit because of agitation, confusion, felt he needed to be intubated and sedated for control of airway and also control of his alcohol withdrawal symptoms. Patient today looks comfortable. Telemetry strips were reviewed. There was no recurrence of ventricular tachyarrhythmia. Reason For Visit: ACUTE PANCERTASIS Physical Exam Vital Signs: Temp Pulse Resp BP Pulse Ox 95.7 F L 75 14 119/68 99 10/14/17 05:17 10/14/17 08:00 10/14/17 14:13 10/14/17 14:13 10/14/17 16:00 Intake & Output 10/13/17 10/14/17 10/15/17 06:59 06:59 06:59 Intake Total 1316 2577 Output Total 200 1775 1575 Balance 1116 802 -1575 Weight 73.1 kg 70.3 kg Exam: GENERAL: well-nourished and in no acute distress. Patient is intubated and sedated. Orientation cannot be checked HEAD: Atraumatic, normocephalic. EYES: Pupils equal round and reactive to light, extraocular movements could not be checked, sclera anicteric, conjunctiva are normal. ENT: TMs normal, nares patent, oropharynx clear without exudates. Moist mucous membranes. No oral ulcerations or bleeding gums noted NECK: supple without lymphadenopathy or JVD. Trachea is central. No cervical or axillary lymphadenopathy noted. Carotids are 2+ LUNGS: Breath sounds mostly clear to auscultation patient is noted to have bibasal crackles at the extreme bases CHEST: Palpation of the chest wall shows no significant chest wall tenderness or abnormalities. 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 ABDOMEN: Soft, no significant tenderness appreciated, normoactive bowel sounds. No guarding, no rebound. No rigidity noted . No masses appreciated. EXTREMITIES: Pedal pulses are 1-2+, no calf tenderness noted, 1+ pedal edema noted. No clubbing or cyanosis. NEUROLOGICAL: The patient cannot participate in the neurological exam but no facial asymmetry noted. Extremities slightly hypotonic PSYCH: This cannot be evaluated. Patient cannot participate. SKIN: No significant ecchymosis, rash, or signs of pruritus noted. MUSCULOSKELETAL EXAM: No significant joint swelling noted. Patient cannot participate in musculoskeletal exam Results Laboratory Results: 10/14/17 09:26 10/14/17 09:26 10/14/17 10/14/17 10/14/17 04:27 04:27 09:03 WBC 8.7 RBC 4.37 Hgb 10.9 L Hct 34.0 L MCV 78 L MCH 25.0 L MCHC 32.1 RDW 15.6 H Plt Count 199 Seg Neutrophils % Lymphocytes % Monocytes % Eosinophils % Basophils % Absolute Neutrophils Absolute Lymphocytes Absolute Monocytes Absolute Eosinophils Absolute Basophils Carbonic Acid 1.09 HCO3/H2CO3 Ratio 19:1 ABG pH 7.39 ABG pCO2 36.3 ABG pO2 86.7 ABG HCO3 21.4 ABG O2 Saturation 96.6 ABG Base Excess -3.1 FiO2 28% Sodium 143.4 Potassium 3.6 Chloride 114 H Carbon Dioxide 22 Anion Gap 7 BUN 10 Creatinine 0.77 Est GFR ( Amer) > 60 Est GFR (Non-Af Amer) > 60 Glucose 81 Calcium 7.9 L Total Bilirubin AST ALT Alkaline Phosphatase Total Protein Albumin Lipase 402.8 H 10/14/17 10/14/17 09:26 09:26 WBC 7.1 RBC 4.08 L Hgb 10.4 L Hct 31.6 L MCV 78 L MCH 25.4 L MCHC 32.8 RDW 15.7 H Plt Count 219 Seg Neutrophils % Not Reportable Lymphocytes % Not Reportable Monocytes % Not Reportable Eosinophils % Not Reportable Basophils % Not Reportable Absolute Neutrophils Not Reportable Absolute Lymphocytes Not Reportable Absolute Monocytes Not Reportable Absolute Eosinophils Not Reportable Absolute Basophils Not Reportable Carbonic Acid HCO3/H2CO3 Ratio ABG pH ABG pCO2 ABG pO2 ABG HCO3 ABG O2 Saturation ABG Base Excess FiO2 Sodium 142.4 Potassium 3.6 Chloride 115 H Carbon Dioxide 21 L Anion Gap 6 BUN 8 Creatinine 0.76 Est GFR ( Amer) > 60 Est GFR (Non-Af Amer) > 60 Glucose 87 Calcium 8.0 L Total Bilirubin 0.7 AST 21 ALT 23 Alkaline Phosphatase 56 Total Protein 5.5 L Albumin 2.8 L Lipase 10/12/17 07:24 Clean Catch Midstream Urine Culture - Final NO GROWTH 2 DAYS EKG Comments: Sinus rhythm without any sustained tachycardia or bradycardia Impressions: Abdomen/Pelvis CT 10/10/17 23:28 IMPRESSION: 1. Calcifications involving the head of the pancreas with mild peripancreatic fat stranding. These findings could be seen with mild acute pancreatitis superimposed on chronic pancreatitis. Correlation with serum lipase recommended. This exam was performed according to our departmental dose-optimization program, which includes automated exposure control, adjustment of the mA and/or kV according to patient size and/or use of iterative reconstruction technique. Chest X-Ray 10/14/17 09:00 IMPRESSION: NO ACUTE RADIOGRAPHIC FINDING IN THE CHEST. SUPPORT DEVICE(S) IN EXPECTED LOCATIONS. Assessment & Plan - Diagnosis (1) Nonsustained ventricular tachycardia Is this a current diagnosis for this admission?: Yes (2) Altered mental status Qualifiers: Altered mental status type: disorientation Qualified Code(s): R41.0 - Disorientation, unspecified Is this a current diagnosis for this admission?: Yes (3) Pancreatitis Qualifiers: Chronicity: acute Pancreatitis type: alcohol induced Acute pancreatitis complication: unspecified Qualified Code(s): K85.20 - Alcohol induced acute pancreatitis without necrosis or infection Is this a current diagnosis for this admission?: Yes (4) Alcohol withdrawal syndrome Qualifiers: Complication of substance-induced condition: with delirium Qualified Code(s ): F10.231 - Alcohol dependence with withdrawal delirium Is this a current diagnosis for this admission?: Yes - Notes Notes: Nonsustained ventricular tachycardia: Continue beta-hasmukh therapy as it is felt likely from sympathetic overstimulation from alcohol withdrawal and other withdrawals. Altered mental status: Currently sedated and intubated. Pancreatitis: Currently improving and stable. Alcohol withdrawal syndrome: This is being expertly managed by the inventory associate and driver. 2D echocardiogram report was reviewed from yesterday. It shows normal LVEF. At this point we will sign off. Please reconsult if needed. - Time Time with patient: Greater than 35 minutes - CODE STATUS was discussed, patient remains full code. More than 50% of the time spent coordinating care, discussing management plans with involved caregivers. Management plans discussed with involved personnels. Medical decision making was of moderate to high complexity, patient's has multiple comorbidities. Medications reviewed and adjusted accordingly: Yes
[2017-10-14] MEDS: NORMAL SALINE 1000 ML 1,000 ML with POTASSIUM CHLORIDE 20 MEQ, THIAMINE HCL 100 MG, MVI... IV SCH ×5 (17:21)
--- NOTE | 2017-10-14 17:25 | CONSULTATION REPORT E ---
Consultation Report NAME: EUGENE ARAGON : 1960 AGE: 57Y DATE: 10/12/2017 ROOM: 611 A TO: EHSAN ROSE M.D. FROM: MAIK JERRY M.D. Requesting Physician The patient seen at 1300 on 10/12/2017. The first dictation did not go through, hence, re-dictating it from my notes. REASON FOR CONSULTATION: Paroxysms of rapid rhythm consistent with paroxysms of atrial fibrillation. Note that the patient's chart was reviewed and the patient interviewed and examined. HISTORY OF PRESENT ILLNESS: Note that the patient is a 57-year-old male with a known history of EtOH abuse who was admitted with abdominal pain and was diagnosed with pancreatitis. The patient is being kept n.p.o. for an EGD to be done later today. The nurse found on the monitor that the patient was having rhythm changes consistent with bursts of paroxysm atrial fibrillation. Sometimes the heart rate went up into the 160s. The patient denies any palpitation, chest pain, or discomfort. There is no shortness of breath. There is no PND, orthopnea, or leg edema. Review of the monitor strips reveal that the patient is in atrial fibrillation. Hence, the patient was started on Cardizem drip at 5 mg/hr. At present the patient is asymptomatic. He states that his abdominal pain is well-controlled. He has no chest pain, no discomfort. There is no PND, orthopnea. The patient denies any palpitations. PAST MEDICAL HISTORY: Positive for history of paroxysmal atrial fibrillation. Past history of congestive heart failure, systolic versus diastolic. Of note hypertension. He also has a history of pulmonary embolism in the past. He also has history of asthma/COPD. There is no history of diabetes mellitus. He also has a history of peptic ulcer disease and GERD, also arthritis. There is no history of chronic kidney disease. There is no history of TIA or CVA. The patient states that he had a heart attack in March 2017, no stents were placed. SOCIAL HISTORY: The patient has a history of EtOH abuse and the patient is a smoker. FAMILY HISTORY: Positive for hypertension. ALLERGIES: He is allergic to KELLIE INHIBITORS, ESPECIALLY LISINOPRIL. PAST SURGICAL HISTORY: Negative for any major surgeries. ADVANCE DIRECTIVES: The patient is a full code. He says that Mr. Gurpreet Sianz is his surrogate healthcare decision maker. MEDICATIONS: 1. Tylenol 650 mg p.o. q.4 hours p.r.n. 2. Amlodipine 5 mg p.o. daily. 3. Glutose 40% gel, 15 grams and 30 grams p.o. p.r.n. hypoglycemia. 4. Dextrose 50%, 12.5 grams IV and 25 grams IV p.r.n. 5. Digoxin 0.125 mg p.o. daily. 6. Glucagon 1 mg subcutaneously p.r.n. hypoglycemia. 7. Heparin 5000 units subcutaneously q.8 hours for DVT prophylaxis. 8. Ampicillin sodium/sulbactam 3 grams IV q.6 hours. 9. Ativan drip at 25 mg in 240 mL IV continuous, rate controlled by the need to keep the patient from going into delirium. 10. Metoprolol 25 mg p.o. q.12 hours. 11. Morphine 2 mg IV q.4 hours p.r.n. 12. Zofran 4 mg IV q.4 hours p.r.n. 13. Protonix 40 mg IV q.12 hours. REVIEW OF SYSTEMS: CONSTITUTIONAL: Denies any fever, chills or rigors. HEAD: Denies headaches or head injury. EYES: No history of amblyopia or diplopia. No history of amaurosis fugax. EARS: No history of hearing loss. No history of tinnitus. No history of recurrent ear infections. NOSE: No history of hay fever. No history of nosebleeds. No history of nasal polyps. MOUTH: No history of altered taste sensation. No ulcers in the mouth. No history from the gums. THROAT: No odynophagia or dysphagia. No history of recurrent sore throats. SKIN: No pruritus. No yellowish discoloration of the skin. No history of psoriasis. NECK: No history of painless or painful swelling of the neck. No goiter. No lymphadenopathy. LUNGS: The patient has a history of asthma and COPD by exam. No history of sleep apnea. He has a past history of pulmonary embolism, no recurrence. No history of hemoptysis. No recent symptoms of wheezing or cough or sputum production. No symptoms of URI or LRI. CARDIAC: The patient has a history of paroxysmal atrial fibrillation, at present the patient has been in paroxysmal atrial fibrillation, but the patient is asymptomatic; no syncope, no leg edema, no PND or orthopnea . History of congestive heart failure. History of coronary artery disease. History of NE. No anginal symptoms. No history of PND or orthopnea or leg edema recently. No history of syncope. ENDOCRINE: No history of diabetes mellitus. No history of thyroid disease. No history of polydipsia or polyuria. No history of heat or cold intolerance. MUSCULOSKELETAL: Has a history of arthritis but no collagen vascular disease. RENAL: No history of chronic kidney disease. No symptoms of a UTI. No history of hematuria, pyuria, or dysuria. No symptoms of an enlarged prostate. CENTRAL NERVOUS SYSTEM: No history of TIA or CVA. No history of headaches, migraines, or seizures. No history of gait imbalance. PSYCHIATRIC: No history of anxiety or depression. No history of suicidal ideation. The patient has a history of alcohol abuse. GASTROINTESTINAL: Past history of duodenal ulcer. History of GERD present. History of hiatal hernia present. No GI bleed. The patient admitted with abdominal pain and diagnosed with pancreatitis, most likely EtOH related. No history of altered bowel movements. No history of jaundice. No history of hepatitis. No history of cirrhosis of the liver. VASCULAR: No history of calf or buttock claudication. No DVT. HEMATOLOGICAL: No history of bleeding diathesis. No history of clotting disorders. PHYSICAL EXAMINATION: GENERAL: On examination the patient is well-built and well-nourished, at present in no acute distress. VITAL SIGNS: He is afebrile with a temperature of 97.7 degrees Fahrenheit. Pulse of 102 beats per minute, at present sinus tachycardia. The monitor shows interspersed paroxysms of atrial fibrillation. His blood pressure is 147/85, respirations are 16 per minute, O2 saturations are 100% on room air. HEENT: Head is atraumatic, normocephalic. Eyes: Pupils are equal, round and regular, reactive to light and accommodation. Extraocular movements are normal. There is no conjunctival pallor. There is no scleral icterus. Ears: Tympanic membranes are intact, external auditory canals are clear. Nose: There is no deviated nasal septum. There is no inflammation of the nasal mucous membrane. Mouth: Mucous membranes of the mouth are moist. Tongue is moist. There are no ulcers. There is no bleeding from the gums. Throat: There is no redness of the oropharynx. There are no exudates. SKIN: There is no skin rashes. There are no skin lesions. There is no petechiae or ecchymosis. NECK: Supple. There is no JVD. There is no lymphadenopathy. There is no goiter. Carotids are equal. There is no bruit. Trachea is central. LUNGS: Show diminished air entry, prolonged expiration without any rhonchi, rales, or wheezing. HEART: S1, S2 is heard. At present since the patient is in sinus rhythm his S1 is of normal intensity. There is no S3 gallop. There is no S4 gallop. There is a systolic murmur in the left sternal border and the apex. There is no rub. ABDOMEN: Soft, minimally tender in the mid *------* without any rebound, guarding, or rigidity. Bowel sounds are normal. There is no hepatosplenomegaly. EXTREMITIES: Femorals are slightly diminished. Leg pulses are diminished. There is no pedal edema. There is no cyanosis or clubbing. There is no DVT or cellulitis. There is no calf tenderness. CENTRAL NERVOUS SYSTEM: The patient is conscious, awake, alert and oriented x3 with no focal deficits. PSYCHIATRIC: The patient's judgment and insight are intact. His affect is normal. DIAGNOSTICS: EKG shows sinus rhythm, short IA interval, accelerated AV conduction, biatrial abnormalities, LVH by voltage. No acute changes. On the monitor there are paroxysms of atrial fibrillation. His abdominal and pelvis CT shows the visualized lung bases are clear. There are calcifications involving the head of the pancreas with mild peripancreatic fat stranding. These findings could be seen with mild acute pancreatitis superimposed on chronic pancreatitis, correlation with serum lipase recommended. His white count is 13,900; his hemoglobin is 12.4; hematocrit is 38.1; and his platelet count is 216,000. The patient's sodium is 139.1, potassium is 3.2, chloride is 107. His BUN is 11, creatinine is 0.78, GFR is greater than 60 and his glucose is 109. His calcium is 8.8. His liver function tests on 10/12/17 are normal. His albumin is 4.2, total protein is 7.6. His lipase was 1983. IMPRESSION: 1. Paroxysm of atrial fibrillation, most likely secondary to hypokalemia. Would recommend starting the patient on a Cardizem drip at 5 mg/hr since the patient is n.p.o. and the patient needs an EGD. The patient should be acceptable for EGD. Also would correct the patient's hypokalemia. 2. Acute on chronic pancreatitis, most likely EtOH induced. 3. Hypertension. 4. EtOH abuse. 5. History of asthma/COPD. 6. Tobacco abuse. 7. Coronary artery disease, history of NE. No anginal symptoms. Note these details are not available. RECOMMENDATIONS: As mentioned earlier would continue the patient on IV Cardizem at 5 mg and increase as tolerated. Replace the patient's potassium. TIME SPENT: Note 55 minutes spent on the patient with more than 50% of the time spent on direct patient care. Medical decision making is of high complexity. Note would discuss with the other caregiving providers on the case. The patient's medications have been reviewed and new medications started by me. His EKG was reviewed and interpreted by me. Dr. Orourke will follow the patient in the a.m. DICTATING PHYSICIAN: EHSAN ROSE M.D. [id number] PHY#: [id number] ID: [id number] JOB#: [id number] ACCT: [id number] cc:EHSAN ROSE M.D. >
--- NOTE | 2017-10-14 18:11 | PDOC CONSULTATION ---
Consultation Consult Date: 10/14/17 Attending physician:: GOLDIE LYNCH Consult reason:: Acute respiratory failure History of Present Illness Admission Date/PCP: 10/11/17 02:15 MAIK JERRY MD History of Present Illness: EUGENE ARAGON is a 57 year old male,Admitted for pancreatitis and alcohol withdrawal apparently we went into severe DTs and was unable to protect his airway so he subsequently was intubated after being transferred to the ICU Past Medical History Cardiac Medical History: Reports: Atrial Fibrillation, Congestive Heart Failure , Hypertension, Pulmonary Embolism Pulmonary Medical History: Reports: Asthma Neurological Medical History: Denies: Seizures Renal/ Medical History: Reports: Chronic Kidney Disease GI Medical History: Reports: Gastroesophageal Reflux Disease, Peptic Ulcer Disease Musculoskeltal Medical History: Reports: Arthritis Psychiatric Medical History: Denies: Depression Social History Information Source: [facility] Records Lives with: Alone Smoking Status: Current Every Day Smoker Cigarettes Packs Per Day: 0.5 Number of Years Smokin Last Time Smoked: 10/10/2017 Frequency of Alcohol Use: Heavy Hx Recreational Drug Use: No Drugs: Cocaine Hx Prescription Drug Abuse: No - Advance Directive Resuscitation Status: Full Code Family History Family History: Hypertension Parental Family History Reviewed: No Children Family History Reviewed: No Sibling(s) Family History Reviewed.: No Medication/Allergy Home Medications: Albuterol Sulfate [Proair HFA Inhalation Aerosol 8.5 gm MDI] 2 puff IH Q4HP PRN 04/13/17 Digoxin [Lanoxin 0.125 mg Tablet] 0.125 mg PO DAILY #30 tablet 04/19/17 Ferrous Sulfate [Feosol 325 mg Tablet] 325 mg PO DAILY #30 tablet 04/19/17 Furosemide [Lasix 20 mg Tablet] 20 mg PO DAILY #30 tablet 04/19/17 Metoprolol Succinate [Toprol Xl 25 mg Tab.sr] 25 mg PO DAILY #30 tab.sr.24h 07/02 Pantoprazole Sodium 40 mg PO BID 30 Days #60 tablet.dr 04/19/17 Spironolactone [Aldactone 25 mg Tablet] 25 mg PO DAILY #20 tablet 04/19/17 Docusate Sodium [Dok] 100 mg PO BID 10/11/17 Allergies/Adverse Reactions: KELLIE Inhibitors Allergy (Severe, Verified 10/11/17 11:11) Anaphylaxis lisinopril Allergy (Verified 10/11/17 11:11) Review of Systems ROS unobtainable: Due to endotracheal tube, Due to mental status Physical Exam Vital Signs: Temp Pulse Resp BP Pulse Ox 95.7 F L 92 13 91/56 L 100 10/14/17 05:17 10/13/17 22:22 10/14/17 06:12 10/14/17 06:12 10/14/17 06:12 Intake & Output 10/13/17 10/14/17 10/15/17 06:59 06:59 06:59 Intake Total 1316 2577 Output Total 200 1775 Balance 1116 802 Weight 73.1 kg 70.3 kg General appearance: PRESENT: no acute distress, disheveled. ABSENT: cooperative Head exam: PRESENT: atraumatic, normocephalic Eye exam: PRESENT: conjunctiva pale. ABSENT: EOMI, nystagmus, periorbital swelling, scleral icterus Mouth exam: PRESENT: dry mucosa, neck supple, tongue midline, other - ET tube in place Neck exam: ABSENT: carotid bruit, JVD, lymphadenopathy, thyromegaly, tracheal deviation, tracheostomy Respiratory exam: PRESENT: crackles, decreased breath sounds, prolonged expiratory phas, rhonchi, unlabored. ABSENT: retraction, stridor Cardiovascular exam: PRESENT: RRR, +S1, +S2 Pulses: PRESENT: normal radial pulses GI/Abdominal exam: PRESENT: diminished bowel sounds, hypoactive bowel sounds, soft Neurological exam: ABSENT: awake, oriented to person Skin exam: PRESENT: dry, warm Results Laboratory Results: 10/14/17 04:27 10/14/17 04:27 10/13/17 10/13/17 10/14/17 14:18 15:30 04:27 WBC 8.7 RBC 4.37 Hgb 10.9 L Hct 34.0 L MCV 78 L MCH 25.0 L MCHC 32.1 RDW 15.6 H Plt Count 199 Sodium Cancelled 140.5 Potassium Cancelled 3.2 L Chloride Cancelled 108 H Carbon Dioxide Cancelled 23 Anion Gap Cancelled 10 BUN Cancelled 10 Creatinine Cancelled 0.75 Est GFR ( Amer) Cancelled > 60 Est GFR (Non-Af Amer) Cancelled > 60 Glucose Cancelled 89 Calcium Cancelled 8.5 Magnesium Cancelled 1.8 Lipase 10/14/17 04:27 WBC RBC Hgb Hct MCV MCH MCHC RDW Plt Count Sodium 143.4 Potassium 3.6 Chloride 114 H Carbon Dioxide 22 Anion Gap 7 BUN 10 Creatinine 0.77 Est GFR ( Amer) > 60 Est GFR (Non-Af Amer) > 60 Glucose 81 Calcium 7.9 L Magnesium Lipase 402.8 H Impressions: Abdomen/Pelvis CT 10/10/17 23:28 IMPRESSION: 1. Calcifications involving the head of the pancreas with mild peripancreatic fat stranding. These findings could be seen with mild acute pancreatitis superimposed on chronic pancreatitis. Correlation with serum lipase recommended. This exam was performed according to our departmental dose-optimization program, which includes automated exposure control, adjustment of the mA and/or kV according to patient size and/or use of iterative reconstruction technique. Chest X-Ray 10/14/17 09:00 IMPRESSION: NO ACUTE RADIOGRAPHIC FINDING IN THE CHEST. SUPPORT DEVICE(S) IN EXPECTED LOCATIONS. Assessment & Plan - Diagnosis (1) Acute alcoholic pancreatitis Qualifiers: Acute pancreatitis complication: unspecified Qualified Code(s): K85.20 - Alcohol induced acute pancreatitis without necrosis or infection Is this a current diagnosis for this admission?: Yes Plan: Stable at this time (2) Alcohol withdrawal syndrome Qualifiers: Complication of substance-induced condition: with delirium Qualified Code(s ): F10.231 - Alcohol dependence with withdrawal delirium Is this a current diagnosis for this admission?: Yes Plan: cover with benzodiazipam drip (3) COPD (chronic obstructive pulmonary disease) Qualifiers: COPD type: unspecified COPD Qualified Code(s): J44.9 - Chronic obstructive pulmonary disease, unspecified Is this a current diagnosis for this admission?: Yes Plan: Generic Name Dose Route Start Last Admin Trade Name Freq PRN Reason Stop Dose Admin Albuterol/Ipratropium 3 ml 10/11/17 02:18 Duoneb 3 Ml Ampul NEB 11/10/17 02:17 [id number] PRN SHORTNESS OF BREATH And as needed Xopenex (4) Pancreatitis Qualifiers: Chronicity: acute Pancreatitis type: alcohol induced Acute pancreatitis complication: unspecified Qualified Code(s): K85.20 - Alcohol induced acute pancreatitis without necrosis or infection Is this a current diagnosis for this admission?: Yes (5) Alcohol withdrawal with delirium in inpatient treatment Is this a current diagnosis for this admission?: Yes Plan: benzodiaz + thiamine +folate - Time Total Critical Time (Minutes): 55 - Plan Summary Plan Summary: Acute respiratory failure #1 aspiration problem #2 #3delirium tremors problem #4 possible alcoholic withdrawal seizures problem #5 possible pancreatitis
[2017-10-15] MEDS: LORAZEPAM 24 MG/240 ML BAG IV PRN ×4 (01:45→16:29)
[2017-10-15 04:41] LABS: ANION GAP 9 (5-19); BLOOD UREA NITROGEN 3 mg/dL (7-20); CALCIUM 8.6 mg/dL (8.4-10.2); CARBON DIOXIDE 22 mmol/L (22-30); CHLORIDE 115 mmol/L (98-107); GLUCOSE 115 mg/dL (75-110); POTASSIUM 3.7 mmol/L (3.6-5.0); SODIUM 146.4 mmol/L (137-145); TRIGLYCERIDES 141 mg/dL (<150)
[2017-10-15] MEDS: PROPOFOL 1,000 MG/100 ML INFUS..BTL IV PRN ×3 (05:25→17:42)
[2017-10-15] MEDS: AMPICILLIN SODIUM/SULBACTAM NA 3 GM in NORMAL SALINE 100 ML IV SCH ×3 (05:26→17:41)
[2017-10-15] MEDS: HEPARIN SOD (PORCINE) 5,000 UNIT/ML 1 ML SYRINGE SUBCUT SCH ×3 (05:26→22:39)
[2017-10-15 06:21] LABS: ARTERIAL BLOOD BASE EXCESS -3.3 mmol/L; ARTERIAL BLOOD H2CO3 1.05 mmol/L (1.05-1.35); ARTERIAL BLOOD HCO3 20.9 mmol/L (20-26); ARTERIAL BLOOD O2 SATURATION 96.1 % (94-98); ARTERIAL BLOOD PCO2 34.8 mmHg (35-45); ARTERIAL BLOOD PO2 82.1 mmHg (80-100); ARTERIAL BLOOD TOTAL CO2 21.9 mmol/L (23-27)
[2017-10-15 06:23] LABS: ARTERIAL BLOOD FIO2 24%
[2017-10-15] MEDS: POTASSI CL 20 MEQ/NS 1L 1000 ML IV PRN ×2 (06:25→17:44)
[2017-10-15] MEDS: SUCRALFATE 1 GM TABLET PO SCH (08:00)
--- NOTE | 2017-10-15 08:40 | RADIOLOGY REPORT (SQ) ---
EXAM DESCRIPTION: KUB/ABDOMEN (SINGLE VIEW) COMPLETED DATE/TIME: 10/15/2017 8:32 am REASON FOR STUDY: NGT verification COMPARISON: CT abdomen pelvis 10/11/2017 NUMBER OF VIEWS: One view. TECHNIQUE: Supine radiographic image of the abdomen acquired for nasogastric tube placement. LIMITATIONS: Pelvis not included in the field of view FINDINGS: A nasogastric tube is present with the tip and side port in the stomach. Grossly nonobstructive upper abdominal bowel gas pattern. IMPRESSION: Nasogastric tube tip and side port in the stomach TECHNICAL DOCUMENTATION: JOB ID: [id number] [employer]- All Rights Reserved Reading location - IP/workstation name: [email or web address]
--- NOTE | 2017-10-15 08:52 | RADIOLOGY REPORT (SQ) ---
EXAM DESCRIPTION: CHEST SINGLE VIEW COMPLETED DATE/TIME: 10/15/2017 6:30 am REASON FOR STUDY: resp failure COMPARISON: Chest films 04/13/2017, 10/13/2017, 10/14/2017 EXAM PARAMETERS: NUMBER OF VIEWS: One view. TECHNIQUE: Single frontal radiographic view of the chest acquired. RADIATION DOSE: NA LIMITATIONS: None. FINDINGS: LUNGS AND PLEURA: No opacities, masses or pneumothorax. No pleural effusion. MEDIASTINUM AND HILAR STRUCTURES: No masses. Contour normal. HEART AND VASCULAR STRUCTURES: Heart normal in size. Normal vasculature. BONES: No acute findings. HARDWARE: Endotracheal tube tip 6 to 7 cm above the reanna, unchanged. Nasogastric tube tip appears to be either in the mid 3rd esophagus or down the left lower lobe bronchus. These findings on this 0 613 hours chest film were corrected on follow-up KUB film 10/15/2017, 0823 hours, for the nasogastric t ube tip and side port were in the stomach. OTHER: No other significant finding. IMPRESSION: Endotracheal tube tip 6 to 7 cm above the reanna. Nasogastric tube tip over the mid 3rd mediastinum, either in the mid 3rd esophagus or the left lower lobe bronchus. This was subsequently corrected on follow-up KUB image 10/24/2017, 0823 hours, where t he nasogastric tube tip and side port are within the stomach. TECHNICAL DOCUMENTATION: JOB ID: [id number] [employer]- All Rights Reserved Reading location - IP/workstation name: [email or web address]
[2017-10-15 09:35] LABS: HEMATOCRIT 35.8 % (37.9-51.0); HEMOGLOBIN 11.5 g/dL (13.5-17.0); MEAN CORPUSCULAR HEMOGLOBIN 25.2 pg (27.0-33.4); MEAN CORPUSCULAR HGB CONC 32.1 g/dL (32.0-36.0); MEAN CORPUSCULAR VOLUME 78 fl (80-97); PLATELET COUNT 245 10^3/uL (150-450); RED BLOOD COUNT 4.57 10^6/uL (4.35-5.55); WHITE BLOOD COUNT 9.4 10^3/uL (4.0-10.5)
[2017-10-15 09:47] LABS: ALANINE AMINOTRANSFERASE 17 U/L (21-72); ALBUMIN 3.2 g/dL (3.5-5.0); ALKALINE PHOSPHATASE 60 U/L (38-126); ANION GAP 8 (5-19); ASPARTATE AMINO TRANSFERASE 28 U/L (17-59); BILIRUBIN,DIRECT 0.4 mg/dL (0.0-0.4); BILIRUBIN,TOTAL 0.6 mg/dL (0.2-1.3); BLOOD UREA NITROGEN 3 mg/dL (7-20); CALCIUM 8.5 mg/dL (8.4-10.2); CARBON DIOXIDE 24 mmol/L (22-30); CHLORIDE 115 mmol/L (98-107); GLUCOSE 117 mg/dL (75-110); POTASSIUM 3.8 mmol/L (3.6-5.0); SODIUM 146.5 mmol/L (137-145); TOTAL PROTEIN 6.4 g/dL (6.3-8.2)
[2017-10-15] MEDS ORDERED: METOPROLOL TARTRATE 25 MG TABLET PO SCH (10:00)
[2017-10-15] MEDS: METOPROLOL SUCCINATE 25 MG TAB.SR.24H PO SCH (10:00)
[2017-10-15] MEDS: DIGOXIN 0.125 MG TABLET PO SCH (10:00)
[2017-10-15] MEDS: AMLODIPINE BESYLATE 5 MG TABLET PO SCH (10:00)
[2017-10-15 10:01] LABS: ABSOLUTE LYMPHOCYTES# (MANUAL) 1.8 10^3/uL (0.5-4.7); ABSOLUTE NEUTROPHILS# (MANUAL) 6.2 10^3/uL (1.7-8.2); BASOPHILS % (MANUAL) 0 % (0-2); EOSINOPHILS % (MANUAL) 4 % (0-6); LYMPHOCYTES % (MANUAL) 17 % (13-45); MONOCYTES % (MANUAL) 11 % (3-13); SEGMENTED NEUTROPHILS % (MAN) 66 % (42-78); TOTAL CELLS COUNTED 100
[2017-10-15 10:03] LABS: ANISOCYTOSIS 1+; HYPOCHROMASIA SLIGHT; OVALOCYTES SLIGHT; PLATELET COMMENT ADEQUATE; POIKILOCYTOSIS 1+; TARGET CELLS 1+
[2017-10-15] MEDS ORDERED: ACETAMINOPHEN 325 MG TABLET NG PRN (10:30)
[2017-10-15] MEDS ORDERED: DEXTROSE 40% GEL 15 GM TUBE NG PRN ×2 (11:00)
[2017-10-15] MEDS ORDERED: DIGOXIN 0.125 MG TABLET NG ONE (11:00)
[2017-10-15] MEDS ORDERED: AMLODIPINE BESYLATE 5 MG TABLET NG ONE (11:00)
[2017-10-15] MEDS: DOCUSATE SODIUM 100 MG CAPSULE PO SCH (11:00)
[2017-10-15] MEDS ORDERED: METOPROLOL TARTRATE 25 MG TABLET NG ONE (11:00)
[2017-10-15] MEDS: PANTOPRAZOLE SODIUM 40 MG VIAL IV SCH ×2 (11:04→22:40)
[2017-10-15] MEDS: SUCRALFATE 1 GM TABLET NG SCH ×3 (11:05→22:40)
--- NOTE | 2017-10-15 14:22 | PDOC PROGRESS REPORT ---
Subjective Progress Note for:: 10/15/17 Subjective:: Patient was seen by the bedside intubated and sedated Reason For Visit: ACUTE PANCERTASIS Physical Exam Vital Signs: Temp Pulse Resp BP Pulse Ox 96.8 F L 67 12 107/66 99 10/15/17 08:00 10/15/17 08:00 10/15/17 10:13 10/15/17 10:13 10/15/17 12:00 Intake & Output 10/14/17 10/15/17 10/16/17 06:59 06:59 06:59 Intake Total 2577 5433 Output Total 1776 8213 1600 Balance 802 708 -1600 Weight 70.3 kg 71.6 kg Respiratory exam: PRESENT: clear to auscultation garrett Cardiovascular exam: PRESENT: +S1, +S2 GI/Abdominal exam: PRESENT: soft Neurological exam: PRESENT: other - Sedated Results Laboratory Results: 10/15/17 09:23 10/15/17 09:23 10/15/17 10/15/17 10/15/17 04:08 05:40 09:23 WBC 9.4 RBC 4.57 Hgb 11.5 L Hct 35.8 L MCV 78 L MCH 25.2 L MCHC 32.1 RDW 16.0 H Plt Count 245 Seg Neutrophils % Not Reportable Lymphocytes % Not Reportable Monocytes % Not Reportable Eosinophils % Not Reportable Basophils % Not Reportable Absolute Neutrophils Not Reportable Absolute Lymphocytes Not Reportable Absolute Monocytes Not Reportable Absolute Eosinophils Not Reportable Absolute Basophils Not Reportable Carbonic Acid 1.05 HCO3/H2CO3 Ratio 19:1 ABG pH 7.40 ABG pCO2 34.8 L ABG pO2 82.1 ABG HCO3 20.9 ABG O2 Saturation 96.1 ABG Base Excess -3.3 FiO2 24% Sodium 146.4 H Potassium 3.7 Chloride 115 H Carbon Dioxide 22 Anion Gap 9 BUN 3 L Creatinine 0.85 Est GFR ( Amer) > 60 Est GFR (Non-Af Amer) > 60 Glucose 115 H Calcium 8.6 Magnesium 2.0 Total Bilirubin AST ALT Alkaline Phosphatase Total Protein Albumin Triglycerides 141 10/15/17 09:23 WBC RBC Hgb Hct MCV MCH MCHC RDW Plt Count Seg Neutrophils % Lymphocytes % Monocytes % Eosinophils % Basophils % Absolute Neutrophils Absolute Lymphocytes Absolute Monocytes Absolute Eosinophils Absolute Basophils Carbonic Acid HCO3/H2CO3 Ratio ABG pH ABG pCO2 ABG pO2 ABG HCO3 ABG O2 Saturation ABG Base Excess FiO2 Sodium 146.5 H Potassium 3.8 Chloride 115 H Carbon Dioxide 24 Anion Gap 8 BUN 3 L Creatinine 0.78 Est GFR ( Amer) > 60 Est GFR (Non-Af Amer) > 60 Glucose 117 H Calcium 8.5 Magnesium Total Bilirubin 0.6 AST 28 ALT 17 L Alkaline Phosphatase 60 Total Protein 6.4 Albumin 3.2 L Triglycerides 10/12/17 07:24 Clean Catch Midstream Urine Culture - Final NO GROWTH 2 DAYS Impressions: Abdomen/Pelvis CT 10/10/17 23:28 IMPRESSION: 1. Calcifications involving the head of the pancreas with mild peripancreatic fat stranding. These findings could be seen with mild acute pancreatitis superimposed on chronic pancreatitis. Correlation with serum lipase recommended. This exam was performed according to our departmental dose-optimization program, which includes automated exposure control, adjustment of the mA and/or kV according to patient size and/or use of iterative reconstruction technique. KUB X-Ray 10/15/17 00:00 IMPRESSION: Nasogastric tube tip and side port in the stomach Chest X-Ray 10/15/17 06:00 IMPRESSION: Endotracheal tube tip 6 to 7 cm above the reanna. Nasogastric tube tip over the mid 3rd mediastinum, either in the mid 3rd esophagus or the left lower lobe bronchus. This was subsequently corrected on follow-up KUB image 10/24/2017, 0823 hours, where the nasogastric tube tip and side port are within the stomach. Assessment & Plan - Diagnosis (1) Alcohol withdrawal syndrome Qualifiers: Complication of substance-induced condition: with delirium Qualified Code(s ): F10.231 - Alcohol dependence with withdrawal delirium Is this a current diagnosis for this admission?: Yes (2) Non-sustained ventricular tachycardia Is this a current diagnosis for this admission?: Yes (3) Acute alcoholic pancreatitis Qualifiers: Acute pancreatitis complication: unspecified Qualified Code(s): K85.20 - Alcohol induced acute pancreatitis without necrosis or infection Is this a current diagnosis for this admission?: Yes (4) Respiratory failure Qualifiers: Chronicity: unspecified Is this a current diagnosis for this admission?: Yes - Plan Summary Plan Summary: Continue mechanical ventilation, continue infusional with lorazepam
--- NOTE | 2017-10-15 15:42 | PDOC PROGRESS REPORT ---
Subjective Progress Note for:: 10/15/17 Subjective:: Intubated and sedated during sedation vacation became highly agitated Reason For Visit: ACUTE PANCERTASIS Physical Exam Vital Signs: Temp Pulse Resp BP Pulse Ox 97.0 F 75 12 116/68 100 10/15/17 05:35 10/14/17 20:00 10/15/17 06:00 10/15/17 05:13 10/15/17 06:00 Intake & Output 10/14/17 10/15/17 10/16/17 06:59 06:59 06:59 Intake Total 2577 5433 Output Total 1775 4725 Balance 802 708 Weight 70.3 kg 71.6 kg General appearance: PRESENT: no acute distress, disheveled. ABSENT: cooperative Head exam: PRESENT: atraumatic, normocephalic Eye exam: PRESENT: conjunctiva pale. ABSENT: nystagmus, periorbital swelling, scleral icterus Mouth exam: PRESENT: dry mucosa, neck supple, tongue midline, other - ET tube in place Neck exam: ABSENT: carotid bruit, JVD, lymphadenopathy, thyromegaly, tracheal deviation, tracheostomy Respiratory exam: PRESENT: crackles, decreased breath sounds, prolonged expiratory phas, rhonchi, unlabored, wheezes. ABSENT: rales, retraction, stridor Cardiovascular exam: PRESENT: RRR, +S1, +S2 Pulses: PRESENT: normal radial pulses GI/Abdominal exam: PRESENT: diminished bowel sounds, soft Gentrourinary exam: PRESENT: indwelling catheter Extremities exam: ABSENT: calf tenderness, joint swelling Musculoskeletal exam: ABSENT: ambulatory, deformity, dislocation Neurological exam: ABSENT: awake Skin exam: PRESENT: dry, warm Results Laboratory Results: 10/14/17 09:26 10/15/17 04:08 10/14/17 10/14/17 10/14/17 09:03 09:26 09:26 WBC 7.1 RBC 4.08 L Hgb 10.4 L Hct 31.6 L MCV 78 L MCH 25.4 L MCHC 32.8 RDW 15.7 H Plt Count 219 Seg Neutrophils % Not Reportable Lymphocytes % Not Reportable Monocytes % Not Reportable Eosinophils % Not Reportable Basophils % Not Reportable Absolute Neutrophils Not Reportable Absolute Lymphocytes Not Reportable Absolute Monocytes Not Reportable Absolute Eosinophils Not Reportable Absolute Basophils Not Reportable Carbonic Acid 1.09 HCO3/H2CO3 Ratio 19:1 ABG pH 7.39 ABG pCO2 36.3 ABG pO2 86.7 ABG HCO3 21.4 ABG O2 Saturation 96.6 ABG Base Excess -3.1 FiO2 28% Sodium 142.4 Potassium 3.6 Chloride 115 H Carbon Dioxide 21 L Anion Gap 6 BUN 8 Creatinine 0.76 Est GFR ( Amer) > 60 Est GFR (Non-Af Amer) > 60 Glucose 87 Calcium 8.0 L Magnesium Total Bilirubin 0.7 AST 21 ALT 23 Alkaline Phosphatase 56 Total Protein 5.5 L Albumin 2.8 L Triglycerides 10/15/17 10/15/17 04:08 05:40 WBC RBC Hgb Hct MCV MCH MCHC RDW Plt Count Seg Neutrophils % Lymphocytes % Monocytes % Eosinophils % Basophils % Absolute Neutrophils Absolute Lymphocytes Absolute Monocytes Absolute Eosinophils Absolute Basophils Carbonic Acid 1.05 HCO3/H2CO3 Ratio 19:1 ABG pH 7.40 ABG pCO2 34.8 L ABG pO2 82.1 ABG HCO3 20.9 ABG O2 Saturation 96.1 ABG Base Excess -3.3 FiO2 24% Sodium 146.4 H Potassium 3.7 Chloride 115 H Carbon Dioxide 22 Anion Gap 9 BUN 3 L Creatinine 0.85 Est GFR ( Amer) > 60 Est GFR (Non-Af Amer) > 60 Glucose 115 H Calcium 8.6 Magnesium 2.0 Total Bilirubin AST ALT Alkaline Phosphatase Total Protein Albumin Triglycerides 141 10/12/17 07:24 Clean Catch Midstream Urine Culture - Final NO GROWTH 2 DAYS Impressions: Abdomen/Pelvis CT 10/10/17 23:28 IMPRESSION: 1. Calcifications involving the head of the pancreas with mild peripancreatic fat stranding. These findings could be seen with mild acute pancreatitis superimposed on chronic pancreatitis. Correlation with serum lipase recommended. This exam was performed according to our departmental dose-optimization program, which includes automated exposure control, adjustment of the mA and/or kV according to patient size and/or use of iterative reconstruction technique. Assessment & Plan - Diagnosis (1) Acute alcoholic pancreatitis Qualifiers: Acute pancreatitis complication: unspecified Qualified Code(s): K85.20 - Alcohol induced acute pancreatitis without necrosis or infection Is this a current diagnosis for this admission?: Yes Plan: Stable at this time (2) Alcohol withdrawal syndrome Qualifiers: Complication of substance-induced condition: with delirium Qualified Code(s ): F10.231 - Alcohol dependence with withdrawal delirium Is this a current diagnosis for this admission?: Yes Plan: Highly agitated during sedation vacation being maintained on benzodiazepines opiates and propofol (3) Atrial fibrillation Qualifiers: Atrial fibrillation type: paroxysmal Qualified Code(s): I48.0 - Paroxysmal atrial fibrillation Is this a current diagnosis for this admission?: Yes Plan: Ventricular rate well controlled at this time (4) COPD (chronic obstructive pulmonary disease) Qualifiers: COPD type: unspecified COPD Qualified Code(s): J44.9 - Chronic obstructive pulmonary disease, unspecified Is this a current diagnosis for this admission?: Yes Plan: Generic Name Dose Route Start Last Admin Trade Name Freq PRN Reason Stop Dose Admin Albuterol/Ipratropium 3 ml 10/11/17 02:18 Duoneb 3 Ml Ampul NEB 11/10/17 02:17 [id number] PRN SHORTNESS OF BREATH And as needed Xopenex (5) Hypertension Qualifiers: Hypertension type: essential hypertension Qualified Code(s): I10 - Essential (primary) hypertension Is this a current diagnosis for this admission?: Yes Plan: Stable at this time - Time Total Critical Time (Minutes): 50
[2017-10-15] MEDS: NORMAL SALINE 1000 ML 1,000 ML with POTASSIUM CHLORIDE 20 MEQ, THIAMINE HCL 100 MG, MVI... IV SCH ×5 (17:43)
[2017-10-15] MEDS: METOPROLOL TARTRATE 25 MG TABLET NG SCH (22:40)
[2017-10-16] MEDS: AMPICILLIN SODIUM/SULBACTAM NA 3 GM in NORMAL SALINE 100 ML IV SCH ×4 (00:22→17:08)
[2017-10-16] MEDS: PROPOFOL 1,000 MG/100 ML INFUS..BTL IV PRN ×3 (02:40→18:17)
[2017-10-16 04:39] LABS: ANION GAP 11 (5-19); BLOOD UREA NITROGEN 5 mg/dL (7-20); CALCIUM 8.5 mg/dL (8.4-10.2); CARBON DIOXIDE 20 mmol/L (22-30); CHLORIDE 116 mmol/L (98-107); GLUCOSE 102 mg/dL (75-110); POTASSIUM 3.8 mmol/L (3.6-5.0); SODIUM 146.7 mmol/L (137-145)
[2017-10-16] MEDS: HEPARIN SOD (PORCINE) 5,000 UNIT/ML 1 ML SYRINGE SUBCUT SCH ×3 (05:46→21:06)
[2017-10-16 05:47] LABS: ARTERIAL BLOOD BASE EXCESS -3.4 mmol/L; ARTERIAL BLOOD HCO3 20.5 mmol/L (20-26); ARTERIAL BLOOD O2 SATURATION 92.9 % (94-98); ARTERIAL BLOOD PCO2 33.2 mmHg (35-45); ARTERIAL BLOOD PH 7.41 (7.35-7.45); ARTERIAL BLOOD TOTAL CO2 21.5 mmol/L (23-27)
[2017-10-16 05:48] LABS: ARTERIAL BLOOD FIO2 24%
--- NOTE | 2017-10-16 07:59 | RADIOLOGY REPORT (SQ) ---
EXAM DESCRIPTION: CHEST SINGLE VIEW COMPLETED DATE/TIME: 10/16/2017 7:16 am REASON FOR STUDY: resp failure COMPARISON: Chest films 10/13/2017, 10/14/2017, 10/15/2017 EXAM PARAMETERS: NUMBER OF VIEWS: One view. TECHNIQUE: Single frontal radiographic view of the chest acquired. RADIATION DOSE: NA LIMITATIONS: None. FINDINGS: LUNGS AND PLEURA: No opacities, masses or pneumothorax. No pleural effusion. MEDIASTINUM AND HILAR STRUCTURES: No masses. Contour normal. HEART AND VASCULAR STRUCTURES: Heart normal in size. Normal vasculature. BONES: No acute findings. HARDWARE: Endotracheal tube is high, 9 to 10 cm above the reanna and at the level of the clavicular h bessy. This report was called to the patient's ICU nurse, Dalia 0745 hours 10/16/2017. OTHER: Nasogastric tube tip and side port below the hemidiaphragms. IMPRESSION: No focal infiltrates. Endotracheal tube tip at the level of the clavicular heads. TECHNICAL DOCUMENTATION: JOB ID: [id number] [employer]- All Rights Reserved Reading location - IP/workstation name: [email or web address]
--- NOTE | 2017-10-16 07:59 | PDOC PROGRESS REPORT ---
Subjective Progress Note for:: 10/16/17 Subjective:: Patient was admitted in ICU due to the alcohol withdrawal and severe agitations Patient still on a propofol drip and currently wean her from the Ativan drips Patient's nonsustained VT currently all stable per cardiology Reason For Visit: ACUTE PANCERTASIS Physical Exam Vital Signs: Temp Pulse Resp BP Pulse Ox 97.5 F 66 14 124/68 96 10/16/17 05:27 10/15/17 20:00 10/16/17 06:13 10/16/17 06:13 10/16/17 06:13 Intake & Output 10/15/17 10/16/17 10/17/17 06:59 06:59 06:59 Intake Total 5433 4104 Output Total 4725 3210 Balance 708 894 Weight 71.6 kg 71.3 kg Physical Exam: Currently intubated under sedation Head exam: PRESENT: normocephalic Respiratory exam: PRESENT: clear to auscultation garrett GI/Abdominal exam: PRESENT: normal bowel sounds, soft Neurological exam: PRESENT: awake Skin exam: PRESENT: dry Results Laboratory Results: 10/15/17 09:23 10/16/17 03:53 10/15/17 10/15/17 10/16/17 09:23 09:23 03:53 WBC 9.4 RBC 4.57 Hgb 11.5 L Hct 35.8 L MCV 78 L MCH 25.2 L MCHC 32.1 RDW 16.0 H Plt Count 245 Seg Neutrophils % Not Reportable Lymphocytes % Not Reportable Monocytes % Not Reportable Eosinophils % Not Reportable Basophils % Not Reportable Absolute Neutrophils Not Reportable Absolute Lymphocytes Not Reportable Absolute Monocytes Not Reportable Absolute Eosinophils Not Reportable Absolute Basophils Not Reportable Carbonic Acid HCO3/H2CO3 Ratio ABG pH ABG pCO2 ABG pO2 ABG HCO3 ABG O2 Saturation ABG Base Excess FiO2 Sodium 146.5 H 146.7 H Potassium 3.8 3.8 Chloride 115 H 116 H Carbon Dioxide 24 20 L Anion Gap 8 11 BUN 3 L 5 L Creatinine 0.78 0.80 Est GFR ( Amer) > 60 > 60 Est GFR (Non-Af Amer) > 60 > 60 Glucose 117 H 102 Calcium 8.5 8.5 Total Bilirubin 0.6 AST 28 ALT 17 L Alkaline Phosphatase 60 Total Protein 6.4 Albumin 3.2 L Lipase 10/16/17 10/16/17 03:53 05:30 WBC RBC Hgb Hct MCV MCH MCHC RDW Plt Count Seg Neutrophils % Lymphocytes % Monocytes % Eosinophils % Basophils % Absolute Neutrophils Absolute Lymphocytes Absolute Monocytes Absolute Eosinophils Absolute Basophils Carbonic Acid 1.00 L HCO3/H2CO3 Ratio 20:1 ABG pH 7.41 ABG pCO2 33.2 L ABG pO2 64.0 L ABG HCO3 20.5 ABG O2 Saturation 92.9 L ABG Base Excess -3.4 FiO2 24% Sodium Potassium Chloride Carbon Dioxide Anion Gap BUN Creatinine Est GFR ( Amer) Est GFR (Non-Af Amer) Glucose Calcium Total Bilirubin AST ALT Alkaline Phosphatase Total Protein Albumin Lipase 571.5 H 10/11/17 03:34 Blood Blood Culture - Final NO GROWTH IN 5 DAYS 10/11/17 02:40 Blood Blood Culture - Final NO GROWTH IN 5 DAYS Impressions: Abdomen/Pelvis CT 10/10/17 23:28 IMPRESSION: 1. Calcifications involving the head of the pancreas with mild peripancreatic fat stranding. These findings could be seen with mild acute pancreatitis superimposed on chronic pancreatitis. Correlation with serum lipase recommended. This exam was performed according to our departmental dose-optimization program, which includes automated exposure control, adjustment of the mA and/or kV according to patient size and/or use of iterative reconstruction technique. KUB X-Ray 10/15/17 00:00 IMPRESSION: Nasogastric tube tip and side port in the stomach Assessment & Plan - Diagnosis (1) Abdominal pain Qualifiers: Abdominal location: upper abdomen, unspecified Qualified Code(s): R10.10 - Upper abdominal pain, unspecified Is this a current diagnosis for this admission?: Yes Plan: From the pancreatitis and currently going for the endoscopy (2) Pancreatitis Qualifiers: Chronicity: acute Pancreatitis type: alcohol induced Acute pancreatitis complication: unspecified Qualified Code(s): K85.20 - Alcohol induced acute pancreatitis without necrosis or infection Is this a current diagnosis for this admission?: Yes Plan: Currently all stable due to alcoholic pancreatitis (3) Chronic alcoholism Is this a current diagnosis for this admission?: Yes (4) Congestive heart failure (CHF) Qualifiers: Heart failure type: diastolic Heart failure chronicity: chronic Qualified Code(s): I50.32 - Chronic diastolic (congestive) heart failure Is this a current diagnosis for this admission?: Yes (5) Duodenal ulcer Is this a current diagnosis for this admission?: Yes Plan: Currently all stable (6) Hypertension Qualifiers: Hypertension type: essential hypertension Is this a current diagnosis for this admission?: Yes (7) Tobacco abuse Is this a current diagnosis for this admission?: Yes (8) Atrial fibrillation Qualifiers: Atrial fibrillation type: paroxysmal Qualified Code(s): I48.0 - Paroxysmal atrial fibrillation Is this a current diagnosis for this admission?: Yes Plan: Currently on a Cardizem drip (9) Alcohol withdrawal syndrome Qualifiers: Complication of substance-induced condition: with delirium Qualified Code(s ): F10.231 - Alcohol dependence with withdrawal delirium Is this a current diagnosis for this admission?: Yes Plan: Continues on a propofol drips and continues to thiamine multivitamins and other medications (10) Non-sustained ventricular tachycardia Is this a current diagnosis for this admission?: Yes Plan: Currently follow with the cardiology (11) Respiratory failure Qualifiers: Chronicity: unspecified Is this a current diagnosis for this admission?: Yes Plan: Continues to follow with the pulmonary - Time Time Spent with patient: 15-24 minutes Medications reviewed and adjusted accordingly: Yes Anticipated discharge: Other Within: Other - Inpatient Certification Medical Necessity: Need Close Monitoring Due to Risk of Patient Decompensation, Need for IV Antibiotics Post Hospital Care: D/C Golf Manager Documentation - Plan Summary Plan Summary: Continues to current medications with ICU management This with the nursing staff in ICU Will contact the family member and discussed with the further
--- NOTE | 2017-10-16 09:02 | RADIOLOGY REPORT (SQ) ---
EXAM DESCRIPTION: CHEST SINGLE VIEW COMPLETED DATE/TIME: 10/16/2017 8:52 am REASON FOR STUDY: Et Tube Palcement COMPARISON: None. EXAM PARAMETERS: NUMBER OF VIEWS: One view. TECHNIQUE: Single frontal radiographic view of the chest acquired. RADIATION DOSE: NA LIMITATIONS: None. FINDINGS: LUNGS AND PLEURA: No acute infiltrates or effusions. MEDIASTINUM AND HILAR STRUCTURES: No masses. Contour normal. HEART AND VASCULAR STRUCTURES: The heart and pulmonary vasculature are normal. BONES: Degenerative arthritis of the shoulders noted. HARDWARE: Endotracheal tube in good position above the reanna. OTHER: NG tube passing to stomach. IMPRESSION: NO ACUTE DISEASE. TECHNICAL DOCUMENTATION: JOB ID: [id number] [employer]- All Rights Reserved Reading location - IP/workstation name: [email or web address]
[2017-10-16] MEDS: SUCRALFATE 1 GM TABLET NG SCH ×4 (09:22→21:03)
[2017-10-16] MEDS: AMLODIPINE BESYLATE 5 MG TABLET NG SCH (09:23)
[2017-10-16] MEDS: DIGOXIN 0.125 MG TABLET NG SCH (09:24)
[2017-10-16] MEDS: PANTOPRAZOLE SODIUM 40 MG VIAL IV SCH ×2 (09:26→21:03)
[2017-10-16 10:14] LABS: ABSOLUTE BASOPHILS # (AUTO) 0.2 10^3/uL (0.0-0.2); ABSOLUTE EOSINOPHILS # (AUTO) 0.2 10^3/uL (0.0-0.6); ABSOLUTE LYMPHOCYTES (AUTO) 1.5 10^3/uL (0.5-4.7); ABSOLUTE MONOCYTES (AUTO) 1.2 10^3/uL (0.1-1.4); ABSOLUTE NEUT (AUTO) 7.3 10^3/uL (1.7-8.2); BASOPHILS % (AUTO) 1.7 % (0-2); EOSINOPHILS % (AUTO) 2.2 % (0-6); HEMATOCRIT 33.9 % (37.9-51.0); HEMOGLOBIN 11.1 g/dL (13.5-17.0); LYMPHOCYTES % (AUTO) 14.1 % (13-45); MEAN CORPUSCULAR HEMOGLOBIN 25.4 pg (27.0-33.4); MEAN CORPUSCULAR HGB CONC 32.9 g/dL (32.0-36.0); MEAN CORPUSCULAR VOLUME 77 fl (80-97); MONOCYTES % (AUTO) 11.4 % (3-13); PLATELET COUNT 266 10^3/uL (150-450); RED BLOOD COUNT 4.38 10^6/uL (4.35-5.55); RED CELL DISTRIBUTION WIDTH 15.8 % (11.5-14.0); SEGMENTED NEUTROPHILS % (AUTO) 70.6 % (42-78); TOTAL CELLS COUNTED % (AUTO) 100 %; WHITE BLOOD COUNT 10.3 10^3/uL (4.0-10.5)
[2017-10-16 10:45] LABS: ALANINE AMINOTRANSFERASE 26 U/L (21-72); ALBUMIN 2.8 g/dL (3.5-5.0); ALKALINE PHOSPHATASE 64 U/L (38-126); ANION GAP 7 (5-19); ASPARTATE AMINO TRANSFERASE 24 U/L (17-59); BILIRUBIN,DIRECT 0.4 mg/dL (0.0-0.4); BILIRUBIN,TOTAL 0.6 mg/dL (0.2-1.3); BLOOD UREA NITROGEN 5 mg/dL (7-20); CALCIUM 8.5 mg/dL (8.4-10.2); CARBON DIOXIDE 23 mmol/L (22-30); CHLORIDE 117 mmol/L (98-107); GLUCOSE 95 mg/dL (75-110); SODIUM 147.4 mmol/L (137-145); TOTAL PROTEIN 5.7 g/dL (6.3-8.2)
[2017-10-16] MEDS: METOPROLOL TARTRATE 25 MG TABLET NG SCH ×2 (11:55→21:03)
[2017-10-16] MEDS: SCOPOLAMINE HYDROBROMIDE 1.5 MG PATCH.TD72 TD SCH (11:56)
--- NOTE | 2017-10-16 14:08 | PDOC PROGRESS REPORT ---
Subjective Progress Note for:: 10/16/17 Subjective:: Intubated and sedated during sedation vacation became highly agitated Reason For Visit: ACUTE PANCERTASIS Physical Exam Vital Signs: Temp Pulse Resp BP Pulse Ox 98.1 F 67 12 141/77 H 98 10/16/17 07:58 10/16/17 08:00 10/16/17 07:58 10/16/17 07:58 10/16/17 07:58 Intake & Output 10/15/17 10/16/17 10/17/17 06:59 06:59 06:59 Intake Total 5433 4104 Output Total 47 3210 75 Balance 708 894 -75 Weight 71.6 kg 71.3 kg General appearance: PRESENT: no acute distress, disheveled. ABSENT: cooperative Head exam: PRESENT: atraumatic, normocephalic Eye exam: PRESENT: conjunctiva pale. ABSENT: nystagmus, periorbital swelling, scleral icterus Mouth exam: PRESENT: dry mucosa, neck supple, tongue midline, other - ET tube in place Neck exam: ABSENT: carotid bruit, JVD, lymphadenopathy, thyromegaly, tracheal deviation, tracheostomy Respiratory exam: PRESENT: decreased breath sounds, prolonged expiratory phas, rales, rhonchi, unlabored. ABSENT: retraction, stridor Cardiovascular exam: PRESENT: RRR, +S1, +S2 Pulses: PRESENT: normal radial pulses GI/Abdominal exam: PRESENT: hypoactive bowel sounds, soft Extremities exam: ABSENT: calf tenderness, clubbing, joint swelling Musculoskeletal exam: ABSENT: ambulatory, deformity, dislocation Neurological exam: ABSENT: awake, oriented to person Skin exam: PRESENT: dry, warm Results Laboratory Results: 10/15/17 09:23 10/16/17 03:53 10/15/17 10/15/17 10/16/17 09:23 09:23 03:53 WBC 9.4 RBC 4.57 Hgb 11.5 L Hct 35.8 L MCV 78 L MCH 25.2 L MCHC 32.1 RDW 16.0 H Plt Count 245 Seg Neutrophils % Not Reportable Lymphocytes % Not Reportable Monocytes % Not Reportable Eosinophils % Not Reportable Basophils % Not Reportable Absolute Neutrophils Not Reportable Absolute Lymphocytes Not Reportable Absolute Monocytes Not Reportable Absolute Eosinophils Not Reportable Absolute Basophils Not Reportable Carbonic Acid HCO3/H2CO3 Ratio ABG pH ABG pCO2 ABG pO2 ABG HCO3 ABG O2 Saturation ABG Base Excess FiO2 Sodium 146.5 H 146.7 H Potassium 3.8 3.8 Chloride 115 H 116 H Carbon Dioxide 24 20 L Anion Gap 8 11 BUN 3 L 5 L Creatinine 0.78 0.80 Est GFR ( Amer) > 60 > 60 Est GFR (Non-Af Amer) > 60 > 60 Glucose 117 H 102 Calcium 8.5 8.5 Total Bilirubin 0.6 AST 28 ALT 17 L Alkaline Phosphatase 60 Total Protein 6.4 Albumin 3.2 L Lipase 10/16/17 10/16/17 03:53 05:30 WBC RBC Hgb Hct MCV MCH MCHC RDW Plt Count Seg Neutrophils % Lymphocytes % Monocytes % Eosinophils % Basophils % Absolute Neutrophils Absolute Lymphocytes Absolute Monocytes Absolute Eosinophils Absolute Basophils Carbonic Acid 1.00 L HCO3/H2CO3 Ratio 20:1 ABG pH 7.41 ABG pCO2 33.2 L ABG pO2 64.0 L ABG HCO3 20.5 ABG O2 Saturation 92.9 L ABG Base Excess -3.4 FiO2 24% Sodium Potassium Chloride Carbon Dioxide Anion Gap BUN Creatinine Est GFR ( Amer) Est GFR (Non-Af Amer) Glucose Calcium Total Bilirubin AST ALT Alkaline Phosphatase Total Protein Albumin Lipase 571.5 H 10/11/17 03:34 Blood Blood Culture - Final NO GROWTH IN 5 DAYS 10/11/17 02:40 Blood Blood Culture - Final NO GROWTH IN 5 DAYS Impressions: Abdomen/Pelvis CT 10/10/17 23:28 IMPRESSION: 1. Calcifications involving the head of the pancreas with mild peripancreatic fat stranding. These findings could be seen with mild acute pancreatitis superimposed on chronic pancreatitis. Correlation with serum lipase recommended. This exam was performed according to our departmental dose-optimization program, which includes automated exposure control, adjustment of the mA and/or kV according to patient size and/or use of iterative reconstruction technique. KUB X-Ray 10/15/17 00:00 IMPRESSION: Nasogastric tube tip and side port in the stomach Chest X-Ray 10/16/17 06:00 IMPRESSION: No focal infiltrates. Endotracheal tube tip at the level of the clavicular heads. Assessment & Plan - Diagnosis (1) Acute alcoholic pancreatitis Qualifiers: Acute pancreatitis complication: unspecified Qualified Code(s): K85.20 - Alcohol induced acute pancreatitis without necrosis or infection Is this a current diagnosis for this admission?: Yes Plan: Stable at this time (2) Alcohol withdrawal syndrome Qualifiers: Complication of substance-induced condition: with delirium Qualified Code(s ): F10.231 - Alcohol dependence with withdrawal delirium Is this a current diagnosis for this admission?: Yes Plan: Very agitated during sedation vacation unable to respond to command (3) Atrial fibrillation Qualifiers: Atrial fibrillation type: paroxysmal Qualified Code(s): I48.0 - Paroxysmal atrial fibrillation Is this a current diagnosis for this admission?: Yes Plan: Ventricular rate well controlled at this time (4) COPD (chronic obstructive pulmonary disease) Qualifiers: COPD type: unspecified COPD Qualified Code(s): J44.9 - Chronic obstructive pulmonary disease, unspecified Is this a current diagnosis for this admission?: Yes Plan: Generic Name Dose Route Start Last Admin Trade Name Freq PRN Reason Stop Dose Admin Albuterol/Ipratropium 3 ml 10/11/17 02:18 Duoneb 3 Ml Ampul NEB 11/10/17 02:17 [id number] PRN SHORTNESS OF BREATH And as needed Xopenex (5) Hypertension Qualifiers: Hypertension type: essential hypertension Qualified Code(s): I10 - Essential (primary) hypertension Is this a current diagnosis for this admission?: Yes Plan: Stable at this time - Time Total Critical Time (Minutes): 40
[2017-10-16] MEDS: NORMAL SALINE 1000 ML 1,000 ML with POTASSIUM CHLORIDE 20 MEQ, THIAMINE HCL 100 MG, MVI... IV SCH ×5 (17:01)
[2017-10-16] MEDS: LORAZEPAM 24 MG/240 ML BAG IV PRN (19:41)
[2017-10-17] MEDS: AMPICILLIN SODIUM/SULBACTAM NA 3 GM in NORMAL SALINE 100 ML IV SCH ×4 (00:22→15:30)
[2017-10-17] MEDS: PROPOFOL 1,000 MG/100 ML INFUS..BTL IV PRN ×3 (01:30→16:45)
[2017-10-17 04:44] LABS: ABSOLUTE EOSINOPHILS # (AUTO) 0.2 10^3/uL (0.0-0.6); ABSOLUTE LYMPHOCYTES (AUTO) 1.5 10^3/uL (0.5-4.7); ABSOLUTE MONOCYTES (AUTO) 1.5 10^3/uL (0.1-1.4); ABSOLUTE NEUT (AUTO) 9.1 10^3/uL (1.7-8.2); BASOPHILS % (AUTO) 0.1 % (0-2); EOSINOPHILS % (AUTO) 1.3 % (0-6); HEMATOCRIT 32.7 % (37.9-51.0); HEMOGLOBIN 10.6 g/dL (13.5-17.0); MEAN CORPUSCULAR HEMOGLOBIN 24.8 pg (27.0-33.4); MEAN CORPUSCULAR HGB CONC 32.2 g/dL (32.0-36.0); MEAN CORPUSCULAR VOLUME 77 fl (80-97); MONOCYTES % (AUTO) 11.9 % (3-13); PLATELET COUNT 251 10^3/uL (150-450); RED BLOOD COUNT 4.25 10^6/uL (4.35-5.55); RED CELL DISTRIBUTION WIDTH 15.7 % (11.5-14.0); SEGMENTED NEUTROPHILS % (AUTO) 74.7 % (42-78); TOTAL CELLS COUNTED % (AUTO) 100 %; WHITE BLOOD COUNT 12.2 10^3/uL (4.0-10.5)
[2017-10-17 04:49] LABS: ANION GAP 9 (5-19); SODIUM 144.6 mmol/L (137-145)
[2017-10-17] MEDS: HEPARIN SOD (PORCINE) 5,000 UNIT/ML 1 ML SYRINGE SUBCUT SCH ×3 (05:04→21:07)
[2017-10-17 05:15] LABS: POTASSIUM 4.2 mmol/L (3.6-5.0)
[2017-10-17 05:16] LABS: BLOOD UREA NITROGEN 6 mg/dL (7-20); CALCIUM 8.2 mg/dL (8.4-10.2); CARBON DIOXIDE 21 mmol/L (22-30); CHLORIDE 115 mmol/L (98-107); GLUCOSE 120 mg/dL (75-110)
[2017-10-17 05:50] LABS: ARTERIAL BLOOD BASE EXCESS -2.5 mmol/L; ARTERIAL BLOOD H2CO3 0.92 mmol/L (1.05-1.35); ARTERIAL BLOOD HCO3 20.8 mmol/L (20-26); ARTERIAL BLOOD O2 SATURATION 97.5 % (94-98); ARTERIAL BLOOD PCO2 30.7 mmHg (35-45); ARTERIAL BLOOD PH 7.45 (7.35-7.45); ARTERIAL BLOOD TOTAL CO2 21.7 mmol/L (23-27)
[2017-10-17 05:51] LABS: ARTERIAL BLOOD FIO2 25%
[2017-10-17 08:34] LABS: ABSOLUTE BASOPHILS # (AUTO) 0.1 10^3/uL (0.0-0.2); ABSOLUTE EOSINOPHILS # (AUTO) 0.2 10^3/uL (0.0-0.6); ABSOLUTE LYMPHOCYTES (AUTO) 1.6 10^3/uL (0.5-4.7); ABSOLUTE MONOCYTES (AUTO) 1.4 10^3/uL (0.1-1.4); ABSOLUTE NEUT (AUTO) 8.7 10^3/uL (1.7-8.2); BASOPHILS % (AUTO) 0.8 % (0-2); EOSINOPHILS % (AUTO) 1.7 % (0-6); HEMATOCRIT 32.6 % (37.9-51.0); HEMOGLOBIN 10.6 g/dL (13.5-17.0); LYMPHOCYTES % (AUTO) 13.1 % (13-45); MEAN CORPUSCULAR HEMOGLOBIN 25.2 pg (27.0-33.4); MEAN CORPUSCULAR HGB CONC 32.5 g/dL (32.0-36.0); MEAN CORPUSCULAR VOLUME 77 fl (80-97); MONOCYTES % (AUTO) 11.7 % (3-13); PLATELET COUNT 309 10^3/uL (150-450); RED BLOOD COUNT 4.21 10^6/uL (4.35-5.55); RED CELL DISTRIBUTION WIDTH 15.7 % (11.5-14.0); SEGMENTED NEUTROPHILS % (AUTO) 72.7 % (42-78); TOTAL CELLS COUNTED % (AUTO) 100 %
[2017-10-17] MEDS: SUCRALFATE 1 GM TABLET NG SCH ×4 (08:39→21:07)
[2017-10-17] MEDS: AMLODIPINE BESYLATE 5 MG TABLET NG SCH (08:41)
--- NOTE | 2017-10-17 08:43 | PDOC PROGRESS REPORT ---
Subjective Progress Note for:: 10/17/17 Subjective:: Patient is currently doing same still no full blown alcohol withdrawal currently require ativan Patient's currently on NG tube feeding patient's currently also on a banana drip per alcohol withdrawal protocol Reason For Visit: ACUTE PANCERTASIS Physical Exam Vital Signs: Temp Pulse Resp BP Pulse Ox 99.5 F 83 13 116/66 100 10/17/17 06:00 10/16/17 19:59 10/17/17 06:00 10/17/17 05:15 10/17/17 06:00 Intake & Output 10/16/17 10/17/17 10/18/17 06:59 06:59 06:59 Intake Total 4104 3903 Output Total 3210 2305 Balance 894 1598 Weight 71.3 kg 72.5 kg Physical Exam: Currently intubated under sedation's Head exam: PRESENT: atraumatic, normocephalic Eye exam: PRESENT: conjunctiva pink, EOMI, PERRLA. ABSENT: scleral icterus Ear exam: PRESENT: normal external ear exam Mouth exam: PRESENT: moist, tongue midline Neck exam: PRESENT: full ROM. ABSENT: carotid bruit, JVD, lymphadenopathy, thyromegaly Respiratory exam: PRESENT: decreased breath sounds Cardiovascular exam: PRESENT: RRR. ABSENT: diastolic murmur, rubs, systolic murmur Pulses: PRESENT: normal dorsalis pedis pul, +2 pedal pulses bilateral Vascular exam: PRESENT: normal capillary refill GI/Abdominal exam: PRESENT: normal bowel sounds, soft. ABSENT: distended, guarding, mass, organolmegaly, rebound, tenderness Rectal exam: PRESENT: deferred Neurological exam: PRESENT: altered. ABSENT: motor sensory deficit Psychiatric exam: PRESENT: appropriate affect, normal mood. ABSENT: homicidal ideation, suicidal ideation Skin exam: PRESENT: dry, intact, warm. ABSENT: cyanosis, rash Results Laboratory Results: 10/17/17 08:10 10/16/17 10/16/17 10/17/17 09:44 09:44 04:00 WBC 10.3 12.2 H RBC 4.38 4.25 L Hgb 11.1 L 10.6 L Hct 33.9 L 32.7 L MCV 77 L 77 L MCH 25.4 L 24.8 L MCHC 32.9 32.2 RDW 15.8 H 15.7 H Plt Count 266 251 Seg Neutrophils % 70.6 74.7 Lymphocytes % 14.1 12.0 L Monocytes % 11.4 11.9 Eosinophils % 2.2 1.3 Basophils % 1.7 0.1 Absolute Neutrophils 7.3 9.1 H Absolute Lymphocytes 1.5 1.5 Absolute Monocytes 1.2 1.5 H Absolute Eosinophils 0.2 0.2 Absolute Basophils 0.2 0.0 Carbonic Acid HCO3/H2CO3 Ratio ABG pH ABG pCO2 ABG pO2 ABG HCO3 ABG O2 Saturation ABG Base Excess FiO2 Sodium 147.4 H Potassium 4.0 Chloride 117 H Carbon Dioxide 23 Anion Gap 7 BUN 5 L Creatinine 0.79 Est GFR ( Amer) > 60 Est GFR (Non-Af Amer) > 60 Glucose 95 Calcium 8.5 Magnesium Total Bilirubin 0.6 AST 24 ALT 26 Alkaline Phosphatase 64 Total Protein 5.7 L Albumin 2.8 L 10/17/17 10/17/17 10/17/17 04:00 05:12 08:10 WBC 12.0 H RBC 4.21 L Hgb 10.6 L Hct 32.6 L MCV 77 L MCH 25.2 L MCHC 32.5 RDW 15.7 H Plt Count 309 Seg Neutrophils % 72.7 Lymphocytes % 13.1 Monocytes % 11.7 Eosinophils % 1.7 Basophils % 0.8 Absolute Neutrophils 8.7 H Absolute Lymphocytes 1.6 Absolute Monocytes 1.4 Absolute Eosinophils 0.2 Absolute Basophils 0.1 Carbonic Acid 0.92 L HCO3/H2CO3 Ratio 22:1 ABG pH 7.45 ABG pCO2 30.7 L ABG pO2 93.0 ABG HCO3 20.8 ABG O2 Saturation 97.5 ABG Base Excess -2.5 FiO2 25% Sodium 144.6 Potassium 4.2 Chloride 115 H Carbon Dioxide 21 L Anion Gap 9 BUN 6 L Creatinine 0.72 Est GFR ( Amer) > 60 Est GFR (Non-Af Amer) > 60 Glucose 120 H Calcium 8.2 L Magnesium 1.9 Total Bilirubin AST ALT Alkaline Phosphatase Total Protein Albumin Impressions: Abdomen/Pelvis CT 10/10/17 23:28 IMPRESSION: 1. Calcifications involving the head of the pancreas with mild peripancreatic fat stranding. These findings could be seen with mild acute pancreatitis superimposed on chronic pancreatitis. Correlation with serum lipase recommended. This exam was performed according to our departmental dose-optimization program, which includes automated exposure control, adjustment of the mA and/or kV according to patient size and/or use of iterative reconstruction technique. KUB X-Ray 10/15/17 00:00 IMPRESSION: Nasogastric tube tip and side port in the stomach Chest X-Ray 10/16/17 06:00 IMPRESSION: No focal infiltrates. Endotracheal tube tip at the level of the clavicular heads. Assessment & Plan - Diagnosis (1) Abdominal pain Qualifiers: Abdominal location: upper abdomen, unspecified Qualified Code(s): R10.10 - Upper abdominal pain, unspecified Is this a current diagnosis for this admission?: Yes Plan: From the pancreatitis and currently going for the endoscopy (2) Pancreatitis Qualifiers: Chronicity: acute Pancreatitis type: alcohol induced Acute pancreatitis complication: unspecified Qualified Code(s): K85.20 - Alcohol induced acute pancreatitis without necrosis or infection Is this a current diagnosis for this admission?: Yes Plan: Currently all stable due to alcoholic pancreatitis (3) Chronic alcoholism Is this a current diagnosis for this admission?: Yes Plan: Patient is currently on alcohol withdrawal protocol (4) Congestive heart failure (CHF) Qualifiers: Heart failure type: diastolic Heart failure chronicity: chronic Qualified Code(s): I50.32 - Chronic diastolic (congestive) heart failure Is this a current diagnosis for this admission?: Yes Plan: Currently all stable (5) Duodenal ulcer Is this a current diagnosis for this admission?: Yes Plan: Currently all stable (6) Hypertension Qualifiers: Hypertension type: essential hypertension Is this a current diagnosis for this admission?: Yes Plan: Currently all stable (7) Tobacco abuse Is this a current diagnosis for this admission?: Yes Plan: Discussed with the patient about smoking counseling (8) Atrial fibrillation Qualifiers: Atrial fibrillation type: paroxysmal Qualified Code(s): I48.0 - Paroxysmal atrial fibrillation Is this a current diagnosis for this admission?: Yes Plan: Currently on a Cardizem drip (9) Alcohol withdrawal syndrome Qualifiers: Complication of substance-induced condition: with delirium Qualified Code(s ): F10.231 - Alcohol dependence with withdrawal delirium Is this a current diagnosis for this admission?: Yes Plan: Continues to current medications (10) Non-sustained ventricular tachycardia Is this a current diagnosis for this admission?: Yes Plan: Currently follow with the cardiology (11) Respiratory failure Qualifiers: Chronicity: unspecified Is this a current diagnosis for this admission?: Yes Plan: Continues to follow with the pulmonary - Time Time Spent with patient: 15-24 minutes Medications reviewed and adjusted accordingly: Yes Anticipated discharge: Other Within: Other - Inpatient Certification Medical Necessity: Need Close Monitoring Due to Risk of Patient Decompensation, Need For IV Fluids, Need for IV Antibiotics 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
[2017-10-17] MEDS: METOPROLOL TARTRATE 25 MG TABLET NG SCH ×2 (08:44→21:07)
[2017-10-17 09:16] LABS: ALANINE AMINOTRANSFERASE 19 U/L (21-72); ALBUMIN 2.7 g/dL (3.5-5.0); ALKALINE PHOSPHATASE 65 U/L (38-126); ANION GAP 8 (5-19); ASPARTATE AMINO TRANSFERASE 21 U/L (17-59); BILIRUBIN,DIRECT 0.4 mg/dL (0.0-0.4); BILIRUBIN,TOTAL 0.4 mg/dL (0.2-1.3); BLOOD UREA NITROGEN 7 mg/dL (7-20); CALCIUM 8.4 mg/dL (8.4-10.2); CARBON DIOXIDE 23 mmol/L (22-30); CHLORIDE 114 mmol/L (98-107); GLUCOSE 119 mg/dL (75-110); POTASSIUM 3.8 mmol/L (3.6-5.0); SODIUM 145.3 mmol/L (137-145); TOTAL PROTEIN 5.5 g/dL (6.3-8.2)
--- NOTE | 2017-10-17 10:05 | RADIOLOGY REPORT (SQ) ---
EXAM DESCRIPTION: CHEST SINGLE VIEW COMPLETED DATE/TIME: 10/17/2017 9:46 am REASON FOR STUDY: ET Tube Placement COMPARISON: None. EXAM PARAMETERS: NUMBER OF VIEWS: One view. TECHNIQUE: Single frontal radiographic view of the chest acquired. RADIATION DOSE: NA LIMITATIONS: None. FINDINGS: LUNGS AND PLEURA: No opacities, masses or pneumothorax. No pleural effusion. MEDIASTINUM AND HILAR STRUCTURES: No masses. Contour normal. HEART AND VASCULAR STRUCTURES: Heart normal in size. Normal vasculature. BONES: No acute findings. HARDWARE: ETT tube present. Distal tip 3 cm proximal to the reanna. OTHER: No other significant finding. IMPRESSION: Endotracheal tube present with the distal tip 3 cm proximal to the reanna. Lungs expand ed and clear. TECHNICAL DOCUMENTATION: JOB ID: [id number] [employer]- All Rights Reserved Reading location - IP/workstation name: [email or web address]
[2017-10-17] MEDS: DIGOXIN 0.125 MG TABLET NG SCH (10:54)
[2017-10-17] MEDS: NORMAL SALINE 1000 ML 1,000 ML with POTASSIUM CHLORIDE 20 MEQ, THIAMINE HCL 100 MG, MVI... IV SCH ×5 (15:30)
--- NOTE | 2017-10-17 19:57 | PDOC PROGRESS REPORT ---
Subjective Progress Note for:: 10/17/17 Subjective:: Intubated and sedated during sedation vacation not very responsive today Reason For Visit: ACUTE PANCERTASIS Physical Exam Vital Signs: Temp Pulse Resp BP Pulse Ox 99.5 F 83 13 116/66 100 10/17/17 06:00 10/16/17 19:59 10/17/17 06:00 10/17/17 05:15 10/17/17 06:00 Intake & Output 10/16/17 10/17/17 10/18/17 06:59 06:59 06:59 Intake Total 4104 3903 Output Total 3210 2305 Balance 894 1598 Weight 71.3 kg 72.5 kg General appearance: PRESENT: no acute distress, disheveled. ABSENT: cooperative Head exam: PRESENT: atraumatic, normocephalic Eye exam: PRESENT: conjunctiva pale. ABSENT: nystagmus, periorbital swelling, scleral icterus Mouth exam: PRESENT: dry mucosa, neck supple, tongue midline, other - ET tube Neck exam: ABSENT: carotid bruit, JVD, lymphadenopathy, thyromegaly, tracheal deviation, tracheostomy Respiratory exam: PRESENT: decreased breath sounds, prolonged expiratory phas, rhonchi, unlabored, wheezes. ABSENT: rales, retraction, stridor, tachypnea Cardiovascular exam: PRESENT: RRR, +S1, +S2 Pulses: PRESENT: normal radial pulses GI/Abdominal exam: PRESENT: hypoactive bowel sounds, soft Extremities exam: ABSENT: calf tenderness, clubbing, joint swelling, pedal edema Musculoskeletal exam: ABSENT: deformity, dislocation Neurological exam: PRESENT: altered, awake. ABSENT: oriented to person, oriented to place Skin exam: PRESENT: dry, warm Results Laboratory Results: 10/17/17 04:00 10/17/17 04:00 10/16/17 10/16/17 10/17/17 09:44 09:44 04:00 WBC 10.3 12.2 H RBC 4.38 4.25 L Hgb 11.1 L 10.6 L Hct 33.9 L 32.7 L MCV 77 L 77 L MCH 25.4 L 24.8 L MCHC 32.9 32.2 RDW 15.8 H 15.7 H Plt Count 266 251 Seg Neutrophils % 70.6 74.7 Lymphocytes % 14.1 12.0 L Monocytes % 11.4 11.9 Eosinophils % 2.2 1.3 Basophils % 1.7 0.1 Absolute Neutrophils 7.3 9.1 H Absolute Lymphocytes 1.5 1.5 Absolute Monocytes 1.2 1.5 H Absolute Eosinophils 0.2 0.2 Absolute Basophils 0.2 0.0 Carbonic Acid HCO3/H2CO3 Ratio ABG pH ABG pCO2 ABG pO2 ABG HCO3 ABG O2 Saturation ABG Base Excess FiO2 Sodium 147.4 H Potassium 4.0 Chloride 117 H Carbon Dioxide 23 Anion Gap 7 BUN 5 L Creatinine 0.79 Est GFR ( Amer) > 60 Est GFR (Non-Af Amer) > 60 Glucose 95 Calcium 8.5 Magnesium Total Bilirubin 0.6 AST 24 ALT 26 Alkaline Phosphatase 64 Total Protein 5.7 L Albumin 2.8 L 10/17/17 10/17/17 04:00 05:12 WBC RBC Hgb Hct MCV MCH MCHC RDW Plt Count Seg Neutrophils % Lymphocytes % Monocytes % Eosinophils % Basophils % Absolute Neutrophils Absolute Lymphocytes Absolute Monocytes Absolute Eosinophils Absolute Basophils Carbonic Acid 0.92 L HCO3/H2CO3 Ratio 22:1 ABG pH 7.45 ABG pCO2 30.7 L ABG pO2 93.0 ABG HCO3 20.8 ABG O2 Saturation 97.5 ABG Base Excess -2.5 FiO2 25% Sodium 144.6 Potassium 4.2 Chloride 115 H Carbon Dioxide 21 L Anion Gap 9 BUN 6 L Creatinine 0.72 Est GFR ( Amer) > 60 Est GFR (Non-Af Amer) > 60 Glucose 120 H Calcium 8.2 L Magnesium 1.9 Total Bilirubin AST ALT Alkaline Phosphatase Total Protein Albumin Impressions: Abdomen/Pelvis CT 10/10/17 23:28 IMPRESSION: 1. Calcifications involving the head of the pancreas with mild peripancreatic fat stranding. These findings could be seen with mild acute pancreatitis superimposed on chronic pancreatitis. Correlation with serum lipase recommended. This exam was performed according to our departmental dose-optimization program, which includes automated exposure control, adjustment of the mA and/or kV according to patient size and/or use of iterative reconstruction technique. KUB X-Ray 10/15/17 00:00 IMPRESSION: Nasogastric tube tip and side port in the stomach Chest X-Ray 10/16/17 06:00 IMPRESSION: No focal infiltrates. Endotracheal tube tip at the level of the clavicular heads. Assessment & Plan - Diagnosis (1) Acute alcoholic pancreatitis Qualifiers: Acute pancreatitis complication: unspecified Qualified Code(s): K85.20 - Alcohol induced acute pancreatitis without necrosis or infection Is this a current diagnosis for this admission?: Yes Plan: Stable at this time (2) Alcohol withdrawal syndrome Qualifiers: Complication of substance-induced condition: with delirium Qualified Code(s ): F10.231 - Alcohol dependence with withdrawal delirium Is this a current diagnosis for this admission?: Yes (3) Atrial fibrillation Qualifiers: Atrial fibrillation type: paroxysmal Qualified Code(s): I48.0 - Paroxysmal atrial fibrillation Is this a current diagnosis for this admission?: Yes Plan: Ventricular rate well controlled at this time (4) COPD (chronic obstructive pulmonary disease) Qualifiers: COPD type: unspecified COPD Qualified Code(s): J44.9 - Chronic obstructive pulmonary disease, unspecified Is this a current diagnosis for this admission?: Yes Plan: rr;min vol FIO2 ok but not following commands (5) Hypertension Qualifiers: Hypertension type: essential hypertension Qualified Code(s): I10 - Essential (primary) hypertension Is this a current diagnosis for this admission?: Yes Plan: Stable at this time - Time Total Critical Time (Minutes): 50
[2017-10-17] MEDS: MORPHINE SULFATE 10 MG/ML INJ IV PRN (23:12)
[2017-10-18] MEDS: AMPICILLIN SODIUM/SULBACTAM NA 3 GM in NORMAL SALINE 100 ML IV SCH (00:13)
[2017-10-18] MEDS: PROPOFOL 1,000 MG/100 ML INFUS..BTL IV PRN ×3 (00:14→10:40)
[2017-10-18 04:27] LABS: ANION GAP 11 (5-19); BLOOD UREA NITROGEN 7 mg/dL (7-20); CALCIUM 8.3 mg/dL (8.4-10.2); CARBON DIOXIDE 23 mmol/L (22-30); CHLORIDE 114 mmol/L (98-107); GLUCOSE 121 mg/dL (75-110); POTASSIUM 4.1 mmol/L (3.6-5.0); SODIUM 147.7 mmol/L (137-145); TRIGLYCERIDES 70 mg/dL (<150)
[2017-10-18] MEDS: HEPARIN SOD (PORCINE) 5,000 UNIT/ML 1 ML SYRINGE SUBCUT SCH ×3 (05:22→22:19)
[2017-10-18 05:39] LABS: ARTERIAL BLOOD BASE EXCESS 1.5 mmol/L; ARTERIAL BLOOD H2CO3 1.13 mmol/L (1.05-1.35); ARTERIAL BLOOD HCO3 25.4 mmol/L (20-26); ARTERIAL BLOOD O2 SATURATION 95.7 % (94-98); ARTERIAL BLOOD PCO2 37.4 mmHg (35-45); ARTERIAL BLOOD PH 7.45 (7.35-7.45); ARTERIAL BLOOD PO2 74.9 mmHg (80-100); ARTERIAL BLOOD TOTAL CO2 26.6 mmol/L (23-27)
[2017-10-18 05:43] LABS: ARTERIAL BLOOD FIO2 25%
--- NOTE | 2017-10-18 07:56 | RADIOLOGY REPORT (SQ) ---
EXAM DESCRIPTION: CHEST SINGLE VIEW COMPLETED DATE/TIME: 10/18/2017 7:05 am REASON FOR STUDY: resp failure/dt's COMPARISON: Chest films 10/13/2017, 10/16/2017, 10/17/2017 EXAM PARAMETERS: NUMBER OF VIEWS: One view. TECHNIQUE: Single frontal radiographic view of the chest acquired. RADIATION DOSE: NA LIMITATIONS: None. FINDINGS: LUNGS AND PLEURA: No opacities, masses or pneumothorax. No pleural effusion. MEDIASTINUM AND HILAR STRUCTURES: No masses. Contour normal. HEART AND VASCULAR STRUCTURES: Mild cardiomegaly BONES: No acute findings. HARDWARE: Endotracheal tube 2 cm above the reanna. Nasogastric tube tip and side port in the stomach . OTHER: No other significant finding. IMPRESSION: No acute infiltrates. ET tube tip 2 cm above the reanna. Nasogastric tube tip and side port in the stomach TECHNICAL DOCUMENTATION: JOB ID: [id number] [employer]- All Rights Reserved Reading location - IP/workstation name: [email or web address]
[2017-10-18 09:12] LABS: ABSOLUTE EOSINOPHILS # (AUTO) 0.2 10^3/uL (0.0-0.6); ABSOLUTE LYMPHOCYTES (AUTO) 1.4 10^3/uL (0.5-4.7); ABSOLUTE MONOCYTES (AUTO) 1.6 10^3/uL (0.1-1.4); ABSOLUTE NEUT (AUTO) 10.6 10^3/uL (1.7-8.2); BASOPHILS % (AUTO) 0.1 % (0-2); EOSINOPHILS % (AUTO) 1.6 % (0-6); HEMATOCRIT 30.6 % (37.9-51.0); HEMOGLOBIN 9.9 g/dL (13.5-17.0); LYMPHOCYTES % (AUTO) 10.2 % (13-45); MEAN CORPUSCULAR HEMOGLOBIN 25.2 pg (27.0-33.4); MEAN CORPUSCULAR HGB CONC 32.4 g/dL (32.0-36.0); MEAN CORPUSCULAR VOLUME 78 fl (80-97); MONOCYTES % (AUTO) 11.7 % (3-13); PLATELET COUNT 308 10^3/uL (150-450); RED BLOOD COUNT 3.94 10^6/uL (4.35-5.55); RED CELL DISTRIBUTION WIDTH 15.4 % (11.5-14.0); SEGMENTED NEUTROPHILS % (AUTO) 76.4 % (42-78); TOTAL CELLS COUNTED % (AUTO) 100 %; WHITE BLOOD COUNT 13.9 10^3/uL (4.0-10.5)
[2017-10-18 09:34] LABS: ALANINE AMINOTRANSFERASE 23 U/L (21-72); ALBUMIN 2.8 g/dL (3.5-5.0); ALKALINE PHOSPHATASE 63 U/L (38-126); ANION GAP 8 (5-19); ASPARTATE AMINO TRANSFERASE 21 U/L (17-59); BILIRUBIN,DIRECT 0.4 mg/dL (0.0-0.4); BILIRUBIN,TOTAL 0.4 mg/dL (0.2-1.3); BLOOD UREA NITROGEN 10 mg/dL (7-20); CALCIUM 8.4 mg/dL (8.4-10.2); CARBON DIOXIDE 24 mmol/L (22-30); CHLORIDE 113 mmol/L (98-107); GLUCOSE 153 mg/dL (75-110); SODIUM 145.1 mmol/L (137-145); TOTAL PROTEIN 5.5 g/dL (6.3-8.2)
[2017-10-18] MEDS: AMLODIPINE BESYLATE 5 MG TABLET NG SCH (09:34)
[2017-10-18] MEDS: SUCRALFATE 1 GM TABLET NG SCH ×4 (09:34→22:24)
[2017-10-18] MEDS: METOPROLOL TARTRATE 25 MG TABLET NG SCH ×2 (09:34→22:24)
[2017-10-18] MEDS: DIGOXIN 0.125 MG TABLET NG SCH (09:34)
--- NOTE | 2017-10-18 10:18 | PDOC PROGRESS REPORT ---
Subjective Progress Note for:: 10/18/17 Subjective:: Patient is currently doing same still no full blown alcohol withdrawal currently require ativan Patient's currently on NG tube feeding patient's currently also on a banana drip per alcohol withdrawal protocol Reason For Visit: ACUTE PANCERTASIS Physical Exam Vital Signs: Temp Pulse Resp BP Pulse Ox 99.1 F 79 20 117/60 100 10/18/17 06:00 10/18/17 08:00 10/18/17 06:00 10/18/17 06:00 10/18/17 08:50 Intake & Output 10/17/17 10/18/17 10/19/17 06:59 06:59 06:59 Intake Total 3903 3066 Output Total 2305 2970 140 Balance 1598 96 -140 Weight 72.5 kg 71.4 kg Physical Exam: Currently intubated under sedation's Head exam: PRESENT: normocephalic Eye exam: PRESENT: PERRLA Mouth exam: PRESENT: neck supple Respiratory exam: PRESENT: decreased breath sounds Cardiovascular exam: PRESENT: +S1, +S2 GI/Abdominal exam: PRESENT: normal bowel sounds, soft Neurological exam: PRESENT: altered Skin exam: PRESENT: dry Results Laboratory Results: 10/18/17 09:01 10/18/17 09:01 10/18/17 10/18/17 10/18/17 04:03 05:30 09:01 WBC 13.9 H RBC 3.94 L Hgb 9.9 L Hct 30.6 L MCV 78 L MCH 25.2 L MCHC 32.4 RDW 15.4 H Plt Count 308 Seg Neutrophils % 76.4 Lymphocytes % 10.2 L Monocytes % 11.7 Eosinophils % 1.6 Basophils % 0.1 Absolute Neutrophils 10.6 H Absolute Lymphocytes 1.4 Absolute Monocytes 1.6 H Absolute Eosinophils 0.2 Absolute Basophils 0.0 Carbonic Acid 1.13 HCO3/H2CO3 Ratio 22:1 ABG pH 7.45 ABG pCO2 37.4 ABG pO2 74.9 L ABG HCO3 25.4 ABG O2 Saturation 95.7 ABG Base Excess 1.5 FiO2 25% Sodium 147.7 H Potassium 4.1 Chloride 114 H Carbon Dioxide 23 Anion Gap 11 BUN 7 Creatinine 0.79 Est GFR ( Amer) > 60 Est GFR (Non-Af Amer) > 60 Glucose 121 H Calcium 8.3 L Total Bilirubin AST ALT Alkaline Phosphatase Total Protein Albumin Triglycerides 70 10/18/17 09:01 WBC RBC Hgb Hct MCV MCH MCHC RDW Plt Count Seg Neutrophils % Lymphocytes % Monocytes % Eosinophils % Basophils % Absolute Neutrophils Absolute Lymphocytes Absolute Monocytes Absolute Eosinophils Absolute Basophils Carbonic Acid HCO3/H2CO3 Ratio ABG pH ABG pCO2 ABG pO2 ABG HCO3 ABG O2 Saturation ABG Base Excess FiO2 Sodium 145.1 H Potassium 4.0 Chloride 113 H Carbon Dioxide 24 Anion Gap 8 BUN 10 Creatinine 0.73 Est GFR ( Amer) > 60 Est GFR (Non-Af Amer) > 60 Glucose 153 H Calcium 8.4 Total Bilirubin 0.4 AST 21 ALT 23 Alkaline Phosphatase 63 Total Protein 5.5 L Albumin 2.8 L Triglycerides Impressions: Abdomen/Pelvis CT 10/10/17 23:28 IMPRESSION: 1. Calcifications involving the head of the pancreas with mild peripancreatic fat stranding. These findings could be seen with mild acute pancreatitis superimposed on chronic pancreatitis. Correlation with serum lipase recommended. This exam was performed according to our departmental dose-optimization program, which includes automated exposure control, adjustment of the mA and/or kV according to patient size and/or use of iterative reconstruction technique. KUB X-Ray 10/15/17 00:00 IMPRESSION: Nasogastric tube tip and side port in the stomach Chest X-Ray 10/18/17 06:00 IMPRESSION: No acute infiltrates. ET tube tip 2 cm above the reanna. Nasogastric tube tip and side port in the stomach Assessment & Plan - Diagnosis (1) Abdominal pain Qualifiers: Abdominal location: upper abdomen, unspecified Qualified Code(s): R10.10 - Upper abdominal pain, unspecified Is this a current diagnosis for this admission?: Yes Plan: From the pancreatitis and currently going for the endoscopy (2) Pancreatitis Qualifiers: Chronicity: acute Pancreatitis type: alcohol induced Acute pancreatitis complication: unspecified Qualified Code(s): K85.20 - Alcohol induced acute pancreatitis without necrosis or infection Is this a current diagnosis for this admission?: Yes Plan: Currently all stable (3) Chronic alcoholism Is this a current diagnosis for this admission?: Yes Plan: Patient is currently on alcohol withdrawal protocol (4) Congestive heart failure (CHF) Qualifiers: Heart failure type: diastolic Heart failure chronicity: chronic Qualified Code(s): I50.32 - Chronic diastolic (congestive) heart failure Is this a current diagnosis for this admission?: Yes Plan: Currently all stable (5) Duodenal ulcer Is this a current diagnosis for this admission?: Yes Plan: Currently all stable (6) Hypertension Qualifiers: Hypertension type: essential hypertension Is this a current diagnosis for this admission?: Yes Plan: Currently all stable (7) Tobacco abuse Is this a current diagnosis for this admission?: Yes Plan: Discussed with the patient about smoking counseling (8) Atrial fibrillation Qualifiers: Atrial fibrillation type: paroxysmal Qualified Code(s): I48.0 - Paroxysmal atrial fibrillation Is this a current diagnosis for this admission?: Yes Plan: Currently on a Cardizem drip (9) Alcohol withdrawal syndrome Qualifiers: Complication of substance-induced condition: with delirium Qualified Code(s ): F10.231 - Alcohol dependence with withdrawal delirium Is this a current diagnosis for this admission?: Yes Plan: Continues to current medications (10) Non-sustained ventricular tachycardia Is this a current diagnosis for this admission?: Yes Plan: Currently follow with the cardiology (11) Respiratory failure Qualifiers: Chronicity: unspecified Is this a current diagnosis for this admission?: Yes Plan: Continues to follow with the pulmonary - Time Time Spent with patient: 25-34 minutes Total Critical Time (Minutes): 25 Medications reviewed and adjusted accordingly: Yes Anticipated discharge: Other Within: Other - Inpatient Certification Medical Necessity: Need Close Monitoring Due to Risk of Patient Decompensation, Need for IV Antibiotics Post Hospital 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
--- NOTE | 2017-10-18 11:34 | PDOC PROGRESS REPORT ---
Subjective Progress Note for:: 10/18/17 Subjective:: Intubated and sedated Reason For Visit: ACUTE PANCERTASIS Physical Exam Vital Signs: Temp Pulse Resp BP Pulse Ox 99.1 F 79 12 127/72 H 100 10/18/17 06:00 10/18/17 08:00 10/18/17 11:00 10/18/17 10:35 10/18/17 11:00 Intake & Output 10/17/17 10/18/17 10/19/17 06:59 06:59 06:59 Intake Total 3903 3066 Output Total 2305 2970 140 Balance 1598 96 -140 Weight 72.5 kg 71.4 kg General appearance: PRESENT: no acute distress, disheveled Head exam: PRESENT: atraumatic, normocephalic Eye exam: PRESENT: conjunctiva pale, EOMI. ABSENT: nystagmus, periorbital swelling Mouth exam: PRESENT: dry mucosa, neck supple, tongue midline, other - ET tube Neck exam: ABSENT: carotid bruit, JVD, lymphadenopathy, thyromegaly, tracheal deviation, tracheostomy Respiratory exam: PRESENT: decreased breath sounds, prolonged expiratory phas, rhonchi, unlabored. ABSENT: rales, retraction, stridor, tachypnea Cardiovascular exam: PRESENT: RRR, +S1, +S2 Pulses: PRESENT: normal radial pulses GI/Abdominal exam: PRESENT: hypoactive bowel sounds, soft Gentrourinary exam: PRESENT: indwelling catheter Extremities exam: ABSENT: calf tenderness, clubbing, joint swelling Musculoskeletal exam: ABSENT: deformity, dislocation Neurological exam: PRESENT: awake, oriented to person Psychiatric exam: PRESENT: flat affect Skin exam: PRESENT: dry, warm Results Laboratory Results: 10/18/17 09:01 10/18/17 09:01 10/18/17 10/18/17 10/18/17 04:03 05:30 09:01 WBC 13.9 H RBC 3.94 L Hgb 9.9 L Hct 30.6 L MCV 78 L MCH 25.2 L MCHC 32.4 RDW 15.4 H Plt Count 308 Seg Neutrophils % 76.4 Lymphocytes % 10.2 L Monocytes % 11.7 Eosinophils % 1.6 Basophils % 0.1 Absolute Neutrophils 10.6 H Absolute Lymphocytes 1.4 Absolute Monocytes 1.6 H Absolute Eosinophils 0.2 Absolute Basophils 0.0 Carbonic Acid 1.13 HCO3/H2CO3 Ratio 22:1 ABG pH 7.45 ABG pCO2 37.4 ABG pO2 74.9 L ABG HCO3 25.4 ABG O2 Saturation 95.7 ABG Base Excess 1.5 FiO2 25% Sodium 147.7 H Potassium 4.1 Chloride 114 H Carbon Dioxide 23 Anion Gap 11 BUN 7 Creatinine 0.79 Est GFR ( Amer) > 60 Est GFR (Non-Af Amer) > 60 Glucose 121 H Calcium 8.3 L Total Bilirubin AST ALT Alkaline Phosphatase Total Protein Albumin Triglycerides 70 10/18/17 09:01 WBC RBC Hgb Hct MCV MCH MCHC RDW Plt Count Seg Neutrophils % Lymphocytes % Monocytes % Eosinophils % Basophils % Absolute Neutrophils Absolute Lymphocytes Absolute Monocytes Absolute Eosinophils Absolute Basophils Carbonic Acid HCO3/H2CO3 Ratio ABG pH ABG pCO2 ABG pO2 ABG HCO3 ABG O2 Saturation ABG Base Excess FiO2 Sodium 145.1 H Potassium 4.0 Chloride 113 H Carbon Dioxide 24 Anion Gap 8 BUN 10 Creatinine 0.73 Est GFR ( Amer) > 60 Est GFR (Non-Af Amer) > 60 Glucose 153 H Calcium 8.4 Total Bilirubin 0.4 AST 21 ALT 23 Alkaline Phosphatase 63 Total Protein 5.5 L Albumin 2.8 L Triglycerides Impressions: Abdomen/Pelvis CT 10/10/17 23:28 IMPRESSION: 1. Calcifications involving the head of the pancreas with mild peripancreatic fat stranding. These findings could be seen with mild acute pancreatitis superimposed on chronic pancreatitis. Correlation with serum lipase recommended. This exam was performed according to our departmental dose-optimization program, which includes automated exposure control, adjustment of the mA and/or kV according to patient size and/or use of iterative reconstruction technique. KUB X-Ray 10/15/17 00:00 IMPRESSION: Nasogastric tube tip and side port in the stomach Chest X-Ray 10/18/17 06:00 IMPRESSION: No acute infiltrates. ET tube tip 2 cm above the reanna. Nasogastric tube tip and side port in the stomach Assessment & Plan - Diagnosis (1) Acute alcoholic pancreatitis Qualifiers: Acute pancreatitis complication: unspecified Qualified Code(s): K85.20 - Alcohol induced acute pancreatitis without necrosis or infection Is this a current diagnosis for this admission?: Yes Plan: Stable at this time (2) Alcohol withdrawal syndrome Qualifiers: Complication of substance-induced condition: with delirium Qualified Code(s ): F10.231 - Alcohol dependence with withdrawal delirium Is this a current diagnosis for this admission?: Yes Plan: cover with benzodiazipam drip (3) Atrial fibrillation Qualifiers: Atrial fibrillation type: paroxysmal Qualified Code(s): I48.0 - Paroxysmal atrial fibrillation Is this a current diagnosis for this admission?: Yes Plan: Ventricular rate well controlled at this time (4) COPD (chronic obstructive pulmonary disease) Qualifiers: COPD type: unspecified COPD Qualified Code(s): J44.9 - Chronic obstructive pulmonary disease, unspecified Is this a current diagnosis for this admission?: Yes Plan: if able to protect airway extubate (5) Hypertension Qualifiers: Hypertension type: essential hypertension Qualified Code(s): I10 - Essential (primary) hypertension Is this a current diagnosis for this admission?: Yes Plan: Stable at this time - Time Total Critical Time (Minutes): 50
[2017-10-18] MEDS: NORMAL SALINE 1000 ML 1,000 ML with POTASSIUM CHLORIDE 20 MEQ, THIAMINE HCL 100 MG, MVI... IV SCH ×5 (17:28)
[2017-10-18] MEDS ORDERED: HYDRALAZINE HCL INJ/PF 20 MG/1 ML SDV IV PRN (22:28)
[2017-10-19 05:02] LABS: ARTERIAL BLOOD BASE EXCESS 1.1 mmol/L; ARTERIAL BLOOD H2CO3 1.12 mmol/L (1.05-1.35); ARTERIAL BLOOD O2 SATURATION 93.4 % (94-98); ARTERIAL BLOOD PCO2 37.1 mmHg (35-45); ARTERIAL BLOOD PH 7.45 (7.35-7.45); ARTERIAL BLOOD TOTAL CO2 26.1 mmol/L (23-27)
[2017-10-19 05:03] LABS: ARTERIAL BLOOD FIO2 ROOM AIR
[2017-10-19 05:05] LABS: ANION GAP 11 (5-19); BLOOD UREA NITROGEN 8 mg/dL (7-20); CALCIUM 8.8 mg/dL (8.4-10.2); CARBON DIOXIDE 25 mmol/L (22-30); CHLORIDE 109 mmol/L (98-107); GLUCOSE 89 mg/dL (75-110); SODIUM 145.1 mmol/L (137-145)
--- NOTE | 2017-10-19 06:26 | RADIOLOGY REPORT (SQ) ---
EXAM DESCRIPTION: XR CHEST 1 VIEW COMPLETED DATE/TME: 10/19/2017 06:00 CLINICAL HISTORY: 57 years Male, resp failure COMPARISON: One day prior. NUMBER OF VIEWS/TECHNIQUE: 1/AP FINDINGS: Adequate lung volumes, clear parenchyma, normal cardiac silhouette. No pneumothorax. No acute bone defect. IMPRESSION: Lines and tubes. Otherwise, no acute cardiopulmonary findings.
[2017-10-19] MEDS: HEPARIN SOD (PORCINE) 5,000 UNIT/ML 1 ML SYRINGE SUBCUT SCH ×3 (06:35→20:42)
[2017-10-19 09:18] LABS: ABSOLUTE BASOPHILS # (AUTO) 0.1 10^3/uL (0.0-0.2); ABSOLUTE EOSINOPHILS # (AUTO) 0.3 10^3/uL (0.0-0.6); ABSOLUTE LYMPHOCYTES (AUTO) 2.3 10^3/uL (0.5-4.7); ABSOLUTE MONOCYTES (AUTO) 1.6 10^3/uL (0.1-1.4); BASOPHILS % (AUTO) 0.7 % (0-2); HEMOGLOBIN 10.8 g/dL (13.5-17.0); MEAN CORPUSCULAR HEMOGLOBIN 25.3 pg (27.0-33.4); MEAN CORPUSCULAR HGB CONC 32.6 g/dL (32.0-36.0); MEAN CORPUSCULAR VOLUME 78 fl (80-97); PLATELET COUNT 357 10^3/uL (150-450); RED BLOOD COUNT 4.25 10^6/uL (4.35-5.55); RED CELL DISTRIBUTION WIDTH 15.3 % (11.5-14.0); SEGMENTED NEUTROPHILS % (AUTO) 70.3 % (42-78); TOTAL CELLS COUNTED % (AUTO) 100 %; WHITE BLOOD COUNT 14.2 10^3/uL (4.0-10.5)
[2017-10-19] MEDS: METOPROLOL SUCCINATE 25 MG TAB.SR.24H PO SCH ×2 (09:27→20:42)
[2017-10-19] MEDS: AMLODIPINE BESYLATE 5 MG TABLET PO SCH (09:27)
[2017-10-19] MEDS: DIGOXIN 0.125 MG TABLET PO SCH (09:27)
[2017-10-19] MEDS ORDERED: DEXTROSE 40% GEL 15 GM TUBE PO PRN ×2 (09:30)
[2017-10-19 09:38] LABS: ALANINE AMINOTRANSFERASE 24 U/L (21-72); ALBUMIN 3.4 g/dL (3.5-5.0); ALKALINE PHOSPHATASE 73 U/L (38-126); ANION GAP 12 (5-19); ASPARTATE AMINO TRANSFERASE 30 U/L (17-59); BILIRUBIN,DIRECT 0.5 mg/dL (0.0-0.4); BILIRUBIN,TOTAL 0.8 mg/dL (0.2-1.3); BLOOD UREA NITROGEN 8 mg/dL (7-20); CALCIUM 8.9 mg/dL (8.4-10.2); CARBON DIOXIDE 24 mmol/L (22-30); CHLORIDE 107 mmol/L (98-107); GLUCOSE 98 mg/dL (75-110); POTASSIUM 3.9 mmol/L (3.6-5.0); SODIUM 143.3 mmol/L (137-145); TOTAL PROTEIN 6.6 g/dL (6.3-8.2)
[2017-10-19] MEDS ORDERED: METOPROLOL TARTRATE 25 MG TABLET PO SCH (10:00)
--- NOTE | 2017-10-19 10:41 | PDOC PROGRESS REPORT ---
Subjective Progress Note for:: 10/19/17 Subjective:: Patient is extubated yesterday and currently doing much better And is alert awake and oriented and the confusion is also getting better Patients to want to eat denied any abdominal pain no nausea no vomiting Reason For Visit: ACUTE PANCERTASIS Physical Exam Vital Signs: Temp Pulse Resp BP Pulse Ox 99.0 F 67 18 144/79 H 100 10/19/17 08:00 10/19/17 08:00 10/19/17 08:00 10/19/17 08:00 10/19/17 08:00 Intake & Output 10/18/17 10/19/17 10/20/17 06:59 06:59 06:59 Intake Total 3066 992 Output Total 2970 2775 450 Balance 96 -1783 -450 Weight 71.4 kg 68.1 kg General appearance: PRESENT: no acute distress, well-developed, well-nourished Head exam: PRESENT: atraumatic, normocephalic Eye exam: PRESENT: conjunctiva pink, EOMI, PERRLA. ABSENT: scleral icterus Ear exam: PRESENT: normal external ear exam Mouth exam: PRESENT: moist, tongue midline Neck exam: PRESENT: full ROM. ABSENT: carotid bruit, JVD, lymphadenopathy, thyromegaly Respiratory exam: PRESENT: clear to auscultation garrett Cardiovascular exam: PRESENT: RRR. ABSENT: diastolic murmur, rubs, systolic murmur Pulses: PRESENT: normal dorsalis pedis pul, +2 pedal pulses bilateral Vascular exam: PRESENT: normal capillary refill GI/Abdominal exam: PRESENT: normal bowel sounds, soft. ABSENT: distended, guarding, mass, organolmegaly, rebound, tenderness Rectal exam: PRESENT: deferred Extremities exam: ABSENT: pedal edema Musculoskeletal exam: PRESENT: ambulatory Neurological exam: PRESENT: alert, awake, oriented to person, oriented to place , oriented to time, oriented to situation, CN II-XII grossly intact. ABSENT: motor sensory deficit Psychiatric exam: PRESENT: appropriate affect, normal mood. ABSENT: homicidal ideation, suicidal ideation Skin exam: PRESENT: dry, intact, warm. ABSENT: cyanosis, rash Results Laboratory Results: 10/19/17 09:00 10/19/17 09:00 10/19/17 10/19/17 10/19/17 04:15 04:15 04:50 WBC RBC Hgb Hct MCV MCH MCHC RDW Plt Count Seg Neutrophils % Lymphocytes % Monocytes % Eosinophils % Basophils % Absolute Neutrophils Absolute Lymphocytes Absolute Monocytes Absolute Eosinophils Absolute Basophils Carbonic Acid 1.12 HCO3/H2CO3 Ratio 22:1 ABG pH 7.45 ABG pCO2 37.1 ABG pO2 64.0 L ABG HCO3 25.0 ABG O2 Saturation 93.4 L ABG Base Excess 1.1 FiO2 ROOM AIR Sodium 145.1 H Potassium 4.0 Chloride 109 H Carbon Dioxide 25 Anion Gap 11 BUN 8 Creatinine 0.78 Est GFR ( Amer) > 60 Est GFR (Non-Af Amer) > 60 Glucose 89 Calcium 8.8 Total Bilirubin AST ALT Alkaline Phosphatase Total Protein Albumin Lipase 385.3 H 10/19/17 10/19/17 09:00 09:00 WBC 14.2 H RBC 4.25 L Hgb 10.8 L Hct 33.0 L MCV 78 L MCH 25.3 L MCHC 32.6 RDW 15.3 H Plt Count 357 Seg Neutrophils % 70.3 Lymphocytes % 16.0 Monocytes % 11.0 Eosinophils % 2.0 Basophils % 0.7 Absolute Neutrophils 10.0 H Absolute Lymphocytes 2.3 Absolute Monocytes 1.6 H Absolute Eosinophils 0.3 Absolute Basophils 0.1 Carbonic Acid HCO3/H2CO3 Ratio ABG pH ABG pCO2 ABG pO2 ABG HCO3 ABG O2 Saturation ABG Base Excess FiO2 Sodium 143.3 Potassium 3.9 Chloride 107 Carbon Dioxide 24 Anion Gap 12 BUN 8 Creatinine 0.82 Est GFR ( Amer) > 60 Est GFR (Non-Af Amer) > 60 Glucose 98 Calcium 8.9 Total Bilirubin 0.8 AST 30 ALT 24 Alkaline Phosphatase 73 Total Protein 6.6 Albumin 3.4 L Lipase 10/17/17 07:40 Stout Catheter Urine Culture - Final NO GROWTH 2 DAYS Impressions: Abdomen/Pelvis CT 10/10/17 23:28 IMPRESSION: 1. Calcifications involving the head of the pancreas with mild peripancreatic fat stranding. These findings could be seen with mild acute pancreatitis superimposed on chronic pancreatitis. Correlation with serum lipase recommended. This exam was performed according to our departmental dose-optimization program, which includes automated exposure control, adjustment of the mA and/or kV according to patient size and/or use of iterative reconstruction technique. KUB X-Ray 10/15/17 00:00 IMPRESSION: Nasogastric tube tip and side port in the stomach Chest X-Ray 10/19/17 06:00 IMPRESSION: Lines and tubes. Otherwise, no acute cardiopulmonary findings. Assessment & Plan - Diagnosis (1) Abdominal pain Qualifiers: Abdominal location: upper abdomen, unspecified Qualified Code(s): R10.10 - Upper abdominal pain, unspecified Is this a current diagnosis for this admission?: Yes Plan: Currently all resolved due to the alcoholic pancreatitis (2) Pancreatitis Qualifiers: Chronicity: acute Pancreatitis type: alcohol induced Acute pancreatitis complication: unspecified Qualified Code(s): K85.20 - Alcohol induced acute pancreatitis without necrosis or infection Is this a current diagnosis for this admission?: Yes Plan: Alcoholic pancreatitis currently all resolving (3) Chronic alcoholism Is this a current diagnosis for this admission?: Yes Plan: Currently all getting better (4) Congestive heart failure (CHF) Qualifiers: Heart failure type: diastolic Heart failure chronicity: chronic Qualified Code(s): I50.32 - Chronic diastolic (congestive) heart failure Is this a current diagnosis for this admission?: Yes Plan: Currently all stable (5) Duodenal ulcer Is this a current diagnosis for this admission?: Yes Plan: Currently all stable (6) Hypertension Qualifiers: Hypertension type: essential hypertension Is this a current diagnosis for this admission?: Yes Plan: Currently all stable (7) Tobacco abuse Is this a current diagnosis for this admission?: Yes (8) Atrial fibrillation Qualifiers: Atrial fibrillation type: paroxysmal Qualified Code(s): I48.0 - Paroxysmal atrial fibrillation Is this a current diagnosis for this admission?: Yes (9) Alcohol withdrawal syndrome Qualifiers: Complication of substance-induced condition: with delirium Qualified Code(s ): F10.231 - Alcohol dependence with withdrawal delirium Is this a current diagnosis for this admission?: Yes Plan: Currently symptom is not improving (10) Non-sustained ventricular tachycardia Is this a current diagnosis for this admission?: Yes Plan: Currently follow with the cardiology (11) Respiratory failure Qualifiers: Chronicity: unspecified Is this a current diagnosis for this admission?: Yes Plan: This is currently extubated (12) Leukocytosis Qualifiers: Leukocytosis type: unspecified Qualified Code(s): D72.829 - Elevated white blood cell count, unspecified Is this a current diagnosis for this admission?: Yes Plan: We will get the stool for the C. difficile will be considered to start on Rocephin - Time Time Spent with patient: 15-24 minutes Medications reviewed and adjusted accordingly: Yes Anticipated discharge: Home Within: Other - Inpatient Certification Medical Necessity: Need Close Monitoring Due to Risk of Patient Decompensation Post Hospital Care: D/C Graphic Art Sales Representative Documentation - Plan Summary Plan Summary: Patient's currently doing better we will transfer the patient's to the [facility]
--- NOTE | 2017-10-19 11:08 | PDOC PROGRESS REPORT ---
Subjective Progress Note for:: 10/19/17 Subjective:: I am awaiting some food Reason For Visit: ACUTE PANCERTASIS Physical Exam Vital Signs: Temp Pulse Resp BP Pulse Ox 99.1 F 82 18 133/56 H 100 10/19/17 05:28 10/19/17 08:00 10/19/17 06:00 10/19/17 05:35 10/19/17 05:35 Intake & Output 10/18/17 10/19/17 10/20/17 06:59 06:59 06:59 Intake Total 3066 992 Output Total 2970 2775 450 Balance 96 -1783 -450 Weight 71.4 kg 68.1 kg General appearance: PRESENT: no acute distress, disheveled Head exam: PRESENT: atraumatic, normocephalic Eye exam: PRESENT: conjunctiva pale, EOMI. ABSENT: nystagmus Mouth exam: PRESENT: dry mucosa, neck supple, tongue midline Neck exam: ABSENT: carotid bruit, JVD, lymphadenopathy, thyromegaly, tracheal deviation, tracheostomy Respiratory exam: PRESENT: decreased breath sounds, prolonged expiratory phas, rhonchi, unlabored. ABSENT: rales, retraction, stridor Cardiovascular exam: PRESENT: RRR, +S1, +S2 Pulses: PRESENT: normal radial pulses GI/Abdominal exam: PRESENT: normal bowel sounds, soft Extremities exam: ABSENT: calf tenderness, clubbing, joint swelling Musculoskeletal exam: ABSENT: deformity, dislocation Neurological exam: PRESENT: awake, oriented to person, oriented to place Psychiatric exam: PRESENT: flat affect Skin exam: PRESENT: dry, warm Results Laboratory Results: 10/18/17 09:01 10/19/17 04:15 10/18/17 10/18/17 10/19/17 09:01 09:01 04:15 WBC 13.9 H RBC 3.94 L Hgb 9.9 L Hct 30.6 L MCV 78 L MCH 25.2 L MCHC 32.4 RDW 15.4 H Plt Count 308 Seg Neutrophils % 76.4 Lymphocytes % 10.2 L Monocytes % 11.7 Eosinophils % 1.6 Basophils % 0.1 Absolute Neutrophils 10.6 H Absolute Lymphocytes 1.4 Absolute Monocytes 1.6 H Absolute Eosinophils 0.2 Absolute Basophils 0.0 Carbonic Acid HCO3/H2CO3 Ratio ABG pH ABG pCO2 ABG pO2 ABG HCO3 ABG O2 Saturation ABG Base Excess FiO2 Sodium 145.1 H 145.1 H Potassium 4.0 4.0 Chloride 113 H 109 H Carbon Dioxide 24 25 Anion Gap 8 11 BUN 10 8 Creatinine 0.73 0.78 Est GFR ( Amer) > 60 > 60 Est GFR (Non-Af Amer) > 60 > 60 Glucose 153 H 89 Calcium 8.4 8.8 Total Bilirubin 0.4 AST 21 ALT 23 Alkaline Phosphatase 63 Total Protein 5.5 L Albumin 2.8 L 10/19/17 04:50 WBC RBC Hgb Hct MCV MCH MCHC RDW Plt Count Seg Neutrophils % Lymphocytes % Monocytes % Eosinophils % Basophils % Absolute Neutrophils Absolute Lymphocytes Absolute Monocytes Absolute Eosinophils Absolute Basophils Carbonic Acid 1.12 HCO3/H2CO3 Ratio 22:1 ABG pH 7.45 ABG pCO2 37.1 ABG pO2 64.0 L ABG HCO3 25.0 ABG O2 Saturation 93.4 L ABG Base Excess 1.1 FiO2 ROOM AIR Sodium Potassium Chloride Carbon Dioxide Anion Gap BUN Creatinine Est GFR ( Amer) Est GFR (Non-Af Amer) Glucose Calcium Total Bilirubin AST ALT Alkaline Phosphatase Total Protein Albumin Impressions: Abdomen/Pelvis CT 10/10/17 23:28 IMPRESSION: 1. Calcifications involving the head of the pancreas with mild peripancreatic fat stranding. These findings could be seen with mild acute pancreatitis superimposed on chronic pancreatitis. Correlation with serum lipase recommended. This exam was performed according to our departmental dose-optimization program, which includes automated exposure control, adjustment of the mA and/or kV according to patient size and/or use of iterative reconstruction technique. KUB X-Ray 10/15/17 00:00 IMPRESSION: Nasogastric tube tip and side port in the stomach Chest X-Ray 10/19/17 06:00 IMPRESSION: Lines and tubes. Otherwise, no acute cardiopulmonary findings. Assessment & Plan - Diagnosis (1) Acute alcoholic pancreatitis Qualifiers: Acute pancreatitis complication: unspecified Qualified Code(s): K85.20 - Alcohol induced acute pancreatitis without necrosis or infection Is this a current diagnosis for this admission?: Yes Plan: Lipase trending downward (2) Alcohol withdrawal syndrome Qualifiers: Complication of substance-induced condition: with delirium Qualified Code(s ): F10.231 - Alcohol dependence with withdrawal delirium Is this a current diagnosis for this admission?: Yes Plan: Not evident at this time (3) Atrial fibrillation Qualifiers: Atrial fibrillation type: paroxysmal Qualified Code(s): I48.0 - Paroxysmal atrial fibrillation Is this a current diagnosis for this admission?: Yes Plan: Ventricular rate well controlled at this time (4) COPD (chronic obstructive pulmonary disease) Qualifiers: COPD type: unspecified COPD Qualified Code(s): J44.9 - Chronic obstructive pulmonary disease, unspecified Is this a current diagnosis for this admission?: Yes Plan: if able to protect airway extubate (5) Hypertension Qualifiers: Hypertension type: essential hypertension Qualified Code(s): I10 - Essential (primary) hypertension Is this a current diagnosis for this admission?: Yes Plan: Stable at this time - Time Total Critical Time (Minutes): 45
[2017-10-19] MEDS: SCOPOLAMINE HYDROBROMIDE 1.5 MG PATCH.TD72 TD SCH (11:22)
[2017-10-19] MEDS: SUCRALFATE 1 GM TABLET PO SCH ×3 (11:24→20:39)
[2017-10-19] MEDS: CEFTRIAXONE SODIUM 1,000 MG in DEXTROSE 5%-WATER 50 ML IV SCH (12:01)
[2017-10-19] MEDS: NORMAL SALINE 1000 ML 1,000 ML with POTASSIUM CHLORIDE 20 MEQ, THIAMINE HCL 100 MG, MVI... IV SCH ×5 (17:26)
[2017-10-19] MEDS: DOCUSATE SODIUM 100 MG CAPSULE PO SCH (17:26)
[2017-10-19] MEDS: ACETAMINOPHEN 325 MG TABLET PO PRN (20:41)
[2017-10-20] MEDS: HEPARIN SOD (PORCINE) 5,000 UNIT/ML 1 ML SYRINGE SUBCUT SCH ×3 (05:52→21:25)
[2017-10-20] MEDS: SUCRALFATE 1 GM TABLET PO SCH ×4 (08:14→21:26)
--- NOTE | 2017-10-20 08:49 | PDOC PROGRESS REPORT ---
Subjective Progress Note for:: 10/20/17 Subjective:: Patient is feeling much better Patient is alert awake oriented Denied any abdominal pain denied any nausea no vomiting Patient's p.o. intake is good Reason For Visit: ACUTE PANCERTASIS Physical Exam Vital Signs: Temp Pulse Resp BP Pulse Ox 99.3 F 63 17 138/63 H 100 10/20/17 07:31 10/20/17 07:31 10/20/17 07:31 10/20/17 07:31 10/20/17 07:31 Intake & Output 10/19/17 10/20/17 10/21/17 06:59 06:59 06:59 Intake Total 992 1360 Output Total 2775 2750 Balance -1783 -1390 Weight 68.1 kg 70.5 kg General appearance: PRESENT: no acute distress, well-developed, well-nourished Head exam: PRESENT: atraumatic, normocephalic Eye exam: PRESENT: conjunctiva pink, EOMI, PERRLA. ABSENT: scleral icterus Ear exam: PRESENT: normal external ear exam Mouth exam: PRESENT: moist, tongue midline Neck exam: PRESENT: full ROM. ABSENT: carotid bruit, JVD, lymphadenopathy, thyromegaly Respiratory exam: PRESENT: clear to auscultation garrett Cardiovascular exam: PRESENT: RRR. ABSENT: diastolic murmur, rubs, systolic murmur Pulses: PRESENT: normal dorsalis pedis pul, +2 pedal pulses bilateral Vascular exam: PRESENT: normal capillary refill GI/Abdominal exam: PRESENT: normal bowel sounds, soft. ABSENT: distended, guarding, mass, organolmegaly, rebound, tenderness Rectal exam: PRESENT: deferred Extremities exam: ABSENT: pedal edema Neurological exam: PRESENT: alert, awake, oriented to person, oriented to place , oriented to time, oriented to situation, CN II-XII grossly intact. ABSENT: motor sensory deficit Psychiatric exam: PRESENT: appropriate affect, normal mood. ABSENT: homicidal ideation, suicidal ideation Skin exam: PRESENT: dry, intact, warm. ABSENT: cyanosis, rash Results Laboratory Results: 10/19/17 09:00 10/19/17 09:00 10/19/17 10/19/17 10/19/17 04:15 09:00 09:00 WBC 14.2 H RBC 4.25 L Hgb 10.8 L Hct 33.0 L MCV 78 L MCH 25.3 L MCHC 32.6 RDW 15.3 H Plt Count 357 Seg Neutrophils % 70.3 Lymphocytes % 16.0 Monocytes % 11.0 Eosinophils % 2.0 Basophils % 0.7 Absolute Neutrophils 10.0 H Absolute Lymphocytes 2.3 Absolute Monocytes 1.6 H Absolute Eosinophils 0.3 Absolute Basophils 0.1 Sodium 143.3 Potassium 3.9 Chloride 107 Carbon Dioxide 24 Anion Gap 12 BUN 8 Creatinine 0.82 Est GFR ( Amer) > 60 Est GFR (Non-Af Amer) > 60 Glucose 98 Calcium 8.9 Total Bilirubin 0.8 AST 30 ALT 24 Alkaline Phosphatase 73 Total Protein 6.6 Albumin 3.4 L Lipase 385.3 H 10/17/17 07:40 Stout Catheter Urine Culture - Final NO GROWTH 2 DAYS Impressions: Abdomen/Pelvis CT 10/10/17 23:28 IMPRESSION: 1. Calcifications involving the head of the pancreas with mild peripancreatic fat stranding. These findings could be seen with mild acute pancreatitis superimposed on chronic pancreatitis. Correlation with serum lipase recommended. This exam was performed according to our departmental dose-optimization program, which includes automated exposure control, adjustment of the mA and/or kV according to patient size and/or use of iterative reconstruction technique. KUB X-Ray 10/15/17 00:00 IMPRESSION: Nasogastric tube tip and side port in the stomach Chest X-Ray 10/19/17 06:00 IMPRESSION: Lines and tubes. Otherwise, no acute cardiopulmonary findings. Assessment & Plan - Diagnosis (1) Abdominal pain Qualifiers: Abdominal location: upper abdomen, unspecified Qualified Code(s): R10.10 - Upper abdominal pain, unspecified Is this a current diagnosis for this admission?: Yes Plan: Currently all resolved due to the alcoholic pancreatitis (2) Pancreatitis Qualifiers: Chronicity: acute Pancreatitis type: alcohol induced Acute pancreatitis complication: unspecified Qualified Code(s): K85.20 - Alcohol induced acute pancreatitis without necrosis or infection Is this a current diagnosis for this admission?: Yes Plan: Alcoholic pancreatitis currently all resolving (3) Chronic alcoholism Is this a current diagnosis for this admission?: Yes Plan: Currently all getting better (4) Congestive heart failure (CHF) Qualifiers: Heart failure type: diastolic Heart failure chronicity: chronic Qualified Code(s): I50.32 - Chronic diastolic (congestive) heart failure Is this a current diagnosis for this admission?: Yes Plan: Currently all stable (5) Duodenal ulcer Is this a current diagnosis for this admission?: Yes Plan: Currently all stable (6) Hypertension Qualifiers: Hypertension type: essential hypertension Is this a current diagnosis for this admission?: Yes Plan: Currently all stable (7) Tobacco abuse Is this a current diagnosis for this admission?: Yes Plan: Discussed with the patient about smoking counseling (8) Atrial fibrillation Qualifiers: Atrial fibrillation type: paroxysmal Qualified Code(s): I48.0 - Paroxysmal atrial fibrillation Is this a current diagnosis for this admission?: Yes Plan: Currently on a Cardizem drip (9) Alcohol withdrawal syndrome Qualifiers: Complication of substance-induced condition: with delirium Qualified Code(s ): F10.231 - Alcohol dependence with withdrawal delirium Is this a current diagnosis for this admission?: Yes Plan: Currently symptom is not improving (10) Non-sustained ventricular tachycardia Is this a current diagnosis for this admission?: Yes Plan: Currently follow with the cardiology (11) Respiratory failure Qualifiers: Chronicity: unspecified Is this a current diagnosis for this admission?: Yes Plan: This is currently extubated (12) Leukocytosis Qualifiers: Leukocytosis type: unspecified Qualified Code(s): D72.829 - Elevated white blood cell count, unspecified Is this a current diagnosis for this admission?: Yes Plan: We will get the stool for the C. difficile will be considered to start on Rocephin - Time Time Spent with patient: 15-24 minutes Medications reviewed and adjusted accordingly: Yes Anticipated discharge: Other Within: Other - Inpatient Certification Medical Necessity: Need Close Monitoring Due to Risk of Patient Decompensation Post Hospital Care: D/C Instructor Robotics Documentation - Plan Summary Plan Summary: The physical therapy evaluations Continues to current medications
[2017-10-20] MEDS: FOLIC ACID 1 MG TABLET PO SCH (08:55)
[2017-10-20] MEDS: DOCUSATE SODIUM 100 MG CAPSULE PO SCH ×2 (08:55→17:01)
[2017-10-20] MEDS: AMLODIPINE BESYLATE 5 MG TABLET PO SCH (08:55)
[2017-10-20] MEDS: MULTIVITAMIN TABLET PO SCH (08:55)
[2017-10-20] MEDS: METOPROLOL SUCCINATE 25 MG TAB.SR.24H PO SCH ×2 (08:56→21:26)
[2017-10-20] MEDS: THIAMINE HCL 100 MG TABLET PO SCH (08:56)
[2017-10-20] MEDS: DIGOXIN 0.125 MG TABLET PO SCH (08:57)
[2017-10-20 09:02] LABS: ABSOLUTE BASOPHILS # (AUTO) 0.1 10^3/uL (0.0-0.2); ABSOLUTE EOSINOPHILS # (AUTO) 0.2 10^3/uL (0.0-0.6); ABSOLUTE LYMPHOCYTES (AUTO) 1.7 10^3/uL (0.5-4.7); ABSOLUTE MONOCYTES (AUTO) 1.7 10^3/uL (0.1-1.4); ABSOLUTE NEUT (AUTO) 10.2 10^3/uL (1.7-8.2); BASOPHILS % (AUTO) 0.8 % (0-2); EOSINOPHILS % (AUTO) 1.3 % (0-6); HEMATOCRIT 35.6 % (37.9-51.0); HEMOGLOBIN 11.4 g/dL (13.5-17.0); LYMPHOCYTES % (AUTO) 12.2 % (13-45); MEAN CORPUSCULAR VOLUME 78 fl (80-97); MONOCYTES % (AUTO) 12.3 % (3-13); PLATELET COUNT 396 10^3/uL (150-450); RED BLOOD COUNT 4.56 10^6/uL (4.35-5.55); RED CELL DISTRIBUTION WIDTH 15.1 % (11.5-14.0); SEGMENTED NEUTROPHILS % (AUTO) 73.4 % (42-78); TOTAL CELLS COUNTED % (AUTO) 100 %; WHITE BLOOD COUNT 13.8 10^3/uL (4.0-10.5)
[2017-10-20 09:23] LABS: ALANINE AMINOTRANSFERASE 28 U/L (21-72); ALBUMIN 3.8 g/dL (3.5-5.0); ALKALINE PHOSPHATASE 80 U/L (38-126); ANION GAP 14 (5-19); ASPARTATE AMINO TRANSFERASE 35 U/L (17-59); BILIRUBIN,DIRECT 0.4 mg/dL (0.0-0.4); BILIRUBIN,TOTAL 0.7 mg/dL (0.2-1.3); BLOOD UREA NITROGEN 18 mg/dL (7-20); CALCIUM 9.5 mg/dL (8.4-10.2); CARBON DIOXIDE 23 mmol/L (22-30); CHLORIDE 107 mmol/L (98-107); GLUCOSE 122 mg/dL (75-110); POTASSIUM 4.3 mmol/L (3.6-5.0); SODIUM 143.7 mmol/L (137-145); TOTAL PROTEIN 7.2 g/dL (6.3-8.2)
[2017-10-20] MEDS ORDERED: CEFTRIAXONE 1 GM/D5W RTU 1 GM/50 ML RTUPB IV SCH (10:00)
[2017-10-20] MEDS: CEFTRIAXONE SODIUM 1,000 MG in DEXTROSE 5%-WATER 50 ML IV SCH (12:31)
[2017-10-20] MEDS: ACETAMINOPHEN 325 MG TABLET PO PRN (14:30)
[2017-10-20] MEDS ORDERED: BENZOCAINE/MENTHOL SORE THROAT LOZENGE BUCCAL PRN (20:59)
[2017-10-21 05:11] LABS: ABSOLUTE BASOPHILS # (AUTO) 0.1 10^3/uL (0.0-0.2); ABSOLUTE EOSINOPHILS # (AUTO) 0.2 10^3/uL (0.0-0.6); ABSOLUTE LYMPHOCYTES (AUTO) 2.2 10^3/uL (0.5-4.7); ABSOLUTE MONOCYTES (AUTO) 1.3 10^3/uL (0.1-1.4); ABSOLUTE NEUT (AUTO) 6.8 10^3/uL (1.7-8.2); BASOPHILS % (AUTO) 0.8 % (0-2); HEMATOCRIT 33.9 % (37.9-51.0); HEMOGLOBIN 11.1 g/dL (13.5-17.0); LYMPHOCYTES % (AUTO) 20.8 % (13-45); MEAN CORPUSCULAR HEMOGLOBIN 25.6 pg (27.0-33.4); MEAN CORPUSCULAR HGB CONC 32.8 g/dL (32.0-36.0); MEAN CORPUSCULAR VOLUME 78 fl (80-97); MONOCYTES % (AUTO) 12.2 % (3-13); PLATELET COUNT 426 10^3/uL (150-450); RED BLOOD COUNT 4.33 10^6/uL (4.35-5.55); RED CELL DISTRIBUTION WIDTH 15.5 % (11.5-14.0); SEGMENTED NEUTROPHILS % (AUTO) 64.2 % (42-78); TOTAL CELLS COUNTED % (AUTO) 100 %; WHITE BLOOD COUNT 10.6 10^3/uL (4.0-10.5)
[2017-10-21] MEDS: HEPARIN SOD (PORCINE) 5,000 UNIT/ML 1 ML SYRINGE SUBCUT SCH ×2 (05:16→13:03)
[2017-10-21 05:26] LABS: ANION GAP 13 (5-19); BLOOD UREA NITROGEN 18 mg/dL (7-20); CALCIUM 9.3 mg/dL (8.4-10.2); CARBON DIOXIDE 23 mmol/L (22-30); CHLORIDE 107 mmol/L (98-107); GLUCOSE 97 mg/dL (75-110); POTASSIUM 4.8 mmol/L (3.6-5.0); SODIUM 142.5 mmol/L (137-145)
[2017-10-21] MEDS: DOCUSATE SODIUM 100 MG CAPSULE PO SCH (09:26)
[2017-10-21] MEDS: SUCRALFATE 1 GM TABLET PO SCH ×2 (09:26→11:52)
[2017-10-21] MEDS: DIGOXIN 0.125 MG TABLET PO SCH (09:27)
[2017-10-21] MEDS: FOLIC ACID 1 MG TABLET PO SCH (09:27)
[2017-10-21] MEDS: THIAMINE HCL 100 MG TABLET PO SCH (09:27)
[2017-10-21] MEDS: AMLODIPINE BESYLATE 5 MG TABLET PO SCH (09:27)
[2017-10-21] MEDS: METOPROLOL SUCCINATE 25 MG TAB.SR.24H PO SCH (09:28)
[2017-10-21] MEDS: MULTIVITAMIN TABLET PO SCH (09:28)
[2017-10-21 09:44] LABS: ABSOLUTE BASOPHILS # (AUTO) 0.1 10^3/uL (0.0-0.2); ABSOLUTE EOSINOPHILS # (AUTO) 0.2 10^3/uL (0.0-0.6); ABSOLUTE LYMPHOCYTES (AUTO) 2.1 10^3/uL (0.5-4.7); ABSOLUTE MONOCYTES (AUTO) 1.2 10^3/uL (0.1-1.4); ABSOLUTE NEUT (AUTO) 7.4 10^3/uL (1.7-8.2); BASOPHILS % (AUTO) 1.1 % (0-2); EOSINOPHILS % (AUTO) 1.8 % (0-6); HEMATOCRIT 35.9 % (37.9-51.0); HEMOGLOBIN 11.4 g/dL (13.5-17.0); LYMPHOCYTES % (AUTO) 19.4 % (13-45); MEAN CORPUSCULAR HEMOGLOBIN 25.5 pg (27.0-33.4); MEAN CORPUSCULAR HGB CONC 31.9 g/dL (32.0-36.0); MEAN CORPUSCULAR VOLUME 80 fl (80-97); MONOCYTES % (AUTO) 10.5 % (3-13); PLATELET COUNT 466 10^3/uL (150-450); RED BLOOD COUNT 4.48 10^6/uL (4.35-5.55); RED CELL DISTRIBUTION WIDTH 15.6 % (11.5-14.0); SEGMENTED NEUTROPHILS % (AUTO) 67.2 % (42-78); TOTAL CELLS COUNTED % (AUTO) 100 %; WHITE BLOOD COUNT 11.1 10^3/uL (4.0-10.5)
[2017-10-21 10:03] LABS: ALANINE AMINOTRANSFERASE 35 U/L (21-72); ALBUMIN 4.1 g/dL (3.5-5.0); ALKALINE PHOSPHATASE 75 U/L (38-126); ANION GAP 14 (5-19); ASPARTATE AMINO TRANSFERASE 33 U/L (17-59); BILIRUBIN,DIRECT 0.3 mg/dL (0.0-0.4); BILIRUBIN,TOTAL 0.5 mg/dL (0.2-1.3); BLOOD UREA NITROGEN 17 mg/dL (7-20); CALCIUM 9.7 mg/dL (8.4-10.2); CARBON DIOXIDE 23 mmol/L (22-30); CHLORIDE 105 mmol/L (98-107); GLUCOSE 158 mg/dL (75-110); POTASSIUM 4.6 mmol/L (3.6-5.0); SODIUM 142.1 mmol/L (137-145); TOTAL PROTEIN 7.6 g/dL (6.3-8.2)
[2017-10-21 11:17] VITALS: BP 115/61
--- NOTE | 2017-10-21 11:28 | PDOC PROGRESS REPORT ---
Subjective Progress Note for:: 10/21/17 Subjective:: Patient is feeling much better Denied any chest pain denied any shortness of the breath Patients wants to go home Denied any abdominal pain no nausea no vomiting Patient's heart rate is a flutter and go up to the 130-140 range and discussed with her Dr. Wheeler and suggest to keep holding the patient's and order the CTA Reason For Visit: ACUTE PANCERTASIS Physical Exam Vital Signs: Temp Pulse Resp BP Pulse Ox 98.4 F 53 L 12 115/61 98 10/21/17 11:16 10/21/17 11:16 10/21/17 11:16 10/21/17 11:16 10/21/17 11:16 Intake & Output 10/20/17 10/21/17 10/22/17 06:59 06:59 06:59 Intake Total 1360 933 437 Output Total 2750 Balance -1390 933 437 Weight 70.5 kg 70.7 kg General appearance: PRESENT: no acute distress, well-developed, well-nourished Head exam: PRESENT: atraumatic, normocephalic Eye exam: PRESENT: conjunctiva pink, EOMI, PERRLA. ABSENT: scleral icterus Ear exam: PRESENT: normal external ear exam Mouth exam: PRESENT: moist, tongue midline Neck exam: PRESENT: full ROM. ABSENT: carotid bruit, JVD, lymphadenopathy, thyromegaly Respiratory exam: PRESENT: clear to auscultation garrett Cardiovascular exam: PRESENT: RRR. ABSENT: diastolic murmur, rubs, systolic murmur Pulses: PRESENT: normal dorsalis pedis pul, +2 pedal pulses bilateral Vascular exam: PRESENT: normal capillary refill GI/Abdominal exam: PRESENT: normal bowel sounds, soft. ABSENT: distended, guarding, mass, organolmegaly, rebound, tenderness Rectal exam: PRESENT: deferred Extremities exam: ABSENT: pedal edema Musculoskeletal exam: PRESENT: ambulatory Neurological exam: PRESENT: alert, awake, oriented to person, oriented to place , oriented to time, oriented to situation, CN II-XII grossly intact. ABSENT: motor sensory deficit Psychiatric exam: PRESENT: appropriate affect, normal mood. ABSENT: homicidal ideation, suicidal ideation Skin exam: PRESENT: dry, intact, warm. ABSENT: cyanosis, rash Results Laboratory Results: 10/21/17 09:10 10/21/17 09:10 10/20/17 10/21/17 10/21/17 10:47 04:19 04:19 WBC 10.6 H RBC 4.33 L Hgb 11.1 L Hct 33.9 L MCV 78 L MCH 25.6 L MCHC 32.8 RDW 15.5 H Plt Count 426 Seg Neutrophils % 64.2 Lymphocytes % 20.8 Monocytes % 12.2 Eosinophils % 2.0 Basophils % 0.8 Absolute Neutrophils 6.8 Absolute Lymphocytes 2.2 Absolute Monocytes 1.3 Absolute Eosinophils 0.2 Absolute Basophils 0.1 Sodium 142.5 Potassium 4.8 Chloride 107 Carbon Dioxide 23 Anion Gap 13 BUN 18 Creatinine 0.96 Est GFR ( Amer) > 60 Est GFR (Non-Af Amer) > 60 Glucose 97 Calcium 9.3 Total Bilirubin AST ALT Alkaline Phosphatase Total Protein Albumin Stool Occult Blood NEGATIVE 10/21/17 10/21/17 09:10 09:10 WBC 11.1 H RBC 4.48 Hgb 11.4 L Hct 35.9 L MCV 80 MCH 25.5 L MCHC 31.9 L RDW 15.6 H Plt Count 466 H Seg Neutrophils % 67.2 Lymphocytes % 19.4 Monocytes % 10.5 Eosinophils % 1.8 Basophils % 1.1 Absolute Neutrophils 7.4 Absolute Lymphocytes 2.1 Absolute Monocytes 1.2 Absolute Eosinophils 0.2 Absolute Basophils 0.1 Sodium 142.1 Potassium 4.6 Chloride 105 Carbon Dioxide 23 Anion Gap 14 BUN 17 Creatinine 1.01 Est GFR ( Amer) > 60 Est GFR (Non-Af Amer) > 60 Glucose 158 H Calcium 9.7 Total Bilirubin 0.5 AST 33 ALT 35 Alkaline Phosphatase 75 Total Protein 7.6 Albumin 4.1 Stool Occult Blood Impressions: Abdomen/Pelvis CT 10/10/17 23:28 IMPRESSION: 1. Calcifications involving the head of the pancreas with mild peripancreatic fat stranding. These findings could be seen with mild acute pancreatitis superimposed on chronic pancreatitis. Correlation with serum lipase recommended. This exam was performed according to our departmental dose-optimization program, which includes automated exposure control, adjustment of the mA and/or kV according to patient size and/or use of iterative reconstruction technique. KUB X-Ray 10/15/17 00:00 IMPRESSION: Nasogastric tube tip and side port in the stomach Chest X-Ray 10/19/17 06:00 IMPRESSION: Lines and tubes. Otherwise, no acute cardiopulmonary findings. Assessment & Plan - Diagnosis (1) Abdominal pain Qualifiers: Abdominal location: upper abdomen, unspecified Qualified Code(s): R10.10 - Upper abdominal pain, unspecified Is this a current diagnosis for this admission?: Yes Plan: Susan all resolved (2) Pancreatitis Qualifiers: Chronicity: acute Pancreatitis type: alcohol induced Acute pancreatitis complication: unspecified Qualified Code(s): K85.20 - Alcohol induced acute pancreatitis without necrosis or infection Is this a current diagnosis for this admission?: Yes Plan: Currently all resolved (3) Chronic alcoholism Is this a current diagnosis for this admission?: Yes Plan: Currently all getting better (4) Congestive heart failure (CHF) Qualifiers: Heart failure type: diastolic Heart failure chronicity: chronic Qualified Code(s): I50.32 - Chronic diastolic (congestive) heart failure Is this a current diagnosis for this admission?: Yes Plan: Currently all stable (5) Duodenal ulcer Is this a current diagnosis for this admission?: Yes Plan: Currently all stable (6) Hypertension Qualifiers: Hypertension type: essential hypertension Is this a current diagnosis for this admission?: Yes Plan: Currently all stable (7) Tobacco abuse Is this a current diagnosis for this admission?: Yes Plan: Discussed with the patient about smoking counseling (8) Atrial fibrillation Qualifiers: Atrial fibrillation type: paroxysmal Qualified Code(s): I48.0 - Paroxysmal atrial fibrillation Is this a current diagnosis for this admission?: Yes Plan: Discussed with the Dr. Wheeler adjust the medications (9) Alcohol withdrawal syndrome Qualifiers: Complication of substance-induced condition: with delirium Qualified Code(s ): F10.231 - Alcohol dependence with withdrawal delirium Is this a current diagnosis for this admission?: Yes Plan: Currently all resolved (10) Non-sustained ventricular tachycardia Is this a current diagnosis for this admission?: Yes Plan: Follow with the cardiology (11) Respiratory failure Qualifiers: Chronicity: unspecified Is this a current diagnosis for this admission?: Yes Plan: Currently all resolved (12) Leukocytosis Qualifiers: Leukocytosis type: unspecified Qualified Code(s): D72.829 - Elevated white blood cell count, unspecified Is this a current diagnosis for this admission?: Yes Plan: We will get the stool for the C. difficile will be considered to start on Rocephin - Time Time Spent with patient: 15-24 minutes Medications reviewed and adjusted accordingly: Yes Anticipated discharge: Home, Other Within: Other - Inpatient Certification Medical Necessity: Need Close Monitoring Due to Risk of Patient Decompensation, Need for IV Antibiotics Post Hospital Care: D/C Leather Roller Documentation - Plan Summary Plan Summary: Patient's otherwise currently stable patients wants to go home Cardiology patients need further workup currently hold the discharge him to the cardiology workup is done Try to discuss the mother unable to answer at this point will try again discussed with the nursing staff to contact
[2017-10-21] MEDS ORDERED: METOPROLOL TARTRATE 25 MG TABLET PO ONE (12:00)
[2017-10-21] MEDS ORDERED: METOPROLOL SUCCINATE 25 MG TAB.SR.24H PO ONE (12:00)
--- NOTE | 2017-10-21 12:54 | RADIOLOGY REPORT (SQ) ---
EXAM DESCRIPTION: CTA CHEST COMPLETED DATE/TIME: 10/21/2017 12:14 pm REASON FOR STUDY: Assess for abnormal cardiac activity COMPARISON: CT abdomen pelvis 10/11/2017 CT angio chest 04/01/2016 TECHNIQUE: CT scan of the chest performed using helical scanning technique with dynamic intravenous contrast injection. Images reviewed with lung, soft tissue and bone windows. Reconstructed coronal and sagittal MPR images reviewed. Additional 3 dimensional post-processing performed to develop Maximal Intensity Projection images (CA P). All images stored on PACS. All CT scanners at this facility use dose modulation, iterative reconstruction, and/or weight based d osing when appropriate to reduce radiation dose to as low as reasonably achievable (ALARA). [facility]: Dose Right [facility]: CareDose [facility]: Dose Right [facility]: Teradose 4D [facility]: DHgate CONTRAST TYPE AND DOSE: contrast/concentration: Isovue 370.00 mg/ml; Total Contrast Delivered: 66.0 ml; Total Saline Delivered: 80.0 ml Contrast bolus adequate for the thoracic aorta and pulmonary arteries. RENAL FUNCTION: Creatinine 1.0 RADIATION DOSE: CT Rad equipment meets quality standard of care and radiation dose reduction techniq ues were employed. CTDIvol: 15.0 - 26.4 mGy. DLP: 679 mGy-cm. . LIMITATIONS: None. FINDINGS: LUNGS AND PLEURA: Minimal bandlike scarring or atelectasis in the right lower lobe. No fl uffy alveolar infiltrates worrisome for pulmonary edema or pneumonia. No pleural effusion. No pneum othorax. AORTA AND GREAT VESSELS: No thoracic aortic aneurysm or dissection HEART: No pericardial effusion. No significant coronary artery calcifications. PULMONARY ARTERIES: No emboli visualized in the main pulmonary arteries or the segmental branches. HILAR AND MEDIASTINAL STRUCTURES: No identified masses or abnormal nodes. HARDWARE: None in the chest. UPPER ABDOMEN: Calcifications at the pancreatic head from old calcific pancreatitis, unchanged from p rior CT angio chest 04/01/2016 THYROID AND OTHER SOFT TISSUES: No masses. No adenopathy. BONES: No acute or significant finding. 3D MIPS: Confirm above findings. OTHER: No other significant finding. IMPRESSION: No acute findings COMMENT: Quality ID # [id number]: Final reports with documentation of one or more dose reduction techniques (e.g., Automated exposure control, adjustment of the mA and/or kV according to patient size, use of iterative reconstruction technique) TECHNICAL DOCUMENTATION: JOB ID: [id number] [employer]- All Rights Reserved Reading location - IP/workstation name: [email or web address]
[2017-10-21] MEDS: CEFTRIAXONE SODIUM 1,000 MG in DEXTROSE 5%-WATER 50 ML IV SCH (13:02)
--- NOTE | 2017-10-21 20:31 | CONSULTATION REPORT E ---
Consultation Report NAME: EUGENE ARAGON : 1960 AGE: 57Y DATE: 10/21/2017 306 A TO: EHSAN ROSE M.D. FROM: MAIK VILLALBA M.D. Requesting Physician RE-CONSULTATION REASON FOR RE-CONSULTATION: Spurts of paroxysmal atrial fibrillation with aberrancy. Note that the patient was earlier seen in consult on 10/12/2017, hence, this reconsult is deemed to be a progress note of highly complex medical decision making. HISTORY OF PRESENT ILLNESS: Note that the patient was seen by me on 10/12/2017 for atrial fibrillation with rapid ventricular response prior to his EGD and he converted to sinus rhythm with IV Cardizem and underwent EGD. In the EGD it showed a healed duodenal ulcer and hiatal hernia and gastritis, and he had a biopsy done which was negative for helicobacter pylori. The patient subsequently was intubated due to withdrawal from alcohol. He also was seen to have some ventricular arrhythmia, nonsustained. Today the patient is ready to go home and denies any chest pain or discomfort. There are no palpitations. There is no PND, orthopnea, or leg edema. There are no anginal symptoms or chest pain of any kind, but the patient was noted that at times his heart spurts into the 140s and shows irregular rhythm with a wide-complex. The diagnosis being atrial fibrillation paroxysmal with aberrancy. The patient's CTA was obtained due to this and this showed no acute process. The patient is already on digoxin, I gave him an extra dose of Toprol XL 25 mg p.o. and his heart rate came down to 54 and there were no further bouts of atrial fibrillation with rapid ventricular response on ambulation. The patient is also anxious to go home. PHYSICAL EXAMINATION: GENERAL: On examination the patient is well-built and well-nourished, at present in no acute distress. VITAL SIGNS: His heart rate was 72 beats per minute, at present heart rate is 54 beats per minute after the Lopressor 25 mg p.o. given x1 now. He is afebrile with a temperature of 98.4 degrees Fahrenheit. His pulse as mentioned earlier is 54 beats per minute, blood pressure is 115/61, respirations are 12 per minute, O2 saturations are 98% on room air. HEENT: Head is atraumatic, normocephalic. Eyes: Pupils are equal, round and regular, reactive to light and accommodation. Extraocular movements are normal. There is no conjunctival pallor. There is no scleral icterus. ENT is negative. NECK: Supple. There is no JVD. There is no lymphadenopathy. There is no goiter. Carotids are equal. There is no bruit. Trachea is central. LUNGS: Show diminished air entry, prolonged expiration without any rhonchi, rales, or wheezing. HEART: S1, S2 is heard. S1 is of normal intensity. There is no S3 gallop. There is no S4 gallop. There is a systolic murmur in the left sternal border and the apex. There is no rub. ABDOMEN: Soft, nontender without any rebound, guarding, or rigidity. There is no hepatosplenomegaly. EXTREMITIES: Femorals are slightly diminished. Leg pulses are diminished. There is no pedal edema. There is no cyanosis or clubbing. There is no DVT or cellulitis. There is no calf tenderness. CENTRAL NERVOUS SYSTEM: The patient is conscious, awake, alert and oriented x3 with no focal deficits. PSYCHIATRIC: The patient's judgment and insight are intact. His affect is normal. DIAGNOSTICS: The patient's white count is 11,100; hemoglobin is 11.4; hematocrit is 35.9; platelet count is 466,000. The patient's sodium is 142.1, potassium 4.6, chloride is 105, CO2 is 23. The patient's BUN is 17, creatinine is 1.01, GFR is greater than 60. His liver function tests are normal now. His albumin was 4.1, total protein is 7.6. His calcium is 9.7. On 10/19, his lipase came down to 385.3. As mentioned earlier the patient's chest, abdomen CTA was negative. IMPRESSION: 1. Spurts of paroxysmal atrial fibrillation. Short episodes. The patient asymptomatic. Note that the patient is not a candidate for chronic anticoagulation in view of the EtOH. 2. Acute on chronic pancreatitis, resolved. Most likely EtOH induced. 3. Hypertension, blood pressure well-controlled. 4. EtOH abuse. 5. History of asthma/COPD. 6. Tobacco abuse. 7. Coronary artery disease, history of AK, no anginal symptoms. RECOMMENDATIONS: The patient appears to be stable and the episodes are very short and the patient is asymptomatic. Unfortunately the patient is not a candidate for chronic anticoagulation in view of the reasons mentioned above. Would recommend that the patient be discharged home. The patient desires of following up with me. We will get a 30 day event monitor and also we will schedule the patient for an outpatient IV Lexiscan Cardiolite Stress Test. The patient has my cell phone number and he will call if there is any problem. TIME SPENT: Note 40 minutes spent on this patient with more than 50% of the time spent on direct patient care. CODE STATUS: The patient is a full code. He says Mr. Gurpreet Sainz is his surrogate healthcare decision maker. Discussed with Dr. Villalba, the attending physician on the case. We will sign off. DICTATING PHYSICIAN: EHSAN ROSE M.D. [id number] PHY#: [id number] ID: [id number] JOB#: [id number] ACCT: [id number] cc:EHSAN ROSE M.D. >
--- NOTE | 2017-10-26 13:37 | PDOC DISCHARGE SUMMARY ---
General - Admit/Disc Date/PCP Admission Date/Primary Care Provider: 10/11/17 02:15 MAIK JERRY MD Discharge Date: 10/21/17 - Patient's left AMA - Discharge Diagnosis (1) Abdominal pain Is this a current diagnosis for this admission?: Yes Summary: Currently all resolved (2) Pancreatitis Is this a current diagnosis for this admission?: Yes Summary: Alcoholic pancreatitis resolved (3) Chronic alcoholism Is this a current diagnosis for this admission?: Yes Summary: Discussed with the patient and the mother about the chronic alcoholism needs to see the psych (4) Congestive heart failure (CHF) Is this a current diagnosis for this admission?: Yes Summary: Currently all stable (5) Duodenal ulcer Is this a current diagnosis for this admission?: Yes Summary: Currently all resolved status post endoscopy (6) Hypertension Is this a current diagnosis for this admission?: Yes Summary: Currently all stable (7) Tobacco abuse Is this a current diagnosis for this admission?: Yes (8) Atrial fibrillation Is this a current diagnosis for this admission?: Yes (9) Alcohol withdrawal syndrome Is this a current diagnosis for this admission?: Yes Summary: Currently all resolved (10) Non-sustained ventricular tachycardia Is this a current diagnosis for this admission?: Yes Summary: Since refused to stay in the hospital and leave AGAINST MEDICAL ADVICE (11) Respiratory failure Is this a current diagnosis for this admission?: Yes Summary: Currently all resolved (12) Leukocytosis Is this a current diagnosis for this admission?: Yes - Additional Information Resuscitation Status: Full Code Discharge Diet: As Tolerated Discharge Activity: Activity As Tolerated Prescriptions: Amlodipine Besylate [Norvasc 5 mg Tablet] 5 mg PO DAILY #30 tablet Cefdinir [Omnicef 300 mg Capsule] 1 cap PO BID #10 capsule Folic Acid [Folvite 1 mg Tablet] 1 mg PO DAILY #30 tablet Metoprolol Succinate [Toprol Xl 25 mg Tab.sr] 25 mg PO Q12 #60 tab.sr.24h Thiamine HCl [Thiamine 100 mg Tablet] 100 mg PO DAILY #30 tablet Home Medications: Albuterol Sulfate [Proair HFA Inhalation Aerosol 8.5 gm MDI] 2 puff IH Q4HP PRN 04/13/17 Digoxin [Lanoxin 0.125 mg Tablet] 0.125 mg PO DAILY #30 tablet 04/19/17 Ferrous Sulfate [Feosol 325 mg Tablet] 325 mg PO DAILY #30 tablet 04/19/17 Furosemide [Lasix 20 mg Tablet] 20 mg PO DAILY #30 tablet 04/19/17 Pantoprazole Sodium 40 mg PO BID 30 Days #60 tablet. 04/19/17 Docusate Sodium [Dok] 100 mg PO BID 10/11/17 Amlodipine Besylate [Norvasc 5 mg Tablet] 5 mg PO DAILY #30 tablet 10/21/17 Cefdinir [Omnicef 300 mg Capsule] 1 cap PO BID #10 capsule 10/21/17 Folic Acid [Folvite 1 mg Tablet] 1 mg PO DAILY #30 tablet 10/21/17 Metoprolol Succinate [Toprol Xl 25 mg Tab.sr] 25 mg PO Q12 #60 tab.sr.24h Thiamine HCl [Thiamine 100 mg Tablet] 100 mg PO DAILY #30 tablet 10/21/17 History of Present Illness History of Present Illness: EUGENE ARAGON is a 57 year old male This is a 57-year-old male with the history of the peptic ulcer disease history of the GI bleed history of the hypertension's history of the congestive heart failure and history of the chronic A. fib and a history of the alcoholism in the past and history of the pancreatitis in the past came to the emergency department with a complaint of abdominal pain nausea and vomiting and unable to tolerate the foodFor the last 3 days Patient apparently doing well until the last admissions in the March patient was recently seen in the office 2 weeks but was everything was stable and according to the patient's last 3 days patient's Mr. couple of doses of the medication and started feeling the symptoms Patient's denied any alcohol drink but still on and off drink alcohol but not like as before Patient see outpatients Dr. Orourke the cardiology Patient's denied any chest pain denied any shortness of the breath Patient initial workup for the lipase was [address] abdomen and pelvis suggesting pancreatic Inflammations When I saw the patient's patient's currently doing fair Feeling little bit better Hospital Course Hospital Course: This 57-year-old male admitted basically for the abdominal pain and alcoholic pancreatitis and patient started developing alcohol withdrawal symptoms and the patient's underwent for the respiratory distress and patient was put in the ICU Patient seen by the Dr. Conner and for the endoscopy which is negative for any peptic ulcer disease Patient had seen by the pulmonary for respiratory failure Since extubated and transferred to the medical floor Also have a some ventricular tachycardia which is nonsustained and cardiology was consulted due to the underlying congestive heart failure and a paper sales representative adjust the medication and patient supposed to be staying in further workup but patients refused to stay in patients left AGAINST MEDICAL ADVICE Informed the patient's mother Physical Exam Vital Signs: Temp Pulse Resp BP Pulse Ox 98.4 F 53 L 12 115/61 98 10/21/17 14:51 10/21/17 14:51 10/21/17 14:51 10/21/17 14:51 10/21/17 14:51 General appearance: PRESENT: no acute distress, well-developed, well-nourished Head exam: PRESENT: atraumatic, normocephalic Eye exam: PRESENT: conjunctiva pink, EOMI, PERRLA. ABSENT: scleral icterus Ear exam: PRESENT: normal external ear exam Mouth exam: PRESENT: moist, tongue midline Neck exam: PRESENT: full ROM. ABSENT: carotid bruit, JVD, lymphadenopathy, thyromegaly Respiratory exam: PRESENT: clear to auscultation garrett Cardiovascular exam: PRESENT: RRR. ABSENT: diastolic murmur, rubs, systolic murmur Pulses: PRESENT: normal dorsalis pedis pul, +2 pedal pulses bilateral Vascular exam: PRESENT: normal capillary refill GI/Abdominal exam: PRESENT: normal bowel sounds, soft. ABSENT: distended, guarding, mass, organolmegaly, rebound, tenderness Rectal exam: PRESENT: deferred Musculoskeletal exam: PRESENT: ambulatory Neurological exam: PRESENT: alert, awake, oriented to person, oriented to place , oriented to time, oriented to situation, CN II-XII grossly intact. ABSENT: motor sensory deficit Psychiatric exam: PRESENT: appropriate affect, normal mood. ABSENT: homicidal ideation, suicidal ideation Skin exam: PRESENT: dry, intact, warm. ABSENT: cyanosis, rash Results Laboratory Results: 10/21/17 09:10 10/21/17 09:10 Impressions: Abdomen/Pelvis CT 10/10/17 23:28 IMPRESSION: 1. Calcifications involving the head of the pancreas with mild peripancreatic fat stranding. These findings could be seen with mild acute pancreatitis superimposed on chronic pancreatitis. Correlation with serum lipase recommended. This exam was performed according to our departmental dose-optimization program, which includes automated exposure control, adjustment of the mA and/or kV according to patient size and/or use of iterative reconstruction technique. KUB X-Ray 10/15/17 00:00 IMPRESSION: Nasogastric tube tip and side port in the stomach Chest X-Ray 10/19/17 06:00 IMPRESSION: Lines and tubes. Otherwise, no acute cardiopulmonary findings. Chest/Abdomen CTA 10/21/17 00:00 IMPRESSION: No acute findings Qualifiers - * PATIENT BEING DISCHARGED WITH ANY OF THE FOLLOWING DIAGNOSIS: No VTE patient discharged on overlapping Therapy?: Yes Plan Time Spent: Greater than 30 Minutes - Patient's (medical advice hopefully patient follow with the cardiology as outpatient
== END 2017-10-21 15:14 | disposition left against medical advice (07) | DRG 438 ==
LOC: ER 20:30 → EH 10-11 02:15 → 3S 10-11 04:47 → 3N 10-12 20:42 → ICU 10-13 21:46 → 3N 10-19 14:46
PROVIDERS: ADMIT Family Medicine; ATTEND Family Medicine
PROC: 0DB68ZX Excision of Stomach, Via Natural or Artificial Opening Endoscopic, Diagnostic (ICD-10-PCS; principal; 2017-10-12 14:30)
PROC: 0DH67UZ Insertion of Feeding Device into Stomach, Via Natural or Artificial Opening (ICD-10-PCS; 2017-10-13)
PROC: 5A1955Z Respiratory Ventilation, Greater than 96 Consecutive Hours (ICD-10-PCS; 2017-10-13)
PROC: 0BH17EZ Insertion of Endotracheal Airway into Trachea, Via Natural or Artificial Opening (ICD-10-PCS; 2017-10-13)
DX: K85.20 Alcohol induced acute pancreatitis without necrosis or infection (principal); J96.00 Acute respiratory failure, unspecified whether with hypoxia or hypercapnia; I50.32 Chronic diastolic (congestive) heart failure; F10.231 Alcohol dependence with withdrawal delirium; I47.2 Ventricular tachycardia; I48.2 Chronic atrial fibrillation; I11.0 Hypertensive heart disease with heart failure; K26.9 Duodenal ulcer, unspecified as acute or chronic, without hemorrhage or perforation; I48.0 Paroxysmal atrial fibrillation; K21.9 Gastro-esophageal reflux disease without esophagitis; K29.70 Gastritis, unspecified, without bleeding; K44.9 Diaphragmatic hernia without obstruction or gangrene; Z78.1 Physical restraint status; M19.90 Unspecified osteoarthritis, unspecified site; Z79.899 Other long term (current) drug therapy; I25.2 Old myocardial infarction; F17.200 Nicotine dependence, unspecified, uncomplicated; Z88.8 Allergy status to other drugs, medicaments and biological substances
CPT/HCPCS: 31500; 36415; 36600; 43239; 71045; 71275; 74018; 74177; 80048; 80053; 80162; 80307; 81001; 82272; 82803; 83690; 83735; 84478; 85025; 85027; 87040; 87086; 87493; 88305; 88342; 93005; 93010; 93306; 94002; 94003; 94799; 96374; 96375; 99284; J0171; J0295; J0330; J0696; J1200; J1610; J1644; J2060; J2250; J2270; J2310; J2405; J2704; J2765; J3010; J3411; J3480; J3490; J7030; S0164

== ENCOUNTER → 2017-11-22 | Outpatient (CLI) | payer BC ==
--- NOTE | 2017-11-22 13:20 | RADIOLOGY REPORT (SQ) ---
EXAM DESCRIPTION: U/S RETROPERITON (RENAL/AORTA) COMPLETED DATE/TIME: 11/22/2017 9:06 am REASON FOR STUDY: ACUTE KIDNEY FAILURE, UNSPECIFIED N17.9 ACUTE KIDNEY FAILURE, UNSPECIFIED COMPARISON: CT abdomen pelvis 10/11/2017, CT angio chest 10/21/2017 TECHNIQUE: Dynamic and static grayscale images acquired of the kidneys and bladder and recorded on P ACS. Additional selected color Doppler and spectral images recorded. LIMITATIONS: Large patient, limited exam FINDINGS: RIGHT KIDNEY: Normal size, 10 cm in length. Normal echogenicity. No solid or suspicious ma sses. No hydronephrosis. No calcifications. LEFT KIDNEY: Normal size, 10 cm in length. Normal echogenicity. No solid or suspicious masses. No hy dronephrosis. No calcifications. BLADDER: No masses. OTHER FINDINGS: No other significant finding. IMPRESSION: No hydronephrosis or hydroureter. No urinary stones. Normal renal cortical thickness. TECHNICAL DOCUMENTATION: JOB ID: [id number] [email or web address]- All Rights Reserved Reading location - IP/workstation name: [email or web address]
== END ==
LOC: RAD 08:32
PROVIDERS: ATTEND Family Medicine
DX: N17.9 Acute kidney failure, unspecified (principal)
CPT/HCPCS: 76770

== ENCOUNTER 2018-05-12 21:08 | Inpatient (IN) | payer BC ==
[2018-05-12] MEDS ORDERED: NORMAL SALINE 1000 ML 1,000 ML IV ONE (21:26)
[2018-05-12] MEDS ORDERED: ONDANSETRON HCL INJ/PF 4 MG/2 ML SDV IV ONE (21:27)
[2018-05-12] MEDS ORDERED: MORPHINE SULFATE 10 MG/ML INJ IV ONE (21:27)
--- NOTE | 2018-05-12 21:29 | ER Document Report ---
ED General - General Stated Complaint: ABDOMINAL PAIN Time Seen by Provider: 05/12/18 21:19 Primary Care Provider: MAIK JERRY MD [Primary Care Provider] - Follow up as needed TRAVEL OUTSIDE OF THE [place] IN LAST 30 DAYS: No - HPI Patient complains to provider of: abdominal pain Onset: Other - 4-year-old man with a history of pancreatitis in the past who presents for evaluation of symptoms consistent with previous episodes of pancreatitis. He notes that he was drinking on at which time he began to have abdominal pain. Tonight while he was at work he began recurrently vomiting and throwing up unable to tolerate anything. He is continued to have some lightheadedness associated with this. - Related Data Allergies/Adverse Reactions: KELLIE Inhibitors Allergy (Severe, Verified 10/11/17 11:11) Anaphylaxis lisinopril Allergy (Verified 10/11/17 11:11) Past Medical History - General Information source: Patient - Social History Smoking Status: Current Every Day Smoker Frequency of alcohol use: Heavy Drug Abuse: None Family History: Hypertension - Past Medical History Cardiac Medical History: Reports: Hx Atrial Fibrillation, Hx Congestive Heart Failure, Hx Hypertension, Hx Pulmonary Embolism Pulmonary Medical History: Reports: Hx Asthma Neurological Medical History: Denies: Hx Seizures Renal/ Medical History: Denies: Hx Peritoneal Dialysis GI Medical History: Reports: Hx Gastroesophageal Reflux Disease Musculoskeletal Medical History: Reports Hx Arthritis, Reports Hx Musculoskeletal Deformity, Reports Hx Musculoskeletal Trauma Psychiatric Medical History: Denies: Hx Depression Traumatic Medical History: Reports: Hx Fractures - ankle - Immunizations Hx Diphtheria, Pertussis, Tetanus Vaccination: Yes Review of Systems - Review of Systems -: Yes All other systems reviewed and negative Physical Exam - Vital signs Vitals: Temp Pulse Resp BP Pulse Ox 99.0 F 90 17 166/79 H 96 05/12/18 21:27 05/12/18 21:27 05/12/18 21:27 05/12/18 21:27 05/12/18 21:27 - General General appearance: Alert In distress: Mild - HEENT Head: Normocephalic Eyes: Normal Conjunctiva: Normal Cornea: Normal Extraocular movements intact: Yes Eyelashes: Normal Pupils: PERRL - Respiratory Respiratory status: No respiratory distress Chest status: Nontender Breath sounds: Normal Chest palpation: Normal - Cardiovascular Rhythm: Regular, Other Murmur: No - Abdominal Distension: No distension Bowel sounds: Normal Tenderness: Tender - diffuse tenderness - Back Back: Normal, Nontender - Extremities General upper extremity: Normal inspection, Nontender, Normal ROM, Normal strength General lower extremity: Normal inspection, Nontender, Normal ROM, Normal strength - Neurological Neuro grossly intact: Yes Cognition: Normal Kym Coma Scale Eye Opening: Spontaneous [place] Coma Scale Verbal: Oriented [place] Coma Scale Motor: Obeys Commands Kym Coma Scale Total: 15 Speech: Normal Cranial nerves: Normal Cerebellar coordination: Normal Motor strength normal: LUE, RUE, RLE - Psychological Associated symptoms: Normal affect, Normal mood Course - Re-evaluation Re-evalutation: 05/12/18 23:32 This 58-year-old man presents for pain in his abdomen after having drink. Has had similar pain in the past attributed to his pancreas being inflamed. Labs demonstrate this patient does have a elevated lipase, has slight leukocytosis. He has a CT which also demonstrates consistent changes with pancreatitis. This patient has pancreatitis at this time, he is unable to tolerate p.o. and does not feel well at this time. We will plan for this patient undergo admission of the hospital for ongoing administration of analgesia as well as hydration and progression of p.o. 05/12/18 23:[address] Donald who plans to admit this patient to hospital for further management and monitoring. - Vital Signs Vital signs: Temp Pulse Resp BP Pulse Ox 99.0 F 90 17 166/79 H 96 05/12/18 21:27 05/12/18 21:27 05/12/18 21:27 05/12/18 21:27 05/12/18 21:27 - Laboratory Result Diagrams: 05/12/18 21:18 05/12/18 21:18 Laboratory results interpreted by me: 05/12/18 05/12/18 21:18 21:18 WBC 11.9 H Hgb 12.9 L MCV 77 L MCH 25.2 L Lymphocytes % 5.7 L Monocytes % 17.9 H Absolute Neutrophils 9.0 H Absolute Monocytes 2.1 H BUN 35 H Glucose 157 H ALT 16 L Lipase 1145.4 H Discharge - Discharge Clinical Impression: Pancreatitis Qualifiers: Chronicity: acute Pancreatitis type: alcohol induced Acute pancreatitis complication: unspecified Qualified Code(s): K85.20 - Alcohol induced acute pancreatitis without necrosis or infection Condition: Stable Disposition: ADMITTED INPATIENT Admitting Provider: [facility] Unit Admitted: Medical Floor Referrals: MAIK JERRY MD [Primary Care Provider] - Follow up as needed
[2018-05-12 21:51] LABS: ABSOLUTE BASOPHILS # (AUTO) 0.1 10^3/uL (0.0-0.2); ABSOLUTE LYMPHOCYTES (AUTO) 0.7 10^3/uL (0.5-4.7); ABSOLUTE MONOCYTES (AUTO) 2.1 10^3/uL (0.1-1.4); BASOPHILS % (AUTO) 0.7 % (0-2); HEMATOCRIT 39.1 % (37.9-51.0); HEMOGLOBIN 12.9 g/dL (13.5-17.0); LYMPHOCYTES % (AUTO) 5.7 % (13-45); MEAN CORPUSCULAR HEMOGLOBIN 25.2 pg (27.0-33.4); MEAN CORPUSCULAR VOLUME 77 fl (80-97); MONOCYTES % (AUTO) 17.9 % (3-13); PLATELET COUNT 230 10^3/uL (150-450); RED BLOOD COUNT 5.11 10^6/uL (4.35-5.55); RED CELL DISTRIBUTION WIDTH 13.5 % (11.5-14.0); SEGMENTED NEUTROPHILS % (AUTO) 75.7 % (42-78); TOTAL CELLS COUNTED % (AUTO) 100 %; WHITE BLOOD COUNT 11.9 10^3/uL (4.0-10.5)
[2018-05-12 21:56] LABS: APPEARANCE,URINE CLEAR; BILIRUBIN,URINE NEGATIVE (NEGATIVE); COLOR,URINE YELLOW; GLUCOSE, URINE NEGATIVE (NEGATIVE); KETONES,URINE NEGATIVE (NEGATIVE); LEUKOCYTE ESTERASE,URINE NEGATIVE (NEGATIVE); NITRITE,URINE NEGATIVE (NEGATIVE); PROTEIN,URINE NEGATIVE (NEGATIVE); UROBILINOGEN,URINE NEGATIVE mg/dL (<2.0)
[2018-05-12 21:59] LABS: ALANINE AMINOTRANSFERASE 16 U/L (21-72); ALBUMIN 4.9 g/dL (3.5-5.0); ALKALINE PHOSPHATASE 76 U/L (38-126); ANION GAP 9 (5-19); ASPARTATE AMINO TRANSFERASE 45 U/L (17-59); BILIRUBIN,DIRECT 0.3 mg/dL (0.0-0.4); BILIRUBIN,TOTAL 0.8 mg/dL (0.2-1.3); BLOOD UREA NITROGEN 35 mg/dL (7-20); CALCIUM 8.9 mg/dL (8.4-10.2); CARBON DIOXIDE 23 mmol/L (22-30); CHLORIDE 106 mmol/L (98-107); GLUCOSE 157 mg/dL (75-110); LIPASE 1145.4 U/L (23-300); POTASSIUM 4.1 mmol/L (3.6-5.0); SODIUM 138.2 mmol/L (137-145); TOTAL PROTEIN 8.2 g/dL (6.3-8.2)
[2018-05-12] MEDS ORDERED: FENTANYL CITRATE INJ/PF 100 MCG/2 ML AMPUL IV ONE (23:10)
--- NOTE | 2018-05-12 23:26 | RADIOLOGY REPORT (SQ) ---
EXAM DESCRIPTION: CT ABDOMEN PELVIS WITH IV CONTRAST COMPLETED DATE/TME: 05/12/2018 21:26 CLINICAL HISTORY: 58 years, Male, concern for pancreatitis COMPARISON: Ultrasound 11/22/2017. CT 10/11/2017. TECHNIQUE: 363 Images stored on PACS. All CT scanners at this facility use dose modulation, iterative reconstruction, and/or weight based dosing when appropriate to reduce radiation dose to as low as reasonably achievable (ALARA). [facility]: Dose Right [facility]: CareDose [facility]: Dose Right [facility]: Teradose 4D [facility]: [employer] LIMITATIONS: None. FINDINGS: Limited evaluation of the lung bases is unremarkable. Osseous structures are grossly intact. Fatty infiltrative change to the liver. The spleen, adrenal glands, are unremarkable. Calcifications of the pancreas/pancreatic head consistent with chronic pancreatitis. Superimposed mild peripancreatic inflammatory changes are noted consistent with acute on chronic pancreatitis. The gallbladder is present. Kidneys are unremarkable bilaterally. No gross evidence for bowel obstruction. Normal appendix. No free air or free fluid. Urinary bladder is not distended, limiting its evaluation. IMPRESSION: Findings consistent with mild acute on chronic pancreatitis. Fatty infiltrative change to the liver. TECHNICAL DOCUMENTATION: Quality ID # 436: Final reports with documentation of one or more dose reduction techniques (e.g., Automated exposure control, adjustment of the mA and/or kV according to patient size, use of iterative reconstruction technique) copyright 2011 [employer]- All Rights Reserved
[2018-05-13] MEDS ORDERED: GLUCAGON,HUMAN RECOMB 1 MG INJ SUBCUT PRN (00:33)
[2018-05-13] MEDS ORDERED: DEXTROSE 50%-WATER 25 GM/50 ML DISP.SYRIN IV PRN ×2 (00:33)
[2018-05-13] MEDS ORDERED: NORMAL SALINE 1000 ML 1,000 ML IV PRN ×2 (00:33→14:59)
[2018-05-13] MEDS ORDERED: DEXTROSE 40% GEL 15 GM TUBE PO PRN ×2 (00:33)
[2018-05-13] MEDS: TRAMADOL HCL 50 MG TABLET PO PRN ×3 (10:51→23:26)
--- NOTE | 2018-05-13 14:58 | PDOC H&P ---
History of Present Illness Admission Date/PCP: 05/12/18 23:55 MAIK JERRY MD History of Present Illness: EUGENE ARAGNO is a 58 year old male,He has a history of alcohol related chronic pancreatitis, he came to the emergency room for evaluation of abdominal pain, vomiting in the last 24 hours. 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 A CAT scan of the abdomen and pelvis with contrast was obtained, it demonstrated calcifications of the pancreas/pancreatic head consistent with chronic pancreatitis. There was superimposed mild peripancreatic inflammatory changes consistent with acute on chronic pancreatitis also found was fatty infiltration of the liver. He has history of on and off alcohol abuse I saw mary alcocer in the emergency room presently no bed on the floor, he is still in the emergency room on a stretcher on IV fluid, he has pain. Past Medical History Cardiac Medical History: Reports: Atrial Fibrillation, Hypertension, Pulmonary Embolism Pulmonary Medical History: Reports: Asthma GI Medical History: Reports: Gastroesophageal Reflux Disease, Other - Chronic alcohol pancreatitis Musculoskeltal Medical History: Reports: Arthritis Social History Smoking Status: Current Every Day Smoker Frequency of Alcohol Use: Heavy Hx Recreational Drug Use: Yes Drugs: Cocaine Hx Prescription Drug Abuse: No Family History Family History: Hypertension Parental Family History Reviewed: Yes Children Family History Reviewed: Yes Sibling(s) Family History Reviewed.: Yes Medication/Allergy Home Medications: Digoxin [Lanoxin 0.125 mg Tablet] 0.125 mg PO DAILY #30 tablet 04/19/17 Furosemide [Lasix 20 mg Tablet] 20 mg PO DAILY #30 tablet 04/19/17 Pantoprazole Sodium 40 mg PO BID 30 Days #60 tablet. 04/19/17 Docusate Sodium [Dok] 100 mg PO DAILYP PRN 10/11/17 Metoprolol Succinate [Toprol Xl 25 mg Tab.sr] 25 mg PO Q12 #60 tab.sr.24h 10/21/17 Spironolactone [Aldactone 25 mg Tablet] 25 mg PO DAILY 05/13/18 Allergies/Adverse Reactions: KELLIE Inhibitors Allergy (Severe, Verified 05/13/18 00:31) Anaphylaxis lisinopril Allergy (Verified 05/13/18 00:31) Review of Systems Constitutional: ABSENT: chills, fever(s), headache(s), weight gain, weight loss Eyes: ABSENT: visual disturbances Ears: ABSENT: hearing changes Cardiovascular: ABSENT: chest pain, dyspnea on exertion, edema, orthropnea, palpitations Respiratory: ABSENT: cough, hemoptysis Gastrointestinal: PRESENT: abdominal pain, vomiting Genitourinary: ABSENT: dysuria, hematuria Musculoskeletal: ABSENT: joint swelling Integumentary: ABSENT: rash, wounds Neurological: ABSENT: abnormal gait, abnormal speech, confusion, dizziness, focal weakness, syncope Psychiatric: ABSENT: anxiety, depression, homidical ideation, suicidal ideation Endocrine: ABSENT: cold intolerance, heat intolerance, menstrual abnormalities, polydipsia, polyuria Hematologic/Lymphatic: ABSENT: easy bleeding, easy bruising, lymphadenopathy Physical Exam Vital Signs: Temp Pulse Resp BP Pulse Ox 98.5 F 83 16 168/62 H 98 05/13/18 06:17 05/13/18 06:17 05/13/18 06:17 05/13/18 06:17 05/13/18 06:17 Intake & Output 05/12/18 05/13/18 05/14/18 06:59 06:59 06:59 Intake Total 1000 Balance 1000 Weight 70.6 kg General appearance: PRESENT: no acute distress Head exam: PRESENT: atraumatic, normocephalic Eye exam: PRESENT: conjunctiva pink, EOMI, PERRLA Ear exam: PRESENT: normal external ear exam Mouth exam: PRESENT: moist, tongue midline Neck exam: PRESENT: full ROM Respiratory exam: PRESENT: clear to auscultation garrett Cardiovascular exam: PRESENT: RRR, +S1, +S2 Pulses: PRESENT: normal dorsalis pedis pul, +2 pedal pulses bilateral Vascular exam: PRESENT: normal capillary refill GI/Abdominal exam: PRESENT: normal bowel sounds, soft, tenderness Rectal exam: PRESENT: deferred Neurological exam: PRESENT: alert, awake, oriented to person, oriented to place, oriented to time, oriented to situation, CN II-XII grossly intact Psychiatric exam: PRESENT: appropriate affect, normal mood Skin exam: PRESENT: dry, intact, warm Results Laboratory Results: 05/12/18 21:18 05/12/18 21:18 05/12/18 05/12/18 05/12/18 21:18 21:18 21:18 WBC 11.9 H RBC 5.11 Hgb 12.9 L Hct 39.1 MCV 77 L MCH 25.2 L MCHC 33.0 RDW 13.5 Plt Count 230 Seg Neutrophils % 75.7 Lymphocytes % 5.7 L Monocytes % 17.9 H Eosinophils % 0.0 Basophils % 0.7 Absolute Neutrophils 9.0 H Absolute Lymphocytes 0.7 Absolute Monocytes 2.1 H Absolute Eosinophils 0.0 Absolute Basophils 0.1 Sodium 138.2 Potassium 4.1 Chloride 106 Carbon Dioxide 23 Anion Gap 9 BUN 35 H Creatinine 1.19 Est GFR ( Amer) > 60 Est GFR (Non-Af Amer) > 60 Glucose 157 H Calcium 8.9 Total Bilirubin 0.8 AST 45 ALT 16 L Alkaline Phosphatase 76 Total Protein 8.2 Albumin 4.9 Lipase 1145.4 H Urine Color YELLOW Urine Appearance CLEAR Urine pH 5.0 Ur Specific [place] 1.010 Urine Protein NEGATIVE Urine Glucose (UA) NEGATIVE Urine Ketones NEGATIVE Urine Blood NEGATIVE Urine Nitrite NEGATIVE Ur Leukocyte Esterase NEGATIVE Urine WBC (Auto) 0 Urine RBC (Auto) 0 Impressions: Abdomen/Pelvis CT 05/12/18 21:26 IMPRESSION: Findings consistent with mild acute on chronic pancreatitis. Fatty infiltrative change to the liver. TECHNICAL DOCUMENTATION: Quality ID # 436: Final reports with documentation of one or more dose reduction techniques (e.g., Automated exposure control, adjustment of the mA and/or kV according to patient size, use of iterative reconstruction technique) copyright 2011 [employer]- All Rights Reserved Assessment & Plan - Diagnosis (1) Acute alcoholic pancreatitis Qualifiers: Acute pancreatitis complication: unspecified Qualified Code(s): K85.20 - Alcohol induced acute pancreatitis without necrosis or infection Is this a current diagnosis for this admission?: Yes Plan: He has acute alcoholic pancreatitis, he is admitted, he will be kept n.p.o. if no vomiting 24 hours we will start clear liquid diet (2) Chronic alcoholic pancreatitis Is this a current diagnosis for this admission?: Yes Plan: For pain control will use tramadol (3) Cardiomyopathy Qualifiers: Cardiomyopathy type: alcoholic Qualified Code(s): I42.6 - Alcoholic cardiomyopathy Is this a current diagnosis for this admission?: Yes Plan: Continue medication for, cardiomyopathy
[2018-05-13] MEDS: SPIRONOLACTONE 25 MG TABLET PO SCH (15:48)
[2018-05-13] MEDS: METOPROLOL SUCCINATE 25 MG TAB.SR.24H PO SCH ×2 (15:50→22:00)
[2018-05-13] MEDS: LANSOPRAZOLE 30 MG TAB.RAP.DR PO SCH (17:36)
[2018-05-13] MEDS: DIGOXIN 0.125 MG TABLET PO SCH (17:56)
[2018-05-14] MEDS: TRAMADOL HCL 50 MG TABLET PO PRN ×2 (05:42→11:18)
[2018-05-14] MEDS: LANSOPRAZOLE 30 MG TAB.RAP.DR PO SCH (05:42)
[2018-05-14] MEDS: DIGOXIN 0.125 MG TABLET PO SCH (10:02)
[2018-05-14] MEDS: SPIRONOLACTONE 25 MG TABLET PO SCH (10:02)
[2018-05-14] MEDS: METOPROLOL SUCCINATE 25 MG TAB.SR.24H PO SCH (10:02)
[2018-05-14 12:23] LABS: HEMATOCRIT 37.1 % (37.9-51.0); HEMOGLOBIN 12.2 g/dL (13.5-17.0); MEAN CORPUSCULAR HEMOGLOBIN 25.5 pg (27.0-33.4); MEAN CORPUSCULAR HGB CONC 32.8 g/dL (32.0-36.0); MEAN CORPUSCULAR VOLUME 78 fl (80-97); PLATELET COUNT 199 10^3/uL (150-450); RED BLOOD COUNT 4.78 10^6/uL (4.35-5.55); RED CELL DISTRIBUTION WIDTH 13.5 % (11.5-14.0); WHITE BLOOD COUNT 7.4 10^3/uL (4.0-10.5)
[2018-05-14 12:39] LABS: ANION GAP 9 (5-19); BLOOD UREA NITROGEN 18 mg/dL (7-20); CALCIUM 8.9 mg/dL (8.4-10.2); CARBON DIOXIDE 24 mmol/L (22-30); CHLORIDE 105 mmol/L (98-107); GLUCOSE 79 mg/dL (75-110); LIPASE 913.4 U/L (23-300); POTASSIUM 4.7 mmol/L (3.6-5.0); SODIUM 137.7 mmol/L (137-145)
[2018-05-14 16:32] VITALS: BP 146/74
--- NOTE | 2018-05-14 20:17 | PDOC DISCHARGE SUMMARY ---
General - Admit/Disc Date/PCP Admission Date/Primary Care Provider: 05/12/18 23:55 MAIK JERRY MD Discharge Date: 05/14/18 - Discharge Diagnosis (1) Acute alcoholic pancreatitis Is this a current diagnosis for this admission?: Yes (2) Chronic alcoholic pancreatitis Is this a current diagnosis for this admission?: Yes (3) Cardiomyopathy Is this a current diagnosis for this admission?: Yes - Additional Information Resuscitation Status: Full Code Home Medications: Digoxin [Lanoxin 0.125 mg Tablet] 0.125 mg PO DAILY #30 tablet 04/19/17 Furosemide [Lasix 20 mg Tablet] 20 mg PO DAILY #30 tablet 04/19/17 Pantoprazole Sodium 40 mg PO BID 30 Days #60 tablet.dr 04/19/17 Docusate Sodium [Dok] 100 mg PO DAILYP PRN 10/11/17 Metoprolol Succinate [Toprol Xl 25 mg Tab.sr] 25 mg PO Q12 #60 tab.sr.24h 10/21/17 Spironolactone [Aldactone 25 mg Tablet] 25 mg PO DAILY 05/13/18 History of Present Illness History of Present Illness: EUGENE ARAGON is a 58 year old male,He has a history of alcohol related chronic pancreatitis, he came to the emergency room for evaluation of abdominal pain, vomiting in the last 24 hours. 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 A CAT scan of the abdomen and pelvis with contrast was obtained, it demonstrated calcifications of the pancreas/pancreatic head consistent with chronic pancreatitis. There was superimposed mild peripancreatic inflammatory changes consistent with acute on chronic pancreatitis also found was fatty infiltration of the liver. He has history of on and off alcohol abuse I saw him in the emergency room presently no bed on the floor, he is still in the emergency room on a stretcher on IV fluid, he has pain. Hospital Course Hospital Course: Sent was admitted for the management of acute alcoholic pancreatitis he has background of chronic pancreatitis, he was treated conservatively, kept n.p.o. with IV fluid therapy. Pain control was achieved with tramadol, he left AGAINST MEDICAL ADVICE Physical Exam Vital Signs: Temp Pulse Resp BP Pulse Ox 97.3 F 55 L 16 146/74 H 100 05/14/18 15:11 05/14/18 15:11 05/14/18 15:11 05/14/18 15:11 05/14/18 15:11 Intake & Output 05/13/18 05/14/18 05/15/18 06:59 06:59 06:59 Intake Total 1000 1753 1214 Balance 1000 1753 1214 Weight 70.6 kg 71.4 kg General appearance: PRESENT: no acute distress Eye exam: PRESENT: PERRLA Respiratory exam: PRESENT: clear to auscultation garrett Cardiovascular exam: PRESENT: +S1, +S2 GI/Abdominal exam: PRESENT: soft Results Laboratory Results: 05/14/18 11:55 05/14/18 11:55 05/14/18 05/14/18 11:55 11:55 WBC 7.4 RBC 4.78 Hgb 12.2 L Hct 37.1 L MCV 78 L MCH 25.5 L MCHC 32.8 RDW 13.5 Plt Count 199 Sodium 137.7 Potassium 4.7 Chloride 105 Carbon Dioxide 24 Anion Gap 9 BUN 18 Creatinine 0.93 Est GFR ( Amer) > 60 Est GFR (Non-Af Amer) > 60 Glucose 79 Calcium 8.9 Lipase 913.4 H Impressions: Abdomen/Pelvis CT 05/12/18 21:26 IMPRESSION: Findings consistent with mild acute on chronic pancreatitis. Fatty infiltrative change to the liver. TECHNICAL DOCUMENTATION: Quality ID # 436: Final reports with documentation of one or more dose reduction techniques (e.g., Automated exposure control, adjustment of the mA and/or kV according to patient size, use of iterative reconstruction technique) copyright 2011 [employer]- All Rights Reserved Qualifiers - * PATIENT BEING DISCHARGED WITH ANY OF THE FOLLOWING DIAGNOSIS: No
== END 2018-05-14 17:38 | disposition left against medical advice (07) | DRG 439 ==
LOC: ER 21:08 → EH 23:55 → 4N 05-13 21:45
PROVIDERS: ADMIT Internal Medicine; ATTEND Internal Medicine
DX: K85.20 Alcohol induced acute pancreatitis without necrosis or infection (principal); I42.6 Alcoholic cardiomyopathy; K86.0 Alcohol-induced chronic pancreatitis; I50.9 Heart failure, unspecified; I11.0 Hypertensive heart disease with heart failure; K21.9 Gastro-esophageal reflux disease without esophagitis; M19.90 Unspecified osteoarthritis, unspecified site; F17.210 Nicotine dependence, cigarettes, uncomplicated; Z86.711 Personal history of pulmonary embolism
CPT/HCPCS: 36415; 74177; 80048; 80053; 81001; 83690; 85025; 85027; 96361; 96374; 96375; 99285; J2270; J2405; J3010; J7030

== ENCOUNTER 2019-08-13 22:22 | Emergency (ER) | payer BC ==
--- NOTE | 2019-08-13 23:03 | ER Document Report ---
ED General - General Chief Complaint: Abdominal Pain Stated Complaint: STOMACH PAIN Time Seen by Provider: 08/13/19 22:45 Primary Care Provider: MAIK JERRY MD [Primary Care Provider] - Follow up as needed Mode of Arrival: Ambulatory Information source: Patient TRAVEL OUTSIDE OF THE [place] IN LAST 30 DAYS: No - HPI Onset: Other - over the last week Onset/Duration: Gradual Quality of pain: Achy, Cramping Severity: Moderate Pain Level: 3 Associated symptoms: Nausea, Vomiting, Other - Constipation, Abdominal Pain Exacerbated by: Food Relieved by: Denies Similar symptoms previously: No Recently seen / treated by doctor: No Notes: 59 year old male with a history of AFib, CHF, HTN, PE, GERD here in the ER for 1 week of lower abdominal pains (off and on) with nausea, vomiting, and constipation. The patient says he initially had some loose stools with his symptoms but he has been constipated for the last several days. The patient denies fevers, chills, sweats, urinary symptoms. The patient says he recently had his Metoprolol dose increased and he also had a medication re-prescribed (he is unsure what this medicine is for or the name of the medication). - Related Data Allergies/Adverse Reactions: KELLIE Inhibitors Allergy (Severe, Verified 05/13/18 00:31) Anaphylaxis lisinopril Allergy (Verified 05/13/18 00:31) Past Medical History - General Information source: Patient - Social History Smoking Status: Current Every Day Smoker Chew tobacco use (# tins/day): No Frequency of alcohol use: Occasional Drug Abuse: None Family History: Hypertension Patient has suicidal ideation: No Patient has homicidal ideation: No - Past Medical History Cardiac Medical History: Reports: Hx Atrial Fibrillation, Hx Congestive Heart Failure, Hx Hypertension, Hx Pulmonary Embolism Pulmonary Medical History: Reports: Hx Asthma Neurological Medical History: Denies: Hx Seizures Renal/ Medical History: Denies: Hx Peritoneal Dialysis GI Medical History: Reports: Hx Gastroesophageal Reflux Disease Musculoskeletal Medical History: Reports Hx Arthritis, Reports Hx Musculoskeletal Deformity, Reports Hx Musculoskeletal Trauma Psychiatric Medical History: Denies: Hx Depression Traumatic Medical History: Reports: Hx Fractures - ankle - Immunizations Hx Diphtheria, Pertussis, Tetanus Vaccination: Yes Review of Systems - Review of Systems Constitutional: No symptoms reported EENT: No symptoms reported Cardiovascular: No symptoms reported Respiratory: No symptoms reported Gastrointestinal: Abdominal pain, Nausea, Vomiting, Constipation Genitourinary: No symptoms reported Male Genitourinary: No symptoms reported Musculoskeletal: No symptoms reported Skin: No symptoms reported Hematologic/Lymphatic: No symptoms reported Neurological/Psychological: No symptoms reported -: Yes All other systems reviewed and negative Physical Exam - Vital signs Vitals: Temp 98.1 F 08/13/19 22:23 - Notes Notes: GENERAL: Well-appearing, well-nourished and in no acute distress. HEAD: Atraumatic, normocephalic. EYES: Pupils equal round and reactive to light, extraocular movements intact, sclera anicteric, conjunctiva are normal. ENT: External ears normal in appearance, nares patent, oropharynx clear without exudates. Moist mucous membranes. NECK: Normal range of motion, supple without lymphadenopathy or JVD. LUNGS: Breath sounds clear to auscultation bilaterally and equal. No wheezes rales or rhonchi. HEART: Regular rate and rhythm without murmurs, rubs or gallops. ABDOMEN: Soft, moderate tenderness in lower abdomen, normoactive bowel sounds. No guarding, no rebound. No masses appreciated. EXTREMITIES: Normal range of motion, no pitting or edema. No clubbing or cyanosis. NEUROLOGICAL: Cranial nerves II through XII grossly intact. Normal speech, normal gait. PSYCH: Normal mood, normal affect. SKIN: Warm, Dry, normal turgor, no rashes or lesions noted. Course - Vital Signs Vital signs: Temp Pulse Resp BP Pulse Ox 98.1 F 89 25 H 166/78 H 100 08/13/19 22:36 08/13/19 22:36 08/14/19 00:42 08/14/19 00:42 08/14/19 00:42 - Laboratory Result Diagrams: 08/13/19 22:51 08/13/19 22:51 Laboratory results interpreted by me: 08/13/19 08/13/19 08/14/19 22:51 22:51 01:44 WBC 10.6 H Hgb 13.4 L MCH 26.0 L RDW 15.4 H Sodium 136.0 L Glucose 147 H AST 118 H ALT 132 H Lipase 596.1 H Urine Protein 100 H Urine Urobilinogen 4.0 H - EKG Interpretation by Vt EKG shows normal: [place], QRS Complexes, ST-T Waves Rate: Tachycardia Rhythm: A.Fib Discharge - Discharge Clinical Impression: Abdominal pain Qualifiers: Abdominal location: lower abdomen, unspecified Qualified Code(s): R10.30 - Lower abdominal pain, unspecified Constipation Qualifiers: Constipation type: unspecified constipation type Qualified Code(s): K59.00 - Constipation, unspecified Nausea & vomiting Qualifiers: Vomiting type: unspecified Vomiting Intractability: unspecified Qualified Code(s): R11.2 - Nausea with vomiting, unspecified Chronic pancreatitis Qualifiers: Pancreatitis type: unspecified pancreatitis type Qualified Code(s): K86.1 - Other chronic pancreatitis Condition: Stable Disposition: HOME, SELF-CARE Instructions: Abdominal Pain ([facility]), Nausea or Vomiting, Nonspecific ([facility]), Pancreatitis ([facility]) Additional Instructions: Use Tylenol and Motrin for abdominal pain. Use the prescribed Zofran for nausea. Use over the counter stool softeners to help with constipation. Follow up with your primary care doctor and consider follow up with a GI Doctor if your symptoms persist. You had blood work, a urine analysis, and a CT scan of you Abdomen and Pelvis in the ER today. Prescriptions: Ondansetron [Zofran Odt 4 mg Tablet] 4 mg PO Q8H PRN #15 tab.rapdis PRN Reason: Referrals: MAIK JERRY MD [Primary Care Provider] - Follow up as needed CECILE TONG MD [ACTIVE STAFF] - Follow up as needed
[2019-08-13] MEDS ORDERED: NORMAL SALINE 1000 ML 1,000 ML IV ONE (23:09)
[2019-08-13] MEDS ORDERED: ONDANSETRON HCL INJ/PF 4 MG/2 ML SDV IV ONE (23:09)
[2019-08-13] MEDS ORDERED: MORPHINE SULFATE 10 MG/ML INJ IV ONE (23:12)
[2019-08-13 23:16] LABS: ALBUMIN 3.9 g/dL (3.5-5.0); ALKALINE PHOSPHATASE 75 U/L (38-126); ANION GAP 9 (5-19); ASPARTATE AMINO TRANSFERASE 118 U/L (17-59); BILIRUBIN,DIRECT 0.2 mg/dL (0.0-0.4); BLOOD UREA NITROGEN 16 mg/dL (7-20); CALCIUM 9.1 mg/dL (8.4-10.2); CARBON DIOXIDE 23 mmol/L (22-30); CHLORIDE 104 mmol/L (98-107); GLUCOSE 147 mg/dL (75-110); POTASSIUM 3.7 mmol/L (3.6-5.0)
[2019-08-13 23:18] LABS: ABSOLUTE LYMPHOCYTES (AUTO) 1.8 10^3/uL (0.5-4.7); ABSOLUTE MONOCYTES (AUTO) 1.1 10^3/uL (0.1-1.4); ABSOLUTE NEUT (AUTO) 7.7 10^3/uL (1.7-8.2); BASOPHILS % (AUTO) 0.3 % (0-2); HEMATOCRIT 41.1 % (37.9-51.0); HEMOGLOBIN 13.4 g/dL (13.5-17.0); LYMPHOCYTES % (AUTO) 16.6 % (13-45); MEAN CORPUSCULAR HGB CONC 32.7 g/dL (32.0-36.0); MEAN CORPUSCULAR VOLUME 80 fl (80-97); MONOCYTES % (AUTO) 10.1 % (3-13); PLATELET COUNT 245 10^3/uL (150-450); RED BLOOD COUNT 5.17 10^6/uL (4.35-5.55); RED CELL DISTRIBUTION WIDTH 15.4 % (11.5-14.0); TOTAL CELLS COUNTED % (AUTO) 100 %; WHITE BLOOD COUNT 10.6 10^3/uL (4.0-10.5)
[2019-08-13] MEDS ORDERED: METOPROLOL TARTRATE PF/INJ 5 MG/5 ML SDV IV ONE (23:56)
--- NOTE | 2019-08-14 01:47 | RADIOLOGY REPORT (SQ) ---
CT ABDOMEN AND PELVIS WITH INTRAVENOUS CONTRAST: 08/14/2019 12:39 AM CDT HISTORY: 59-year old with abdominal pain. COMPARISON: None available TECHNIQUE: Axial contiguous images were obtained from the lung bases to the proximal femurs with intravenous intravenous contrast administered. Sagittal and coronal reconstructions were also obtained and reviewed. This exam was performed according to our departmental dose-optimization program, which includes automated exposure control, adjustment of the mA and/or KV according to the patient's size and/or use of iterative reconstruction technique. FINDINGS: No focal consolidative airspace opacities are seen. No discrete pleural effusion is seen. The cardiac silhouette appears to be enlarged. The visualized hepatic parenchyma is unremarkable. No focal enhancing lesion is seen. There is reflux of contrast within the hepatic vein, likely due to right heart failure. There is increased density within the gallbladder lumen which may be secondary to sludge or cholelithiasis. There is also nonspecific gallbladder wall thickening present. The spleen, pancreas, and adrenals are normal in size and contour. There are coarse calcifications at the pancreatic head, likely due to prior pancreatitis. There is mild pancreatic ductal dilatation measuring up to 7 mm. The kidneys demonstrate no evidence of hydronephrosis. There is nonspecific perinephric stranding present. There is normal excretion of contrast within the ureters and bilateral collecting. Bladder is minimally distended, but grossly appears unremarkable. The stomach is not well distended. The small bowel loops appear unremarkable. No pericolonic inflammatory stranding is seen. An anterior umbilical hernia containing omental fat is seen. The appendix appears unremarkable. There is no evidence of pneumoperitoneum or free fluid. The aorta and IVC appear normal in size. No significantly enlarged lymph nodes are seen in the abdomen or pelvis. Review of the bone show no evidence of any suspicious lytic or blastic lesions. IMPRESSION: No acute process is seen within the abdomen or pelvis. There is mild pancreatic ductal dilatation present with coarse opacifications at the pancreatic head, likely due to prior pancreatitis.
[2019-08-14 01:58] LABS: APPEARANCE,URINE CLEAR; BILIRUBIN,URINE NEGATIVE (NEGATIVE); COLOR,URINE YELLOW; GLUCOSE, URINE NEGATIVE (NEGATIVE); KETONES,URINE NEGATIVE (NEGATIVE); LEUKOCYTE ESTERASE,URINE NEGATIVE (NEGATIVE); NITRITE,URINE NEGATIVE (NEGATIVE); PROTEIN,URINE 100 mg/dL (NEGATIVE); URINE SPECIFIC GRAVITY 1.042
[2019-08-14 02:34] VITALS: BP 152/97
--- NOTE | 2019-08-14 08:16 | EKG REPORT ---
SEVERITY:- ABNORMAL ECG - ATRIAL FLUTTER PROLONGED QT INTERVAL : Confirmed by: Karon Wheeler MD 14-Aug-2019 08:15:40
== END 2019-08-14 02:43 | disposition home or self-care (01) ==
LOC: ER 22:22
DX: K59.00 Constipation, unspecified (principal); K86.1 Other chronic pancreatitis; R11.2 Nausea with vomiting, unspecified; I10 Essential (primary) hypertension; I48.91 Unspecified atrial fibrillation; R00.0 Tachycardia, unspecified; J45.909 Unspecified asthma, uncomplicated; F17.200 Nicotine dependence, unspecified, uncomplicated; Z79.899 Other long term (current) drug therapy; Z87.892 Personal history of anaphylaxis; Z88.8 Allergy status to other drugs, medicaments and biological substances
CPT/HCPCS: 99284; 96361; 96374; 96375; 36415; 83690; 85025; 80053; 81001; 74177; 93005; 93010; J3490; J2270; J2405; J7030

== ENCOUNTER 2019-08-14 16:00 | Inpatient (IN) | payer BC ==
[2019-08-14] MEDS ORDERED: MORPHINE SULFATE 10 MG/ML INJ IV ONE (16:13)
[2019-08-14] MEDS ORDERED: ONDANSETRON HCL INJ/PF 4 MG/2 ML SDV IV ONE (16:13)
--- NOTE | 2019-08-14 16:17 | ER Document Report ---
ED Medical Screen (RME) - General Chief Complaint: Constipation Stated Complaint: ABDOMINAL PAIN Time Seen by Provider: 08/14/19 16:07 Primary Care Provider: MAIK JERRY MD [Primary Care Provider] - Follow up as needed Notes: Patient is a 59-year-old male who presents to the emergency department with a chief complaint of abdominal pain. Patient states that he was seen here in the emergency department yesterday and continues to have pain. States that he feels the pain is worse than yesterday. Patient had a bowel movement today and it was normal. Patient has a history of atrial fibrillation, hypertension, pancreatitis, congestive heart failure, pulmonary emboli, and SVT. States that he is on blood thinners, but cannot recall which kind. Exam: Firm, tender, distended abdomen. I have greeted and performed a rapid initial assessment of this patient. A comprehensive ED assessment and evaluation of the patient, analysis of test results and completion of medical decision making process will be conducted by an additional ED providers. TRAVEL OUTSIDE OF THE [place] IN LAST 30 DAYS: No - Related Data Allergies/Adverse Reactions: KELLIE Inhibitors Allergy (Severe, Verified 08/14/19 16:14) Anaphylaxis lisinopril Allergy (Verified 08/14/19 16:14) Past Medical History - Social History Chew tobacco use (# tins/day): No Frequency of alcohol use: Occasional Drug Abuse: None - Past Medical History Cardiac Medical History: Reports: Hx Atrial Fibrillation, Hx Congestive Heart Failure, Hx Hypertension, Hx Pulmonary Embolism Pulmonary Medical History: Reports: Hx Asthma Neurological Medical History: Denies: Hx Seizures Renal/ Medical History: Denies: Hx Peritoneal Dialysis GI Medical History: Reports: Hx Gastroesophageal Reflux Disease Musculoskeltal Medical History: Reports Hx Arthritis, Reports Hx Musculoskeletal Deformity, Reports Hx Musculoskeletal Trauma Psychiatric Medical History: Denies: Hx Depression Traumatic Medical History: Reports: Hx Fractures - ankle - Immunizations Hx Diphtheria, Pertussis, Tetanus Vaccination: Yes Physical Exam - Vital signs Vitals: Temp Pulse Resp BP Pulse Ox 97.7 F 50 L 18 144/95 H 98 08/14/19 16:05 08/14/19 16:05 08/14/19 16:05 08/14/19 16:05 08/14/19 16:05 Course - Vital Signs Vital signs: Temp Pulse Resp BP Pulse Ox 97.7 F 50 L 18 144/95 H 98 08/14/19 16:07 08/14/19 16:05 08/14/19 16:05 08/14/19 16:05 08/14/19 16:05 Doctor's Discharge - Discharge Referrals: MAIK JERRY MD [Primary Care Provider] - Follow up as needed
[2019-08-14 16:43] LABS: ABSOLUTE LYMPHOCYTES (AUTO) 1.8 10^3/uL (0.5-4.7); ABSOLUTE MONOCYTES (AUTO) 1.1 10^3/uL (0.1-1.4); ABSOLUTE NEUT (AUTO) 7.6 10^3/uL (1.7-8.2); BASOPHILS % (AUTO) 0.2 % (0-2); EOSINOPHILS % (AUTO) 0.2 % (0-6); HEMATOCRIT 43.6 % (37.9-51.0); HEMOGLOBIN 14.1 g/dL (13.5-17.0); LYMPHOCYTES % (AUTO) 17.1 % (13-45); MEAN CORPUSCULAR HEMOGLOBIN 25.9 pg (27.0-33.4); MEAN CORPUSCULAR HGB CONC 32.5 g/dL (32.0-36.0); MEAN CORPUSCULAR VOLUME 80 fl (80-97); MONOCYTES % (AUTO) 10.7 % (3-13); PLATELET COUNT 253 10^3/uL (150-450); RED BLOOD COUNT 5.46 10^6/uL (4.35-5.55); RED CELL DISTRIBUTION WIDTH 15.3 % (11.5-14.0); SEGMENTED NEUTROPHILS % (AUTO) 71.8 % (42-78); TOTAL CELLS COUNTED % (AUTO) 100 %; WHITE BLOOD COUNT 10.6 10^3/uL (4.0-10.5)
[2019-08-14 16:58] LABS: ALBUMIN 4.1 g/dL (3.5-5.0); ALKALINE PHOSPHATASE 80 U/L (38-126); ANION GAP 10 (5-19); ASPARTATE AMINO TRANSFERASE 87 U/L (17-59); BILIRUBIN,DIRECT 0.2 mg/dL (0.0-0.4); BILIRUBIN,TOTAL 0.8 mg/dL (0.2-1.3); BLOOD UREA NITROGEN 17 mg/dL (7-20); CALCIUM 9.2 mg/dL (8.4-10.2); CARBON DIOXIDE 22 mmol/L (22-30); CHLORIDE 105 mmol/L (98-107); GLUCOSE 129 mg/dL (75-110); POTASSIUM 3.7 mmol/L (3.6-5.0); TOTAL PROTEIN 7.3 g/dL (6.3-8.2)
--- NOTE | 2019-08-14 17:34 | ER Document Report ---
ED General - General Chief Complaint: Constipation Stated Complaint: ABDOMINAL PAIN Time Seen by Provider: 08/14/19 16:07 Mode of Arrival: Ambulatory Information source: Patient Notes: Patient is a 59-year-old male presenting to the emergency department chief complaint of abdominal pain. Patient reports that he was in the emergency department yesterday for same complaint. Patient states he still has belly pain and still feels constipated. Patient denies any other complaints. TRAVEL OUTSIDE OF THE [place] IN LAST 30 DAYS: No - HPI Onset: Yesterday Onset/Duration: Gradual, Persistent Quality of pain: Pressure Severity: Moderate Pain Level: 2 Associated symptoms: None Exacerbated by: Denies Relieved by: Denies Similar symptoms previously: Yes Recently seen / treated by doctor: Yes - Related Data Allergies/Adverse Reactions: KELLIE Inhibitors Allergy (Severe, Verified 08/14/19 16:14) Anaphylaxis lisinopril Allergy (Verified 08/14/19 16:14) Past Medical History - General Information source: Patient, [facility] Records - Social History Smoking Status: Current Some Day Smoker Cigarette use (# per day): Yes Chew tobacco use (# tins/day): No Smoking Education Provided: Yes Frequency of alcohol use: Occasional Drug Abuse: None Lives with: Family Family History: Hypertension Patient has suicidal ideation: No Patient has homicidal ideation: No - Past Medical History Cardiac Medical History: Reports: Hx Atrial Fibrillation, Hx Congestive Heart Failure, Hx Hypertension, Hx Pulmonary Embolism Pulmonary Medical History: Reports: Hx Asthma Neurological Medical History: Denies: Hx Seizures Renal/ Medical History: Denies: Hx Peritoneal Dialysis GI Medical History: Reports: Hx Gastroesophageal Reflux Disease Musculoskeletal Medical History: Reports Hx Arthritis, Reports Hx Musculoskeletal Deformity, Reports Hx Musculoskeletal Trauma Psychiatric Medical History: Denies: Hx Depression Traumatic Medical History: Reports: Hx Fractures - ankle Surgical Hx: Negative - Immunizations Hx Diphtheria, Pertussis, Tetanus Vaccination: Yes Review of Systems - Review of Systems Notes: REVIEW OF SYSTEMS: CONSTITUTIONAL : Denies fever, chills, or sweats. Denies recent illness. EENT: Denies eye, ear, throat, or mouth pain or symptoms. Denies nasal or sinus congestion. CARDIOVASCULAR: Denies chest pain. RESPIRATORY: Denies cough, cold, or chest congestion. Denies shortness of breath, difficulty breathing, or wheezing. GASTROINTESTINAL: Per HPI GENITOURINARY: Denies difficulty urinating, painful urination, burning, frequency, or blood in urine. MUSCULOSKELETAL: Denies neck or back pain or joint pain or swelling. SKIN: Denies rash or skin lesions. HEMATOLOGIC : Denies easy bruising or bleeding. NEUROLOGICAL: Denies altered mental status or loss of consciousness. Denies headache. Denies weakness or paralysis or loss of use of either side. Denies problems with gait or speech. Denies sensory or motor loss. PSYCHIATRIC: Denies suicidal or homicidal ideations 10 Systems are negative unless otherwise specified above Physical Exam - Vital signs Vitals: Temp Pulse Resp BP Pulse Ox 97.7 F 50 L 18 144/95 H 98 08/14/19 16:05 08/14/19 16:05 08/14/19 16:05 08/14/19 16:05 08/14/19 16:05 - Notes Notes: PHYSICAL EXAMINATION: GENERAL: Well-appearing, well-nourished and in no acute distress. HEAD: Atraumatic, normocephalic. EYES: Pupils equal round and reactive to light, extraocular movements intact, sclera anicteric, conjunctiva are normal. ENT: nares patent, oropharynx clear without exudates. Moist mucous membranes. NECK: Normal range of motion, supple without lymphadenopathy, no appreciable JVD LUNGS: Lungs clear to auscultation bilaterally and equal. No wheezes rales or rhonchi. HEART: Regular rate and rhythm without murmurs ABDOMEN: Diffusely tender abdomen with active guarding. No rebound no palpable masses normal bowel sounds EXTREMITIES: Active full range of motion, no pitting or edema. No cyanosis. 2+ pulses x4 NEUROLOGICAL: No focal neurological deficits. Moves all extremities spontaneously and on command. SKIN: Warm, Dry, and intact. Normal turgor, no rashes or lesions noted. Course - Re-evaluation Re-evalutation: 08/14/19 18:13 On review of the patient's laboratory studies lipase is greater than 1100 which is markedly elevated per baseline and is also double what his lipase was yesterday. I went back in and spoke to the patient and at this point in time he states that he did drink alcohol 2 to 3 days ago, just before all the pain started. Enema has been canceled acute abdominal series and ultrasound have been ordered. Patient is currently receiving IV fluids 1 L bolus. I also spoke to the patient's primary care provider Dr. Villalba he is requesting the ultrasound and if the patient is agreeable with discharge that is acceptable if we cannot get the pain manage he states that we can admit the patient for pancreatitis. Patient is currently waiting on radiologic studies. 08/14/19 19:25 Was contacted by nursing staff at about 7 PM and informed the patient had a very tachycardic heart rate. Twelve-lead EKG demonstrates a tachycardic heart rate of 155 bpm computer reads it as supraventricular tachycardia however looks much more like A. fib a repeat EKG demonstrates A. fib with RVR rate of 145 bpm. Patient has had a prior EKG yesterday which demonstrated atrial flutter at a r ate of 124 bpm. Patient was given 20 mg IV Cardizem which did cause a deceleration in the patient's heart rate to the 1 teens patient was started on a Cardizem drip at 5 mg/h. Titrate as needed. Acute abdominal series read by radiology as negative. Currently waiting on ultrasound results. I spoke to the patient's primary care provider once again Dr. Villalba who requested the patient to receive 5 mg of Eliquis at this time a consult for Dr. Wheeler cardiology electronic systems technician and admission to IMCU secondary to A. fib with RVR and abdominal pain. - Vital Signs Vital signs: Temp Pulse Resp BP Pulse Ox 97.4 F 89 14 111/73 100 08/15/19 04:04 08/15/19 07:00 08/15/19 04:04 08/15/19 06:00 08/15/19 04:04 - Laboratory Result Diagrams: 08/15/19 04:52 08/14/19 20:18 Laboratory results interpreted by me: 08/14/19 08/14/19 16:30 16:30 WBC 10.6 H MCH 25.9 L RDW 15.3 H Glucose 129 H AST 87 H ALT 122 H Lipase 1179.7 H - Diagnostic Test Radiology reviewed: Reports reviewed Critical Care Note - Critical Care Note Total time excluding time spent on procedures (mins): 40 Comments: Please allow 40 minutes of critical care time spent obtaining history from patient or surrogate, discussions with consultants, development of treatment plan with patient or surrogate, evaluation of patient's response to treatment, examination of patient. This also includes ordering and reviewing laboratory, EKG and / or radiologic studies, performing and reassessing treatments and interventions as well as reviewing previous visits and old charts. This is exclusive of separately billable procedures. Discharge - Discharge Clinical Impression: Atrial fibrillation with RVR, Acute on chronic pancreatitis Abdominal pain Qualifiers: Abdominal location: generalized Qualified Code(s): R10.84 - Generalized abdominal pain Condition: Fair Disposition: ADMITTED INPATIENT Admitting Provider: Villalba Unit Admitted: [facility]
[2019-08-14] MEDS ORDERED: NORMAL SALINE 1000 ML 1,000 ML IV ONE (18:02)
--- NOTE | 2019-08-14 18:53 | RADIOLOGY REPORT (SQ) ---
EXAM DESCRIPTION: ACUTE ABDOMEN SERIES IMAGES COMPLETED DATE/TIME: 08/14/2019 5:25 pm REASON FOR STUDY: abd pain COMPARISON: CT abdomen and pelvis same date. NUMBER OF VIEWS: Three views. TECHNIQUE: Frontal chest, supine abdomen and upright/decubitus abdomen radiographic images acquired. LIMITATIONS: None. FINDINGS: CHEST: Lungs clear of infiltrates. FREE AIR: None. No abnormal gas collections. BOWEL GAS PATTERN: Nonobstructive pattern. No dilated loops or air fluid levels. CALCIFICATIONS: No suspicious calcifications. HARDWARE: None in the abdomen. SOFT TISSUES: Excreted contrast in the urinary bladder. BONES: No acute fracture. No worrisome bone lesions. OTHER: No other significant finding. IMPRESSION: NO RADIOGRAPHIC EVIDENCE FOR ACUTE ABDOMINAL DISEASE. TECHNICAL DOCUMENTATION: JOB ID: [id number] 2010 [employer]- All Rights Reserved Reading location - IP/workstation name: [email or web address]
[2019-08-14] MEDS ORDERED: DILTIAZEM HCL INJ 25 MG/5 ML VIAL IV ONE (18:59)
[2019-08-14] MEDS: DILTIAZEM HCL/D5W 125 MG/125 ML RTUINJ IV PRN ×3 (19:16→20:49)
[2019-08-14] MEDS ORDERED: APIXABAN 5 MG TABLET PO ONE (19:23)
[2019-08-14] MEDS ORDERED: LEVALBUTEROL HCL NEB 1.25 MG/3 ML AMPUL NEB PRN (19:24)
[2019-08-14] MEDS ORDERED: NORMAL SALINE 1000 ML 1,000 ML IV PRN (19:24)
[2019-08-14] MEDS ORDERED: ACETAMINOPHEN 325 MG TABLET PO PRN (19:24)
--- NOTE | 2019-08-14 20:00 | RADIOLOGY REPORT (SQ) ---
EXAM DESCRIPTION: U/S ABDOMEN COMPLETE W/O DOP IMAGES COMPLETED DATE/TIME: 08/14/2019 6:11 pm REASON FOR STUDY: abd pain. Right upper and left upper quadrant abdominal pain. COMPARISON: CT abdomen and pelvis same date. Renal ultrasound 08/14/2018 TECHNIQUE: Dynamic and static grayscale images acquired of the abdomen and recorded on PACS. Additio nal selected color Doppler and spectral images recorded. Note: Study does not meet criteria for complete doppler/duplex scan LIMITATIONS: None. FINDINGS: PANCREAS: The head and body of the pancreas demonstrating mildly heterogeneous appearance, consistent with sequelae from chronic pancreatitis as seen on previous CT. The tail of the pancreas is poorly evaluated due to overlying bowel gas. No pancreatic ductal dilation in the visualized friedman creas. LIVER: No masses. Echotexture normal. LIVER VASCULATURE: Limited visualization. Hepatic and portal veins appear patent with color and spec tral Doppler imaging. GALLBLADDER: The gallbladder wall is moderately thickened measuring up to 9 mm thickness. There is n o pericholecystic fluid. No echogenic gallstones or debris within the gallbladder lumen. Sonographi c technologist reports a negative sonographic Lagos sign. ULTRASOUND-DETECTED LAGOS'S SIGN: Negative. INTRAHEPATIC DUCTS AND COMMON DUCT: CBD and intrahepatic ducts normal caliber. No filling defects. INFERIOR VENA CAVA: Normal flow. AORTA: No aneurysm. RIGHT KIDNEY: Normal size. Normal echogenicity. No solid or suspicious masses. No hydronephros is. No calcifications. LEFT KIDNEY: Normal size. Normal echogenicity. No solid or suspicious masses. No hydronephrosi s. No calcifications. SPLEEN: Normal size. Limited visualization. PERITONEAL AND PLEURAL SPACES: No ascites or effusions. OTHER: No other significant finding. IMPRESSION: 1. Thickened gallbladder wall with no echogenic gallstones or debris within the gallbladder lumen. F inding may be secondary to extrinsic causes such is congestive heart failure or hepatitis. Clinical correlation and correlation with patient laboratory values recommended. No sonographic evidence of a cute cholecystitis. TECHNICAL DOCUMENTATION: JOB ID: [id number] 2010 [employer]- All Rights Reserved Reading location - IP/workstation name: [email or web address]
[2019-08-14] MEDS: MORPHINE SULFATE 10 MG/ML INJ IV PRN (20:01)
[2019-08-14 20:21] LABS: APPEARANCE,URINE SLIGHTLY-CLOUDY; BILIRUBIN,URINE NEGATIVE (NEGATIVE); COLOR,URINE AMBER; GLUCOSE, URINE NEGATIVE (NEGATIVE); KETONES,URINE TRACE mg/dL (NEGATIVE); LEUKOCYTE ESTERASE,URINE NEGATIVE (NEGATIVE); NITRITE,URINE NEGATIVE (NEGATIVE); PROTEIN,URINE 100 mg/dL (NEGATIVE); URINE SPECIFIC GRAVITY 1.041
[2019-08-14 20:49] LABS: ANION GAP 11 (5-19); BLOOD UREA NITROGEN 16 mg/dL (7-20); CALCIUM 8.9 mg/dL (8.4-10.2); CARBON DIOXIDE 21 mmol/L (22-30); CHLORIDE 106 mmol/L (98-107); GLUCOSE 119 mg/dL (75-110); POTASSIUM 3.5 mmol/L (3.6-5.0)
[2019-08-14] MEDS: NORMAL SALINE 1000 ML 1,000 ML IV PRN (20:52)
[2019-08-14] MEDS: CEFTRIAXONE 1 GM/D5W RTU 1 GM/50 ML RTUPB IV SCH (21:20)
[2019-08-14] MEDS ORDERED: DOCUSATE SODIUM 100 MG CAPSULE PO PRN (21:22)
[2019-08-14] MEDS ORDERED: POTASSIUM CHLORIDE 10 MEQ TABLET.ER PO ONE (22:00)
[2019-08-14] MEDS ORDERED: METOPROLOL SUCCINATE 25 MG TAB.SR.24H PO SCH (22:00)
[2019-08-14] MEDS ORDERED: ENOXAPARIN SODIUM INJ 80 MG/0.8 ML DISP.SYRIN SUBCUT SCH (22:00)
[2019-08-14] MEDS: PANTOPRAZOLE SODIUM 40 MG VIAL IV SCH (22:02)
--- NOTE | 2019-08-14 22:02 | EKG REPORT ---
SEVERITY:- ABNORMAL ECG - PROBABLE LVH WITH SECONDARY REPOL ABNRM A-FLUTTER W/ VARIED AV BLOCK, A-RATE 0 : Confirmed by: Karon Wheeler MD 14-Aug-2019 22:02:12
[2019-08-15] MEDS: MORPHINE SULFATE 10 MG/ML INJ IV PRN ×6 (00:07→23:41)
[2019-08-15] MEDS: DILTIAZEM HCL/D5W 125 MG/125 ML RTUINJ IV PRN ×3 (04:10→20:23)
[2019-08-15 05:49] LABS: ABSOLUTE BASOPHILS # (AUTO) 0.1 10^3/uL (0.0-0.2); ABSOLUTE MONOCYTES (AUTO) 1.3 10^3/uL (0.1-1.4); ABSOLUTE NEUT (AUTO) 9.5 10^3/uL (1.7-8.2); BASOPHILS % (AUTO) 0.5 % (0-2); HEMATOCRIT 39.7 % (37.9-51.0); LYMPHOCYTES % (AUTO) 8.8 % (13-45); MEAN CORPUSCULAR HEMOGLOBIN 25.8 pg (27.0-33.4); MEAN CORPUSCULAR HGB CONC 32.8 g/dL (32.0-36.0); MEAN CORPUSCULAR VOLUME 79 fl (80-97); MONOCYTES % (AUTO) 10.8 % (3-13); PLATELET COUNT 217 10^3/uL (150-450); RED BLOOD COUNT 5.04 10^6/uL (4.35-5.55); RED CELL DISTRIBUTION WIDTH 15.4 % (11.5-14.0); SEGMENTED NEUTROPHILS % (AUTO) 79.9 % (42-78); TOTAL CELLS COUNTED % (AUTO) 100 %; WHITE BLOOD COUNT 11.9 10^3/uL (4.0-10.5)
[2019-08-15 06:16] LABS: ALBUMIN 3.6 g/dL (3.5-5.0); ALKALINE PHOSPHATASE 66 U/L (38-126); ASPARTATE AMINO TRANSFERASE 64 U/L (17-59); BILIRUBIN,DIRECT 0.2 mg/dL (0.0-0.4); BILIRUBIN,TOTAL 1.1 mg/dL (0.2-1.3); CREATINE KINASE 29 U/L (55-170); TOTAL PROTEIN 6.3 g/dL (6.3-8.2)
[2019-08-15 06:26] LABS: CREATINE KINASE MB 0.96 ng/mL (<4.55); NT PRO BNP 4760 pg/mL (<125)
[2019-08-15 06:29] LABS: TROPONIN I < 0.012 ng/mL
--- NOTE | 2019-08-15 06:39 | PDOC CONSULTATION ---
Consultation Consult Date: 08/15/19 Provider Consulted: SURGICAL SURGICALIST Consult reason:: Pancreatitis and gallbladder thickening History of Present Illness Admission Date/PCP: 08/14/19 19:36 MAIK JERRY MD Patient complains of: Abdominal pain, nausea, vomiting History of Present Illness: EUGENE ARAGON is a 59 year old male seen in consultation at the request of Dr. Jerry. This is a patient with a long history of alcoholic pancreatitis. He has had several admissions to the hospital for acute pancreatitis. He has evidence of chronic pancreatitis on previous CT scan. Patient reports a 2 to 3- day history of increasing amounts of abdominal pain, nausea, and vomiting. The patient reports that he continues to drink 1-2 beers a day, but this is less bennett n usual. The patient was evaluated in the emergency department. He has elevation of his lipase, and inflammation of his pancreas on CT scan. There is also mention of thickening of the gallbladder wall. He denies chest pain, shortness of breath, fevers, chills, dizziness, headache, orthostasis, blurry vision. Past Medical History Cardiac Medical History: Reports: Atrial Fibrillation, Congestive Heart Failure, Hypertension, Pulmonary Embolism Pulmonary Medical History: Reports: Asthma Neurological Medical History: Denies: Seizures GI Medical History: Reports: Gastroesophageal Reflux Disease Musculoskeltal Medical History: Reports: Arthritis Psychiatric Medical History: Denies: Depression Social History Lives with: Family Smoking Status: Current Every Day Smoker Electronic Cigarette use?: No Cigars Per Day: 3 Number of Years Smokin Last Time Smoked: 08/14/2019 Frequency of Alcohol Use: Heavy - 1-2 beers every day Hx Recreational Drug Use: No - denies Drugs: None Hx Prescription Drug Abuse: No Family History Family History: Hypertension Parental Family History Reviewed: Yes Children Family History Reviewed: Yes Sibling(s) Family History Reviewed.: Yes Medication/Allergy Home Medications: Furosemide [Lasix 20 mg Tablet] 20 mg PO DAILY #30 tablet 04/19/17 Docusate Sodium [Dok] 100 mg PO DAILYP PRN 10/11/17 Metoprolol Succinate [Toprol Xl 25 mg Tab.sr] 25 mg PO Q12 #60 tab.sr.24h 0 10/21/17 Ferrous Sulfate [Feosol 325 mg Tablet] 325 mg PO DAILY 08/14/19 Ibuprofen [Motrin 600 mg Tablet] 600 mg PO Q8HP PRN 08/14/19 Losartan Potassium [Cozaar 25 mg Tablet] 25 mg PO DAILY 08/14/19 Pantoprazole Sodium 40 mg PO BID 08/14/19 Allergies/Adverse Reactions: KELLIE Inhibitors Allergy (Severe, Verified 08/14/19 16:14) Anaphylaxis lisinopril Allergy (Verified 08/14/19 16:14) Review of Systems Constitutional: ABSENT: anorexia, fatigue Eyes: ABSENT: visual disturbances Ears: ABSENT: hearing changes Nose, Mouth, and Throat: ABSENT: sore throat Cardiovascular: ABSENT: chest pain Respiratory: ABSENT: cough Gastrointestinal: PRESENT: abdominal pain, nausea, vomiting Genitourinary: ABSENT: dysuria Musculoskeletal: PRESENT: back pain Integumentary: ABSENT: pruritus, rash Neurological: ABSENT: convulsions, dizziness Psychiatric: ABSENT: anxiety, depression Endocrine: ABSENT: cold intolerance, heat intolerance Hematologic/Lymphatic: ABSENT: easy bleeding, easy bruising Physical Exam Vital Signs: Temp Pulse Resp BP Pulse Ox 97.4 F 138 H 14 111/73 100 08/15/19 04:04 08/15/19 06:00 08/15/19 04:04 08/15/19 06:00 08/15/19 04:04 Intake & Output 08/13/19 08/14/19 08/15/19 06:59 06:59 06:59 Intake Total 251 Output Total 200 Balance 51 Weight 73.2 kg General appearance: PRESENT: no acute distress, cooperative Head exam: PRESENT: atraumatic, normocephalic Eye exam: PRESENT: EOMI, PERRLA. ABSENT: scleral icterus Mouth exam: PRESENT: moist, neck supple Neck exam: ABSENT: meningismus, tenderness, thyromegaly, tracheal deviation, tracheostomy Respiratory exam: PRESENT: unlabored. ABSENT: chest wall tenderness, tachypnea, wheezes Cardiovascular exam: ABSENT: tachycardia Pulses: PRESENT: normal radial pulses Vascular exam: PRESENT: normal capillary refill GI/Abdominal exam: PRESENT: soft, tenderness - mild epigastric. ABSENT: distended, Lagos's sign Rectal exam: PRESENT: deferred Extremities exam: ABSENT: clubbing Musculoskeletal exam: ABSENT: deformity Neurological exam: PRESENT: alert, awake, oriented to person, oriented to place, oriented to time, oriented to situation, CN II-XII grossly intact Psychiatric exam: ABSENT: agitated, anxious Focused psych exam: ABSENT: delusional Skin exam: ABSENT: cyanosis, erythema, jaundice Results Laboratory Results: 08/15/19 04:52 08/14/19 20:18 08/14/19 08/14/19 08/14/19 16:30 16:30 20:00 WBC 10.6 H RBC 5.46 Hgb 14.1 Hct 43.6 MCV 80 MCH 25.9 L MCHC 32.5 RDW 15.3 H Plt Count 253 Seg Neutrophils % 71.8 Sodium 137.4 Potassium 3.7 Chloride 105 Carbon Dioxide 22 Anion Gap 10 BUN 17 Creatinine 1.09 Est GFR ( Amer) > 60 Glucose 129 H Calcium 9.2 Magnesium Total Bilirubin 0.8 AST 87 H Alkaline Phosphatase 80 Total Protein 7.3 Albumin 4.1 Lipase 1179.7 H Urine Color ESSENCE Urine Appearance SLIGHTLY-CLOUDY Urine pH 5.0 Ur Specific Orrick 1.041 Urine Protein 100 H Urine Glucose (UA) NEGATIVE Urine Ketones TRACE H Urine Blood NEGATIVE Urine Nitrite NEGATIVE Ur Leukocyte Esterase NEGATIVE Urine WBC (Auto) 9 Urine RBC (Auto) 2 08/14/19 08/15/19 08/15/19 20:18 04:52 04:52 WBC 11.9 H RBC 5.04 Hgb 13.0 L Hct 39.7 MCV 79 L MCH 25.8 L MCHC 32.8 RDW 15.4 H Plt Count 217 Seg Neutrophils % 79.9 H Sodium 138.2 Potassium 3.5 L Chloride 106 Carbon Dioxide 21 L Anion Gap 11 BUN 16 Creatinine 0.90 Est GFR ( Amer) > 60 Glucose 119 H Calcium 8.9 Magnesium 1.8 Total Bilirubin 1.1 AST 64 H Alkaline Phosphatase 66 Total Protein 6.3 Albumin 3.6 Lipase 608.4 H Urine Color Urine Appearance Urine pH Ur Specific Orrick Urine Protein Urine Glucose (UA) Urine Ketones Urine Blood Urine Nitrite Ur Leukocyte Esterase Urine WBC (Auto) Urine RBC (Auto) 08/15/19 08/15/19 04:52 04:52 Creatine Kinase 29 L CK-MB (CK-2) 0.96 Troponin I < 0.012 NT-Pro-B Natriuret Pep 4760 H Impressions: Acute Abdomen Series 08/14/19 18:02 IMPRESSION: NO RADIOGRAPHIC EVIDENCE FOR ACUTE ABDOMINAL DISEASE. Abdomen Ultrasound 08/14/19 18:12 IMPRESSION: 1. Thickened gallbladder wall with no echogenic gallstones or debris within the gallbladder lumen. Finding may be secondary to extrinsic causes such is congestive heart failure or hepatitis. Clinical correlation and correlation with patient laboratory values recommended. No sonographic evidence of acute cholecystitis. Assessment & Plan - Diagnosis (1) Acute on chronic pancreatitis Is this a current diagnosis for this admission?: Yes (2) Alcohol abuse Is this a current diagnosis for this admission?: Yes - Plan Summary Plan Summary: This is a 59-year-old male with a long history of alcohol abuse. He continues to drink 1-2 beers per day. The patient had a CT scan in the ER showing signs of acute on chronic pancreatitis. The patient also was seen to have gallbladder wall thickening on his CT scan. In light of this, an ultrasound was performed. No stones or sludge could be identified on ultrasound. The gallbladder wall thickening that is seen, is likely related to alcoholic hepatitis/cirrhosis. I believe his pancreatitis to be related to his continued alcohol consumption. I would not recommend cholecystectomy at this time. I have instructed the patient to stop all ingestion of alcohol. He has expressed understanding. Surgery will sign off at this time. Please renotify with any questions or concerns.
[2019-08-15] MEDS: ONDANSETRON HCL INJ/PF 4 MG/2 ML SDV IV PRN (08:19)
--- NOTE | 2019-08-15 08:54 | PDOC H&P ---
History of Present Illness Admission Date/PCP: 08/14/19 19:36 MAIK JERRY MD Patient complains of: Abdominal pain History of Present Illness: EUGENE ARAGON This is a 59-year-old male with a history of the chronic pancreatitis with the history of alcohol abuse history of the hypertensions hyperlipidemia And atrial flutter and diastolic heart failure came to the emergency department with a complaining of abdominal pain Patients came day before in the emergency department with the same complaint was CT scan of the abdomen and pelvis was done with some mild pancreatitis and patient's lipase was 500 range patient was discharged Patients came back again with the emergency department with the same complaint lipase was elevated with 1100 patient's admit that he is drink 1 or 2 hard liquor yesterday day before but usually he cut down the alcohol with below he used to drink Patient's CT scan yesterday day before was performed some mild pancreatitis with elevated LFT the ultrasound of the abdomen was done which did not show any acute gallstone or cholecystitis and surgically consulted and suggest most likely alcoholic pancreatitis no need for surgical interventions Patient also found atrial flutter fib relations with the rate was elevated in the ER and patient was put on a Cardizem drips I saw the patient in the IMCU feeling better still having some abdominal discomfort denied any nausea no vomiting Patient is currently on a Cardizem drips patient is recently seen by Dr. VALDES last week Patient's denied any chest pain no short of breath Past Medical History Cardiac Medical History: Reports: Congestive Heart Failure, Hyperlipidema, Hypertension, Pulmonary Embolism Cardiac History Note: Atrial flutter Pulmonary Medical History: Reports: Asthma Neurological Medical History: Denies: Seizures Renal/ Medical History: Reports: Chronic Kidney Disease GI Medical History: Reports: Gastroesophageal Reflux Disease Musculoskeltal Medical History: Reports: Arthritis Psychiatric Medical History: Denies: Depression Social History Information Source: Patient Lives with: Family Smoking Status: Current Every Day Smoker Electronic Cigarette use?: No Cigars Per Day: 3 Number of Years Smokin Last Time Smoked: 08/14/2019 Frequency of Alcohol Use: Heavy - 1-2 beers every day Hx Recreational Drug Use: No - denies Drugs: None Hx Prescription Drug Abuse: No Family History Family History: None, Hypertension Parental Family History Reviewed: Yes Children Family History Reviewed: Yes Sibling(s) Family History Reviewed.: Yes Medication/Allergy Home Medications: Furosemide [Lasix 20 mg Tablet] 20 mg PO DAILY #30 tablet 04/19/17 Docusate Sodium [Dok] 100 mg PO DAILYP PRN 10/11/17 Metoprolol Succinate [Toprol Xl 25 mg Tab.sr] 25 mg PO Q12 #60 tab.sr.24h 10/21/17 Ferrous Sulfate [Feosol 325 mg Tablet] 325 mg PO DAILY 08/14/19 Ibuprofen [Motrin 600 mg Tablet] 600 mg PO Q8HP PRN 08/14/19 Losartan Potassium [Cozaar 25 mg Tablet] 25 mg PO DAILY 08/14/19 Pantoprazole Sodium 40 mg PO BID 08/14/19 Allergies/Adverse Reactions: KELLIE Inhibitors Allergy (Severe, Verified 08/14/19 16:14) Anaphylaxis lisinopril Allergy (Verified 08/14/19 16:14) Review of Systems Constitutional: ABSENT: chills, fever(s), headache(s), weight gain, weight loss Eyes: ABSENT: visual disturbances Ears: ABSENT: hearing changes Cardiovascular: ABSENT: chest pain, dyspnea on exertion, edema, orthropnea, palpitations Respiratory: ABSENT: cough, hemoptysis Gastrointestinal: PRESENT: abdominal pain, nausea. ABSENT: constipation, diarrhea, hematemesis, hematochezia, vomiting Genitourinary: ABSENT: dysuria, hematuria Musculoskeletal: ABSENT: joint swelling Integumentary: ABSENT: rash, wounds Neurological: ABSENT: abnormal gait, abnormal speech, confusion, dizziness, focal weakness, syncope Psychiatric: ABSENT: anxiety, depression, homidical ideation, suicidal ideation Endocrine: ABSENT: cold intolerance, heat intolerance, menstrual abnormalities, polydipsia, polyuria Hematologic/Lymphatic: ABSENT: easy bleeding, easy bruising, lymphadenopathy Physical Exam Vital Signs: Temp Pulse Resp BP Pulse Ox 97.4 F 89 14 111/73 100 08/15/19 04:04 08/15/19 07:00 08/15/19 04:04 08/15/19 06:00 08/15/19 04:04 Intake & Output 08/14/19 08/15/19 08/16/19 06:59 06:59 06:59 Intake Total 251 Output Total 200 Balance 51 Weight 73.2 kg General appearance: PRESENT: no acute distress, well-developed, well-nourished Head exam: PRESENT: atraumatic, normocephalic Eye exam: PRESENT: conjunctiva pink, EOMI, PERRLA. ABSENT: scleral icterus Ear exam: PRESENT: normal external ear exam Mouth exam: PRESENT: moist, tongue midline Neck exam: PRESENT: full ROM. ABSENT: carotid bruit, JVD, lymphadenopathy, thyromegaly Respiratory exam: PRESENT: clear to auscultation garrett Cardiovascular exam: PRESENT: RRR. ABSENT: diastolic murmur, rubs, systolic murmur Pulses: PRESENT: normal dorsalis pedis pul, +2 pedal pulses bilateral Vascular exam: PRESENT: normal capillary refill GI/Abdominal exam: PRESENT: normal bowel sounds, soft, tenderness. ABSENT: distended, guarding, mass, organolmegaly, rebound Rectal exam: PRESENT: deferred Neurological exam: PRESENT: alert, awake, oriented to person, oriented to place, oriented to time, oriented to situation, CN II-XII grossly intact. ABSENT: motor sensory deficit Psychiatric exam: PRESENT: appropriate affect, normal mood. ABSENT: homicidal ideation, suicidal ideation Skin exam: PRESENT: dry, intact, warm. ABSENT: cyanosis, rash Results Laboratory Results: 08/15/19 04:52 08/14/19 20:18 08/14/19 08/14/19 08/14/19 16:30 16:30 20:00 WBC 10.6 H RBC 5.46 Hgb 14.1 Hct 43.6 MCV 80 MCH 25.9 L MCHC 32.5 RDW 15.3 H Plt Count 253 Seg Neutrophils % 71.8 Sodium 137.4 Potassium 3.7 Chloride 105 Carbon Dioxide 22 Anion Gap 10 BUN 17 Creatinine 1.09 Est GFR ( Amer) > 60 Glucose 129 H Calcium 9.2 Magnesium Total Bilirubin 0.8 AST 87 H Alkaline Phosphatase 80 Total Protein 7.3 Albumin 4.1 Lipase 1179.7 H Urine Color ESSENCE Urine Appearance SLIGHTLY-CLOUDY Urine pH 5.0 Ur Specific [place] 1.041 Urine Protein 100 H Urine Glucose (UA) NEGATIVE Urine Ketones TRACE H Urine Blood NEGATIVE Urine Nitrite NEGATIVE Ur Leukocyte Esterase NEGATIVE Urine WBC (Auto) 9 Urine RBC (Auto) 2 08/14/19 08/15/19 08/15/19 20:18 04:52 04:52 WBC 11.9 H RBC 5.04 Hgb 13.0 L Hct 39.7 MCV 79 L MCH 25.8 L MCHC 32.8 RDW 15.4 H Plt Count 217 Seg Neutrophils % 79.9 H Sodium 138.2 Potassium 3.5 L Chloride 106 Carbon Dioxide 21 L Anion Gap 11 BUN 16 Creatinine 0.90 Est GFR ( Amer) > 60 Glucose 119 H Calcium 8.9 Magnesium 1.8 Total Bilirubin 1.1 AST 64 H Alkaline Phosphatase 66 Total Protein 6.3 Albumin 3.6 Lipase 608.4 H Urine Color Urine Appearance Urine pH Ur Specific [place] Urine Protein Urine Glucose (UA) Urine Ketones Urine Blood Urine Nitrite Ur Leukocyte Esterase Urine WBC (Auto) Urine RBC (Auto) 08/15/19 08/15/19 04:52 04:52 Creatine Kinase 29 L CK-MB (CK-2) 0.96 Troponin I < 0.012 NT-Pro-B Natriuret Pep 4760 H Impressions: Acute Abdomen Series 08/14/19 18:02 IMPRESSION: NO RADIOGRAPHIC EVIDENCE FOR ACUTE ABDOMINAL DISEASE. Abdomen Ultrasound 08/14/19 18:12 IMPRESSION: 1. Thickened gallbladder wall with no echogenic gallstones or debris within the gallbladder lumen. Finding may be secondary to extrinsic causes such is congestive heart failure or hepatitis. Clinical correlation and correlation with patient laboratory values recommended. No sonographic evidence of acute cholecystitis. Assessment & Plan - Diagnosis (1) Abdominal pain Qualifiers: Abdominal location: generalized Qualified Code(s): R10.84 - Generalized abdominal pain Is this a current diagnosis for this admission?: Yes Plan: Most likely related to alcohol pancreatitis will start on IV fluid keep a clear liquid diets (2) Acute on chronic pancreatitis Is this a current diagnosis for this admission?: Yes Plan: Discussed with the patient about to quit the alcohol's Continues IV fluid continues to clear liquids (3) Atrial flutter with rapid ventricular response Is this a current diagnosis for this admission?: Yes Plan: Increase the metoprolol 50 mg p.o. twice a day Consult the Dr. VALDES (4) Alcohol abuse Is this a current diagnosis for this admission?: Yes (5) Diastolic congestive heart failure Qualifiers: Heart failure chronicity: chronic Qualified Code(s): I50.32 - Chronic diastolic (congestive) heart failure Is this a current diagnosis for this admission?: Yes Plan: Continues the Lasix 20 mg p.o. daily - Time Time Spent: 50 to 70 Minutes Medications reviewed and adjusted accordingly: Yes Anticipated discharge: Home Within: Other - Inpatient Certification Based on my medical assessment, after consideration of the patient's c omorbidities, presenting symptoms, or acuity I expect that the services needed warrant INPATIENT care.: Yes I certify that my determination is in accordance with my understanding of Medicare's requirements for reasonable and necessary INPATIENT services [42 CFR 412.3e].: Yes Medical Necessity: Significant Comorbidiites Make Outpatient Treatment Too Risky, Need For IV Fluids, Need For Continuous Telemetry Monitoring Post Hospital Care: D/C Director Of Materials Documentation - Plan Summary Plan Summary: Admit the patient in IMCU See MD orders
[2019-08-15] MEDS: LOSARTAN POTASSIUM 25 MG TABLET PO SCH (09:42)
[2019-08-15] MEDS: PANTOPRAZOLE SODIUM 40 MG VIAL IV SCH ×2 (09:42→21:49)
[2019-08-15] MEDS: METOPROLOL SUCCINATE 25 MG TAB.SR.24H PO SCH ×2 (09:42→21:50)
[2019-08-15] MEDS: FUROSEMIDE 20 MG TABLET PO SCH (09:42)
[2019-08-15] MEDS: NORMAL SALINE 1000 ML 1,000 ML IV PRN ×3 (09:52→23:45)
[2019-08-15] MEDS ORDERED: ENOXAPARIN SODIUM INJ 40 MG/0.4 ML DISP.SYRIN SUBCUT SCH (10:00)
[2019-08-15] MEDS ORDERED: APIXABAN 5 MG TABLET PO SCH (10:00)
[2019-08-15] MEDS ORDERED: DIGOXIN INJ 0.5 MG/2 ML AMPULE IV ONE ×2 (11:30→14:30)
--- NOTE | 2019-08-15 17:23 | PDOC CONSULTATION ---
Consultation-Blank Consultation: CARDIOLOGY CONSULTATION by Dr. Karon Wheeler on 08/15/2019. Patient seen at 12 noon. 60 minutes spent with patient with more than 50% of time spent in direct patient care. REASON FOR CONSULTATION: Atrial flutter with rapid ventricular response and the patient was admitted with acute on chronic alcoholic pancreatitis. CONSULT REQUESTING PHYSICIAN: Dr. Villalba. History OF PRESENT ILLNESS: Patient is a 59-year-old Afro-[place] male with a history of alcohol abuse and history of multiple episodes of admission for acute on chronic alcoholic pancreatitis, hypertension and atrial flutter admitted with abdominal pain. He is also noticed to have atrial flutter with rapid ventricular response. The patient says he had developed abdominal pain about 2 3 days ago. He states that he has not had alcohol in a while. He has nausea and vomiting but no diarrhea. He denies any chest pain or discomfort but is aware of rapid palpitations. There is no PND orthopnea syncope or syncope but the patient does have some shortness of breath. He was initially placed on Eliquis, which had held since I thought the patient did not have a CT scan of the abdomen.. But on review with the patient on 08/14/[address] scan of the abdomen which did not show any hemorrhagic pancreatitis or pseudocyst, and shows just mild pancreatitis. Will restart this since the patient has a prior history of DVT and history of pulmonary embolism and the patient in view of his chronic pancreatitis is a high to high risk for venous thrombosis. Past Medical History Cardiac Medical History: Reports: Congestive Heart Failure, Hyperlipidema, Hypertension, Pulmonary Embolism DVT Cardiac History he has a history of atrial flutter. Pulmonary Medical History: Reports: Asthma Neurological Medical History: Denies: Seizures Renal/ Medical History: Reports: Chronic Kidney Disease by past history. At present his renal function is normal with a GFR greater than 60 GI Medical History: Reports: Gastroesophageal Reflux Disease Musculoskeltal Medical History: Reports: Arthritis Psychiatric Medical History: Denies: Depression Social History Information Source: Patient Lives with: Family Smoking Status: Current Every Day Smoker Electronic Cigarette use?: No Cigars Per Day: 3 Number of Years Smokin Last Time Smoked: 08/14/2019 Frequency of Alcohol Use: Heavy - 1-2 beers every day Hx Recreational Drug Use: No - denies Drugs: None Hx Prescription Drug Abuse: No. Resuscitation STATUS: The patient is a full code. Mr. Gurpreet Sainz is a surrogate healthcare decision maker. Family History Family History: None, Hypertension Parental Family History Reviewed: Yes Children Family History Reviewed: Yes Sibling(s) Family History Reviewed.: Yes Medication/Allergy Home Medications: Furosemide [Lasix 20 mg Tablet] 20 mg PO DAILY #30 tablet 04/19/17 Docusate Sodium [Dok] 100 mg PO DAILYP PRN 10/11/17 Metoprolol Succinate [Toprol Xl 25 mg Tab.sr] 25 mg PO Q12 #60 tab.sr.24h 10/21/17 Ferrous Sulfate [Feosol 325 mg Tablet] 325 mg PO DAILY 08/14/19 Ibuprofen [Motrin 600 mg Tablet] 600 mg PO Q8HP PRN 08/14/19 Losartan Potassium [Cozaar 25 mg Tablet] 25 mg PO DAILY 08/14/19 Pantoprazole Sodium 40 mg PO BID 08/14/19 Allergies/Adverse Reactions: KELLIE Inhibitors Allergy (Severe, Verified 08/14/19 16:14) Anaphylaxis lisinopril Allergy (Verified 08/14/19 16:14) Review of Systems Constitutional: ABSENT: chills, fever(s), headache(s), weight gain, weight loss Eyes: ABSENT: visual disturbances Ears: ABSENT: hearing changes Cardiovascular: ABSENT: chest pain, dyspnea on exertion, edema, orthropnea, palpitations Respiratory: ABSENT: cough, hemoptysis Gastrointestinal: PRESENT: abdominal pain, nausea. ABSENT: constipation, diarrhea, hematemesis, hematochezia, vomiting Genitourinary: ABSENT: dysuria, hematuria Musculoskeletal: ABSENT: joint swelling Integumentary: ABSENT: rash, wounds Neurological: ABSENT: abnormal gait, abnormal speech, confusion, dizziness, focal weakness, syncope Psychiatric: ABSENT: anxiety, depression, homidical ideation, suicidal ideation Endocrine: ABSENT: cold intolerance, heat intolerance, menstrual abnormalities, polydipsia, polyuria Hematologic/Lymphatic: ABSENT: easy bleeding, easy bruising, lymphadenopathy Current Medications Generic Name Dose Route Start Last Admin Trade Name Freq PRN Reason Stop Dose Admin Acetaminophen 650 mg 08/14/19 19:24 Tylenol 325 Mg Tablet PO 09/13/19 19:23 Q4HP PRN FOR PAIN OR TEMP Docusate Sodium 100 mg 08/14/19 21:22 Colace 100 Mg Capsule PO 09/13/19 21:21 DAILYP PRN CONSTIPATION Furosemide 20 mg 08/15/19 10:00 08/15/19 09:42 Lasix 20 Mg Tablet PO 09/14/19 09:59 20 mg DAILY LULY Administration Diltiazem HCl 125 mg in 125 mls @ 0 mls/hr 08/14/19 18:59 08/15/19 20:23 Cardizem Rtu Inj 125 Mg-D5w 125 Ml Premix IV 09/13/19 18:58 15 ml/hr CONTINUOUS PRN 15 mls/hr THIS MED IS NOT "PRN" Administration Protocol Titrate Sodium Chloride 1,000 mls @ 125 mls/hr 08/14/19 19:32 08/15/19 14:44 Nacl 0.9% 1000 Ml Iv Soln IV 09/13/19 19:23 75 mls/hr CONTINUOUS PRN Administration THIS MED IS NOT "PRN" Ceftriaxone Sodium/Dextrose 1 gm in 50 mls @ 100 mls/hr 08/14/19 20:00 08/15/19 18:59 Rocephin Rtu 1 Gm/D5w 50 Ml Premix IV 08/21/19 19:59 Infused QPM LULY Infusion Levalbuterol HCl 1.25 mg 08/14/19 19:24 Xopenex Neb 1.25 Mg/3 Ml Ampul NEB 09/13/19 19:23 RTQ6HP PRN SHORTNESS OF BREATH Losartan Potassium 25 mg 08/15/19 10:00 08/15/19 09:42 Cozaar 25 Mg Tablet PO 09/14/19 09:59 25 mg DAILY LULY Administration Metoprolol Succinate 50 mg 08/15/19 10:00 08/15/19 21:50 Toprol Xl 25 Mg Tab.Sr PO 09/14/19 09:59 50 mg Q12 LULY Administration Morphine Sulfate 2 mg 08/14/19 19:30 08/15/19 19:24 Morphine 10 Mg/Ml Inj IV 08/21/19 19:29 2 mg Q4HP PRN Administration FOR PAIN Ondansetron HCl 4 mg 08/14/19 19:24 08/15/19 08:19 Zofran Inj/Pf 4 Mg/2 Ml Sdv IV 09/13/19 19:23 4 mg Q4HP PRN Administration FOR NAUSEA/VOMITING Pantoprazole Sodium 40 mg 08/14/19 22:00 08/15/19 21:49 Protonix Iv Inj 40 Mg Vial IV 08/21/19 21:59 40 mg Q12 LULY Administration Discontinued Medications Generic Name Dose Route Start Last Admin Trade Name Kevin PRN Reason Stop Dose Admin Apixaban 5 mg 08/14/19 19:23 08/15/19 01:43 Eliquis 5 Mg Tablet PO 08/14/19 19:24 Not Given NOW ONE Apixaban 5 mg 08/15/19 10:00 08/15/19 09:42 Eliquis 5 Mg Tablet PO 09/14/19 09:59 5 mg BID LULY Administration Digoxin 0.25 mg 08/15/19 11:30 08/15/19 12:33 Lanoxin Inj 0.5 Mg/2 Ml Ampule IV 08/15/19 11:31 0.25 mg NOW ONE Administration Digoxin 0.25 mg 08/15/19 14:30 08/15/19 14:44 Lanoxin Inj 0.5 Mg/2 Ml Ampule IV 08/15/19 14:31 0.25 mg NOW ONE Administration Diltiazem HCl 20 mg 08/14/19 18:59 08/14/19 19:12 Cardizem Inj 25 Mg/5 Ml Vial IV 08/14/19 19:00 20 mg NOW ONE Administration Enoxaparin Sodium 40 mg 08/15/19 10:00 Lovenox Inj 40 Mg/0.4 Ml Disp.Syrin SUBCUT 09/14/19 09:59 DAILY LULY Enoxaparin Sodium 70 mg 08/14/19 22:00 08/14/19 22:02 Lovenox Inj 80 Mg/0.8 Ml Disp.Syrin SUBCUT 09/13/19 21:59 70 mg Q12 LULY Administration Sodium Chloride 1,000 mls @ 0 mls/hr 08/14/19 18:02 08/14/19 19:12 Nacl 0.9% 1000 Ml Iv Soln IV 08/14/19 18:03 999 mls/hr BOLUS ONE Administration Wide Open Sodium Chloride 1,000 mls @ 100 mls/hr 08/14/19 19:24 Nacl 0.9% 1000 Ml Iv Soln IV 09/13/19 19:23 CONTINUOUS PRN THIS MED IS NOT "PRN" Metoprolol Succinate 25 mg 08/14/19 22:00 08/14/19 22:03 Toprol Xl 25 Mg Tab.Sr PO 09/13/19 21:59 25 mg Q12 LULY Administration Morphine Sulfate 4 mg 08/14/19 16:13 08/14/19 16:32 Morphine 10 Mg/Ml Inj IV 08/14/19 16:14 4 mg NOW ONE Administration Ondansetron HCl 4 mg 08/14/19 16:13 08/14/19 16:33 Zofran Inj/Pf 4 Mg/2 Ml Sdv IV 08/14/19 16:14 4 mg NOW ONE Administration Potassium Chloride 40 meq 08/14/19 22:00 08/14/19 22:03 Klor-Con 10 Meq Tablet Er PO 08/14/19 22:01 40 meq NOW ONE Administration PHYSICAL EXAMINATION: The patient is a well built 59-year-old male but appears to be in acute distress due to abdominal pain. Selected Entries 08/15/19 08/15/19 12:16 13:00 Temperature 97.4 F Temperature Axillary Source Pulse Rate 129 H Respiratory 16 Rate Blood Pressure 118/85 Blood Pressure 96 Mean BP Location Left Arm BP Position Supine Oxygen Delivery Room Air Method HEAD: Is atraumatic normocephalic. EYES: Pupils are equal round regular reactive to light and accommodation. There is no clinical pallor. There is no scleral icterus. External ocular movements are normal. EARS: Tympanic membranes are intact. External auditory canals are clear. NOSE: Nasal mucous membranes are not inflamed. There is no deviated nasal septum. MOUTH: Mucous membranes of mouth are moist. Tongue is moist. There is no ulcers. There is no bleeding from the gums. THROAT: There is no redness of the oropharynx. There is no exudates in the throat. SKIN: There is no petechia or ecchymosis. There is no skin rashes or skin lesions. NECK: Is supple. There is no JVD. Carotids are equal there is no bruits. There is no lymphadenopathy. There is no goiter. There is no accessory muscles of respiration in use. Trachea central. LUNGS: There is diminished air entry and prolonged expiration. On percussion there is hyperresonance. There is scattered rhonchi present. There is no rales or wheezing. There is no chest wall tenderness on palpation. HEART: S1-S2 is heard. S1 is of variable intensity. There is no S3 gallop. There is no S4 gallop. There is systolic murmur left sternal border and the apex, without radiation. There is no murmur of aortic stenosis. Prosthetic aortic valve click heard crisply. There is no aortic regurgitation murmur.. There is no rub. ABDOMEN: Early tender. There is no rebound guarding or rigidity. Bowel sounds are slightly diminished. There is no hepatosplenomegaly. Bowel sounds are well heard. EXTREMITIES: Femorals are deep. Femorals are slightly diminished. There is no femoral bruits. There is no pedal edema. There is no DVT or cellulitis. Leg pulses are diminished. There is no cyanosis or clubbing. Capillary refill is normal. There is no calf tenderness. 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 PSYCHIATRIC: The patient judgment and insight are intact her affect is normal. Labs- Entire Visit 08/14/19 08/14/19 08/14/19 16:30 16:30 16:30 WBC 10.6 H RBC 5.46 Hgb 14.1 Hct 43.6 MCV 80 MCH 25.9 L MCHC 32.5 RDW 15.3 H Plt Count 253 Lymph % (Auto) 17.1 [place] % (Auto) 10.7 Eos % (Auto) 0.2 Baso % (Auto) 0.2 Absolute Neuts (auto) 7.6 Absolute Lymphs (auto) 1.8 Absolute Monos (auto) 1.1 Absolute Eos (auto) 0.0 Absolute Basos (auto) 0.0 Seg Neutrophils % 71.8 Sodium 137.4 Potassium 3.7 Chloride 105 Carbon Dioxide 22 Anion Gap 10 BUN 17 Creatinine 1.09 Est GFR ( Amer) > 60 Est GFR (MDRD) Non-Af > 60 Glucose 129 H Calcium 9.2 Magnesium Total Bilirubin 0.8 Direct Bilirubin 0.2 Neonat Total Bilirubin Not Reportable Neonat Direct Bilirubin Not Reportable Neonat Indirect Bili Not Reportable AST 87 H ALT 122 H Alkaline Phosphatase 80 Creatine Kinase CK-MB (CK-2) Troponin I NT-Pro-B Natriuret Pep Total Protein 7.3 Albumin 4.1 Lipase 1179.7 H Urine Color Urine Appearance Urine pH Ur Specific [place] Urine Protein Urine Glucose (UA) Urine Ketones Urine Blood Urine Nitrite Urine Bilirubin Urine Urobilinogen Ur Leukocyte Esterase Urine WBC (Auto) Urine RBC (Auto) Squamous Epi Cells Auto Urine Mucus (Auto) Urine Ascorbic Acid Serum Alcohol < 10 08/14/19 08/14/19 08/15/19 20:00 20:18 04:52 WBC 11.9 H RBC 5.04 Hgb 13.0 L Hct 39.7 MCV 79 L MCH 25.8 L MCHC 32.8 RDW 15.4 H Plt Count 217 Lymph % (Auto) 8.8 L [place] % (Auto) 10.8 Eos % (Auto) 0.0 Baso % (Auto) 0.5 Absolute Neuts (auto) 9.5 H Absolute Lymphs (auto) 1.0 Absolute Monos (auto) 1.3 Absolute Eos (auto) 0.0 Absolute Basos (auto) 0.1 Seg Neutrophils % 79.9 H Sodium 138.2 Potassium 3.5 L Chloride 106 Carbon Dioxide 21 L Anion Gap 11 BUN 16 Creatinine 0.90 Est GFR ( Amer) > 60 Est GFR (MDRD) Non-Af > 60 Glucose 119 H Calcium 8.9 Magnesium Total Bilirubin Direct Bilirubin Neonat Total Bilirubin Neonat Direct Bilirubin Neonat Indirect Bili AST ALT Alkaline Phosphatase Creatine Kinase CK-MB (CK-2) Troponin I NT-Pro-B Natriuret Pep Total Protein Albumin Lipase Urine Color ESSENCE Urine Appearance SLIGHTLY-CLOUDY Urine pH 5.0 Ur Specific [place] 1.041 Urine Protein 100 H Urine Glucose (UA) NEGATIVE Urine Ketones TRACE H Urine Blood NEGATIVE Urine Nitrite NEGATIVE Urine Bilirubin NEGATIVE Urine Urobilinogen 4.0 H Ur Leukocyte Esterase NEGATIVE Urine WBC (Auto) 9 Urine RBC (Auto) 2 Squamous Epi Cells Auto 1 Urine Mucus (Auto) FEW Urine Ascorbic Acid NEGATIVE Serum Alcohol 08/15/19 08/15/19 04:52 04:52 WBC RBC Hgb Hct MCV MCH MCHC RDW Plt Count Lymph % (Auto) [place] % (Auto) Eos % (Auto) Baso % (Auto) Absolute Neuts (auto) Absolute Lymphs (auto) Absolute Monos (auto) Absolute Eos (auto) Absolute Basos (auto) Seg Neutrophils % Sodium Potassium Chloride Carbon Dioxide Anion Gap BUN Creatinine Est GFR ( Amer) Est GFR (MDRD) Non-Af Glucose Calcium Magnesium 1.8 Total Bilirubin 1.1 Direct Bilirubin 0.2 Neonat Total Bilirubin Not Reportable Neonat Direct Bilirubin Not Reportable Neonat Indirect Bili Not Reportable AST 64 H ALT 90 H Alkaline Phosphatase 66 Creatine Kinase 29 L CK-MB (CK-2) 0.96 Troponin I < 0.012 NT-Pro-B Natriuret Pep 4760 H Total Protein 6.3 Albumin 3.6 Lipase 608.4 H Urine Color Urine Appearance Urine pH Ur Specific [place] Urine Protein Urine Glucose (UA) Urine Ketones Urine Blood Urine Nitrite Urine Bilirubin Urine Urobilinogen Ur Leukocyte Esterase Urine WBC (Auto) Urine RBC (Auto) Squamous Epi Cells Auto Urine Mucus (Auto) Urine Ascorbic Acid Serum Alcohol Acute Abdomen Series 08/14/19 18:02 IMPRESSION: NO RADIOGRAPHIC EVIDENCE FOR ACUTE ABDOMINAL DISEASE. Abdomen Ultrasound 08/14/19 18:12 IMPRESSION: 1. Thickened gallbladder wall with no echogenic gallstones or debris within the gallbladder lumen. Finding may be secondary to extrinsic causes such is congestive heart failure or hepatitis. Clinical correlation and correlation with patient laboratory values recommended. No sonographic evidence of acute cholecystitis. EKG: The patient is EKG on08/14/2019 shows atrial flutter with rapid ventricular response. Probable LVH with strain pattern. Subsequent EKG shows atrial flutter will still fast ventricular response. IMPRESSION/recommendation: 1. Atrial flutter with rapid ventricular response: Continue the patient on Cardizem drip at 15 mg/h but still the patient's heart rate is still not controlled. Will add digoxin 0.25 mg IV push x1 and repeat if needed. 2. Dehydration: Would recommend continue hydration increase IV fluids to 125 mL/h. 3. Acute on chronic alcoholic pancreatitis: Continue supportive treatment For. Hypertension: Blood pressure stable. 4. Prior history of DVT and pulmonary embolism: We will start the patient back on Eliquis. Reviewed. Medical regimen and management plan discussed with attending physician on the case. Medical decision making is of high complexity. 60 minutes spent as patient more than 50% of time spent in direct patient care. Will follow.
[2019-08-15] MEDS: CEFTRIAXONE 1 GM/D5W RTU 1 GM/50 ML RTUPB IV SCH (17:37)
--- NOTE | 2019-08-15 18:18 | EKG REPORT ---
SEVERITY:- ABNORMAL ECG - ATRIAL FLUTTER WITH 2:1 AV BLOCK BORDERLINE T ABNORMALITIES, INFERIOR LEADS BORDERLINE PROLONGED QT INTERVAL : Confirmed by: Karon Wheeler MD 15-Aug-2019 18:17:58
[2019-08-16] MEDS: ONDANSETRON HCL INJ/PF 4 MG/2 ML SDV IV PRN (05:10)
[2019-08-16] MEDS: DILTIAZEM HCL/D5W 125 MG/125 ML RTUINJ IV PRN (05:12)
[2019-08-16] MEDS: MORPHINE SULFATE 10 MG/ML INJ IV PRN (05:18)
[2019-08-16 06:15] LABS: ABSOLUTE LYMPHOCYTES (AUTO) 1.2 10^3/uL (0.5-4.7); ABSOLUTE MONOCYTES (AUTO) 1.1 10^3/uL (0.1-1.4); ABSOLUTE NEUT (AUTO) 7.5 10^3/uL (1.7-8.2); BASOPHILS % (AUTO) 0.4 % (0-2); EOSINOPHILS % (AUTO) 0.4 % (0-6); HEMATOCRIT 35.7 % (37.9-51.0); HEMOGLOBIN 11.9 g/dL (13.5-17.0); LYMPHOCYTES % (AUTO) 12.3 % (13-45); MEAN CORPUSCULAR HEMOGLOBIN 26.1 pg (27.0-33.4); MEAN CORPUSCULAR HGB CONC 33.3 g/dL (32.0-36.0); MEAN CORPUSCULAR VOLUME 78 fl (80-97); MONOCYTES % (AUTO) 11.1 % (3-13); PLATELET COUNT 203 10^3/uL (150-450); RED BLOOD COUNT 4.57 10^6/uL (4.35-5.55); RED CELL DISTRIBUTION WIDTH 15.2 % (11.5-14.0); SEGMENTED NEUTROPHILS % (AUTO) 75.8 % (42-78); TOTAL CELLS COUNTED % (AUTO) 100 %; WHITE BLOOD COUNT 9.9 10^3/uL (4.0-10.5)
[2019-08-16 06:40] LABS: ALBUMIN 2.9 g/dL (3.5-5.0); ALKALINE PHOSPHATASE 58 U/L (38-126); ANION GAP 9 (5-19); ASPARTATE AMINO TRANSFERASE 42 U/L (17-59); BILIRUBIN,DIRECT 0.2 mg/dL (0.0-0.4); BLOOD UREA NITROGEN 10 mg/dL (7-20); CALCIUM 8.1 mg/dL (8.4-10.2); CARBON DIOXIDE 20 mmol/L (22-30); CHLORIDE 106 mmol/L (98-107); GLUCOSE 101 mg/dL (75-110); POTASSIUM 3.7 mmol/L (3.6-5.0); TOTAL PROTEIN 5.6 g/dL (6.3-8.2)
[2019-08-16 06:43] LABS: APPEARANCE,URINE CLEAR; BILIRUBIN,URINE NEGATIVE (NEGATIVE); COLOR,URINE YELLOW; GLUCOSE, URINE NEGATIVE (NEGATIVE); KETONES,URINE NEGATIVE (NEGATIVE); LEUKOCYTE ESTERASE,URINE NEGATIVE (NEGATIVE); NITRITE,URINE NEGATIVE (NEGATIVE); PROTEIN,URINE NEGATIVE (NEGATIVE)
[2019-08-16] MEDS: NORMAL SALINE 1000 ML 1,000 ML IV PRN (08:37)
--- NOTE | 2019-08-16 08:49 | PDOC PROGRESS REPORT ---
Subjective Progress Note for:: 08/16/19 Subjective:: Patient is currently doing well Is denied any chest pain no short of breath no abdominal pain Patient's wants to go home have a several history in the past left AMA Cussed with the patient is currently on a Cardizem drip try to wean off from the drip first and patient is to walk around the hallway Discussed with the automobile relocation engineer suggest to give her digoxin 1 dose try to wean off from the Cardizem drip Patient's otherwise understand about the quit the alcohol stay with the liquid diet for the next 3 to 4 days and slowly increase the soft diet and follow in office in 1 week if is going home today Reason For Visit: ACUTE PANCREATITIS Physical Exam Vital Signs: Temp Pulse Resp BP Pulse Ox 97.3 F 87 16 108/65 98 08/16/19 03:09 08/16/19 07:00 08/16/19 03:09 08/16/19 05:00 08/16/19 03:09 Intake & Output 08/15/19 08/16/19 08/17/19 06:59 06:59 06:59 Intake Total 251 3615 665 Output Total 200 850 Balance 51 2765 665 Weight 73.2 kg 76.2 kg General appearance: PRESENT: no acute distress, well-developed, well-nourished Head exam: PRESENT: atraumatic, normocephalic Eye exam: PRESENT: conjunctiva pink, EOMI, PERRLA. ABSENT: scleral icterus Ear exam: PRESENT: normal external ear exam Mouth exam: PRESENT: moist, tongue midline Neck exam: PRESENT: full ROM. ABSENT: carotid bruit, JVD, lymphadenopathy, thyromegaly Respiratory exam: PRESENT: clear to auscultation garrett Cardiovascular exam: PRESENT: irregular rhythm. ABSENT: diastolic murmur, rubs, systolic murmur Pulses: PRESENT: normal dorsalis pedis pul, +2 pedal pulses bilateral Vascular exam: PRESENT: normal capillary refill GI/Abdominal exam: PRESENT: normal bowel sounds, soft. ABSENT: distended, guarding, mass, organolmegaly, rebound, tenderness Rectal exam: PRESENT: deferred Neurological exam: PRESENT: alert, awake, oriented to person, oriented to place, oriented to time, oriented to situation, CN II-XII grossly intact. ABSENT: mo tor sensory deficit Psychiatric exam: PRESENT: appropriate affect, normal mood. ABSENT: homicidal ideation, suicidal ideation Skin exam: PRESENT: dry, intact, warm. ABSENT: cyanosis, rash Results Laboratory Results: 08/16/19 05:00 08/16/19 05:00 08/16/19 08/16/19 08/16/19 05:00 05:00 06:20 WBC 9.9 RBC 4.57 Hgb 11.9 L Hct 35.7 L MCV 78 L MCH 26.1 L MCHC 33.3 RDW 15.2 H Plt Count 203 Seg Neutrophils % 75.8 Sodium 134.5 L Potassium 3.7 Chloride 106 Carbon Dioxide 20 L Anion Gap 9 BUN 10 Creatinine 0.69 Est GFR ( Amer) > 60 Glucose 101 Calcium 8.1 L Total Bilirubin 1.0 AST 42 Alkaline Phosphatase 58 Total Protein 5.6 L Albumin 2.9 L Lipase 253.2 Urine Color YELLOW Urine Appearance CLEAR Urine pH 7.0 Ur Specific [place] 1.010 Urine Protein NEGATIVE Urine Glucose (UA) NEGATIVE Urine Ketones NEGATIVE Urine Blood NEGATIVE Urine Nitrite NEGATIVE Ur Leukocyte Esterase NEGATIVE Urine WBC (Auto) 2 Urine RBC (Auto) 0 08/15/19 08/15/19 04:52 04:52 Creatine Kinase 29 L CK-MB (CK-2) 0.96 Troponin I < 0.012 NT-Pro-B Natriuret Pep 4760 H Impressions: Acute Abdomen Series 08/14/19 18:02 IMPRESSION: NO RADIOGRAPHIC EVIDENCE FOR ACUTE ABDOMINAL DISEASE. Abdomen Ultrasound 08/14/19 18:12 IMPRESSION: 1. Thickened gallbladder wall with no echogenic gallstones or debris within the gallbladder lumen. Finding may be secondary to extrinsic causes such is congestive heart failure or hepatitis. Clinical correlation and correlation with patient laboratory values recommended. No sonographic evidence of acute cholecystitis. Assessment & Plan - Diagnosis (1) Abdominal pain Qualifiers: Abdominal location: generalized Qualified Code(s): R10.84 - Generalized abdominal pain Is this a current diagnosis for this admission?: Yes Plan: Currently resolved with the pancreatitis (2) Acute on chronic pancreatitis Is this a current diagnosis for this admission?: Yes Plan: Discussed with the patient about quit the alcohol stay with the soft diet (3) Atrial flutter with rapid ventricular response Is this a current diagnosis for this admission?: Yes (4) Alcohol abuse Is this a current diagnosis for this admission?: Yes (5) Diastolic congestive heart failure Qualifiers: Heart failure chronicity: chronic Qualified Code(s): I50.32 - Chronic diastolic (congestive) heart failure Is this a current diagnosis for this admission?: Yes - Time Time Spent with patient: 15-24 minutes Level of Care: IMCU Medications reviewed and adjusted accordingly: Yes Anticipated discharge: Home Within: Other - Plan Summary Plan Summary: We will try to wean off from Cardizem drip and if the patient's remain off the drips and walk around in the hallway and no other issues patients can be discharged home while patient is very much decided to go home today and patients left AMA several times in the past
[2019-08-16] MEDS ORDERED: DIGOXIN 0.25 MG TABLET PO ONE (09:00)
[2019-08-16] MEDS ORDERED: APIXABAN 5 MG TABLET PO SCH (10:00)
[2019-08-16] MEDS: PANTOPRAZOLE SODIUM 40 MG VIAL IV SCH (10:02)
[2019-08-16] MEDS: FUROSEMIDE 20 MG TABLET PO SCH (10:02)
[2019-08-16] MEDS: LOSARTAN POTASSIUM 25 MG TABLET PO SCH (10:02)
[2019-08-16] MEDS: METOPROLOL SUCCINATE 25 MG TAB.SR.24H PO SCH (10:02)
--- NOTE | 2019-08-16 11:35 | PDOC DISCHARGE SUMMARY ---
Impression - Admit/DC Date/PCP Admission Date/Primary Care Provider: 08/14/19 19:36 MAIK JERRY MD Discharge Date: 08/16/19 - Discharge Diagnosis (1) Abdominal pain Is this a current diagnosis for this admission?: Yes (2) Acute on chronic pancreatitis Is this a current diagnosis for this admission?: Yes (3) Atrial flutter with rapid ventricular response Is this a current diagnosis for this admission?: Yes (4) Alcohol abuse Is this a current diagnosis for this admission?: Yes (5) Diastolic congestive heart failure Is this a current diagnosis for this admission?: Yes - Additional Information Discharge Diet: Clear Liquids Discharge Activity: Activity As Tolerated Referrals: MAIK JERRY MD [Primary Care Provider] - 08/20/19 11:30 am Prescriptions: Digoxin 125 mcg PO DAILY #30 tablet Apixaban [Eliquis 5 mg Tablet] 5 mg PO BID #60 tablet Metoprolol Succinate [Toprol Xl 25 mg Tab.sr] 50 mg PO Q12 #60 tab.sr.24h Home Medications: Furosemide [Lasix 20 mg Tablet] 20 mg PO DAILY #30 tablet 04/19/17 Docusate Sodium [Dok] 100 mg PO DAILYP PRN 10/11/17 Losartan Potassium [Cozaar 25 mg Tablet] 25 mg PO DAILY 08/14/19 Pantoprazole Sodium 40 mg PO BID 08/14/19 Apixaban [Eliquis 5 mg Tablet] 5 mg PO BID #60 tablet 08/16/19 Digoxin 125 mcg PO DAILY #30 tablet 08/16/19 Metoprolol Succinate [Toprol Xl 25 mg Tab.sr] 50 mg PO Q12 #60 tab.sr.24h 08/16/19 History of Present Illiness History of Present Illness: EUGENE ARAGON This is a 59-year-old male with a history of the chronic pancreatitis with the history of alcohol abuse history of the hypertensions hyperlipidemia And atrial flutter and diastolic heart failure came to the emergency department with a complaining of abdominal pain Patients came day before in the emergency department with the same complaint was CT scan of the abdomen and pelvis was done with some mild pancreatitis and patient's lipase was 500 range patient was discharged Patients came back again with the emergency department with the same complaint lipase was elevated with 1100 patient's admit that he is drink 1 or 2 hard liquor yesterday day before but usually he cut down the alcohol with below he used to drink Patient's CT scan yesterday day before was performed some mild pancreatitis with elevated LFT the ultrasound of the abdomen was done which did not show any acute gallstone or cholecystitis and surgically consulted and suggest most likely alcoholic pancreatitis no need for surgical interventions Patient also found atrial flutter fib relations with the rate was elevated in the ER and patient was put on a Cardizem drips I saw the patient in the IMCU feeling better still having some abdominal discomfort denied any nausea no vomiting Patient is currently on a Cardizem drips patient is recently seen by Dr. VALDES last week Patient's denied any chest pain no short of breath Hospital Course Hospital Course: This is a 59-year-old male came to the emergency department with abdominal pain diagnosed with alcoholic pancreatitis patient had a CT scan of the abdomen and pelvis done day before was all stable seen by the general surgery no need for any gallbladder issues related to the alcoholic pancreatitis Is treated with the clear liquids IV fluids patient's response very well Also have atrial flutter with rapid ventricular response seen by the cardiology Dr. 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 ABSENT: scleral icterus Ear exam: PRESENT: normal external ear exam Mouth exam: PRESENT: moist, tongue midline Neck exam: ABSENT: carotid bruit, JVD, lymphadenopathy, thyromegaly Respiratory exam: PRESENT: clear to auscultation garrett. ABSENT: rales, rhonchi, wheezes Cardiovascular exam: PRESENT: RRR. ABSENT: diastolic murmur, rubs, systolic murmur Pulses: PRESENT: normal dorsalis pedis pul Vascular exam: PRESENT: normal capillary refill GI/Abdominal exam: PRESENT: normal bowel sounds, soft. ABSENT: distended, guarding, mass, organolmegaly, rebound, tenderness Rectal exam: PRESENT: deferred Extremities exam: PRESENT: full ROM. ABSENT: calf tenderness, clubbing, pedal edema Neurological exam: PRESENT: alert, awake, oriented to person, oriented to place, oriented to time, oriented to situation, CN II-XII grossly intact. ABSENT: motor sensory deficit Psychiatric exam: PRESENT: appropriate affect, normal mood. ABSENT: homicidal ideation, suicidal ideation Skin exam: PRESENT: dry, intact, warm. ABSENT: cyanosis, rash Results Laboratory Results: WBC 9.9 10^3/uL (4.0-10.5) 08/16/19 05:00 RBC 4.57 10^6/uL (4.35-5.55) 08/16/19 05:00 Hgb 11.9 g/dL (13.5-17.0) L 08/16/19 05:00 Hct 35.7 % (37.9-51.0) L 08/16/19 05:00 MCV 78 fl (80-97) L 08/16/19 05:00 MCH 26.1 pg (27.0-33.4) L 08/16/19 05:00 MCHC 33.3 g/dL (32.0-36.0) 08/16/19 05:00 RDW 15.2 % (11.5-14.0) H 08/16/19 05:00 Plt Count 203 10^3/uL (150-450) 08/16/19 05:00 Lymph % (Auto) 12.3 % (13-45) L 08/16/19 05:00 [place] % (Auto) 11.1 % (3-13) 08/16/19 05:00 Eos % (Auto) 0.4 % (0-6) 08/16/19 05:00 Baso % (Auto) 0.4 % (0-2) 08/16/19 05:00 Absolute Neuts (auto) 7.5 10^3/uL (1.7-8.2) 08/16/19 05:00 Absolute Lymphs (auto) 1.2 10^3/uL (0.5-4.7) 08/16/19 05:00 Absolute Monos (auto) 1.1 10^3/uL (0.1-1.4) 08/16/19 05:00 Absolute Eos (auto) 0.0 10^3/uL (0.0-0.6) 08/16/19 05:00 Absolute Basos (auto) 0.0 10^3/uL (0.0-0.2) 08/16/19 05:00 Seg Neutrophils % 75.8 % (42-78) 08/16/19 05:00 Sodium 134.5 mmol/L (137-145) L 08/16/19 05:00 Potassium 3.7 mmol/L (3.6-5.0) 08/16/19 05:00 Chloride 106 mmol/L (98-107) 08/16/19 05:00 Carbon Dioxide 20 mmol/L (22-30) L 08/16/19 05:00 Anion Gap 9 (5-19) 08/16/19 05:00 BUN 10 mg/dL (7-20) 08/16/19 05:00 Creatinine 0.69 mg/dL (0.52-1.25) 08/16/19 05:00 Est GFR ( Amer) > 60 (>60) 08/16/19 05:00 Est GFR (MDRD) Non-Af > 60 (>60) 08/16/19 05:00 Glucose 101 mg/dL (75-110) 08/16/19 05:00 Calcium 8.1 mg/dL (8.4-10.2) L 08/16/19 05:00 Magnesium 1.8 mg/dL (1.6-2.3) 08/15/19 04:52 Total Bilirubin 1.0 mg/dL (0.2-1.3) 08/16/19 05:00 Direct Bilirubin 0.2 mg/dL (0.0-0.4) 08/16/19 05:00 Neonat Total Bilirubin Not Reportable 08/16/19 05:00 Neonat Direct Bilirubin Not Reportable 08/16/19 05:00 Neonat Indirect Bili Not Reportable 08/16/19 05:00 AST 42 U/L (17-59) 08/16/19 05:00 ALT 66 U/L (<50) H 08/16/19 05:00 Alkaline Phosphatase 58 U/L (38-126) 08/16/19 05:00 Creatine Kinase 29 U/L (55-170) L 08/15/19 04:52 CK-MB (CK-2) 0.96 ng/mL (<4.55) 08/15/19 04:52 Troponin I < 0.012 ng/mL 08/15/19 04:52 NT-Pro-B Natriuret Pep 4760 pg/mL (<125) H 08/15/19 04:52 Total Protein 5.6 g/dL (6.3-8.2) L 08/16/19 05:00 Albumin 2.9 g/dL (3.5-5.0) L 08/16/19 05:00 Lipase 253.2 U/L (23-300) 08/16/19 05:00 Urine Color YELLOW 08/16/19 06:20 Urine Appearance CLEAR 08/16/19 06:20 Urine pH 7.0 (5.0-9.0) 08/16/19 06:20 Ur Specific [place] 1.010 08/16/19 06:20 Urine Protein NEGATIVE mg/dL (NEGATIVE) 08/16/19 06:20 Urine Glucose (UA) NEGATIVE mg/dL (NEGATIVE) 08/16/19 06:20 Urine Ketones NEGATIVE mg/dL (NEGATIVE) 08/16/19 06:20 Urine Blood NEGATIVE (NEGATIVE) 08/16/19 06:20 Urine Nitrite NEGATIVE (NEGATIVE) 08/16/19 06:20 Urine Bilirubin NEGATIVE (NEGATIVE) 08/16/19 06:20 Urine Urobilinogen 2.0 mg/dL (<2.0) H 08/16/19 06:20 Ur Leukocyte Esterase NEGATIVE (NEGATIVE) 08/16/19 06:20 Urine WBC (Auto) 2 /HPF 08/16/19 06:20 Urine RBC (Auto) 0 /HPF 08/16/19 06:20 Squamous Epi Cells Auto <1 /HPF 08/16/19 06:20 Urine Mucus (Auto) RARE /LPF 08/16/19 06:20 Urine Ascorbic Acid NEGATIVE (NEGATIVE) 08/16/19 06:20 Serum Alcohol < 10 mg/dL (NONE DETECTED) 08/14/19 16:30 08/15/19 04:52 CK-MB (CK-2) 0.96 Troponin I < 0.012 NT-Pro-B Natriuret Pep 4760 H Impressions: Acute Abdomen Series 08/14/19 18:02 IMPRESSION: NO RADIOGRAPHIC EVIDENCE FOR ACUTE ABDOMINAL DISEASE. Abdomen Ultrasound 08/14/19 18:12 IMPRESSION: 1. Thickened gallbladder wall with no echogenic gallstones or debris within the gallbladder lumen. Finding may be secondary to extrinsic causes such is congest re heart failure or hepatitis. Clinical correlation and correlation with patient laboratory values recommended. No sonographic evidence of acute cholecystitis. Plan Time Spent: Greater than 30 Minutes - Patient scheduled for echocardiogram by Dr. VALDES tomorrow in his office stay with the clear liquid to full liquid diets for next to 3 days follow in office 1 week Stroke Is this a Stroke Patient?: No Acute Heart Failure - Is this a Heart Failure Patient?: No
[2019-08-16 12:47] VITALS: BP 130/94
--- NOTE | 2019-08-16 19:24 | Progress Note ---
Provider Note Provider Note: [facility]– [place] PROGRESS NOTE by Dr. Karon Wheeler on 08/16/2019. SUBJECTIVE: The patient denies any chest pain or discomfort. There is no shortness of breath. There is no nausea vomiting. The patient continues to be atrial in atrial flutter but with a controlled ventricular response. His IV Cardizem drip has been discontinued. The patient is anxious to go home. There is no leg edema. There is no ventricular arrhythmia seen on the monitor. There is no bleeding on Eliquis. There is no TIA CVA symptoms. PHYSICAL EXAMINATION: The patient is well-built. But appears to be in no acute distress. Selected Entries 08/16/19 08/16/19 08:50 12:45 Temperature 97.3 F Pulse Rate 87 Respiratory 16 Rate Blood Pressure 132/80 H [Right Upper Arm] O2 Sat by Pulse 98 Oximetry Oxygen Delivery Room Air Method ( includes room air) HEAD: Is atraumatic normocephalic. EYES: Pupils are equal round regular reactive to light and accommodation. There is no clinical pallor. There is no scleral icterus. External ocular movements are normal. EARS: Tympanic membranes are intact. External auditory canals are clear. NOSE: Nasal mucous membranes are not inflamed. There is no deviated nasal septum. MOUTH: Mucous membranes of mouth are moist. Tongue is moist. There is no ulcers. There is no bleeding from the gums. THROAT: There is no redness of the oropharynx. There is no exudates in the throat. SKIN: There is no petechia or ecchymosis. There is no skin rashes or skin lesions. NECK: Is supple. There is no JVD. Carotids are equal there is no bruits. There is no lymphadenopathy. There is no goiter. There is no accessory muscles of respiration in use. Trachea central. LUNGS: There is diminished air entry and prolonged expiration. On percussion there is hyperresonance. There is scattered rhonchi present. There is no rales or wheezing. There is no chest wall tenderness on palpation. HEART: S1-S2 is heard. S1 is of variable intensity. There is no S3 gallop. There is no S4 gallop. There is systolic murmur left sternal border and the apex, without radiation. There is no murmur of aortic stenosis. Prosthetic aortic valve click heard crisply. There is no aortic regurgitation murmur.. There is no rub. ABDOMEN: Early tender. There is no rebound guarding or rigidity. Bowel sounds are slightly diminished. There is no hepatosplenomegaly. Bowel sounds are well heard. EXTREMITIES: Femorals are deep. Femorals are slightly diminished. There is no femoral bruits. There is no pedal edema. There is no DVT or cellulitis. Leg pulses are diminished. There is no cyanosis or clubbing. Capillary refill is normal. There is no calf tenderness. INSPECTOR AND UNLOADER: The patient is conscious awake alert oriented x3 with no focal deficits. PSYCHIATRIC: The patient judgment and insight are intact her affect is normal. Labs- All tests 24 hr 08/16/19 08/16/19 08/16/19 05:00 05:00 06:20 WBC 9.9 RBC 4.57 Hgb 11.9 L Hct 35.7 L MCV 78 L MCH 26.1 L MCHC 33.3 RDW 15.2 H Plt Count 203 Lymph % (Auto) 12.3 L [place] % (Auto) 11.1 Eos % (Auto) 0.4 Baso % (Auto) 0.4 Absolute Neuts (auto) 7.5 Absolute Lymphs (auto) 1.2 Absolute Monos (auto) 1.1 Absolute Eos (auto) 0.0 Absolute Basos (auto) 0.0 Seg Neutrophils % 75.8 Sodium 134.5 L Potassium 3.7 Chloride 106 Carbon Dioxide 20 L Anion Gap 9 BUN 10 Creatinine 0.69 Est GFR ( Amer) > 60 Est GFR (MDRD) Non-Af > 60 Glucose 101 Calcium 8.1 L Total Bilirubin 1.0 Direct Bilirubin 0.2 Neonat Total Bilirubin Not Reportable Neonat Direct Bilirubin Not Reportable Neonat Indirect Bili Not Reportable AST 42 ALT 66 H Alkaline Phosphatase 58 Total Protein 5.6 L Albumin 2.9 L Lipase 253.2 Urine Color YELLOW Urine Appearance CLEAR Urine pH 7.0 Ur Specific [place] 1.010 Urine Protein NEGATIVE Urine Glucose (UA) NEGATIVE Urine Ketones NEGATIVE Urine Blood NEGATIVE Urine Nitrite NEGATIVE Urine Bilirubin NEGATIVE Urine Urobilinogen 2.0 H Ur Leukocyte Esterase NEGATIVE Urine WBC (Auto) 2 Urine RBC (Auto) 0 Squamous Epi Cells Auto <1 Urine Mucus (Auto) RARE Urine Ascorbic Acid NEGATIVE IMPRESSION/recommendation: 1. Atrial flutter: At present well controlled. We will discontinue the patient's IV Cardizem drip. We will continue the patient on Lopressor 50 mg p.o. every 12 hours and add digoxin 0.25 mg p.o. daily. Continue Eliquis. Patient stable patient desires to go home we will follow the patient as an outpatient. Discussed with Dr. Villalba 2. Dehydration: Resolved after hydration. We will stop the IV fluids. 3. Acute on chronic alcoholic pancreatitis: Continue supportive treatment For. Hypertension: Blood pressure stable. 4. Prior history of DVT and pulmonary embolism: Will continue the patient back on Eliquis. 5. Systolic murmur: Most likely there is some mild mitral regurgitation but will get an echocardiogram to be sure. This can be done as an outpatient Medications reviewed. Medical regimen and management plan discussed with Dr. Villalba. Patient cardiac status is stable. Medical decision making is of moderate complexity. The patient be discharged home. 40 minutes spent as patient with more than 50% of time spent in direct patient care. He will follow-up with me in the office. Will sign off.
== END 2019-08-16 13:37 | disposition home or self-care (01) | DRG 439 ==
LOC: ER 16:00 → EH 19:36 → 3W 21:40
PROVIDERS: ADMIT Family Medicine; ATTEND Family Medicine
DX: K85.20 Alcohol induced acute pancreatitis without necrosis or infection (principal); I50.32 Chronic diastolic (congestive) heart failure; I48.92 Unspecified atrial flutter; K86.0 Alcohol-induced chronic pancreatitis; K59.00 Constipation, unspecified; I48.91 Unspecified atrial fibrillation; F10.10 Alcohol abuse, uncomplicated; I11.0 Hypertensive heart disease with heart failure; K21.9 Gastro-esophageal reflux disease without esophagitis; F17.210 Nicotine dependence, cigarettes, uncomplicated; Y90.0 Blood alcohol level of less than 20 mg/100 ml
CPT/HCPCS: 36415; 74022; 76700; 80048; 80053; 80076; 80307; 81001; 82550; 82553; 83690; 83735; 83880; 84484; 85025; 87040; 87086; 93005; 93010; 96374; 96375; 99291; C9113; J0696; J1160; J1650; J2270; J2405; J3490; J7030

== ENCOUNTER 2019-10-04 21:36 | Emergency (ER) | payer BC ==
[2019-10-04] MEDS ORDERED: NORMAL SALINE 1000 ML 1,000 ML IV ONE (22:17)
[2019-10-04] MEDS ORDERED: ONDANSETRON HCL INJ/PF 4 MG/2 ML SDV IV ONE (22:17)
[2019-10-04 22:45] LABS: ABSOLUTE BASOPHILS # (AUTO) 0.1 10^3/uL (0.0-0.2); ABSOLUTE EOSINOPHILS # (AUTO) 0.1 10^3/uL (0.0-0.6); ABSOLUTE LYMPHOCYTES (AUTO) 2.2 10^3/uL (0.5-4.7); ABSOLUTE MONOCYTES (AUTO) 0.9 10^3/uL (0.1-1.4); BASOPHILS % (AUTO) 0.8 % (0-2); EOSINOPHILS % (AUTO) 0.6 % (0-6); HEMOGLOBIN 14.2 g/dL (13.5-17.0); LYMPHOCYTES % (AUTO) 23.5 % (13-45); MEAN CORPUSCULAR HEMOGLOBIN 25.1 pg (27.0-33.4); MEAN CORPUSCULAR HGB CONC 31.6 g/dL (32.0-36.0); MEAN CORPUSCULAR VOLUME 80 fl (80-97); MONOCYTES % (AUTO) 10.2 % (3-13); PLATELET COUNT 168 10^3/uL (150-450); RED BLOOD COUNT 5.65 10^6/uL (4.35-5.55); RED CELL DISTRIBUTION WIDTH 14.8 % (11.5-14.0); SEGMENTED NEUTROPHILS % (AUTO) 64.9 % (42-78); TOTAL CELLS COUNTED % (AUTO) 100 %; WHITE BLOOD COUNT 9.2 10^3/uL (4.0-10.5)
[2019-10-04 23:02] LABS: ALBUMIN 3.4 g/dL (3.5-5.0); ALKALINE PHOSPHATASE 83 U/L (38-126); ANION GAP 7 (5-19); ASPARTATE AMINO TRANSFERASE 285 U/L (17-59); BILIRUBIN,DIRECT 0.4 mg/dL (0.0-0.4); BILIRUBIN,TOTAL 1.4 mg/dL (0.2-1.3); BLOOD UREA NITROGEN 26 mg/dL (7-20); CALCIUM 8.7 mg/dL (8.4-10.2); CARBON DIOXIDE 24 mmol/L (22-30); CHLORIDE 106 mmol/L (98-107); GLUCOSE 112 mg/dL (75-110); POTASSIUM 3.5 mmol/L (3.6-5.0); TOTAL PROTEIN 6.4 g/dL (6.3-8.2)
[2019-10-04 23:13] LABS: APPEARANCE,URINE CLEAR; BILIRUBIN,URINE NEGATIVE (NEGATIVE); COLOR,URINE YELLOW; GLUCOSE, URINE NEGATIVE (NEGATIVE); KETONES,URINE NEGATIVE (NEGATIVE); LEUKOCYTE ESTERASE,URINE NEGATIVE (NEGATIVE); NITRITE,URINE NEGATIVE (NEGATIVE); PROTEIN,URINE 30 mg/dL (NEGATIVE); URINE SPECIFIC GRAVITY 1.013; UROBILINOGEN,URINE NEGATIVE mg/dL (<2.0)
[2019-10-04] MEDS ORDERED: FAMOTIDINE 20 MG TABLET PO ONE (23:18)
[2019-10-04] MEDS ORDERED: SUCRALFATE 1 GM TABLET PO ONE (23:18)
[2019-10-04] MEDS ORDERED: PROMETHAZINE HCL 25 MG TABLET PO ONE (23:18)
--- NOTE | 2019-10-04 23:22 | ER Document Report ---
ED General - General Chief Complaint: Nausea/Vomiting Stated Complaint: COUGH/SHORTNESS OF BREATH Time Seen by Provider: 10/04/19 23:05 Primary Care Provider: MAIK JERRY MD [Primary Care Provider] - Follow up as needed Notes: Patient is a 59-year-old male that comes emergency department for chief complaint of cough, generalized weakness, and 2 episodes of vomiting. He also states she has no energy and he is sleeping poorly. He denies fever, chest pain, or even particular abdominal pain. He does smoke, denies history of COPD or asthma. He does have a history of alcoholism and chronic pancreatitis although he states he has not had any alcohol over the past week. Remaining medical history includes hypertension, hyperlipidemia, atrial fib/flutter, diastolic congestive heart failure, he is on digoxin, Eliquis, metoprolol. He states he used to be on pantoprazole but was taken off. 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 He follows with Dr. Jerry. TRAVEL OUTSIDE OF THE [place] IN LAST 30 DAYS: No - Related Data Allergies/Adverse Reactions: KELLIE Inhibitors Allergy (Severe, Verified 08/14/19 16:14) Anaphylaxis lisinopril Allergy (Verified 08/14/19 16:14) Past Medical History - General Information source: Patient - Social History Smoking Status: Current Every Day Smoker Smoking Education Provided: Yes - <3 min Frequency of alcohol use: Occasional Drug Abuse: None Lives with: Family Family History: Hypertension Patient has homicidal ideation: No - Past Medical History Cardiac Medical History: Reports: Hx Atrial Fibrillation, Hx Congestive Heart Failure, Hx Hypercholesterolemia, Hx Hypertension, Hx Pulmonary Embolism Pulmonary Medical History: Reports: Hx Asthma Neurological Medical History: Denies: Hx Seizures Renal/ Medical History: Denies: Hx Peritoneal Dialysis GI Medical History: Reports: Hx Gastroesophageal Reflux Disease Musculoskeletal Medical History: Reports Hx Arthritis, Reports Hx Musculoskeletal Deformity, Reports Hx Musculoskeletal Trauma Psychiatric Medical History: Denies: Hx Depression Traumatic Medical History: Reports: Hx Fractures - ankle - Immunizations Hx Diphtheria, Pertussis, Tetanus Vaccination: Yes Review of Systems - Review of Systems Constitutional: See HPI EENT: No symptoms reported Cardiovascular: See HPI Respiratory: See HPI Gastrointestinal: See HPI Genitourinary: No symptoms reported Male Genitourinary: No symptoms reported Musculoskeletal: No symptoms reported Skin: No symptoms reported Hematologic/Lymphatic: No symptoms reported Neurological/Psychological: No symptoms reported Physical Exam - Vital signs Vitals: Temp Pulse Resp BP Pulse Ox 97.7 F 75 18 120/75 97 10/05/19 01:40 10/05/19 01:40 10/05/19 01:40 10/05/19 01:40 10/05/19 01:40 - Notes Notes: GENERAL: Alert, interacts well. No acute distress. HEAD: Normocephalic, atraumatic. EYES: Pupils equal, round, and reactive to light. Extraocular movements intact. ENT: Oral mucosa moist, tongue midline. Oropharynx unremarkable. Airway patent. Nares patent, sinuses non-tender, ear canals unremarkable, TM's intact. NECK: Full range of motion. Supple. Trachea midline. No lymphadenopathy. LUNGS: Few scattered coarse breath sounds, occasional congested cough, no wheezes, rales, rhonchi, no tachypnea, no respiratory distress HEART: Irregularly irregular, no tachycardia, no murmur ABDOMEN: Soft, non-tender. Non-distended. EXTREMITIES: Moves all 4 extremities spontaneously. No edema, normal radial and dorsalis pedis pulses bilaterally. No cyanosis. BACK: no cervical, thoracic, lumbar midline tenderness. No saddle anesthesia, normal distal neurovascular exam. Moves all extremities in full range of motion. NEUROLOGICAL: Alert and oriented x3. Normal speech. Cranial nerves II through XII grossly intact. Strength 5/5 in all extremities. PSYCH: Normal affect, normal mood. SKIN: Warm, dry, normal turgor. No rashes or lesions noted. Course - Re-evaluation Re-evalutation: Patient is actually quite well-appearing. He does have an occasional congested coughing episode and a few coarse breath sounds but otherwise his exam is unre markable. His abdomen is soft and benign. Vital signs unremarkable. He is afebrile. CBC nonspecific, chemistry shows slightly elevated creatinine at 1.45, mildly elevated LFTs with AST greater than ALT consistent with alcohol abuse, patient does admit to heavy drinking recently but not over the past few days. Patient had already been given IV fluids and Zofran on my evaluation, he was given p.o. medications for suspected gastritis, after this patient stated he felt great and he was already requesting to leave before I entered the room. Chest x-ray does not show pneumonia, troponin is not elevated, EKG nonischemic. Patient has a history of atrial fibrillation and he is not in RVR. He is already on metoprolol and Eliquis. He is not having chest pain. Clinical picture is most consistent with a bronchitis and neuritis. Discussed with patient, he will have his LFTs rechecked with primary care, he will avoid alcohol, he was given dexamethasone instead of prednisone for his symptoms to avoid worsening gastritis, he was given an inhaler, spacer, and treatments for gastritis. I did offer to test patient for the coronavirus but he declined. Discussed follow-up and return precautions. Patient does state he has excellent follow-up and he will see his primary care and return if he worsens. Stable and well-appearing at time of discharge. - Vital Signs Vital signs: Temp Pulse Resp BP Pulse Ox 97.7 F 75 18 120/75 97 10/05/19 01:40 10/05/19 01:40 10/05/19 01:40 10/05/19 01:40 10/05/19 01:40 - Laboratory Result Diagrams: 10/04/19 22:10 10/04/19 22:10 Laboratory results interpreted by me: 10/04/19 10/04/19 10/04/19 22:10 22:10 22:10 RBC 5.65 H MCH 25.1 L MCHC 31.6 L RDW 14.8 H Potassium 3.5 L BUN 26 H Creatinine 1.45 H Est GFR (MDRD) Non-Af 49 L Glucose 112 H Total Bilirubin 1.4 H AST 285 H ALT 191 H Albumin 3.4 L Urine Protein 30 H - EKG Interpretation by Me Additional EKG results interpreted by me: EKG shows atrial fibrillation at a rate of 113, borderline prolonged QT at 478, no T wave inversions or ST segment changes in consecutive leads, normal axis Discharge - Discharge Clinical Impression: Cough, Wheezing Vomiting Qualifiers: Vomiting type: unspecified Vomiting Intractability: unspecified Nausea presence: with nausea Qualified Code(s): R11.2 - Nausea with vomiting, unspecified Condition: Stable Disposition: HOME, SELF-CARE Additional Instructions: Your evaluation is consistent with bronchitis and gastritis (inflammation of your upper gastrointestinal tract). No pneumonia or concerning findings are seen otherwise. Continue to avoid alcohol, avoid smoking, [id number] anti-inflammatories, caffeine, spicy foods while you are recovering from this. Use inhaler if needed. Use the Carafate and Pepcid to heal your inflammation, use the Phenergan if needed for nausea, drink plenty fluids and rest. Start with bland foods. Follow-up with primary care. Come back if you worsen including difficulty breathing, spiking fever, uncontrolled vomiting, vomiting blood, black stools, or any other concerning symptoms. Prescriptions: Sucralfate [Carafate 1 gm Tablet] 1 gm PO QID #20 tablet Famotidine [Pepcid 20 mg Tablet] 20 mg PO BID #14 tablet Promethazine HCl [Phenergan 25 mg Tablet] 25 mg PO Q6H PRN #20 tablet PRN Reason: Albuterol Sulfate [Proair HFA Inhalation Aerosol 8.5 gm MDI] 2 puff IH Q4H PRN #1 mdi PRN Reason: Forms: Return to Work Referrals: MAIK JERRY MD [Primary Care Provider] - Follow up as needed
--- NOTE | 2019-10-04 23:36 | RADIOLOGY REPORT (SQ) ---
EXAM DESCRIPTION: XR CHEST 1 VIEW COMPLETED DATE/TME: 10/04/2019 22:18 CLINICAL HISTORY: 59 years Male, SOB COMPARISON: None. NUMBER OF VIEWS/TECHNIQUE: 1/AP FINDINGS: Adequate lung volume, clear parenchyma, normal cardiac silhouette, and intact bony thorax. IMPRESSION: No acute cardiopulmonary findings.
[2019-10-05] MEDS ORDERED: DEXAMETHASONE SOD PHOS INJ 10 MG/1 ML VIAL IV ONE (01:20)
[2019-10-05] MEDS ORDERED: ALBUTEROL SULFATE HFA (90 MCG/PUFF) 8 GM MDI IH ONE (01:21)
[2019-10-05 01:41] VITALS: BP 120/75
--- NOTE | 2019-10-05 11:15 | EKG REPORT ---
SEVERITY:- ABNORMAL ECG - ATRIAL FIBRILLATION - FLUTTER PAIRED VENTRICULAR PREMATURE COMPLEXES BORDERLINE PROLONGED QT INTERVAL : Confirmed by: Abhay Rowe MD 05-Oct-2019 11:14:49
== END 2019-10-05 01:41 | disposition home or self-care (01) ==
LOC: ER 21:36
DX: R06.2 Wheezing (principal); R05 Cough; R11.2 Nausea with vomiting, unspecified; R06.02 Shortness of breath; R53.1 Weakness; F17.210 Nicotine dependence, cigarettes, uncomplicated; I48.91 Unspecified atrial fibrillation; I50.9 Heart failure, unspecified; E78.00 Pure hypercholesterolemia, unspecified; I11.0 Hypertensive heart disease with heart failure
CPT/HCPCS: 93005; 99284; 96374; 96375; 36415; 83690; 85025; 80053; 81001; 84484; 71045; 93010; J2405; J1100; J3490

== ENCOUNTER 2019-10-12 05:45 | Emergency (ER) | payer BC ==
[2019-10-12] MEDS ORDERED: DILTIAZEM HCL INJ 25 MG/5 ML VIAL IV ONE (06:35)
[2019-10-12] MEDS ORDERED: IPRATROPIUM/ALBUTEROL 0.5-2.5 MG/3 ML AMPUL NEB ONE (06:35)
[2019-10-12] MEDS ORDERED: METHYLPREDNISOLONE INJ 125 MG/2 ML SDV IV ONE (06:36)
--- NOTE | 2019-10-12 06:42 | ER Document Report ---
ED General - General Chief Complaint: Shortness Of Breath Stated Complaint: SHORTNESS OF BREATH Time Seen by Provider: 10/12/19 06:16 Primary Care Provider: MAIK JERRY MD [Primary Care Provider] - Follow up as needed TRAVEL OUTSIDE OF THE [place] IN LAST 30 DAYS: No - HPI Notes: Chief complaint: Cough and shortness of breath History of present illness: 59-year-old male followed by Dr. Jerry (MD MAIK [Primary Care Provider] )-with history of chronic pancreatitis , COPD, alcohol abuse, cigar smoking, hypertensions, hyperlipidemia' Chronic atrial flutter and diastolic heart failure now presenting with 2-week history of increasing shortness of breath, cough productive of white sputum on accompanied by fever. He has no known covert exposure. Denies travel outside the area. Denies hemoptysis. Denies chest pain. Continues to smoke 2 to 3 cigars daily. Current medications: Digoxin 125 mcg PO DAILY Apixaban [Eliquis 5 mg Tablet] 5 mg PO BID Metoprolol Succinate [Toprol Xl 25 mg Tab.sr] 50 mg PO Q12 Furosemide [Lasix 20 mg Tablet] 20 mg PO DAILY #30 tablet 04/19/17 Docusate Sodium [Dok] 100 mg PO DAILYP PRN 10/11/17 Losartan Potassium [Cozaar 25 mg Tablet] 25 mg PO DAILY 08/14/19 Pantoprazole Sodium 40 mg PO BID 08/14/19 - Related Data Allergies/Adverse Reactions: KELLIE Inhibitors Allergy (Severe, Verified 10/12/19 06:14) Anaphylaxis lisinopril Allergy (Verified 10/12/19 06:14) Past Medical History - General Information source: Patient, [facility] Records - Social History Smoking Status: Current Every Day Smoker Frequency of alcohol use: daily Drug Abuse: None Lives with: Family Family History: Hypertension Patient has homicidal ideation: No - Past Medical History Cardiac Medical History: Reports: Hx Atrial Fibrillation, Hx Congestive Heart Failure, Hx Hypercholesterolemia, Hx Hypertension, Hx Pulmonary Embolism Pulmonary Medical History: Reports: Hx Asthma, Hx COPD Neurological Medical History: Denies: Hx Seizures Renal/ Medical History: Denies: Hx Peritoneal Dialysis GI Medical History: Reports: Hx Gastroesophageal Reflux Disease Musculoskeletal Medical History: Reports Hx Arthritis, Reports Hx Musculoskeletal Deformity, Reports Hx Musculoskeletal Trauma Psychiatric Medical History: Denies: Hx Depression Traumatic Medical History: Reports: Hx Fractures - ankle - Immunizations Hx Diphtheria, Pertussis, Tetanus Vaccination: Yes Review of Systems - Review of Systems Notes: Constitutional: Negative for fever. HENT: Negative for sore throat. Eyes: Negative for visual changes. Cardiovascular: As per HPI. Respiratory: As per HPI. Gastrointestinal: Negative for abdominal pain, vomiting or diarrhea. Genitourinary: Negative for dysuria. Musculoskeletal: Negative for back pain. Skin: Negative for rash. Neurological: Negative for headaches, weakness or numbness. 10 point ROS negative except as marked above and in HPI. Physical Exam - Vital signs Vitals: Temp Pulse Resp BP Pulse Ox 97.7 F 112 H 21 H 119/73 100 10/12/19 05:45 10/12/19 05:45 10/12/19 05:45 10/12/19 05:45 10/12/19 05:45 - Notes Notes: GENERAL: Male patient appearing approximately stated age who has a deep rattling cough but otherwise appears in no distress. SKIN: Good turgor no rashes. HEAD: Normocephalic atraumatic. EYES: PERRLA. EOMI. Conjunctivae and sclerae clear. EARS: CANALS AND TMS CLEAR. NOSE: CLEAR. MOUTH: Moist mucosa. Good dentition. No stridor or edema. No drooling. NECK: Supple. No masses or thyromegaly. No adenopathy. Carotids 2+ without bruits. No JVD. BACK: Symmetrical without tenderness. CHEST: Respirations unlabored. Deep rattling cough. Scattered rhonchi and end expiratory wheezes bilaterally. HEART: Rapid irregularly irregular rhythm. No murmur gallop or rub. ABDOMEN: Soft nontender without masses, organomegaly or rebound. Bowel sounds normally active. No bruits. GENITALIA: Deferred. EXTREMITIES: No edema. No calf tenderness. Cap refill less than 1.5 seconds. Dorsalis pedis and posterior tibial pulses 3+ and symmetrical. NEUROLOGICAL: GCS 15. Alert and oriented x3. Normal gait. Fluent speech. Cranial nerves II through XII intact. Sensorimotor and cerebellar normal. Normal tone. PSYCHIATRIC: Appropriate affect. Course - Re-evaluation Re-evalutation: 10/12/19 12:19 Clinically the patient appears to have exacerbation of COPD. He received IV Solu-Medrol and multiple DuoNeb treatments. His wheezes improved with this. No fever here. He is producing some sputum. His chest x-ray showed no focal infiltrate. He has a history of chronic CHF and his BNP is elevated consistent with this. He does not have a lot of peripheral edema. His heart rate was a little fast when he arrived here and he has a known history of chronic atrial fibrillation. He was given 1 IV dose of diltiazem and this brought his rate down but he transiently dropped his blood pressure into the 80s. We gave him a 500 cc fluid bolus and his blood pressure came back up appropriately. His EKG showed no ST changes and he had no complaint of chest pain. Troponin was normal. Reexamination currently shows resolution of wheezes and patient feels better clinically. He is oxygenating normally and his blood pressure is 135/100. His heart rate is 90 and his respiratory rate is 16. He appears stable for outpatient management will be started on oral steroids and doxycycline and instructed to follow-up with Dr. Jerry this week. Would also again advised him to stop smoking. - Vital Signs Vital signs: Temp Pulse Resp BP Pulse Ox 98 F 112 H 11 L 112/78 100 10/12/19 08:50 10/12/19 05:45 10/12/19 11:01 10/12/19 11:01 10/12/19 09:39 - Laboratory Result Diagrams: 10/12/19 06:56 10/12/19 06:56 Laboratory results interpreted by me: 10/12/19 10/12/19 10/12/19 06:56 06:56 06:56 RBC 5.66 H MCH 25.6 L MCHC 31.7 L RDW 15.7 H PT 17.6 H Chloride 110 H BUN 34 H Creatinine 1.52 H Est GFR ( Amer) 57 L Est GFR (MDRD) Non-Af 47 L AST 65 H ALT 70 H NT-Pro-B Natriuret Pep Albumin 3.3 L 10/12/19 06:56 RBC MCH MCHC RDW PT Chloride BUN Creatinine Est GFR ( Amer) Est GFR (MDRD) Non-Af AST ALT NT-Pro-B Natriuret Pep 93123 H Albumin - EKG Interpretation by Me Additional EKG results interpreted by me: 10/12/19 06:44 Twelve-lead EKG from 0611 hrs. reviewed contemporaneously by me showing atrial fibrillation with a rapid ventricular response of 128 bpm. QRS axis is normal at +63 degrees. Borderline prolongation of QT interval with QTC of [address]/T wave changes. Comparison with prior tracing of 10/04/2019 shows no significant interval change. Indication for current study: Dyspnea. Discharge - Discharge Clinical Impression: Acute bronchitis, COPD exacerbation Congestive heart failure (CHF) Qualifiers: Heart failure type: unspecified Heart failure chronicity: chronic Qualified Code(s): I50.9 - Heart failure, unspecified Condition: Stable Disposition: HOME, SELF-CARE Additional Instructions: Return here as needed for new or worsening symptoms: Pain that is worsening or unimproved Uncontrolled vomiting High fever or shaking chills Overall worsening Stop smoking Take prescribed medications as instructed. Follow-up this week with Dr. Jerry. Prescriptions: Prednisone [Deltasone 20 mg Tablet] 2 tab PO DAILY 5 Days tablet Doxycycline Monohydrate 100 mg PO BID #20 capsule Forms: Smoking Cessation Education, Return to Work Referrals: MAIK JERRY MD [Primary Care Provider] - Follow up as needed
[2019-10-12 07:10] LABS: ABSOLUTE BASOPHILS # (AUTO) 0.1 10^3/uL (0.0-0.2); ABSOLUTE LYMPHOCYTES (AUTO) 1.8 10^3/uL (0.5-4.7); ABSOLUTE MONOCYTES (AUTO) 1.2 10^3/uL (0.1-1.4); BASOPHILS % (AUTO) 0.7 % (0-2); EOSINOPHILS % (AUTO) 0.4 % (0-6); HEMATOCRIT 45.6 % (37.9-51.0); HEMOGLOBIN 14.5 g/dL (13.5-17.0); MEAN CORPUSCULAR HEMOGLOBIN 25.6 pg (27.0-33.4); MEAN CORPUSCULAR HGB CONC 31.7 g/dL (32.0-36.0); MEAN CORPUSCULAR VOLUME 81 fl (80-97); MONOCYTES % (AUTO) 11.4 % (3-13); PLATELET COUNT 179 10^3/uL (150-450); RED BLOOD COUNT 5.66 10^6/uL (4.35-5.55); RED CELL DISTRIBUTION WIDTH 15.7 % (11.5-14.0); SEGMENTED NEUTROPHILS % (AUTO) 69.5 % (42-78); TOTAL CELLS COUNTED % (AUTO) 100 %; WHITE BLOOD COUNT 10.1 10^3/uL (4.0-10.5)
[2019-10-12 07:12] LABS: INTERNATIONAL RATION (INR) 1.43; PROTHROMBIN TIME 17.6 SEC (11.4-15.4)
[2019-10-12 07:13] LABS: PARTIAL THROMBOPLASTIN TIME 29.6 SEC (23.5-35.8)
[2019-10-12] MEDS ORDERED: ONDANSETRON HCL INJ/PF 4 MG/2 ML SDV IV ONE (07:26)
[2019-10-12] MEDS ORDERED: NORMAL SALINE 500 ML IV ONE (07:26)
[2019-10-12 07:41] LABS: ALBUMIN 3.3 g/dL (3.5-5.0); ALKALINE PHOSPHATASE 98 U/L (38-126); ANION GAP 7 (5-19); ASPARTATE AMINO TRANSFERASE 65 U/L (17-59); BILIRUBIN,DIRECT 0.4 mg/dL (0.0-0.4); BILIRUBIN,TOTAL 1.2 mg/dL (0.2-1.3); BLOOD UREA NITROGEN 34 mg/dL (7-20); CALCIUM 8.4 mg/dL (8.4-10.2); CARBON DIOXIDE 23 mmol/L (22-30); CHLORIDE 110 mmol/L (98-107); GLUCOSE 95 mg/dL (75-110); POTASSIUM 4.7 mmol/L (3.6-5.0); TOTAL PROTEIN 6.6 g/dL (6.3-8.2)
--- NOTE | 2019-10-12 09:19 | RADIOLOGY REPORT (SQ) ---
EXAM DESCRIPTION: CHEST SINGLE VIEW IMAGES COMPLETED DATE/TIME: 10/12/2019 7:38 am REASON FOR STUDY: dyspnea COMPARISON: 10/04/2019 FINDINGS: One view chest AP portable upright. Cardiomegaly. No overt edema or airspace infiltrates. No pneumothorax or significant pleural fluid. Stable exam. TECHNICAL DOCUMENTATION: JOB ID: [id number] Reading location - IP/workstation name: [email or web address]
[2019-10-12 13:23] VITALS: BP 130/76
--- NOTE | 2019-10-12 20:51 | EKG REPORT ---
SEVERITY:- ABNORMAL ECG - ATRIAL FIBRILLATION, V-RATE 73-170 BORDERLINE PROLONGED QT INTERVAL : Confirmed by: Ashley Orourke 12-Oct-2019 20:51:17
== END 2019-10-12 13:18 | disposition home or self-care (01) ==
LOC: ER 05:45
DX: J20.9 Acute bronchitis, unspecified (principal); J44.1 Chronic obstructive pulmonary disease with (acute) exacerbation; I11.0 Hypertensive heart disease with heart failure; I50.9 Heart failure, unspecified; R06.02 Shortness of breath; R05 Cough; F17.290 Nicotine dependence, other tobacco product, uncomplicated; Z79.899 Other long term (current) drug therapy
CPT/HCPCS: 93005; 94640; 99284; 96361; 96374; 96375; 36415; 83735; 85025; 85610; 85730; 80053; 84484; 83880; 71045; 93010; J3490; J2930; J2405; J7040; J7620

== ENCOUNTER → 2019-10-17 | Outpatient (CLI) | payer BC ==
[2019-10-17 15:54] LABS: HEMATOCRIT 42.8 % (37.9-51.0); HEMOGLOBIN 13.6 g/dL (13.5-17.0); MEAN CORPUSCULAR HEMOGLOBIN 25.1 pg (27.0-33.4); MEAN CORPUSCULAR HGB CONC 31.7 g/dL (32.0-36.0); MEAN CORPUSCULAR VOLUME 79 fl (80-97); PLATELET COUNT 219 10^3/uL (150-450); RED CELL DISTRIBUTION WIDTH 15.5 % (11.5-14.0); WHITE BLOOD COUNT 17.3 10^3/uL (4.0-10.5)
[2019-10-17 16:08] LABS: ALBUMIN 3.2 g/dL (3.5-5.0); ALKALINE PHOSPHATASE 116 U/L (38-126); ANION GAP 6 (5-19); ASPARTATE AMINO TRANSFERASE 33 U/L (17-59); BILIRUBIN,DIRECT 0.4 mg/dL (0.0-0.4); BILIRUBIN,TOTAL 0.8 mg/dL (0.2-1.3); BLOOD UREA NITROGEN 41 mg/dL (7-20); CALCIUM 8.2 mg/dL (8.4-10.2); CARBON DIOXIDE 24 mmol/L (22-30); CHLORIDE 108 mmol/L (98-107); GLUCOSE 96 mg/dL (75-110); POTASSIUM 3.9 mmol/L (3.6-5.0); TOTAL PROTEIN 5.5 g/dL (6.3-8.2)
[2019-10-17 16:29] LABS: ABSOLUTE LYMPHOCYTES# (MANUAL) 4.7 10^3/uL (0.5-4.7); ABSOLUTE MONOCYTES # (MANUAL) 1.2 10^3/uL (0.1-1.4); BASOPHILS % (MANUAL) 0 % (0-2); EOSINOPHILS % (MANUAL) 0 % (0-6); LYMPHOCYTES % (MANUAL) 25 % (13-45); MONOCYTES % (MANUAL) 7 % (3-13); NUCLEATED RED BLOOD CELLS 1 /100 WBC (0); SEGMENTED NEUTROPHILS % (MAN) 66 % (42-78); TOTAL CELLS COUNTED 100
[2019-10-17 16:31] LABS: ANISOCYTOSIS SLIGHT; OVALOCYTES SLIGHT; PLATELET COMMENT ADEQUATE; POIKILOCYTOSIS SLIGHT; TARGET CELLS SLIGHT
--- NOTE | 2019-10-17 16:38 | RADIOLOGY REPORT (SQ) ---
EXAM DESCRIPTION: CHEST PA/LATERAL IMAGES COMPLETED DATE/TIME: 10/17/2019 3:22 pm REASON FOR STUDY: CHRONIC DIASTOLIC (CONGESTIVE) HEART FAILURE COMPARISON: 10/12/2019 EXAM PARAMETERS: NUMBER OF VIEWS: two views TECHNIQUE: Digital Frontal and Lateral radiographic views of the chest acquired. RADIATION DOSE: NA LIMITATIONS: none FINDINGS: LUNGS AND PLEURA: Cannot exclude mild pulmonary edema. MEDIASTINUM AND HILAR STRUCTURES: No masses or contour abnormalities. HEART AND VASCULAR STRUCTURES: Cardiomegaly. BONES: No acute findings. HARDWARE: None in the chest. OTHER: No other significant finding. IMPRESSION: Cardiomegaly with mild pulmonary edema. TECHNICAL DOCUMENTATION: JOB ID: [id number] 2010 [employer]- All Rights Reserved Reading location - IP/workstation name: [email or web address]
== END ==
LOC: OD 14:58
PROVIDERS: ATTEND Family Medicine
DX: I50.32 Chronic diastolic (congestive) heart failure (principal); D50.0 Iron deficiency anemia secondary to blood loss (chronic); I51.7 Cardiomegaly
CPT/HCPCS: 36415; 71046; 80053; 83880; 85025